=== PATIENT | female | born 1960 | race Caucasian/White ===

== ENCOUNTER → 2018-05-10 11:57 | Outpatient (CLI) | payer MEDICARE, SELFPAY ==
--- NOTE | 2018-05-10 12:00 | CT_ITS ---
STUDY: LOW DOSE CT LUNG CANCER SCREENING REASON FOR EXAM: Female, 57 years old. Vacuo used, 44 pack-year history. Screening. RADIATION DOSAGE (If Supplied By Facility): CTDIvol = ( 2.01 ) mGy, DLP = ( 65.45 ) mGycm TECHNIQUE: No contrast was administered. Low dose technique was utilized (average mAS-38 and kVp 120). 1.25 mm axial source images with a slice interval of 1.25-mm were reconstructed in lung windows. Nodule measured using lung windows on PACS and/or independent workstation with automated measurement of minimum and maximum diameter. Nodule measurement reported as average diameter rounded to the nearest whole number. Growth is defined as an increase ins size of greater than 1.5 mm. COMPARISON: None. FINDINGS: Total lung nodules (excluding granulomas): Punctate pole nodule left lower lobe series 2 image 186. Punctate pulmonary nodule left lower lobe image 150. Punctate pulmonary nodule right upper lobe image 73. Next line each of these pulmonary nodules appears to be solid and measures less than 2 mm. The lungs are otherwise clear. Emphysema: Generalized pulmonary hyperlucency with features of mild centrilobular emphysema at the apices. Endobronchial lesion: No endobronchial lesions. Aorta: Nondilated aorta, minimal arch atherosclerosis. Coronary arteries: Three-vessel coronary calcifications, moderate in the proximal to mid LAD, moderate in the proximal circumflex, mild in the proximal to mid RCA. Heart: Normal heart size without effusion. Pulmonary artery: Nondilated central pulmonary arteries. Mediastinal nodes: Normal esophagus. There is no mediastinal or hilar mass or lymphadenopathy. Other chest and abdominal findings: No other acute cardio thoracic abnormalities. CT/Low Dose CT Lung Screening IMPRESSION: Punctate nonspecific pulmonary nodules bilaterally. Lung RADS category 2, benign appearance, less than 1% chance of malignancy. Recommend annual low dose screening CT of the chest for continued surveillance. Mild features of emphysema. Three-vessel coronary atherosclerosis. IMPORTANT NOTES FOR USE: ACR Lung-RADS Version 1.0 Assessment Categories Release Date: January 29, 2014 Category: Coded 0-4 bases on nodule(s) with highest degree of suspicion. Negative screen is defined as categories 1 and 2; a positive screen is defined as categories 3 and 4. Category 3 and 4A nodules that are unchanged on interval CT should be coded as category 2, and individuals returned to screening in 12 months. Category 4X: Category 3 or 4 nodules with additional imaging findings that increase the suspicion of lung cancer, such as spiculation, GGN that doubles in size in 1 year, enlarged lymph notes, etc. Category Modifiers: S (significant finding unrelated to lung cancer) and C (prior history of treated lung cancer) may be added to the 0-4 Lung-RADS Electronically Signed: Harry West, at 12:59 EDT Tel , Service support ,
== END ==
PROVIDERS: Family Provider Family Medicine Geriatric Medicine; PCP Family Medicine Geriatric Medicine; Visit Provider Family Medicine Geriatric Medicine
DX: Z87.891 Personal history of nicotine dependence (principal)
CPT/HCPCS: G0297

== ENCOUNTER → 2018-05-11 13:00 | Outpatient (CLI) | payer MEDICARE, SELFPAY ==
--- NOTE | 2018-05-11 13:01 | BI_ITS ---
MAMMOGRAPHY - BILATERAL SCREENING 3-D DENILSON SYNTHESIS REASON FOR EXAM: Female, 57 years old. Bilateral Screening 3-D tomosynthesis PERTINENT HISTORY: Asymptomatic. Right stereotactic biopsy 2014, negative. No significant family history. TECHNIQUE: 2-D mammograms and 3-D Denilson synthesis of the breast (s) were performed. CAD was performed. COMPARISON: 07/30/2015, 04/05/2014. FINDINGS: The breast composition is composed of scattered fibroglandular density. No new asymmetric density, dominant mass, dense spiculated masses, abnormal clustered microcalcifications, architectural distortion, skin thickening or nipple retraction identified. Coarse benign-appearing calcifications. Postsurgical right breast. No new abnormality identified with tomosynthesis. There has been no significant change since the prior study. BI/SCREENING MAMM (CAD), BILAT IMPRESSION: No mammographic signs of malignancy. Routine yearly mammograms recommended. ASSESSMENT CATEGORY: BIRADS Category 2: Benign. A letter regarding these results will be sent to the patient by the facility within 30 days. FOLLOW UP RECOMMENDATION: Yearly follow up mammogram recommended. (A) Negative results should not deter biopsy as a palpable lesion should be followed on clinical grounds and biopsy performed if clinically persistent for 3 months or increasing size. Approximately 10% of breast cancers are not detected by mammography. A normal mammogram should not delay biopsy of a clinically suspicious abnormality. . Electronically Signed: Sriram Nieto, at 21:53 EDT Tel , Service support ,
== END ==
PROVIDERS: Family Provider Family Medicine Geriatric Medicine; PCP Family Medicine Geriatric Medicine; Visit Provider Family Medicine Geriatric Medicine
DX: Z12.31 Encounter for screening mammogram for malignant neoplasm of breast (principal)
CPT/HCPCS: 77063; 77067

== ENCOUNTER → 2018-09-29 13:05 | Outpatient (CLI) | payer MEDICARE, SELFPAY ==
[2018-09-29 17:07] LABS: Absolute Lymphocyte Count 2.53 X10^3/ul (0.83-4.51); Absolute Neutrophil Count 1.9 X10^3/uL (2.0-7.7); Basophil# 0.02 X10^3/uL; Basophil% 0.4 % (0-1); Eosinophil# 0.03 X10^3/uL; Eosinophils% 0.5 % (0-5); Hematocrit 42.7 % (37-47); Hemoglobin 14.4 g/dl (12.0-15.0); Lymphocyte # 2.53 X10^3/ul (4.0); Lymphocyte % 46.2 % (19-41); Mean Corp Hgb Conc 33.7 g/gl (32-36); Mean Corpuscular Hgb 35.5 pg (27.0-32.0); Mean Corpuscular Volume 105.2 fL (81-99); Monocyte# 0.96 X10^3/uL; Monocyte% 17.5 % (0-10); Neutrophil # 1.92 X10^3/uL (2.7-7.7); Platelet Count 187 K/mm3 (150-450); RBC Distribution Width CV 12.3 % (11.6-14.6); RBC Distribution Width SD 46.8 fl (35.1-43.9); Red Blood Count 4.06 M/mm3 (4.2-5.4); White Blood Count 5.5 K/mm3 (4.4-11.0)
[2018-09-29 17:20] LABS: Vitamin D,25 Hydroxy 19.3 ng/mL (29.95-100.01)
[2018-09-29 17:21] LABS: POSITIVE COUNT NO; POSITIVE DIFFERENTIAL NO; POSITIVE MORPHOLOGY NO
[2018-09-29 17:28] LABS: AST(SGOT) 23 U/L (15-37); Alanine Aminotransfer ALT/SGPT 27 U/L (13-56); Albumin, Serum 3.2 g/dL (3.2-5.0); Alkaline Phosphatase 55 U/L (45-117); Anion Gap 8 (5-15); BUN 12 mg/dL (7-18); BUN/Creat Ratio 20.4 RATIO (10-20); Calcium,Total 8.4 mg/dL (8.5-10.1); Chloride 110 mmol/L (98-107); Cholesterol 187 mg/dL (200); Creatinine, Serum 0.59 mg/dL (0.55-1.02); EST Glomerular Filtration Rate 112 mL/min (>60); Est Glom Filt Rate - Afr Amer 135 mL/min (>60); Globulin 3.3 g/dL (2.2-4.2); Glucose 74 mg/dL (74-106); High Density Lipoprotein 70 mg/dL; Potassium 4.2 mmol/L (3.5-5.1); Protein, Total 6.5 g/dL (6.4-8.2); Sodium Level 141 mmol/L (136-145); Thyroid Stim Hormone (TSH) 0.52 uIU/mL (0.358-3.74); Triglycerides 84 mg/dL; Very Low Density Lipoprotein 17 mg/dL (5-40)
== END ==
LOC: POLAB3 13:06
PROVIDERS: Family Provider Family Medicine Geriatric Medicine; PCP Family Medicine Geriatric Medicine; Visit Provider Family Medicine Geriatric Medicine
DX: E55.9 Vitamin D deficiency, unspecified (principal); R53.83 Other fatigue; E78.5 Hyperlipidemia, unspecified
CPT/HCPCS: 36415; 80053; 80061; 82306; 84443; 85025

== ENCOUNTER → 2019-01-23 12:19 | Outpatient (CLI) | payer MEDICARE, SELFPAY ==
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
== END ==
LOC: RAD 12:22
PROVIDERS: Family Provider Family Medicine Geriatric Medicine; PCP Family Medicine Geriatric Medicine; Referring Provider Family Medicine Geriatric Medicine; Visit Provider Family Medicine Geriatric Medicine
DX: M54.5 Low back pain (principal)
CPT/HCPCS: 72100

== ENCOUNTER → 2019-03-30 13:28 | Outpatient (CLI) | payer MEDICARE, SELFPAY ==
[2019-03-30 17:23] LABS: Absolute Lymphocyte Count 2.66 X10^3/ul (0.83-4.51); Absolute Neutrophil Count 2.7 X10^3/uL (2.0-7.7); Basophil# 0.02 X10^3/uL; Basophil% 0.3 % (0-1); Eosinophil# 0.02 X10^3/uL; Eosinophils% 0.3 % (0-5); Hemoglobin 14.7 g/dl (12.0-15.0); Lymphocyte # 2.66 X10^3/ul (4.0); Lymphocyte % 42.2 % (19-41); Mean Corp Hgb Conc 34.2 g/gl (32-36); Mean Corpuscular Hgb 35.5 pg (27.0-32.0); Mean Corpuscular Volume 103.9 fL (81-99); Mean Platelet Vol. 11.3 fl (6.2-12.0); Monocyte# 0.88 X10^3/uL; Neutrophil % 42.9 % (47-70); Platelet Count 149 K/mm3 (150-450); RBC Distribution Width CV 13.3 % (11.6-14.6); RBC Distribution Width SD 50.3 fl (35.1-43.9); Red Blood Count 4.14 M/mm3 (4.2-5.4); White Blood Count 6.3 K/mm3 (4.4-11.0)
[2019-03-30 17:25] LABS: POSITIVE COUNT NO; POSITIVE DIFFERENTIAL NO; POSITIVE MORPHOLOGY NO
[2019-03-30 17:41] LABS: AST(SGOT) 30 U/L (15-37); Alanine Aminotransfer ALT/SGPT 44 U/L (13-56); Albumin, Serum 3.3 g/dL (3.2-5.0); Alkaline Phosphatase 52 U/L (45-117); Anion Gap 10 (5-15); BUN 16 mg/dL (7-18); BUN/Creat Ratio 20.3 RATIO (10-20); Calcium,Total 8.7 mg/dL (8.5-10.1); Chloride 107 mmol/L (98-107); Cholesterol 180 mg/dL (200); Creatinine, Serum 0.79 mg/dL (0.55-1.02); EST Glomerular Filtration Rate 79 mL/min (>60); Est Glom Filt Rate - Afr Amer 96 mL/min (>60); Globulin 3.3 g/dL (2.2-4.2); Glucose 122 mg/dL (74-106); High Density Lipoprotein 89 mg/dL; Potassium 4.3 mmol/L (3.5-5.1); Protein, Total 6.6 g/dL (6.4-8.2); Sodium Level 141 mmol/L (136-145); Thyroid Stim Hormone (TSH) 1.02 uIU/mL (0.358-3.74); Triglycerides 69 mg/dL; Very Low Density Lipoprotein 14 mg/dL (5-40)
[2019-03-30 17:57] LABS: Vitamin D,25 Hydroxy 26.2 ng/mL (29.95-100.01)
== END ==
LOC: POLAB3 13:29
PROVIDERS: Family Provider Family Medicine Geriatric Medicine; PCP Family Medicine Geriatric Medicine; Visit Provider Family Medicine Geriatric Medicine
DX: E78.5 Hyperlipidemia, unspecified (principal); E55.9 Vitamin D deficiency, unspecified; R53.83 Other fatigue
CPT/HCPCS: 36415; 80053; 80061; 82306; 84443; 85025

== ENCOUNTER → 2019-09-28 17:06 | Outpatient (CLI) | payer MEDICARE, SELFPAY ==
[2019-06-26 13:49] VITALS: BMI 24.2
== END ==
PROVIDERS: Family Provider Family Medicine Geriatric Medicine; PCP Family Medicine Geriatric Medicine; Referring Provider Family Medicine Geriatric Medicine; Visit Provider Family Medicine Geriatric Medicine
DX: R68.83 Chills (without fever) (principal)
CPT/HCPCS: 87633

== ENCOUNTER → 2019-10-09 15:17 | Outpatient (CLI) | payer MEDICARE, SELFPAY ==
[2019-06-26 13:49] VITALS: BMI 24.2
[2019-10-09 18:06] LABS: Absolute Lymphocyte Count 3.97 X10^3/uL (0.83-4.51); Basophil# 0.05 X10^3/uL; Basophil% 0.6 % (0-1); Eosinophil# 0.04 X10^3/uL; Eosinophils% 0.5 % (0-5); Hematocrit 42.3 % (37-47); Hemoglobin 14.2 g/dL (12.0-15.0); Lymphocyte # 3.97 X10^3/ul (4.0); Lymphocyte % 47.1 % (19-41); Mean Corp Hgb Conc 33.6 g/dL (32-36); Mean Corpuscular Hgb 35.9 pg (27.0-32.0); Mean Corpuscular Volume 107.1 fL (81-99); Monocyte# 1.29 X10^3/uL; Monocyte% 15.3 % (0-10); NRBC Flagged by Analyzer 0 % (0-5); Neutrophil # 3.03 X10^3/uL (2.7-7.7); Neutrophil % 35.9 % (47-70); Platelet Count 137 K/mm3 (150-450); RBC Distribution Width CV 13.2 % (11.6-14.6); RBC Distribution Width SD 52.7 fl (35.1-43.9); Red Blood Count 3.95 M/mm3 (4.2-5.4); White Blood Count 8.4 K/mm3 (4.4-11.0)
[2019-10-09 18:07] LABS: Vitamin D,25 Hydroxy 30.1 ng/mL (29.95-100.01)
[2019-10-09 18:12] LABS: ALB/GLOB Ratio 0.9 RATIO (0.9-2.4); AST(SGOT) 18 U/L (15-37); Alanine Aminotransfer ALT/SGPT 28 U/L (13-56); Albumin, Serum 3.1 g/dL (3.2-5.0); Alkaline Phosphatase 52 U/L (45-117); Anion Gap 7 (5-15); BUN 24 mg/dL (7-18); BUN/Creat Ratio 37.7 RATIO (10-20); Calcium,Total 8.5 mg/dL (8.5-10.1); Chloride 102 mmol/L (98-107); Cholesterol 215 mg/dL (200); Creatinine, Serum 0.64 mg/dL (0.55-1.02); EST Glomerular Filtration Rate 101 mL/min (>60); Est Glom Filt Rate - Afr Amer 123 mL/min (>60); Globulin 3.5 g/dL (2.2-4.2); Glucose 75 mg/dL (74-106); High Density Lipoprotein 85 mg/dL; Potassium 4.1 mmol/L (3.5-5.1); Protein, Total 6.6 g/dL (6.4-8.2); Sodium Level 135 mmol/L (136-145); Thyroid Stim Hormone (TSH) 1.64 uIU/mL (0.358-3.74); Triglycerides 97 mg/dL; Very Low Density Lipoprotein 19 mg/dL (5-40)
== END ==
PROVIDERS: Family Provider Family Medicine Geriatric Medicine; PCP Family Medicine Geriatric Medicine; Visit Provider Family Medicine Geriatric Medicine
DX: E55.9 Vitamin D deficiency, unspecified (principal); E78.5 Hyperlipidemia, unspecified; R53.83 Other fatigue
CPT/HCPCS: 36415; 80053; 80061; 82306; 84443; 85025

== ENCOUNTER → 2019-10-10 14:55 | Outpatient (CLI) | payer MEDICARE, SELFPAY ==
[2019-06-26 13:49] VITALS: BMI 24.2
--- NOTE | 2019-10-10 15:00 | CT_ITS ---
HISTORY: LUNG CANCER SCREENING, CT=[id number], 50 pack-year smoking history EXAMINATION: CT Low Dose CT Chest for Lung Cancer Screening TECHNIQUE: Helically acquired images were obtained of the chest utilizing low dose technique. A radiation dose optimization technique was used for this scan. IV Contrast dosage and agent: None. COMPARISON: 05/10/2018 FINDINGS: No significant change. Lungs and pleura: Bilateral centrilobular emphysema with upper lobe predominance. No pulmonary nodule or new lesion. No focal infiltrate. No pleural effusion or significant pleural disease. Peripheral right lung base mild linear scarring or minor atelectasis. Heart, mediastinum, and great vessels: Atherosclerotic thoracic aorta which is normal in caliber. Coronary artery calcifications. Normal heart size. No pericardial effusion. No lymphadenopathy. Bones: No acute osseous abnormality. No suspicious bony lesion. Upper abdomen: No acute disease. CT/Low Dose CT Lung Screening IMPRESSION: 1. No acute disease or suspicious lesion. 2. Chronic lung disease with emphysema. Recommend continued surveillance with annual low-dose CT screening. 3. Atherosclerotic calcifications including coronary artery calcifications. Lung RADS: Category 1: Negative Individualized dose optimization techniques were used for this CT. at 0312 Reported and signed by: Davin Hawkins MD Electronically Signed: Davin Hawkins, at 3:11 EST Tel , Service support ,
== END ==
PROVIDERS: Family Provider Family Medicine Geriatric Medicine; PCP Family Medicine Geriatric Medicine; Referring Provider Family Medicine Geriatric Medicine; Visit Provider Family Medicine Geriatric Medicine
DX: Z12.2 Encounter for screening for malignant neoplasm of respiratory organs (principal); Z87.891 Personal history of nicotine dependence; J43.9 Emphysema, unspecified; I25.10 Atherosclerotic heart disease of native coronary artery without angina pectoris
CPT/HCPCS: G0297

== ENCOUNTER → 2020-04-10 14:54 | Outpatient (CLI) | payer MEDICARE, SELFPAY ==
[2019-06-26 13:49] VITALS: BMI 24.2
[2020-04-10 16:10] LABS: Absolute Lymphocyte Count 3.32 X10^3/uL (0.83-4.51); Absolute Neutrophil Count 1.8 X10^3/uL (2.0-7.7); Basophil# 0.03 X10^3/uL; Basophil% 0.5 % (0-1); Eosinophil# 0.01 X10^3/uL; Eosinophils% 0.2 % (0-5); Hematocrit 42.1 % (37-47); Hemoglobin 14.2 g/dL (12.0-15.0); Lymphocyte # 3.32 X10^3/ul (4.0); Lymphocyte % 54.5 % (19-41); Mean Corp Hgb Conc 33.7 g/dL (32-36); Mean Corpuscular Hgb 35.4 pg (27.0-32.0); Mean Platelet Vol. 11.5 fl (6.2-12.0); Monocyte# 0.89 X10^3/uL; Monocyte% 14.6 % (0-10); NRBC Flagged by Analyzer 0 % (0-5); Neutrophil # 1.82 X10^3/uL (2.7-7.7); Neutrophil % 29.9 % (47-70); Platelet Count 164 K/mm3 (150-450); RBC Distribution Width SD 46.5 fl (35.1-43.9); Red Blood Count 4.01 M/mm3 (4.2-5.4); White Blood Count 6.1 K/mm3 (4.4-11.0)
[2020-04-10 16:29] LABS: Vitamin D,25 Hydroxy 28.4 ng/mL
[2020-04-10 17:06] LABS: ALB/GLOB Ratio 0.9 RATIO (0.9-2.4); AST(SGOT) 17 U/L (15-37); Alanine Aminotransfer ALT/SGPT 23 U/L (13-56); Albumin, Serum 3.1 g/dL (3.2-5.0); Alkaline Phosphatase 62 U/L (45-117); Anion Gap 6 (5-15); BUN 27 mg/dL (7-18); BUN/Creat Ratio 42.5 RATIO (10-20); Calcium,Total 8.4 mg/dL (8.5-10.1); Chloride 102 mmol/L (98-107); Cholesterol 195 mg/dL (200); Creatinine, Serum 0.64 mg/dL (0.55-1.02); EST Glomerular Filtration Rate 101 mL/min (>60); Est Glom Filt Rate - Afr Amer 123 mL/min (>60); Globulin 3.6 g/dL (2.2-4.2); Glucose 79 mg/dL (74-106); High Density Lipoprotein 72 mg/dL; Potassium 4.5 mmol/L (3.5-5.1); Protein, Total 6.7 g/dL (6.4-8.2); Sodium Level 136 mmol/L (136-145); Thyroid Stim Hormone (TSH) 2.06 uIU/mL (0.358-3.74); Triglycerides 123 mg/dL; Very Low Density Lipoprotein 25 mg/dL (5-40)
== END ==
LOC: POLAB3 14:54
PROVIDERS: PCP Family Medicine Geriatric Medicine; Visit Provider Family Medicine Geriatric Medicine
DX: E55.9 Vitamin D deficiency, unspecified (principal); E78.5 Hyperlipidemia, unspecified; R53.83 Other fatigue
CPT/HCPCS: 36415; 80053; 80061; 82306; 84443; 85025

== ENCOUNTER → 2021-02-12 08:55 | Outpatient (CLI) | payer MEDICARE, SELFPAY ==
--- NOTE | 2021-02-12 09:01 | US_ITS ---
STUDY: ULTRASOUND BREAST - RIGHT REASON FOR EXAM: Female, 60 years old. Right breast lump adjacent to the nipple. TECHNIQUE: Axial and longitudinal images of the RIGHT breast were performed with a high resolution ultrasound transducer. # OF IMAGES: 16 COMPARISON: Comparison is made with prior mammogram done earlier in the day. FINDINGS: RIGHT Breast: The periareolar region was examined by ultrasound. No sonographic abnormality is seen. US/Breast Limited Unilateral IMPRESSION: No sonographic abnormality is seen. ASSESSMENT CATEGORY: BIRADS Category 1: Negative. A letter regarding these results will be sent to the patient by the facility within 30 days. Electronically Signed: Luis F Ruelas MD at 10:54 EDT , Service support ,
--- NOTE | 2021-02-12 09:01 | BI_ITS ---
MAMMOGRAPHY - BILATERAL DIAGNOSTIC REASON FOR EXAM: Female, 60 years old. Pea-sized lump adjacent to the right nipple. Occasional tenderness. PERTINENT HISTORY: Prior right stereotactic and needle biopsy of the right breast. TECHNIQUE: Digital bilateral breast yuliet (3D mammographic acquisition) in the CC and MLO projections. 2-D mediolateral oblique (MLO) and craniocaudad (CC) views of both breasts were obtained. CAD: Full Field Digital Mammography with Computer Added Detection was performed. COMPARISON: Comparison is made with prior study dated 05/11/2018. FINDINGS: Breast Composition: The breasts are heterogeneously dense, which may obscure small masses. There are no dominant masses or suspicious calcifications. Tissue clip marker is once again seen in the upper deep lateral portion of the right breast. A tissue clip marker is also seen within a partially calcified nodule in the deep inferior medial portion of the right breast. Calcifications are progressed in this nodule since prior study suggestive of a calcifying fibroadenoma. No other significant abnormalities are identified. There has been no significant change since the prior study. BI/DIAG MAMM W/CAD, BILAT IMPRESSION: Stable bilateral diagnostic mammogram. With the patient''s history of a palpable lump in the region of the right alveolar, correlation with ultrasound is recommended. ASSESSMENT CATEGORY: BIRADS Category 0: Incomplete. Need additional imaging evaluation. A letter regarding these results will be sent to the patient by the facility within 30 days. Approximately 10% of breast cancers are not detected by mammography. A normal mammogram should not delay biopsy of a clinically suspicious abnormality. Electronically Signed: Luis F Ruelas MD at 9:53 EDT , Service support ,
== END ==
PROVIDERS: PCP Family Medicine Geriatric Medicine; Referring Provider Family Medicine Geriatric Medicine; Visit Provider Family Medicine Geriatric Medicine
DX: N63.10 Unspecified lump in the right breast, unspecified quadrant (principal); R92.8 Other abnormal and inconclusive findings on diagnostic imaging of breast
CPT/HCPCS: 76642; 77062; 77066; G0279

== ENCOUNTER → 2021-04-14 13:08 | Outpatient (CLI) | payer MEDICARE, SELFPAY ==
[2021-04-14 15:20] LABS: Absolute Lymphocyte Count 3.89 X10^3/uL (0.83-4.51); Absolute Neutrophil Count 1.6 X10^3/uL (2.0-7.7); Basophil# 0.04 X10^3/uL; Basophil% 0.6 % (0-1); Eosinophil# 0.02 X10^3/uL; Eosinophils% 0.3 % (0-5); Hematocrit 39.5 % (37-47); Hemoglobin 13.5 g/dL (12.0-15.0); Lymphocyte # 3.89 X10^3/ul (0.83-4.51); Lymphocyte % 59.8 % (19-41); Mean Corp Hgb Conc 34.2 g/dL (32-36); Mean Corpuscular Hgb 34.8 pg (27.0-32.0); Mean Corpuscular Volume 101.8 fL (81-99); Mean Platelet Vol. 11.5 fl (6.2-12.0); Monocyte# 0.95 X10^3/uL; Monocyte% 14.6 % (0-10); NRBC Flagged by Analyzer 0 % (0-5); Neutrophil # 1.59 X10^3/uL (2.7-7.7); Neutrophil % 24.5 % (47-70); Platelet Count 162 K/mm3 (150-450); RBC Distribution Width CV 12.9 % (11.6-14.6); RBC Distribution Width SD 48.2 fl (35.1-43.9); Red Blood Count 3.88 M/mm3 (4.2-5.4); White Blood Count 6.5 K/mm3 (4.4-11.0)
[2021-04-14 15:41] LABS: ALB/GLOB Ratio 0.9 RATIO (0.9-2.4); AST(SGOT) 21 U/L (15-37); Alanine Aminotransfer ALT/SGPT 22 U/L (13-56); Albumin, Serum 3.1 g/dL (3.2-5.0); Alkaline Phosphatase 52 U/L (45-117); Anion Gap 8 (5-15); BUN 21 mg/dL (7-18); BUN/Creat Ratio 37.7 RATIO (10-20); Calcium,Total 8.7 mg/dL (8.5-10.1); Chloride 107 mmol/L (98-107); Creatinine, Serum 0.56 mg/dL (0.55-1.02); EST Glomerular Filtration Rate 118 mL/min (>60); Est Glom Filt Rate - Afr Amer 143 mL/min (>60); Globulin 3.3 g/dL (2.2-4.2); Glucose 79 mg/dL (74-106); Potassium 4.2 mmol/L (3.5-5.1); Protein, Total 6.4 g/dL (6.4-8.2); Sodium Level 140 mmol/L (136-145); Thyroid Stim Hormone (TSH) 1.58 uIU/mL (0.358-3.74)
[2021-04-14 15:49] LABS: Vitamin D,25 Hydroxy 26.2 ng/mL
== END ==
PROVIDERS: PCP Family Medicine Geriatric Medicine; Visit Provider Family Medicine Geriatric Medicine
DX: E55.9 Vitamin D deficiency, unspecified (principal); E78.5 Hyperlipidemia, unspecified; R53.83 Other fatigue
CPT/HCPCS: 36415; 80053; 82306; 84443; 85025

== ENCOUNTER → 2021-07-11 11:00 | Outpatient (CLI) | payer MEDICARE, MEDICAID, SELFPAY ==
[2021-07-12 12:29] LABS: Probe Check PASS; Specimen Processing Control PASS
== END ==
PROVIDERS: PCP Family Medicine Geriatric Medicine; Visit Provider Family Medicine Geriatric Medicine
DX: U07.1 COVID-19 (principal)
CPT/HCPCS: 87635; 87804; 87807; U0005; U0003

== ENCOUNTER → 2022-02-12 | Outpatient (CLI) | payer MEDICARE, MEDICAID, SELFPAY ==
[2022-02-12 16:41] LABS: Absolute Lymphocyte Count 3.03 X10^3/uL (0.83-4.51); Absolute Neutrophil Count 2.1 X10^3/uL (2.0-7.7); Basophil# 0.02 X10^3/uL; Basophil% 0.3 % (0-1); Eosinophil# 0.02 X10^3/uL; Eosinophils% 0.3 % (0-5); Hematocrit 39.1 % (37-47); Hemoglobin 14.1 g/dL (12.0-15.0); Lymphocyte # 3.03 X10^3/ul (0.83-4.51); Lymphocyte % 50.8 % (19-41); Mean Corp Hgb Conc 36.1 g/dL (32-36); Mean Corpuscular Hgb 35.3 pg (27.0-32.0); Mean Platelet Vol. 11.6 fl (6.2-12.0); Monocyte# 0.75 X10^3/uL; Monocyte% 12.6 % (0-10); NRBC Flagged by Analyzer 0 % (0-5); Neutrophil # 2.12 X10^3/uL (2.7-7.7); Neutrophil % 35.5 % (47-70); Platelet Count 134 K/mm3 (150-450); RBC Distribution Width CV 11.8 % (11.6-14.6); RBC Distribution Width SD 42.7 fl (35.1-43.9); Red Blood Count 3.99 M/mm3 (4.2-5.4)
[2022-02-12 17:00] LABS: Vitamin D,25 Hydroxy 31.8 ng/mL
[2022-02-12 17:19] LABS: ALB/GLOB Ratio 0.9 RATIO (0.9-2.4); AST(SGOT) 17 U/L (15-37); Alanine Aminotransfer ALT/SGPT 19 U/L (13-56); Albumin, Serum 3.2 g/dL (3.2-5.0); Alkaline Phosphatase 49 U/L (45-117); Anion Gap 9 (5-15); BUN 21 mg/dL (7-18); BUN/Creat Ratio 33.7 RATIO (10-20); Calcium,Total 8.9 mg/dL (8.5-10.1); Chloride 100 mmol/L (98-107); Creatinine, Serum 0.62 mg/dL (0.55-1.02); EST Glomerular Filtration Rate 103 mL/min (>60); Est Glom Filt Rate - Afr Amer 125 mL/min (>60); Globulin 3.4 g/dL (2.2-4.2); Glucose 146 mg/dL (74-106); Protein, Total 6.6 g/dL (6.4-8.2); Sodium Level 134 mmol/L (136-145); Thyroid Stim Hormone (TSH) 1.02 uIU/mL (0.358-3.74)
== END | disposition home or self-care (01) ==
LOC: POLAB3 15:29
PROVIDERS: PCP Family Medicine Geriatric Medicine; Visit Provider Family Medicine Geriatric Medicine
DX: E55.9 Vitamin D deficiency, unspecified (principal); R53.83 Other fatigue; R73.9 Hyperglycemia, unspecified
CPT/HCPCS: 36415; 80053; 82306; 83036; 84443; 85025

== ENCOUNTER → 2022-02-12 | Outpatient (CLI) | payer MEDICARE, MEDICAID, SELFPAY ==
--- NOTE | 2022-02-12 16:50 | RAD_ITS ---
STUDY: X-RAY - LUMBAR SPINE REASON FOR EXAM: Female, 61 years old. LOW BACK PAIN TECHNIQUE: view(s) of the lumbar spine were obtained. COMPARISON: None FINDINGS: Normal lumbar lordosis. There is no substantial scoliosis. There is a normal alignment of the vertebrae. Normal vertebral bodies and endplates. There is narrowing of the disc height at L5-S1. The soft tissue structures are unremarkable. RAD/Lumbar Spine 2 or 3 Views IMPRESSION: There is narrowing of the disc height at L5-S1. Electronically Signed: Reggie Ford MD at 23:25 EDT ,
--- NOTE | 2022-02-12 16:50 | RAD_ITS ---
STUDY: X-RAY - UNILATERAL RIBS ( RIGHT ) WITH CHEST REASON FOR EXAM: Female, 61 years old. Fall 4 days ago. Right posterior rib pain. TECHNIQUE - RIBS: 2 view(s) of the ribs. TECHNIQUE - CHEST: Single PA view of the chest. COMPARISON: CT of the chest, 10/10/2019. FINDINGS - RIBS: Normal visualized ribs without a demonstrated fracture. FINDINGS - CHEST: The lungs are mildly hyperexpanded. No focal mass or infiltrate. There is no demonstrated pleural abnormality. Normal size heart. Normal mediastinum and marietta. Normal visualized pulmonary arteries. There is atherosclerotic calcification of the aortic arch with tortuosity. There are diffuse degenerative changes of the visualized thoracic spine. Normal visualized ribs, clavicles, and shoulders. There is no demonstrated abnormality of the visualized soft tissue structures of the upper abdomen. RAD/Ribs Uni Min 3V w/PA Chest IMPRESSION: RIBS: Normal x-ray examination of the ribs. CHEST: No acute cardiopulmonary disease. Electronically Signed: Chase De La Garza DO at 23:52 EDT ,
== END | disposition home or self-care (01) ==
LOC: RAD 16:44
PROVIDERS: PCP Family Medicine Geriatric Medicine; Visit Provider Family Medicine Geriatric Medicine
DX: R07.89 Other chest pain (principal); M54.50 Low back pain, unspecified
CPT/HCPCS: 71101; 72100

== ENCOUNTER → 2022-09-04 | Outpatient (CLI) | payer MEDICARE, MEDICAID, SELFPAY ==
[2022-09-04 13:01] LABS: Absolute Lymphocyte Count 2.33 X10^3/uL (0.83-4.51); Absolute Neutrophil Count 2.4 X10^3/uL (2.0-7.7); Basophil# 0.03 X10^3/uL; Basophil% 0.5 % (0-1); Eosinophil# 0.04 X10^3/uL; Eosinophils% 0.7 % (0-5); Hematocrit 40.7 % (37-47); Lymphocyte # 2.33 X10^3/ul (0.83-4.51); Lymphocyte % 39.4 % (19-41); Mean Corp Hgb Conc 34.4 g/dL (32-36); Mean Corpuscular Hgb 35.5 pg (27.0-32.0); Mean Corpuscular Volume 103.3 fL (81-99); Mean Platelet Vol. 11.6 fl (6.2-12.0); Monocyte# 1.05 X10^3/uL; Monocyte% 17.7 % (0-10); NRBC Flagged by Analyzer 0 % (0-5); Neutrophil # 2.44 X10^3/uL (2.7-7.7); Neutrophil % 41.2 % (47-70); Platelet Count 150 K/mm3 (150-450); RBC Distribution Width CV 11.9 % (11.6-14.6); RBC Distribution Width SD 45.6 fl (35.1-43.9); Red Blood Count 3.94 M/mm3 (4.2-5.4); White Blood Count 5.9 K/mm3 (4.4-11.0)
[2022-09-04 13:15] LABS: Vitamin D,25 Hydroxy 24.9 ng/mL
[2022-09-04 13:47] LABS: ALB/GLOB Ratio 0.9 RATIO (0.9-2.4); AST(SGOT) 10 U/L (15-37); Alanine Aminotransfer ALT/SGPT 16 U/L (13-56); Albumin, Serum 3.2 g/dL (3.2-5.0); Alkaline Phosphatase 71 U/L (45-117); Anion Gap 7 (5-15); BUN 17 mg/dL (7-18); BUN/Creat Ratio 37.7 RATIO (10-20); Calcium,Total 8.7 mg/dL (8.5-10.1); Chloride 100 mmol/L (98-107); Creatinine, Serum 0.45 mg/dL (0.55-1.02); EST Glomerular Filtration Rate 150 mL/min (>60); Est Glom Filt Rate - Afr Amer 181 mL/min (>60); Globulin 3.4 g/dL (2.2-4.2); Glucose 98 mg/dL (74-106); Potassium 3.4 mmol/L (3.5-5.1); Protein, Total 6.6 g/dL (6.4-8.2); Sodium Level 136 mmol/L (136-145)
== END | disposition home or self-care (01) ==
PROVIDERS: PCP Family Medicine Geriatric Medicine; Visit Provider Family Medicine Geriatric Medicine
DX: R53.83 Other fatigue (principal); E55.9 Vitamin D deficiency, unspecified
CPT/HCPCS: 36415; 80053; 82306; 84443; 85025

== ENCOUNTER 2022-12-04 11:00 | Outpatient (RCR) | payer MEDICARE, MEDICAID, SELFPAY ==
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
--- NOTE | 2023-04-08 11:33 | HP.PTDCNRP_ITS ---
Patient Information Patient Information: NARDA WATSON was seen in my office for initial evaluation on 11/20/22. The following Plan of Care was established for this patient: POC Established Initial Frequency: 2-3x /Week Initial Duration: 4-6 Weeks Anticipated Interventions Patient/Client Instruction: Educate patient on: Condition and Plan of Care For the Purpose of:: To improve self management Therapeutic Exercise to Include: Strength training, Endurance training, Body mechanics, Postural training, Flexibilty training and Dynamic Lumbar Stabilizat ion For the Purpose of:: To decrease pain, To increase ROM and To improve muscle performance and motor function Thermo therapy (hot pack): Yes For the Purpose of:: To decrease pain Last Seen Last Seen: This patient was last seen in our office . Pertinent comments regarding their Physical therapy will appear below: Pt was treated for 4 PT visits for LBP through the date of 12/04/22. Pt has not returned through todays date and is discontinued at this time. At this point I will be discontinuing this patient from physical therapy. I would be happy to see this patient again in the future if found appropriate by the physician. Thank you! Hiro Aceves, PT, ATC Balance/Gait/Functional tests Balance/Special Test Scores Oswestry Low Back Score: 7
== END 2022-12-04 19:00 | disposition home or self-care (01) ==
LOC: PT 11:00
PROVIDERS: PCP Family Medicine Geriatric Medicine; Referring Provider Anesthesiology Pain Medicine; Visit Provider Anesthesiology Pain Medicine
DX: M54.9 Dorsalgia, unspecified (principal)
CPT/HCPCS: 97110; 97161

== ENCOUNTER → 2023-01-15 | Outpatient (CLI) | payer MEDICARE, MEDICAID, SELFPAY ==
--- NOTE | 2023-01-15 09:55 | RAD_ITS ---
STUDY: X-RAY CHEST REASON FOR EXAM: Female, 62 years old. Wheezing. TECHNIQUE: Frontal and lateral views of the chest. COMPARISON: February 12, 2022. FINDINGS: Stable hyperinflation. There is no demonstrated pleural abnormality. Normal size heart. Normal mediastinum and marietta. Normal visualized pulmonary arteries. Aortic tortuosity unchanged. Mild thoracic spondylosis unchanged. Normal visualized ribs, clavicles, and shoulders. There is no demonstrated abnormality of the visualized soft tissue structures of the upper abdomen. RAD/Chest PA and Lateral IMPRESSION: Stable hyperinflation with no acute or active cardiopulmonary disease. Electronically Signed: Sidney Gil, at 10:34 EDT ,
== END | disposition home or self-care (01) ==
PROVIDERS: PCP Family Medicine Geriatric Medicine; Referring Provider Family Medicine Geriatric Medicine; Visit Provider Family Medicine Geriatric Medicine
DX: R06.2 Wheezing (principal); R68.83 Chills (without fever)
CPT/HCPCS: 71046; 87635; 87804; 87807; C9803; U0003; U0005

== ENCOUNTER → 2023-04-17 | Outpatient (CLI) | payer MEDICARE, MEDICAID, SELFPAY ==
--- NOTE | 2023-04-17 11:00 | MRI_ITS ---
EXAM: MR LUMBAR SPINE WITHOUT INTRAVENOUS CONTRAST CLINICAL INDICATION: LUMBAR RADICULOPATHY TECHNIQUE: Multiplanar and multisequence MR images of the lumbar spine without intravenous contrast. COMPARISON: X-ray 02/12/2022. FINDINGS: VERTEBRAE: Normal alignment. There is preservation of the normal lumbar lordosis. Acute to subacute L2 compression fracture. SPINAL CORD: Unremarkable. Normal position and signal intensity of the conus medullaris. SOFT TISSUES: Unremarkable. DISCS/SPINAL CANAL/NEURAL FORAMINA: T12-L1: Normal disc height and morphology. Normal bilateral facet joints. Normal central canal. Normal bilateral lateral recesses. Normal intervertebral neural foramina. L1-2: L2 compression with disruption of the superior endplate. Mild spondylotic bar due to in part to compression fracture with minimal bony retropulsion. No canal stenosis. Foramina are patent. L2-3: Normal disc height and morphology. Normal bilateral facet joints. Normal central canal. Normal bilateral lateral recesses. Normal intervertebral neural foramina. L3-4: Normal disc height and morphology. Normal bilateral facet joints. Normal central canal. Normal bilateral lateral recesses. Normal intervertebral neural foramina. L4-5: Normal disc height and morphology. Small, central, noncompressive disc protrusion. Normal bilateral lateral recesses. Mild right foraminal encroachment due to spurring and mild facet hypertrophy. L5-S1: Moderate disc space narrowing. Small, central, noncompressive disc protrusion. No canal stenosis. Foramina are patent. MRI/Spine Lumbar (Routine) IMPRESSION: Acute to subacute L2 compression fracture. Noncompressive L4-5 disc protrusion. Electronically Signed: Samantha Mendoza MD at 23:41 EDT Reading Location ID and State: [id number] / Tel , Service support ,
== END | disposition home or self-care (01) ==
LOC: MRI 10:33
PROVIDERS: PCP Family Medicine Geriatric Medicine; Referring Provider Anesthesiology Pain Medicine; Visit Provider Anesthesiology Pain Medicine
DX: M54.16 Radiculopathy, lumbar region (principal)
CPT/HCPCS: 72148

== ENCOUNTER → 2023-09-08 | Outpatient (CLI) | payer MEDICARE, MEDICAID, SELFPAY ==
[2023-09-08 13:49] LABS: Absolute Lymphocyte Count 3.26 X10^3/uL (0.83-4.51); Absolute Neutrophil Count 3.3 X10^3/uL (2.0-7.7); Basophil# 0.04 X10^3/uL; Basophil% 0.5 % (0-1); Eosinophil# 0.02 X10^3/uL; Eosinophils% 0.3 % (0-5); Hematocrit 42.9 % (37-47); Hemoglobin 14.4 g/dL (12.0-15.0); Lymphocyte # 3.26 X10^3/ul (0.83-4.51); Lymphocyte % 42.3 % (19-41); Mean Corp Hgb Conc 33.6 g/dL (32-36); Mean Corpuscular Hgb 34.2 pg (27.0-32.0); Mean Corpuscular Volume 101.9 fL (81-99); Mean Platelet Vol. 10.9 fl (6.2-12.0); Monocyte# 1.02 X10^3/uL; Monocyte% 13.2 % (0-10); NRBC Flagged by Analyzer 0 % (0-5); Neutrophil # 3.34 X10^3/uL (2.7-7.7); Neutrophil % 43.4 % (47-70); Platelet Count 168 K/mm3 (150-450); RBC Distribution Width CV 13.2 % (11.6-14.6); RBC Distribution Width SD 49.9 fl (35.1-43.9); Red Blood Count 4.21 M/mm3 (4.2-5.4); White Blood Count 7.7 K/mm3 (4.4-11.0)
[2023-09-08 14:11] LABS: ALB/GLOB Ratio 0.9 RATIO (0.9-2.4); AST(SGOT) 19 U/L (15-37); Alanine Aminotransfer ALT/SGPT 25 U/L (13-56); Albumin, Serum 3.3 g/dL (3.2-5.0); Alkaline Phosphatase 51 U/L (45-117); Anion Gap 4 (5-15); BUN 14 mg/dL (7-18); BUN/Creat Ratio 22.3 RATIO (10-20); Chloride 102 mmol/L (98-107); Cholesterol 211 mg/dL (200); Creatinine, Serum 0.63 mg/dL (0.55-1.02); EST Glomerular Filtration Rate 102 mL/min (>60); Est Glom Filt Rate - Afr Amer 123 mL/min (>60); Globulin 3.6 g/dL (2.2-4.2); Glucose 73 mg/dL (74-106); High Density Lipoprotein 101 mg/dL; Potassium 4.2 mmol/L (3.5-5.1); Protein, Total 6.9 g/dL (6.4-8.2); Sodium Level 133 mmol/L (136-145); Triglycerides 56 mg/dL; Very Low Density Lipoprotein 11 mg/dL (5-40)
== END | disposition home or self-care (01) ==
LOC: POLAB3 13:13
PROVIDERS: PCP Family Medicine Geriatric Medicine; Visit Provider Family Medicine Geriatric Medicine
DX: R53.83 Other fatigue (principal); E78.5 Hyperlipidemia, unspecified
CPT/HCPCS: 36415; 80053; 80061; 84443; 85025

== ENCOUNTER → 2023-09-20 | Outpatient (CLI) | payer MEDICARE, MEDICAID, SELFPAY ==
--- NOTE | 2023-09-20 12:58 | BI_ITS ---
MAMMOGRAPHY - BILATERAL SCREENING REASON FOR EXAM: Female, 63 years old. Routine annual screening examination. PERTINENT HISTORY: Non-contributory. Prior right stereotactic breast biopsy. TECHNIQUE: Digital bilateral breast denilson (3D mammographic acquisition) in the CC and MLO projections. 2-D mediolateral oblique (MLO) and craniocaudad (CC) views of both breasts were obtained. CAD: Full Field Digital Mammography with Computer Added Detection was performed. COMPARISON: Comparison is made with prior examination dated May 11, 2018 and February 12, 2021. FINDINGS: Breast Composition: The breasts are heterogeneously dense, which may obscure small masses. There are no dominant masses or suspicious calcifications. A tissue clip marker is once again seen in the upper deep lateral portion of the right breast. A tissue clip marker is also seen in a partially calcified nodule in the deep inferior medial portion of the right breast. Since prior study, there has been progressive calcification of the nodules suggestive of possible fibroadenoma. No other significant abnormalities are identified. There has been no significant change since the prior study. BI/SCRN MAMM (CAD)W/DENILSON BILAT IMPRESSION: Stable bilateral screening mammogram. Yearly follow-up mammogram recommended. (A) ASSESSMENT CATEGORY: BIRADS Category 2: Benign. A letter regarding these results will be sent to the patient by the facility within 30 days. Approximately 10% of breast cancers are not detected by mammography. A normal mammogram should not delay biopsy of a clinically suspicious abnormality. [id number] Electronically Signed: Luis F Ruelas MD at 13:56 EST ,
== END | disposition home or self-care (01) ==
PROVIDERS: PCP Family Medicine Geriatric Medicine; Referring Provider Family Medicine Geriatric Medicine; Visit Provider Family Medicine Geriatric Medicine
DX: Z12.31 Encounter for screening mammogram for malignant neoplasm of breast (principal)
CPT/HCPCS: 77063; 77067

== ENCOUNTER → 2023-12-08 | Outpatient (CLI) | payer MEDICARE, MEDICAID, SELFPAY ==
--- NOTE | 2023-12-08 15:08 | RAD_ITS ---
STUDY: X-RAY - LEFT SHOULDER REASON FOR EXAM: Female, 63 years old. PAIN TECHNIQUE: 4 views of the left shoulder. COMPARISON: None. FINDINGS: Normal glenohumeral articulation. There is mild acromioclavicular arthrosis. Normal acromion. There is calcification adjacent to the greater tuberosity of the humeral head, suggestive of calcific tendinitis of the rotator cuff. Intact humeral head and visualized proximal humerus. The soft tissue structures are unremarkable. There is no demonstrated fracture. Normal visualized pulmonary apex. RAD/Shoulder min 2 Views IMPRESSION: Mild acromioclavicular arthrosis. Suspected calcific tendinitis of the rotator cuff. Electronically Signed: Calderon Rock MD at 15:53 EST ,
== END | disposition home or self-care (01) ==
LOC: RAD 15:03
PROVIDERS: PCP Family Medicine Geriatric Medicine; Referring Provider Anesthesiology Pain Medicine; Visit Provider Anesthesiology Pain Medicine
DX: M25.512 Pain in left shoulder (principal)
CPT/HCPCS: 73030

== ENCOUNTER → 2024-03-09 | Outpatient (CLI) | payer MEDICARE, MEDICAID, SELFPAY ==
--- NOTE | 2024-03-09 14:44 | RAD_ITS ---
EXAM: XR THORACIC SPINE, 3 VIEWS CLINICAL INDICATION: Radiculopathy, thoracic region TECHNIQUE: Frontal, lateral and swimmer''s views of the thoracic spine. COMPARISON: No relevant prior studies available. FINDINGS: VERTEBRAE: There is a mild superior endplate wedge deformity of T10. No spondylolisthesis. Preservation of the normal thoracic kyphosis. No significant facet arthropathy. DISC SPACES: There is multilevel degenerative change with disc space narrowing. RAD/Thoracic Spine 3 Views IMPRESSION: Mild superior endplate wedge deformity of T10 of uncertain age. No other fractures are identified. There is multilevel degenerative change with disc space narrowing. Electronically Signed: Júnior King MD at 18:19 EDT ,
== END | disposition home or self-care (01) ==
LOC: RAD 14:43
PROVIDERS: PCP Family Medicine Geriatric Medicine; Referring Provider Family Medicine Geriatric Medicine; Visit Provider Family Medicine Geriatric Medicine
DX: M54.14 Radiculopathy, thoracic region (principal)
CPT/HCPCS: 72072

== ENCOUNTER → 2024-03-28 | Outpatient (CLI) | payer MEDICARE, MEDICAID, SELFPAY ==
--- NOTE | 2024-03-28 14:22 | CT_ITS ---
STUDY: LOW DOSE CT LUNG CANCER SCREENING REASON FOR EXAM: Female, 63 years old. NICOTINE DEPENDENCE. Patient smoked one half pack per day for 47 years. COPD. RADIATION DOSAGE (If Supplied By Facility): CTDIvol = ( 2.01 ) mGy, DLP = ( 68.71 ) mGycm TECHNIQUE: No contrast was administered. Low dose technique was utilized (average mAS-38 and kVp 120). 1.25 mm axial source images with a slice interval of 1.25-mm were reconstructed in lung windows. 2.5 mm axial source images with a slice interval of 2.5-mm were reconstructed in lung windows. 5.0 mm axial source images with a slice interval of 5.0-mm were reconstructed in soft tissue windows. COMPARISON: Comparison is made with prior study dated October 10, 2019. NODULES: No suspicious nodules are seen. Emphysema: Hyperinflation. Emphysematous changes more prominent in the upper lobes. Endobronchial lesion: None Aorta: Atherosclerotic plaque formation of the aortic arch. CORONARY ARTERIES: Coronary artery calcification is seen. Heart: Unremarkable Pulmonary artery: Unremarkable Mediastinal nodes: Unremarkable Other chest and abdominal findings: CT/Low Dose CT Lung Screening IMPRESSION: Lung-RADS category 2 - Continue annual screening with LDCT in 12 months. IMPORTANT NOTES FOR USE: ACR Lung-RADS Version 1.1 Assessment Categories Release Date: 2018 Category: Coded 0-4 bases on nodule(s) with highest degree of suspicion. Negative screen is defined as categories 1 and 2; a positive screen is defined as categories 3 and 4. Category 3 and 4A nodules that are unchanged on interval CT should be coded as category 2, and individuals returned to screening in 12 months. Category 4X: Category 3 or 4 nodules with additional imaging findings that increase the suspicion of lung cancer, such as spiculation, GGN that doubles in size in 1 year, enlarged lymph notes, etc. Category Modifiers: S (significant finding unrelated to lung cancer) Electronically Signed: Luis F Ruelas MD at 9:51 EDT ,
== END | disposition home or self-care (01) ==
LOC: CT 14:19
PROVIDERS: PCP Family Medicine Geriatric Medicine; Referring Provider Family Medicine Geriatric Medicine; Visit Provider Family Medicine Geriatric Medicine
DX: F17.210 Nicotine dependence, cigarettes, uncomplicated (principal)
CPT/HCPCS: 71271

== ENCOUNTER → 2024-04-20 | Outpatient (CLI) | payer MEDICARE, MEDICAID, SELFPAY | END | disposition home or self-care (01) | LOC: POLAB3 11:46 | PROVIDERS: PCP Family Medicine Geriatric Medicine; Visit Provider Family Medicine Geriatric Medicine | DX: L03.116 Cellulitis of left lower limb (principal); A49.02 Methicillin resistant Staphylococcus aureus infection, unspecified site; Z22.322 Carrier or suspected carrier of Methicillin resistant Staphylococcus aureus | CPT/HCPCS: 87070; 87075; 87205; 87640 ==

== ENCOUNTER 2024-05-03 10:15 | Outpatient (RCR) | payer MEDICARE, MEDICAID, SELFPAY ==
[2024-04-26 10:47] VITALS: BP 139/61; PULSE 74; RESP 18; TEMP 35.7; BMI 21.9
--- NOTE | 2024-04-26 12:32 | HP.PCM_ITS ---
History of Present Illness Date of Service: 04/26/24 Chief Complaint: Follow-up on a traumatic wound to the left lower inner calf. History of Wound: 63-year-old white female that was walking her dog and the chain got wrapped around her leg and ripped the skin open it started as a blood blister. And then it opened and she had a lot of blood drainage went to her doctor and he treated her with doxycycline and cephalexin and a Rocephin injection. Then sent her here. [facility] Medical History (Updated 04/26/24 @ 12:43 by Shania Pierre NP, [employer]) History of seizures Arthritis Home Medications ?Medication ?Instructions ?Recorded ?Last Taken ?Type divalproex 500 mg tablet,delayed 500 mg PO BID 05/29/19 Unknown History release (Depakote) levetiracetam 500 mg tablet 500 mg PO BID 05/29/19 Unknown History (Keppra) budesonide 160 mcg-glycopyr 9 2 inh inhalation .q 12hr 04/26/24 Unknown History mcg-formot 4.8 mcg/actuation HFA inhaler (Breztri Aerosphere) cephalexin 500 mg capsule 500 mg PO Q6H 04/26/24 Unknown History doxycycline hyclate 100 mg tablet 100 mg PO BID 04/26/24 Unknown History Allergy/AdvReac Type Severity Reaction Status Date / Time No Known Allergies Allergy Unverified 05/29/19 10:09 Family History Other Epilepsia Surgical History History of section Social History Smoking Status: Current every day smoker alcohol intake: never substance use type: does not use what type of physical activity do you participate in: walking frequency: 1-2 times per week ROS Constitutional Constitutional: Reports systems reviewed and no addt'l complaints, except as documented Eyes Eyes: Reports systems reviewed and no addt'l complaints, except as documented ENT HEENT: Reports systems reviewed and no addt'l complaints, except as documented Cardiovascular Cardiovascular: Reports systems reviewed and no addt'l complaints, except as documented Respiratory/Chest Respiratory/Chest: Reports systems reviewed and no addt'l complaints, except as documented Gastrointestinal Gastrointestinal: Reports systems reviewed and no addt'l complaints, except as documented Genitourinary Genitourinary: Reports systems reviewed and no addt'l complaints, except as documented Musculoskeletal Musculoskeletal: Reports systems reviewed and no addt'l complaints, except as documented Integumentary Integumentary: Reports wounds and other Details: An eschar type wound on the left medial calf that is been going on for about 2 weeks before her arrival darkened erythema around the edge of the wound Neurologic Neurologic: Reports systems reviewed and no addt'l complaints, except as documented Psychiatric Psychiatric: Reports systems reviewed and no addt'l complaints, except as docume nted Endocrine Endocrinology: Reports systems reviewed and no addt'l complaints, except as documented Hematologic/Lymphatic Hematologic/Lymphatic: Reports systems reviewed and no addt'l complaints, except as documented Allergic/Immunologic Allergic/Immunologic: Reports systems reviewed and no addt'l complaints, except as documented Vital Signs Vital Signs Vital Signs: 04/26/24 10:47 Temperature 96.3 F L Temperature Source Temporal Pulse Rate 74 Respiratory Rate 18 Blood Pressure 139/61 H Blood Pressure Mean 87 Blood Pressure Source Monitor Blood Pressure Position Semi-Fowlers Blood Pressure Location Left Arm Weight Weight: 112 lb Body Mass Index (BMI) 21.9 Physical Exam Const oriented x3 General Appearance: cooperative Exam Limitations: no limitations HEENT normocephalic Eyes PERRL General Eye: normal appearance of both eyes Neck full ROM General: normal visual inspection Resp normal respiratory effort Effort and Inspection: able to speak in complete sentences Auscultation: clear to auscultation bilaterally Cardio regular rate and regular rhythm Palpation: normal PMI Rate: regular rate Rhythm: regular rhythm GI Palpation: soft and no hepatosplenomegaly Back/Spine Cervical Spine: cervical ROM normal Extremity General Extremity: normal exam except as noted and other findings Other Details: Open wound left medial calf Skin Rashes: rashes noted Wound Narrative: Left lower leg inner calf open wound with eschar Neuro oriented x3 Psych Appearance: grossly normal Speech: normal speech Thought Content: normal thought content Judgement: judgement good Debridement Note Debridement Note Wound debrided: Left traumatic wound lower extremity Type of Debridement: Excisional debridement Anesthesia Used: 5% Lidocaine Gel Depth: Down to and including healthy tissue and in the subcutaneous layer Percentage of wound debrided: 100 Instrument Used: 7mm curette, #15 blade and Forceps Tissue Removed: Devitalized tissue and fibrin Severity: Fat Layer Exposed Amount of bleeding with debridement: Mild Bleeding Controlled with: Compression and gauze Patient tolerated procedure: Patient tolerated procedure well Post-Debridement Measurements and Additional Note: Post-Debridement Measurements/Treatment - Nurse 1 - General Ulcer Assessment Start: 04/26/24 10:44 Freq: Status: Active Protocol: RITIKA Activity Type Activity Date Activity User E-sign Co-sign Detail Recorded Client Recorded Date Recorded By Document 04/26/24 10:47 RB wound 04/26/24 10:53 RB 04/26/24 10:47 - Today's Visit Information Type of service Initial Visit Arrival Mode Ambulatory Transfer Assistance None Patient Identification Verified (Name & Yes ) Patient Requires Transmission-Based No Precautions Height and Weight Height 5 ft Weight 112 lb Weight in Pounds 112.0 lbs Body Mass Index (BMI) 21.9 BMI Classification Normal BSA - Gabriella 1.46 Vital Signs Temperature (97.8 F-99.1 F) 96.3 F L Temperature Source Temporal Pulse Rate (60-100) 74 Pulse Location Monitor Respiratory Rate (12-18) 18 Respiratory rate source Observation Blood Pressure (90/60-120/80) 139/61 H Blood Pressure Mean 87 Source Monitor Position Semi-Fowlers Blood Pressure Location Left Arm Pain Scale: 0-10 Numeric Is Patient Pain Free? No LLE -Description Aching -Intensity 8 -Duration (hours) Acute -Pain Behavior Irritability, Withdrawal from Touch -Pain Aggravating Factors ADL's -Alleviating Factors/Interventions None Lower Extremity Assessment/ Foot Assessment/ Toe Nail Assessment Right -Posterior Tibial Palpable Yes -Dorsalis Pedis Palpable Yes -Extremity Color Normal -Hair Growth on Legs Yes -Hair Growth on Toes No -Temperature of Extremity Warm -Capillary Refill Greater than 3 Seconds -Dependent Rubor No -Blanched when Elevated No -Lipodermatosclerosis No -Other Deformity No -Prior Foot Ulcer No -Charcot Joint No -Prior Amputation No -Thick No -Discolored No -Deformed No -Improper Length & Hygeine Yes Left -Posterior Tibial Palpable Yes -Dorsalis Pedis Palpable Yes -Extremity Color Normal -Hair Growth on Legs Yes -Hair Growth on Toes No -Temperature of Extremity Warm -Capillary Refill Greater than 3 Seconds -Dependent Rubor No -Blanched when Elevated No -Lipodermatosclerosis No -Other Deformity No -Prior Foot Ulcer No -Charcot Joint No -Prior Amputation No -Thick No -Discolored No -Deformed No -Improper Length & Hygeine Yes Neuropathy Assessment Feet - Top Side and Bottom <Entered> (a) Communication Assessment Preferred language Amharic Wire Preparation Machine Tender Required No Able to Read Yes Able to Write Yes Communication Tools None Caregiver Communication Skills No Impairment Impairment Right Hearing Abillity Normal Left Hearing Abillity Normal Visual Assistive Devices Glasses Teaching Assessment Preferences Verbal,Written, Demonstration Barriers to Learning None Readiness To Learn Good Willingness to Engage in Self Management Med Activies Readiness to Engage in Self Management Med Activities Anxiety Level Calm Cooperation Cooperative Perception Coherent Interest in Health Problem Asks Questions Education Importance Acknowledges Need Does Patient Smoke tobacco or other Yes substances Smoking Status Current every day smoker Is Patient Diabetic No Functional Assessment Recent Decline in Ability to Perform Denies Any Declines Assistive Device With Patient No Culture/Catholic/Disability Counselor Cultural/Catholic Needs that may affect No Treatment Plan Would you allow our hospital sweatband drummer to No meet you for the purpose of spiritual/ emotional support? Disability Counselor to contact place of orthodox No Teaching: Wound Center *Welcome to the Wound Center -Person Taught Patient -Teaching Method Discussion, Demonstration -Response to teaching Verbalize understanding (a) 1 - + throughout WC - Nurse 1 - General Ulcer Measurement Start: 04/26/24 10:44 Freq: Status: Active Protocol: Activity Type Activity Date Activity User E-sign Co-sign Detail Recorded Client Recorded Date Recorded By Document 04/26/24 10:47 RB wound 04/26/24 10:53 RB 04/26/24 10:47 Wound Center Nurse 1 1. LLE posterior -Combined with other wound No -Current Size (cm) - Length 4 -Current Size (cm) - Width 4.5 -Current Size (cm) - Depth 0.1 -Total Square Cm 18.0 -Photo Taken Yes -Tunneling No -Undermining/Tunneling No -Circular Undermining No -Exudate Amt Small -Exudate Type Serosanguineous -Wound Margin Distinct, Outline Attached -Granulation Amt Small (1-33%) -Granulation Quality Mcallister -Slough/Fibrin Yes -Necrosis Amt Large (67-100%) -Necrotic Tissue Type Adherent Slough -Structure Exposed N/A -Texture (Karina-wound Skin Appearance) Assessed -Moisture (Karina-wound Skin Appearance) Assessed -Color (Karina-wound Skin Appearance) Assessed -Temperature (Karina-wound Skin No Abnormality Appearance) (Pt Warm) -Tenderness on Palpation (Karina-wound No Skin Appearance) -Ulcer Cleansing Wound Cleanser -Foul Odor after Cleansing No -Anesthetic Used 5% Lidocaine Gel Lower Limb Edema Present Yes Right Calf (cm) 31 Right Ankle (cm) 18.5 Left Calf (cm) 31.2 Left Ankle (cm) 19.2 WC - Nurse 2 - General Ulcer CM Notes Start: 04/26/24 10:44 Freq: Status: Active Protocol: Activity Type Activity Date Activity User E-sign Co-sign Detail Recorded Client Recorded Date Recorded By Document 04/26/24 11:03 BMF .[email or web address] 04/26/24 11:06 BMF 04/26/24 11:03 Wound Center Nurse 2 1. LLE posterior -Time 11:03 -Correct Patient Yes -Correct Side, Site, Position Yes -Correct Procedure Yes -Procedure Performed Yes -Type of Procedure Debridement -Clinical Debridement Subcutaneous -Tissue Removed Subcutaneous -Post Debridement (cm) - Length 4 -Post Debridement (cm) - Width 1.5 -Post Debridement (cm) - Depth 0.3 -Total Square (Post) (cm) 6.0 -Area of Debridement (cm) - Length 4 -Area of Debridement (cm) - Width 1.5 -Total Square (Area) (cm) 6.0 -Tunneling No -Undermining/Tunneling No -Circular Undermining No -Wound/Ulcer Outcome Not Healed -Ulcer Cleansing Rinsed/ Irrigated with Saline -Foul Odor after Cleansing No -Bioengineered Tissue No -Bleeding Controlled with Pressure -Treatment Response Procedure Tolerated Well -Debridement - Subq, 1st 20sq cm Yes Pain Scale: 0-10 Numeric Is Patient Pain Free? Yes WC - Nurse 3 - General Ulcer D/C NN Start: 04/26/24 10:44 Freq: Status: Active Protocol: Activity Type Activity Date Activity User E-sign Co-sign Detail Recorded Client Recorded Date Recorded By Document 04/26/24 11:24 RB wound 04/26/24 11:25 RB 04/26/24 11:24 Wound Care Center Nurse 3 1. LLE posterior -Ulcer Cleansing Rinsed/ Irrigated with Saline -Primary Dressing Applied Mepilex Border -Other Dressing hydrogel -Mepilex Border 1 Treatment Response Procedure Tolerated Well Pain Scale: 0-10 Numeric Is Patient Pain Free? No LLE -Description Aching -Intensity 8 -Pain Behavior Withdrawal from Touch -Pain Aggravating Factors ADL's -Alleviating Factors/Interventions None WC - Visit Discharge Discharge Condition Stable Ambulatory Status Ambulatory Transportation Private Auto Medication Reconcilliation completed & No provided to patient/care provider Clinical Summary of Care Provided Yes Assessment/Plan Assessment/Plan (1) Traumatic ulcer of left foot: CODE(S): L97.529 - Non-pressure chronic ulcer of other part of left foot with unspecified severity QUALIFIERS: Non-pressure ulcer stage: with fat layer exposed Qualified Code(s): L97.522 - Non-pressure chronic ulcer of other part of left foot with fat layer exposed PLAN: Wash wound with antibacterial soap and water rinse pat dry Apply Santyl nickel thickness to wound base cover with [place] foam dressing daily. Follow-up in 1 week (2) Blood blister: CODE(S): T14.8XXA - Other injury of unspecified body region, initial encounter (3) Nonhealing nonsurgical wound: CODE(S): T14.8XXA - Other injury of unspecified body region, initial encounter
[2024-05-03 10:34] VITALS: BP 139/68; PULSE 72; RESP 18; TEMP 36; BMI 21.9
--- NOTE | 2024-05-03 10:54 | WC ---
PHOTO 04/26/24 LLE POSTERIOR
--- NOTE | 2024-05-03 12:12 | PN.PCM_ITS ---
History of Present Illness Date of Service: 05/03/24 Chief Complaint: Follow-up on a traumatic wound to the left lower inner calf. History of Wound: 63-year-old white female that was walking her dog and the chain got wrapped around her leg and ripped the skin open it started as a blood blister. And then it opened and she had a lot of blood drainage went to her doctor and he treated her with doxycycline and cephalexin and a Rocephin injection. Then sent her here. Progress of Wound: So today she shows up with another wound on her right posterior calf from the same thing the dog chain got wrapped around her leg. Now she has more of a circumferential wound partial-thickness. The original wound on the left posterior calf is still deep and open has slough we will continue using Santyl 1 more week to keep it clean. Skin buds are noticeable in the base Subjective Subjective Patient is pleased with outcomes but not happy that she got another wound Objective Data Objective Data Left posterior calf still open positive slough slightly smaller but about the same we will continue using the Santyl For the right posterior calf it is a small linear circumferential wound that we will use Santyl also Vital Signs: Vital Signs Temp Pulse Resp BP 96.8 F L 72 18 139/68 H 05/03/24 10:34 05/03/24 10:34 05/03/24 10:34 05/03/24 10:34 Weight: 112 lb Body Mass Index (BMI) 21.9 Physical Exam Const oriented x3 General Appearance: cooperative Exam Limitations: no limitations HEENT normocephalic Eyes PERRL General Eye: normal appearance of both eyes Neck full ROM General: normal visual inspection Resp normal respiratory effort Effort and Inspection: able to speak in complete sentences Auscultation: clear to auscultation bilaterally Cardio regular rate and regular rhythm Palpation: normal PMI Rate: regular rate Rhythm: regular rhythm GI Palpation: soft and no hepatosplenomegaly Back/Spine Cervical Spine: cervical ROM normal Extremity General Extremity: normal exam except as noted and other findings Other Details: Open wound left medial calf Skin Rashes: rashes noted Wound Narrative: Left lower leg inner calf open wound with eschar. Now has a linear more circumferential wound on the right posterior calf from the same episode of the dog chain. It is open nonhealing Neuro oriented x3 Psych Appearance: grossly normal Speech: normal speech Thought Content: normal thought content Judgement: judgement good Debridement Note Debridement Note Wound debrided: Left traumatic wound lower extremity Type of Debridement: Excisional debridement Anesthesia Used: 5% Lidocaine Gel Depth: Down to and including healthy tissue and in the subcutaneous layer Percentage of wound debrided: 100 Instrument Used: 7mm curette, #15 blade and Forceps Tissue Removed: Devitalized tissue and fibrin Severity: Fat Layer Exposed Amount of bleeding with debridement: Mild Bleeding Controlled with: Compression and gauze Patient tolerated procedure: Patient tolerated procedure well Post-Debridement Measurements and Additional Note: Post-Debridement Measurements/Treatment - Nurse 1 - General Ulcer Assessment Start: 04/26/24 10:44 Freq: Status: Active Protocol: [email or web address] Activity Type Activity Date Activity User E-sign Co-sign Detail Recorded Client Recorded Date Recorded By Document 04/26/24 10:47 RB wound 04/26/24 10:53 RB Document 05/03/24 10:34 RB wound 05/03/24 10:42 RB 04/26/24 05/03/24 10:47 10:34 - Today's Visit Information Type of service Initial Visit Follow-up Visit (Physician/SPECIALTY THERAPIST ) Arrival Mode Ambulatory Ambulatory Transfer Assistance None None Patient Identification Verified (Name & Yes Yes ) Patient Requires Transmission-Based No No Precautions Height and Weight Height 5 ft Weight 112 lb Weight in Pounds 112.0 lbs Body Mass Index (BMI) 21.9 21.9 BMI Classification Normal Normal BSA - Gabriella 1.46 Vital Signs Temperature (97.8 F-99.1 F) 96.3 F L 96.8 F L Temperature Source Temporal Temporal Pulse Rate (60-100) 74 72 Pulse Location Monitor Monitor Respiratory Rate (12-18) 18 18 Respiratory rate source Observation Observation Blood Pressure (90/60-120/80) 139/61 H 139/68 H Blood Pressure Mean (mm Hg) 87 91 Source Monitor Monitor Position Semi-Fowlers Semi-Fowlers Blood Pressure Location Left Arm Left Arm History Since Last Visit- (Skip if this is Patient's initial visit) Have you changed medications since your No last visit? Any new allergies or adverse reactions No Had a fall/change in ADL's that may No increase risk of falls Signs or symptoms of abuse and/or No neglect since last visit Have you been in the hospital since your No last visit? Has dressing in place as prescribed Yes Has compression in place as prescribed No Has offloadiing in place as prescribed No Experienced any changes in pain level or No management Pain Scale: 0-10 Numeric Is Patient Pain Free? No No LLE -Description Aching Burning -Intensity 8 8 -Duration (hours) Acute Acute -Pain Behavior Irritability, Withdrawal from Withdrawal from Touch Touch -Pain Aggravating Factors ADL's ADL's -Alleviating Factors/Interventions None Medication -Effectiveness of Alleviating Factor/ Moderately Intervention effective Lower Extremity Assessment/ Foot Assessment/ Toe Nail Assessment Right -Posterior Tibial Palpable Yes -Dorsalis Pedis Palpable Yes -Extremity Color Normal -Hair Growth on Legs Yes -Hair Growth on Toes No -Temperature of Extremity Warm -Capillary Refill Greater than 3 Seconds -Dependent Rubor No -Blanched when Elevated No -Lipodermatosclerosis No -Other Deformity No -Prior Foot Ulcer No -Charcot Joint No -Prior Amputation No -Thick No -Discolored No -Deformed No -Improper Length & Hygeine Yes Left -Posterior Tibial Palpable Yes -Dorsalis Pedis Palpable Yes -Extremity Color Normal -Hair Growth on Legs Yes -Hair Growth on Toes No -Temperature of Extremity Warm -Capillary Refill Greater than 3 Seconds -Dependent Rubor No -Blanched when Elevated No -Lipodermatosclerosis No -Other Deformity No -Prior Foot Ulcer No -Charcot Joint No -Prior Amputation No -Thick No -Discolored No -Deformed No -Improper Length & Hygeine Yes Neuropathy Assessment Feet - Top Side and Bottom <Entered> (a) Communication Assessment Preferred language [place]ic Marine Geologist Required No Able to Read Yes Able to Write Yes Communication Tools None Caregiver Communication Skills No Impairment Impairment Right Hearing Abillity Normal Left Hearing Abillity Normal Visual Assistive Devices Glasses Teaching Assessment Preferences Verbal,Written, Demonstration Barriers to Learning None Readiness To Learn Good Willingness to Engage in Self Management Med Activies Readiness to Engage in Self Management Med Activities Anxiety Level Calm Cooperation Cooperative Perception Coherent Interest in Health Problem Asks Questions Education Importance Acknowledges Need Does Patient Smoke tobacco or other Yes substances Smoking Status Current every day smoker Is Patient Diabetic No Functional Assessment Recent Decline in Ability to Perform Denies Any Declines Assistive Device With Patient No Culture/Taoist/Nail Professional Cultural/Taoist Needs that may affect No Treatment Plan Would you allow our hospital aviation program manager to No meet you for the purpose of spiritual/ emotional support? Nail Professional to contact place of moravian No Teaching: Wound Center *Welcome to the Wound Center -Person Taught Patient -Teaching Method Discussion, Demonstration -Response to teaching Verbalize understanding (a) 1 - + throughout WC - Nurse 1 - General Ulcer Measurement Start: 04/26/24 10:44 Freq: Status: Active Protocol: Activity Type Activity Date Activity User E-sign Co-sign Detail Recorded Client Recorded Date Recorded By Document 04/26/24 10:47 RB wound 04/26/24 10:53 RB Document 05/03/24 10:34 RB wound 05/03/24 10:42 RB 04/26/24 05/03/24 10:47 10:34 Wound Center Nurse 1 2. RLE posterior -Combined with other wound No -Current Size (cm) - Length 0.5 -Current Size (cm) - Width 9 -Current Size (cm) - Depth 0.1 -Total Square Cm 4.5 -Photo Taken Yes -Tunneling No -Undermining/Tunneling No -Circular Undermining No -Exudate Amt Medium -Exudate Type Serosanguineous -Wound Margin Distinct, Outline Attached -Granulation Amt Medium (34-66%) -Granulation Quality [place] -Slough/Fibrin Yes -Necrosis Amt Large (67-100%) -Necrotic Tissue Type Adherent Slough -Structure Exposed N/A -Texture (Karina-wound Skin Appearance) Assessed -Moisture (Karina-wound Skin Appearance) Assessed -Color (Karina-wound Skin Appearance) Ecchymosis -Temperature (Karina-wound Skin No Abnormality Appearance) (Pt Warm) -Tenderness on Palpation (Karina-wound Yes Skin Appearance) -Ulcer Cleansing Wound Cleanser -Foul Odor after Cleansing No -Anesthetic Used 5% Lidocaine Gel 1. LLE posterior -Combined with other wound No No -Current Size (cm) - Length 4 4 -Current Size (cm) - Width 4.5 1.8 -Current Size (cm) - Depth 0.1 0.3 -Total Square Cm 18.0 7.2 -Photo Taken Yes -Tunneling No No -Undermining/Tunneling No No -Circular Undermining No No -Exudate Amt Small Large -Exudate Type Serosanguineous Serosanguineous -Wound Margin Distinct, Distinct, Outline Outline Attached Attached -Granulation Amt Small (1-33%) Medium (34-66%) -Granulation Quality [place] -Slough/Fibrin Yes Yes -Necrosis Amt Large (67-100%) Medium (34-66%) -Necrotic Tissue Type Adherent Slough Adherent Slough -Structure Exposed N/A N/A -Texture (Karina-wound Skin Appearance) Assessed Assessed, Scarring -Moisture (Karina-wound Skin Appearance) Assessed Assessed -Color (Karina-wound Skin Appearance) Assessed Assessed -Temperature (Karina-wound Skin No Abnormality No Abnormality Appearance) (Pt Warm) (Pt Warm) -Tenderness on Palpation (Karina-wound No No Skin Appearance) -Ulcer Cleansing Wound Cleanser Wound Cleanser -Foul Odor after Cleansing No No -Anesthetic Used 5% Lidocaine 5% Lidocaine Gel Gel Lower Limb Edema Present Yes Right Calf (cm) 31 Right Ankle (cm) 18.5 Left Calf (cm) 31.2 Left Ankle (cm) 19.2 WC - Nurse 2 - General Ulcer CM Notes Start: 04/26/24 10:44 Freq: Status: Active Protocol: Activity Type Activity Date Activity User E-sign Co-sign Detail Recorded Client Recorded Date Recorded By Document 04/26/24 11:03 BMF [email or web address] 04/26/24 11:06 BMF Document 05/03/24 10:44 BMF [email or web address] 05/03/24 10:51 BMF 04/26/24 05/03/24 11:03 10:44 Wound Center Nurse 2 2. RLE posterior -Time 10:44 -Correct Patient Yes -Correct Side, Site, Position Yes -Correct Procedure Yes -Procedure Performed Yes -Type of Procedure Debridement -Clinical Debridement Subcutaneous -Tissue Removed Subcutaneous -Post Debridement (cm) - Length 0.5 -Post Debridement (cm) - Width 9 -Post Debridement (cm) - Depth 0.1 -Total Square (Post) (cm) 4.5 -Area of Debridement (cm) - Length 0.5 -Area of Debridement (cm) - Width 9 -Total Square (Area) (cm) 4.5 -Tunneling No -Undermining/Tunneling No -Circular Undermining No -Wound/Ulcer Outcome Not Healed -Ulcer Cleansing Rinsed/ Irrigated with Saline -Foul Odor after Cleansing No -Bioengineered Tissue No -Bleeding Controlled with Pressure -Treatment Response Procedure Tolerated Well -Debridement - Subq, 1st 20sq cm No 1. LLE posterior -Time 11:03 10:45 -Correct Patient Yes Yes -Correct Side, Site, Position Yes Yes -Correct Procedure Yes Yes -Procedure Performed Yes Yes -Type of Procedure Debridement Debridement -Clinical Debridement Subcutaneous Subcutaneous -Tissue Removed Subcutaneous Subcutaneous -Post Debridement (cm) - Length 4 4 -Post Debridement (cm) - Width 1.5 2.2 -Post Debridement (cm) - Depth 0.3 0.3 -Total Square (Post) (cm) 6.0 8.8 -Area of Debridement (cm) - Length 4 4 -Area of Debridement (cm) - Width 1.5 2.2 -Total Square (Area) (cm) 6.0 8.8 -Tunneling No No -Undermining/Tunneling No No -Circular Undermining No No -Wound/Ulcer Outcome Not Healed Not Healed -Ulcer Cleansing Rinsed/ Rinsed/ Irrigated with Irrigated with Saline Saline -Foul Odor after Cleansing No No -Bioengineered Tissue No No -Bleeding Controlled with Pressure Pressure -Treatment Response Procedure Procedure Tolerated Well Tolerated Well -Debridement - Subq, 1st 20sq cm Yes Yes Pain Scale: 0-10 Numeric Is Patient Pain Free? Yes Yes - Nurse 3 - General Ulcer D/C NN Start: 04/26/24 10:44 Freq: Status: Active Protocol: Activity Type Activity Date Activity User E-sign Co-sign Detail Recorded Client Recorded Date Recorded By Document 04/26/24 11:24 RB wound 04/26/24 11:25 RB Document 05/03/24 10:58 [facility] [email or web address] 05/03/24 10:59 BMF 04/26/24 05/03/24 11:24 10:58 Wound Care Center Nurse 3 2. RLE posterior -Ulcer Cleansing Rinsed/ Irrigated with Saline -Foul Odor after Cleansing No -Primary Dressing Applied Mepilex Border -Other Dressing HYDROGEL -Mepilex Border 2 -Wound Comment(s) SENT XTRA MEPILEX 1. LLE posterior -Ulcer Cleansing Rinsed/ Rinsed/ Irrigated with Irrigated with Saline Saline -Foul Odor after Cleansing No -Primary Dressing Applied Mepilex Border Mepilex Border -Other Dressing hydrogel HYDROGEL -Mepilex Border 1 1 BLE -Tubular Bandage Single Layer -Size of Tubigrip Used Size D -Size D ($) 2 Treatment Response Procedure Procedure Tolerated Well Tolerated Well Pain Scale: 0-10 Numeric Is Patient Pain Free? No Yes LLE -Description Aching -Intensity 8 -Pain Behavior Withdrawal from Touch -Pain Aggravating Factors ADL's -Alleviating Factors/Interventions None WC - Visit Discharge Discharge Condition Stable Stable Ambulatory Status Ambulatory Ambulatory Transportation Private Auto Private Auto Medication Reconcilliation completed & No provided to patient/care provider Clinical Summary of Care Provided Yes Additional Wound Wound debrided: Right posterior calf linear traumatic wound Laterality: Right Type of Debridement: Excisional debridement Anesthesia Used: 5% Lidocaine Gel Depth: Down to and including healthy tissue and in the subcutaneous layer Percentage of wound debrided: 100 Instrument Used: 7mm curette Tissue Removed: Fibrin and devitalized tissue Amount of bleeding with debridement: Mild Bleeding Controlled with: Compression and gauze Patient tolerated procedure: Patient tolerated procedure well Assessment/Plan Assessment/Plan (1) Nonhealing nonsurgical wound: CODE(S): T14.8XXA - Other injury of unspecified body region, initial encounter PLAN: Wash left leg with antibacterial soap and water and apply Santyl nickel thickness to wound base cover with moistened gauze and absorbent dressing every day Wear a Tubigrip single-layer (2) Traumatic ulcer of lower leg with fat layer exposed: CODE(S): L97.902 - Non-pressure chronic ulcer of unspecified part of unspecified lower leg with fat layer exposed QUALIFIERS: Laterality: right Qualified Code(s): L97.912 - Non- pressure chronic ulcer of unspecified part of right lower leg with fat layer exposed PLAN: Wash right leg with antibacterial soap and water pat dry and apply Santyl to wound base nickel thickness with a moistened dressing over top and absorbent dressing over top. Every day Wear Tubigrip on that leg also single-layer Follow-up in 1 week
== END 2024-05-03 23:59 | disposition home or self-care (01) ==
LOC: WC 10:15
PROVIDERS: PCP Family Medicine Geriatric Medicine; Referring Provider Family Medicine Geriatric Medicine; Visit Provider Nurse Practitioner
DX: L97.522 Non-pressure chronic ulcer of other part of left foot with fat layer exposed (principal); F17.200 Nicotine dependence, unspecified, uncomplicated; T14.8XXA Other injury of unspecified body region, initial encounter; X58.XXXA Exposure to other specified factors, initial encounter
CPT/HCPCS: 11042; 99213; G0463

== ENCOUNTER → 2024-05-11 | Outpatient (CLI) | payer MEDICARE, MEDICAID, SELFPAY ==
--- NOTE | 2024-05-11 13:07 | BD_ITS ---
STUDY: DUAL ENERGY X-RAY ABSORPTIOMETRY / DXA REASON FOR EXAM: Female, 64 years old. [id number] TECHNIQUE: Bone Mineral Density (BMD) measurements of lumbar spine and bilateral hips were obtained. COMPARISON: None. FINDINGS: Lumbar Spine (L1-L4): g/cm2 (0.827) / T-score (-2.1) / Z-score (-0.4) Findings are suggestive of osteopenia with a high fracture risk. Left Femur Total: g/cm2 (0.638) / T-score (-2.5) / Z-score (-1.3) Left Femoral Neck: g/cm2 (0.463) / T-score (-3.5) / Z-score (-2.0) Right Femur Total: g/cm2 (0.576) / T-score (-3.0) / Z-score (-1.8) Right Femoral Neck: g/cm2 (0.451) / T-score (-3.6) / Z-score (-2.1) BD/Dexa Bone Density Study IMPRESSION: The patient is considered osteoporotic as outlined below according to [employer] (WHO) criteria with a high fracture risk. Reference Information: The T-score is the number of standard deviations above or below the standard which is normal for young adults at their peak bone mineral density. The World Health Organization (WHO) interprets the T-scores as follows: Above -1 Normal bone density Between -1 and -2.5 Osteopenia Equal to / or below -2.5 Osteoporosis As a practical clinical guideline, osteopenia may be graded as follows: Mild -1 through -1.5 Moderate -1.6 through -2.0 Severe -2.1 through -2.4 The Z-score is the number of standard deviations above or below age-matched controls. A Z-score of less than -1.5 would be considered abnormal. References: 1. NIH Osteoporosis and Related Bone Diseases www osteo.org 2. International Society for Clinical Densitometry www iscd.org 3. National Osteoporosis Foundation www nof.org Electronically Signed: Luis F Ruelas MD at 11:27 EDT ,
== END | disposition home or self-care (01) ==
LOC: OPBD 13:05
PROVIDERS: PCP Family Medicine Geriatric Medicine; Referring Provider Family Medicine Geriatric Medicine; Visit Provider Family Medicine Geriatric Medicine
DX: Z78.0 Asymptomatic menopausal state (principal)
CPT/HCPCS: 77080

== ENCOUNTER 2024-05-31 09:00 | Outpatient (RCR) | payer MEDICARE, MEDICAID, SELFPAY ==
[2024-05-04 00:27] VITALS: BP 139/68; PULSE 72; RESP 18; TEMP 36; BMI 21.9
[2024-05-10 10:46] VITALS: BP 130/58; PULSE 69; RESP 18; TEMP 35.9; BMI 21.9
--- NOTE | 2024-05-10 12:55 | PCM.WC.PN ---
History of Present Illness Date of Service: 05/10/24 Chief Complaint: Follow-up on a traumatic wound to the left lower inner calf. History of Wound: 63-year-old white female that was walking her dog and the chain got wrapped around her leg and ripped the skin open it started as a blood blister. And then it opened and she had a lot of blood drainage went to her doctor and he treated her with doxycycline and cephalexin and a Rocephin injection. Then sent her here. Progress of Wound: A larger round positive depth ulcer on the back of her right calf from the dog rope and a probe burn around her left leg more circumferential that is almost healed. Have been using Santyl on the ulcer leg of the right and it is doing well cleaning it out and she is getting skin but we will switch her up and turn her over to fibber call to both areas. Subjective Subjective Patient is please it is healing well and she complains that her right leg is starting to itch around the area Objective Data Objective Data No sign of infection no odor, measurements are slightly smalle, she is doing well r Vital Signs: Vital Signs Temp Pulse Resp BP 96.7 F L 69 18 130/58 H 05/10/24 10:46 05/10/24 10:46 05/10/24 10:46 05/10/24 10:46 Weight: 112 lb Body Mass Index (BMI) 21.9 Physical Exam Const oriented x3 General Appearance: cooperative Exam Limitations: no limitations HEENT normocephalic Eyes PERRL General Eye: normal appearance of both eyes Neck full ROM General: normal visual inspection Resp normal respiratory effort Effort and Inspection: able to speak in complete sentences Auscultation: clear to auscultation bilaterally Cardio regular rate and regular rhythm Palpation: normal PMI Rate: regular rate Rhythm: regular rhythm GI Palpation: soft and no hepatosplenomegaly Back/Spine Cervical Spine: cervical ROM normal Extremity General Extremity: normal exam except as noted and other findings Other Details: Open wound left medial calf Skin Rashes: rashes noted Wound Narrative: Left lower leg inner calf open wound with eschar. Now has a linear more circumferential wound on the right posterior calf from the same episode of the dog chain. It is open nonhealing Neuro oriented x3 Psych Appearance: grossly normal Speech: normal speech Thought Content: normal thought content Judgement: judgement good Debridement Note Debridement Note Wound debrided: Left traumatic wound lower extremity Type of Debridement: Excisional debridement Anesthesia Used: 5% Lidocaine Gel Depth: Down to and including healthy tissue and in the subcutaneous layer Percentage of wound debrided: 100 Instrument Used: 7mm curette, #15 blade and Forceps Tissue Removed: Devitalized tissue and fibrin Severity: Fat Layer Exposed Amount of bleeding with debridement: Mild Bleeding Controlled with: Compression and gauze Patient tolerated procedure: Patient tolerated procedure well Post-Debridement Measurements and Additional Note: Post-Debridement Measurements/Treatment - Nurse 1 - General Ulcer Assessment Start: 05/10/24 10:46 Freq: Status: Active Protocol: RITIKA Activity Type Activity Date Activity User E-sign Co-sign Detail Recorded Client Recorded Date Recorded By Document 05/10/24 10:46 BOSTON woun 05/10/24 10:49 BOSTON 05/10/24 10:46 JILLIAN - Today's Visit Information Type of service Follow-up Visit (Physician/[employer] ) Arrival Mode Ambulatory Transfer Assistance None Patient Identification Verified (Name & Yes ) Patient Requires Transmission-Based No Precautions Height and Weight Body Mass Index (BMI) 21.9 BMI Classification Normal Vital Signs Temperature (97.8 F-99.1 F) 96.7 F L Temperature Source Temporal Pulse Rate (60-100) 69 Pulse Location Monitor Respiratory Rate (12-18) 18 Respiratory rate source Observation Blood Pressure (90/60-120/80) 130/58 H Blood Pressure Mean (mm Hg) 82 Source Monitor Position Semi-Fowlers Blood Pressure Location Left Arm History Since Last Visit- (Skip if this is Patient's initial visit) Have you changed medications since your No last visit? Any new allergies or adverse reactions No Had a fall/change in ADL's that may No increase risk of falls Signs or symptoms of abuse and/or No neglect since last visit Have you been in the hospital since your No last visit? Has dressing in place as prescribed Yes Has compression in place as prescribed Yes Has offloadiing in place as prescribed No Experienced any changes in pain level or No management Pain Scale: 0-10 Numeric Is Patient Pain Free? Yes Kendra Nurse 1 - General Ulcer Measurement Start: 05/10/24 10:46 Freq: Status: Active Protocol: Activity Type Activity Date Activity User E-sign Co-sign Detail Recorded Client Recorded Date Recorded By Document 05/10/24 10:46 RB woun 05/10/24 10:49 RB 05/10/24 10:46 Wound Center Nurse 1 2. RLE posterior -Combined with other wound No -Current Size (cm) - Length 7.5 -Current Size (cm) - Width 0.3 -Current Size (cm) - Depth 0.1 -Total Square Cm 2.25 -Tunneling No -Undermining/Tunneling No -Circular Undermining No -Exudate Amt Medium -Exudate Type Serosanguineous -Wound Margin Distinct, Outline Attached -Granulation Amt Medium (34-66%) -Granulation Quality Tennant -Slough/Fibrin Yes -Necrosis Amt Medium (34-66%) -Necrotic Tissue Type Adherent Slough -Structure Exposed N/A -Texture (Karina-wound Skin Appearance) Assessed, Scarring -Moisture (Karina-wound Skin Appearance) Assessed -Color (Karina-wound Skin Appearance) Assessed -Temperature (Karina-wound Skin No Abnormality Appearance) (Pt Warm) -Tenderness on Palpation (Karina-wound No Skin Appearance) -Ulcer Cleansing Wound Cleanser -Foul Odor after Cleansing No -Anesthetic Used 5% Lidocaine Gel 1. LLE posterior -Combined with other wound No -Current Size (cm) - Length 4 -Current Size (cm) - Width 1.8 -Current Size (cm) - Depth 0.2 -Total Square Cm 7.2 -Tunneling No -Undermining/Tunneling No -Circular Undermining No -Exudate Amt Medium -Exudate Type Serosanguineous -Wound Margin Distinct, Outline Attached -Granulation Amt Medium (34-66%) -Granulation Quality Tennant -Slough/Fibrin Yes -Necrosis Amt Medium (34-66%) -Necrotic Tissue Type Adherent Slough -Structure Exposed N/A -Texture (Karina-wound Skin Appearance) Assessed -Color (Karina-wound Skin Appearance) Assessed -Temperature (Karina-wound Skin No Abnormality Appearance) (Pt Warm) -Tenderness on Palpation (Karina-wound No Skin Appearance) -Ulcer Cleansing Wound Cleanser -Foul Odor after Cleansing No -Anesthetic Used 5% Lidocaine Gel Lower Limb Edema Present Yes Right Calf (cm) 30.5 Right Ankle (cm) 19 Left Calf (cm) 32 Left Ankle (cm) 20 WC - Nurse 2 - General Ulcer CM Notes Start: 05/10/24 10:46 Freq: Status: Active Protocol: Activity Type Activity Date Activity User E-sign Co-sign Detail Recorded Client Recorded Date Recorded By Document 05/10/24 11:09 DS 1 05/10/24 11:11 DS 05/10/24 11:09 Wound Center Nurse 2 2. RLE posterior -Time 11:10 -Correct Patient Yes -Correct Side, Site, Position Yes -Correct Procedure Yes -Procedure Performed Yes -Type of Procedure Debridement -Clinical Debridement Subcutaneous -Tissue Removed Subcutaneous -Post Debridement (cm) - Length 0.3 -Post Debridement (cm) - Width 7.3 -Post Debridement (cm) - Depth 0.1 -Total Square (Post) (cm) 2.19 -Area of Debridement (cm) - Length 0.3 -Area of Debridement (cm) - Width 7.3 -Total Square (Area) (cm) 2.19 -Tunneling No -Undermining/Tunneling No -Circular Undermining No -Wound/Ulcer Outcome Not Healed -Ulcer Cleansing Rinsed/ Irrigated with Saline -Bleeding Controlled with Pressure -Treatment Response Procedure Tolerated Well -Debridement - Subq, 1st 20sq cm No 1. LLE posterior -Time 11:10 -Correct Patient Yes -Correct Side, Site, Position Yes -Correct Procedure Yes -Procedure Performed Yes -Type of Procedure Debridement -Clinical Debridement Subcutaneous -Tissue Removed Subcutaneous -Post Debridement (cm) - Length 4.1 -Post Debridement (cm) - Width 1.9 -Post Debridement (cm) - Depth 0.2 -Total Square (Post) (cm) 7.79 -Area of Debridement (cm) - Length 4.1 -Area of Debridement (cm) - Width 1.9 -Total Square (Area) (cm) 7.79 -Tunneling No -Undermining/Tunneling No -Circular Undermining No -Wound/Ulcer Outcome Not Healed -Ulcer Cleansing Rinsed/ Irrigated with Saline -Bleeding Controlled with Pressure -Treatment Response Procedure Tolerated Well -Debridement - Subq, 1st 20sq cm Yes Pain Scale: 0-10 Numeric Is Patient Pain Free? Yes WC - Nurse 3 - General Ulcer D/C NN Start: 05/10/24 10:46 Freq: Status: Active Protocol: Activity Type Activity Date Activity User E-sign Co-sign Detail Recorded Client Recorded Date Recorded By Document 05/10/24 11:26 RB ochoa 05/10/24 11:27 RB 05/10/24 11:26 Wound Care Center Nurse 3 2. RLE posterior -Ulcer Cleansing Rinsed/ Irrigated with Saline -Primary Dressing Applied Fibracol Plus 4x4 -Primary Dressing Covered/Secured with Dry Gauze, Secured with Tape -Fibracol Plus 4x4 1 1. LLE posterior -Ulcer Cleansing Rinsed/ Irrigated with Saline -Primary Dressing Applied Fibracol Plus 4x4 -Primary Dressing Covered/Secured with Dry Gauze -Fibracol Plus 4x4 1 BLE -Tubular Bandage Single Layer -Size of Tubigrip Used Size D -Size D ($) 2 Treatment Response Procedure Tolerated Well Pain Scale: 0-10 Numeric Is Patient Pain Free? Yes Teaching: Wound Center Dressing Your Wound -Person Taught Patient -Teaching Method Discussion, Demonstration -Response to teaching Verbalize Understanding WC - Visit Discharge Discharge Condition Stable Ambulatory Status Ambulatory Transportation Private Auto Medication Reconcilliation completed & No provided to patient/care provider Clinical Summary of Care Provided Yes Additional Wound Wound debrided: Right posterior calf linear traumatic wound Laterality: Right Type of Debridement: Excisional debridement Anesthesia Used: 5% Lidocaine Gel Depth: Down to and including healthy tissue and in the subcutaneous layer Percentage of wound debrided: 100 Instrument Used: 7mm curette Tissue Removed: Fibrin and devitalized tissue Amount of bleeding with debridement: Mild Bleeding Controlled with: Compression and gauze Patient tolerated procedure: Patient tolerated procedure well Assessment/Plan Assessment/Plan (1) Nonhealing nonsurgical wound: CODE(S): T14.8XXA - Other injury of unspecified body region, initial encounter PLAN: Wash left leg with antibacterial soap and water and apply Fibracol to wound base cover with moistened gauze and absorbent dressing every day Wear a Tubigrip single-layer (2) Traumatic ulcer of lower leg with fat layer exposed: CODE(S): L97.902 - Non-pressure chronic ulcer of unspecified part of unspecified lower leg with fat layer exposed QUALIFIERS: Laterality: right Qualified Code(s): L97.912 - Non-pressure chronic ulcer of unspecified part of right lower leg with fat layer exposed PLAN: Wash right leg with antibacterial soap and water pat dry and apply fibrocol to wound base with a moistened dressing over top and absorbent dressing over top. Every day Wear Tubigrip on that leg also single-layer Follow-up in 1 week
[2024-05-24 09:18] VITALS: BP 115/75; PULSE 71; RESP 18; TEMP 35.8; BMI 21.9
--- NOTE | 2024-05-24 12:34 | PCM.WC.PN ---
History of Present Illness Date of Service: 05/24/24 Chief Complaint: Follow-up on a traumatic wound to the left lower inner calf. History of Wound: 63-year-old white female that was walking her dog and the chain got wrapped around her leg and ripped the skin open it started as a blood blister. And then it opened and she had a lot of blood drainage went to her doctor and he treated her with doxycycline and cephalexin and a Rocephin injection. Then sent her here. Progress of Wound: Right posterior leg is healed and patient can stop doing dressing changes. Have been using Santyl on the left leg wound and it is doing well cleaning it out and she is getting skin but, now we will switch change her over to Fibracol. Measurements for the left leg are considerably smaller. Subjective Subjective Patient is very pleased with outcomes on the right leg and is looking forward to healing the left leg Objective Data Objective Data As stated above measurements are smaller on the left leg and right leg is healed patient be switched to Fibracol rather than Santyl. Vital Signs: Vital Signs Temp Pulse Resp BP 96.4 F L 71 18 115/75 05/24/24 09:18 05/24/24 09:18 05/24/24 09:18 05/24/24 09:18 Weight: 112 lb Body Mass Index (BMI) 21.9 Physical Exam Const oriented x3 General Appearance: cooperative Exam Limitations: no limitations HEENT normocephalic Eyes PERRL General Eye: normal appearance of both eyes Neck full ROM General: normal visual inspection Resp normal respiratory effort Effort and Inspection: able to speak in complete sentences Auscultation: clear to auscultation bilaterally Cardio regular rate and regular rhythm Palpation: normal PMI Rate: regular rate Rhythm: regular rhythm GI Palpation: soft and no hepatosplenomegaly Back/Spine Cervical Spine: cervical ROM normal Extremity General Extremity: normal exam except as noted and other findings Other Details: Open wound left medial calf Skin Rashes: rashes noted Wound Narrative: Left lower leg inner calf open wound with eschar. Now has a linear more circumferential wound on the right posterior calf from the same episode of the dog chain. It is open nonhealing Neuro oriented x3 Psych Appearance: grossly normal Speech: normal speech Thought Content: normal thought content Judgement: judgement good Debridement Note Debridement Note Wound debrided: Left traumatic wound lower extremity Type of Debridement: Excisional debridement Anesthesia Used: 5% Lidocaine Gel Depth: Down to and including healthy tissue and in the subcutaneous layer Percentage of wound debrided: 100 Instrument Used: 7mm curette, #15 blade and Forceps Tissue Removed: Devitalized tissue and fibrin Severity: Fat Layer Exposed Amount of bleeding with debridement: Mild Bleeding Controlled with: Compression and gauze Patient tolerated procedure: Patient tolerated procedure well Post-Debridement Measurements and Additional Note: Post-Debridement Measurements/Treatment - Nurse 1 - General Ulcer Assessment Start: 05/10/24 10:46 Freq: Status: Active Protocol: RITIKA Activity Type Activity Date Activity User E-sign Co-sign Detail Recorded Client Recorded Date Recorded By Document 05/10/24 10:46 RB woun 05/10/24 10:49 RB Document 05/24/24 09:18 RB [id number] 05/24/24 09:20 RB 05/10/24 05/24/24 10:46 09:18 - Today's Visit Information Type of service Follow-up Visit Follow-up Visit (Physician/STRING STUDIES DIRECTOR (Physician/STRING STUDIES DIRECTOR ) ) Arrival Mode Ambulatory Ambulatory Transfer Assistance None None Patient Identification Verified (Name & Yes Yes ) Patient Requires Transmission-Based No No Precautions Height and Weight Body Mass Index (BMI) 21.9 21.9 BMI Classification Normal Normal Vital Signs Temperature (97.8 F-99.1 F) 96.7 F L 96.4 F L Temperature Source Temporal Temporal Pulse Rate (60-100) 69 71 Pulse Location Monitor Monitor Respiratory Rate (12-18) 18 18 Respiratory rate source Observation Observation Blood Pressure (90/60-120/80) 130/58 H 115/75 Blood Pressure Mean (mm Hg) 82 88 Source Monitor Monitor Position Semi-Fowlers Supine Blood Pressure Location Left Arm Right Arm History Since Last Visit- (Skip if this is Patient's initial visit) Have you changed medications since your No No last visit? Any new allergies or adverse reactions No No Had a fall/change in ADL's that may No No increase risk of falls Signs or symptoms of abuse and/or No No neglect since last visit Have you been in the hospital since your No No last visit? Has dressing in place as prescribed Yes Yes Has compression in place as prescribed Yes Yes Has offloadiing in place as prescribed No No Experienced any changes in pain level or No No management Pain Scale: 0-10 Numeric Is Patient Pain Free? Yes Yes WC - Nurse 1 - General Ulcer Measurement Start: 05/10/24 10:46 Freq: Status: Active Protocol: Activity Type Activity Date Activity User E-sign Co-sign Detail Recorded Client Recorded Date Recorded By Document 05/10/24 10:46 RB woun 05/10/24 10:49 RB Document 05/24/24 09:18 RB [id number] 05/24/24 09:20 RB 05/10/24 05/24/24 10:46 09:18 Wound Center Nurse 1 2. RLE posterior -Combined with other wound No No -Current Size (cm) - Length 7.5 0 -Current Size (cm) - Width 0.3 0 -Current Size (cm) - Depth 0.1 0 -Total Square Cm 2.25 0 -Photo Taken Yes -Epithelialization Large 67-100% -Tunneling No -Undermining/Tunneling No -Circular Undermining No -Exudate Amt Medium -Exudate Type Serosanguineous -Wound Margin Distinct, Outline Attached -Granulation Amt Medium (34-66%) -Granulation Quality Gila -Slough/Fibrin Yes -Necrosis Amt Medium (34-66%) -Necrotic Tissue Type Adherent Slough -Structure Exposed N/A -Texture (Karina-wound Skin Appearance) Assessed, Scarring -Moisture (Karina-wound Skin Appearance) Assessed -Color (Karina-wound Skin Appearance) Assessed -Temperature (Karina-wound Skin No Abnormality Appearance) (Pt Warm) -Tenderness on Palpation (Karina-wound No Skin Appearance) -Ulcer Cleansing Wound Cleanser -Foul Odor after Cleansing No -Anesthetic Used 5% Lidocaine Gel 1. LLE posterior -Combined with other wound No No -Current Size (cm) - Length 4 3.5 -Current Size (cm) - Width 1.8 1.5 -Current Size (cm) - Depth 0.2 0.1 -Total Square Cm 7.2 5.25 -Photo Taken Yes -Tunneling No No -Undermining/Tunneling No No -Circular Undermining No No -Exudate Amt Medium -Exudate Type Serosanguineous -Wound Margin Distinct, Outline Attached -Granulation Amt Medium (34-66%) Medium (34-66%) -Granulation Quality Gila Gila -Slough/Fibrin Yes Yes -Necrosis Amt Medium (34-66%) Medium (34-66%) -Necrotic Tissue Type Adherent Slough Adherent Slough -Structure Exposed N/A N/A -Texture (Karina-wound Skin Appearance) Assessed Assessed -Moisture (Karina-wound Skin Appearance) Assessed -Color (Karina-wound Skin Appearance) Assessed Assessed -Temperature (Karina-wound Skin No Abnormality No Abnormality Appearance) (Pt Warm) (Pt Warm) -Tenderness on Palpation (Karina-wound No Skin Appearance) -Ulcer Cleansing Wound Cleanser Rinsed/ Irrigated with Saline -Foul Odor after Cleansing No No -Anesthetic Used 5% Lidocaine 5% Lidocaine Gel Gel Lower Limb Edema Present Yes Yes Right Calf (cm) 30.5 30.2 Right Ankle (cm) 19 17.5 Left Calf (cm) 32 30.5 Left Ankle (cm) 20 18.5 WC - Nurse 2 - General Ulcer CM Notes Start: 05/10/24 10:46 Freq: Status: Active Protocol: Activity Type Activity Date Activity User E-sign Co-sign Detail Recorded Client Recorded Date Recorded By Document 05/10/24 11:09 DS 1 05/10/24 11:11 DS Document 05/24/24 09:31 [facility] [id number] 05/24/24 09:34 [facility] 05/10/24 05/24/24 11:09 09:31 Wound Center Nurse 2 2. RLE posterior -Time 11:10 09:31 -Correct Patient Yes -Correct Side, Site, Position Yes -Correct Procedure Yes -Procedure Performed Yes -Type of Procedure Debridement -Clinical Debridement Subcutaneous -Tissue Removed Subcutaneous -Post Debridement (cm) - Length 0.3 0 -Post Debridement (cm) - Width 7.3 0 -Post Debridement (cm) - Depth 0.1 0 -Total Square (Post) (cm) 2.19 0 -Area of Debridement (cm) - Length 0.3 0 -Area of Debridement (cm) - Width 7.3 0 -Total Square (Area) (cm) 2.19 0 -Tunneling No -Undermining/Tunneling No -Circular Undermining No -Wound/Ulcer Outcome Not Healed Healed- Epithelialized -Ulcer Cleansing Rinsed/ Irrigated with Saline -Bleeding Controlled with Pressure NA -Treatment Response Procedure Tolerated Well -Debridement - Subq, 1st 20sq cm No 1. LLE posterior -Time 11:10 09:32 -Correct Patient Yes Yes -Correct Side, Site, Position Yes Yes -Correct Procedure Yes Yes -Procedure Performed Yes Yes -Type of Procedure Debridement Debridement -Clinical Debridement Subcutaneous Subcutaneous -Tissue Removed Subcutaneous Subcutaneous -Post Debridement (cm) - Length 4.1 3.4 -Post Debridement (cm) - Width 1.9 1.5 -Post Debridement (cm) - Depth 0.2 0.2 -Total Square (Post) (cm) 7.79 5.10 -Area of Debridement (cm) - Length 4.1 3.4 -Area of Debridement (cm) - Width 1.9 1.5 -Total Square (Area) (cm) 7.79 5.10 -Tunneling No No -Undermining/Tunneling No No -Circular Undermining No No -Wound/Ulcer Outcome Not Healed Not Healed -Ulcer Cleansing Rinsed/ Rinsed/ Irrigated with Irrigated with Saline Saline -Foul Odor after Cleansing No -Bioengineered Tissue No -Bleeding Controlled with Pressure Pressure -Treatment Response Procedure Procedure Tolerated Well Tolerated Well -Debridement - Subq, 1st 20sq cm Yes Yes Pain Scale: 0-10 Numeric Is Patient Pain Free? Yes Yes - Nurse 3 - General Ulcer D/C NN Start: 05/10/24 10:46 Freq: Status: Active Protocol: Activity Type Activity Date Activity User E-sign Co-sign Detail Recorded Client Recorded Date Recorded By Document 05/10/24 11:26 RB woun 05/10/24 11:27 RB Document 05/24/24 09:44 DL [id number] 05/24/24 09:45 DL 05/10/24 05/24/24 11:26 09:44 Wound Care Center Nurse 3 2. RLE posterior -Ulcer Cleansing Rinsed/ Rinsed/ Irrigated with Irrigated with Saline Saline -Foul Odor after Cleansing No -Primary Dressing Applied Fibracol Plus Fibracol Plus 4x4 4x4,Mepilex Border -Primary Dressing Covered/Secured with Dry Gauze, Secured with Tape -Other Covering tubigrip -Fibracol Plus 4x4 1 1 -Mepilex Border 1 1. LLE posterior -Ulcer Cleansing Rinsed/ Irrigated with Saline -Primary Dressing Applied Fibracol Plus 4x4 -Primary Dressing Covered/Secured with Dry Gauze -Fibracol Plus 4x4 1 BLE -Tubular Bandage Single Layer -Size of Tubigrip Used Size D -Size D ($) 2 Treatment Response Procedure Procedure Tolerated Well Tolerated Well Pain Scale: 0-10 Numeric Is Patient Pain Free? Yes Yes Teaching: Wound Center Dressing Your Wound -Person Taught Patient -Teaching Method Discussion, Demonstration -Response to teaching Verbalize Understanding WC - Visit Discharge Discharge Condition Stable Stable Ambulatory Status Ambulatory Ambulatory Transportation Private Auto Private Auto Medication Reconcilliation completed & No provided to patient/care provider Clinical Summary of Care Provided Yes Additional Wound Wound debrided: Right posterior calf linear traumatic wound Assessment/Plan Assessment/Plan (1) Nonhealing nonsurgical wound: CODE(S): T14.8XXA - Other injury of unspecified body region, initial encounter PLAN: Wash left leg with antibacterial soap and water and apply Fibracol to wound base cover with moistened gauze and absorbent dressing every day Wear a Tubigrip single-layer (2) Traumatic ulcer of lower leg with fat layer exposed: CODE(S): L97.902 - Non-pressure chronic ulcer of unspecified part of unspecified lower leg with fat layer exposed QUALIFIERS: Laterality: right Qualified Code(s): L97.912 - Non-pressure chronic ulcer of unspecified part of right lower leg with fat layer exposed PLAN: Right leg resolved no longer needing dressing changes. Follow-up in 1 week
--- NOTE | 2024-05-25 13:51 | WC ---
PHOTO 05/24/24 JAZMYN
--- NOTE | 2024-05-25 13:54 | WC ---
PHOTO 05/24/24 IRMA
[2024-05-31 09:25] VITALS: BP 127/47; PULSE 72; RESP 18; TEMP 36.7; BMI 21.9
--- NOTE | 2024-05-31 09:58 | PCM.WC.PN ---
History of Present Illness Date of Service: 05/31/24 Chief Complaint: Follow-up on a traumatic wound to the left lower inner calf. History of Wound: 63-year-old white female that was walking her dog and the chain got wrapped around her leg and ripped the skin open it started as a blood blister. And then it opened and she had a lot of blood drainage went to her doctor and he treated her with doxycycline and cephalexin and a Rocephin injection. Then sent her here. Progress of Wound: Right posterior leg is healed and patient can stop doing dressing changes. We had changed products to Fibracol to the left lower posterior leg area it is measuring smaller no sign of infection doing well. Will continue using Fibracol Subjective Subjective Patient very happy with outcomes Objective Data Objective Data Doing well on medications and measurements are smaller and looks clean no sign of infection we will continue using the Fibracol. Vital Signs: Vital Signs Temp Pulse Resp BP 98.1 F 72 18 127/47 H 05/31/24 09:25 05/31/24 09:25 05/31/24 09:25 05/31/24 09:25 Weight: 112 lb Body Mass Index (BMI) 21.9 Lab / Micro Data Attestation: I reviewed the patient's lab results. Physical Exam Const oriented x3 General Appearance: cooperative Exam Limitations: no limitations HEENT normocephalic Eyes PERRL General Eye: normal appearance of both eyes Neck full ROM General: normal visual inspection Resp normal respiratory effort Effort and Inspection: able to speak in complete sentences Auscultation: clear to auscultation bilaterally Cardio regular rate and regular rhythm Palpation: normal PMI Rate: regular rate Rhythm: regular rhythm GI Palpation: soft and no hepatosplenomegaly Back/Spine Cervical Spine: cervical ROM normal Extremity General Extremity: normal exam except as noted and other findings Other Details: Open wound left medial calf Skin Rashes: rashes noted Wound Narrative: Left lower leg inner calf open wound with eschar. Now has a linear more circumferential wound on the right posterior calf from the same episode of the dog chain. It is open nonhealing Neuro oriented x3 Psych Appearance: grossly normal Speech: normal speech Thought Content: normal thought content Judgement: judgement good Debridement Note Debridement Note Wound debrided: Left traumatic wound lower extremity Laterality: Left Type of Debridement: Excisional debridement Anesthesia Used: 5% Lidocaine Gel Depth: Down to and including healthy tissue and in the subcutaneous layer Percentage of wound debrided: 100 Instrument Used: 5mm curette and 7mm curette Tissue Removed: Devitalized tissue and fibrin Severity: Fat Layer Exposed Amount of bleeding with debridement: Mild Bleeding Controlled with: Compression and gauze Patient tolerated procedure: Patient tolerated procedure well Post-Debridement Measurements and Additional Note: Post-Debridement Measurements/Treatment - Nurse 1 - General Ulcer Assessment Start: 05/10/24 10:46 Freq: Status: Active Protocol: RITIKA Activity Type Activity Date Activity User E-sign Co-sign Detail Recorded Client Recorded Date Recorded By Document 05/10/24 10:46 RB woun 05/10/24 10:49 RB Document 05/24/24 09:18 RB [id number] 05/24/24 09:20 RB Document 05/31/24 09:25 DL [id number] 05/31/24 09:32 DL 05/10/24 05/24/24 05/31/24 10:46 09:18 09:25 - Today's Visit Information Type of service Follow-up Visit Follow-up Visit Follow-up Visit (Physician/EGG PROCESSOR (Physician/EGG PROCESSOR (Physician/EGG PROCESSOR ) ) ) Arrival Mode Ambulatory Ambulatory Ambulatory Transfer Assistance None None None Patient Identification Verified (Name & Yes Yes Yes ) Patient Requires Transmission-Based No No No Precautions Height and Weight Body Mass Index (BMI) 21.9 21.9 21.9 BMI Classification Normal Normal Normal Vital Signs Temperature (97.8 F-99.1 F) 96.7 F L 96.4 F L 98.1 F Temperature Source Temporal Temporal Temporal Pulse Rate (60-100) 69 71 72 Pulse Location Monitor Monitor Apical Respiratory Rate (12-18) 18 18 18 Respiratory rate source Observation Observation Blood Pressure (90/60-120/80) 130/58 H 115/75 127/47 H Blood Pressure Mean (mm Hg) 82 88 73 Source Monitor Monitor Monitor Position Semi-Fowlers Supine Blood Pressure Location Left Arm Right Arm History Since Last Visit- (Skip if this is Patient's initial visit) Have you changed medications since your No No No last visit? Any new allergies or adverse reactions No No No Had a fall/change in ADL's that may No No No increase risk of falls Signs or symptoms of abuse and/or No No No neglect since last visit Have you been in the hospital since your No No No last visit? Has dressing in place as prescribed Yes Yes Yes Has compression in place as prescribed Yes Yes Yes Has offloadiing in place as prescribed No No N/A Experienced any changes in pain level or No No No management Left Footwear Slipper Right Footwear Regular Shoe Pain Scale: 0-10 Numeric Is Patient Pain Free? Yes Yes Yes WC - Nurse 1 - General Ulcer Measurement Start: 05/10/24 10:46 Freq: Status: Active Protocol: Activity Type Activity Date Activity User E-sign Co-sign Detail Recorded Client Recorded Date Recorded By Document 05/10/24 10:46 RB woun 05/10/24 10:49 RB Document 05/24/24 09:18 RB [id number] 05/24/24 09:20 RB Document 05/31/24 09:25 DL [id number] 05/31/24 09:32 DL 05/10/24 05/24/24 05/31/24 10:46 09:18 09:25 Wound Center Nurse 1 2. RLE posterior -Combined with other wound No No -Current Size (cm) - Length 7.5 0 -Current Size (cm) - Width 0.3 0 -Current Size (cm) - Depth 0.1 0 -Total Square Cm 2.25 0 -Photo Taken Yes -Epithelialization Large 67-100% -Tunneling No -Undermining/Tunneling No -Circular Undermining No -Exudate Amt Medium Medium -Exudate Type Serosanguineous Serosanguineous -Wound Margin Distinct, Distinct, Outline Outline Attached Attached -Granulation Amt Medium (34-66%) Large (67-100%) -Granulation Quality [place] Red -Slough/Fibrin Yes -Necrosis Amt Medium (34-66%) None Present (0 %) -Necrotic Tissue Type Adherent Slough -Structure Exposed N/A N/A -Texture (Karina-wound Skin Appearance) Assessed, Scarring Scarring -Moisture (Karina-wound Skin Appearance) Assessed Maceration -Color (Karina-wound Skin Appearance) Assessed No Abnormality -Temperature (Karina-wound Skin No Abnormality No Abnormality Appearance) (Pt Warm) (Pt Warm) -Tenderness on Palpation (Karina-wound No No Skin Appearance) -Ulcer Cleansing Wound Cleanser Soap and Water -Foul Odor after Cleansing No No -Anesthetic Used 5% Lidocaine 5% Lidocaine Gel Gel 1. LLE posterior -Combined with other wound No No -Current Size (cm) - Length 4 3.5 2.8 -Current Size (cm) - Width 1.8 1.5 1.1 -Current Size (cm) - Depth 0.2 0.1 0.1 -Total Square Cm 7.2 5.25 3.08 -Photo Taken Yes -Tunneling No No -Undermining/Tunneling No No -Circular Undermining No No -Exudate Amt Medium Medium -Exudate Type Serosanguineous Serosanguineous -Wound Margin Distinct, Distinct, Outline Outline Attached Attached -Granulation Amt Medium (34-66%) Medium (34-66%) Large (67-100%) -Granulation Quality [place] Red -Slough/Fibrin Yes Yes -Necrosis Amt Medium (34-66%) Medium (34-66%) None Present (0 %) -Necrotic Tissue Type Adherent Slough Adherent Slough -Structure Exposed N/A N/A N/A -Texture (Karina-wound Skin Appearance) Assessed Assessed Scarring -Moisture (Karina-wound Skin Appearance) Assessed Maceration -Color (Karina-wound Skin Appearance) Assessed Assessed No Abnormality -Temperature (Karina-wound Skin No Abnormality No Abnormality No Abnormality Appearance) (Pt Warm) (Pt Warm) (Pt Warm) -Tenderness on Palpation (Karina-wound No Skin Appearance) -Ulcer Cleansing Wound Cleanser Rinsed/ Soap and Water Irrigated with Saline -Foul Odor after Cleansing No No No -Anesthetic Used 5% Lidocaine 5% Lidocaine 5% Lidocaine Gel Gel Gel Lower Limb Edema Present Yes Yes Right Calf (cm) 30.5 30.2 Right Ankle (cm) 19 17.5 Left Calf (cm) 32 30.5 30 Left Ankle (cm) 20 18.5 18 WC - Nurse 2 - General Ulcer CM Notes Start: 05/10/24 10:46 Freq: Status: Active Protocol: Activity Type Activity Date Activity User E-sign Co-sign Detail Recorded Client Recorded Date Recorded By Document 05/10/24 11:09 DS 1 05/10/24 11:11 DS Document 05/24/24 09:31 [facility] [id number] 05/24/24 09:34 BM Document 05/31/24 09:37 [facility] [id number] 05/31/24 09:45 BMF 05/10/24 05/24/24 05/31/24 11:09 09:31 09:37 Wound Center Nurse 2 2. RLE posterior -Time 11: 09:31 -Correct Patient Yes -Correct Side, Site, Position Yes -Correct Procedure Yes -Procedure Performed Yes -Type of Procedure Debridement -Clinical Debridement Subcutaneous -Tissue Removed Subcutaneous -Post Debridement (cm) - Length 0.3 0 -Post Debridement (cm) - Width 7.3 0 -Post Debridement (cm) - Depth 0.1 0 -Total Square (Post) (cm) 2.19 0 -Area of Debridement (cm) - Length 0.3 0 -Area of Debridement (cm) - Width 7.3 0 -Total Square (Area) (cm) 2.19 0 -Tunneling No -Undermining/Tunneling No -Circular Undermining No -Wound/Ulcer Outcome Not Healed Healed- Epithelialized -Ulcer Cleansing Rinsed/ Irrigated with Saline -Bleeding Controlled with Pressure NA -Treatment Response Procedure Tolerated Well -Debridement - Subq, 1st 20sq cm No 1. LLE posterior -Time 11: 09:32 09:39 -Correct Patient Yes Yes Yes -Correct Side, Site, Position Yes Yes Yes -Correct Procedure Yes Yes Yes -Procedure Performed Yes Yes Yes -Type of Procedure Debridement Debridement Debridement -Clinical Debridement Subcutaneous Subcutaneous Subcutaneous -Tissue Removed Subcutaneous Subcutaneous Subcutaneous -Post Debridement (cm) - Length 4.1 3.4 3.3 -Post Debridement (cm) - Width 1.9 1.5 1 -Post Debridement (cm) - Depth 0.2 0.2 0.2 -Total Square (Post) (cm) 7.79 5.10 3.3 -Area of Debridement (cm) - Length 4.1 3.4 3.3 -Area of Debridement (cm) - Width 1.9 1.5 1 -Total Square (Area) (cm) 7.79 5.10 3.3 -Tunneling No No No -Undermining/Tunneling No No No -Circular Undermining No No No -Wound/Ulcer Outcome Not Healed Not Healed Not Healed -Ulcer Cleansing Rinsed/ Rinsed/ Rinsed/ Irrigated with Irrigated with Irrigated with Saline Saline Saline -Foul Odor after Cleansing No No -Bioengineered Tissue No -Bleeding Controlled with Pressure Pressure Pressure -Treatment Response Procedure Procedure Procedure Tolerated Well Tolerated Well Tolerated Well -Debridement - Subq, 1st 20sq cm Yes Yes Yes Pain Scale: 0-10 Numeric Is Patient Pain Free? Yes Yes Yes WC - Nurse 3 - General Ulcer D/C NN Start: 05/10/24 10:46 Freq: Status: Active Protocol: Activity Type Activity Date Activity User E-sign Co-sign Detail Recorded Client Recorded Date Recorded By Document 05/10/24 11:26 RB woun 05/10/24 11:27 RB Document 05/24/24 09:44 DL [id number] 05/24/24 09:45 DL Document 05/31/24 09:55 RB [id number] 05/31/24 09:56 RB 05/10/24 05/24/24 05/31/24 11:26 09:44 09:55 Wound Care Center Nurse 3 2. RLE posterior -Ulcer Cleansing Rinsed/ Rinsed/ Irrigated with Irrigated with Saline Saline -Foul Odor after Cleansing No -Primary Dressing Applied Fibracol Plus Fibracol Plus 4x4 4x4,Mepilex Border -Primary Dressing Covered/Secured with Dry Gauze, Secured with Tape -Other Covering tubigrip -Fibracol Plus 4x4 1 1 -Mepilex Border 1 1. LLE posterior -Ulcer Cleansing Rinsed/ Wound Cleanser Irrigated with Saline -Primary Dressing Applied Fibracol Plus Fibracol Plus 4x4 4x4 -Primary Dressing Covered/Secured with Dry Gauze Dry Gauze, Secured with Tape -Fibracol Plus 4x4 1 1 BLE -Tubular Bandage Single Layer Single Layer -Size of Tubigrip Used Size D Size D -Size D ($) 2 2 Treatment Response Procedure Procedure Procedure Tolerated Well Tolerated Well Tolerated Well Pain Scale: 0-10 Numeric Is Patient Pain Free? Yes Yes Yes Teaching: Wound Center Dressing Your Wound -Person Taught Patient -Teaching Method Discussion, Demonstration -Response to teaching Verbalize Understanding WC - Visit Discharge Discharge Condition Stable Stable Stable Ambulatory Status Ambulatory Ambulatory Ambulatory Transportation Private Auto Private Auto Private Auto Medication Reconcilliation completed & No No provided to patient/care provider Clinical Summary of Care Provided Yes Yes Additional Wound Wound debrided: Right posterior calf linear traumatic wound Assessment/Plan Assessment/Plan (1) Nonhealing nonsurgical wound: CODE(S): T14.8XXA - Other injury of unspecified body region, initial encounter PLAN: Wash left leg with antibacterial soap and water and apply Fibracol to wound base moistened cover with Adaptic then absorbent dressing every day Wear a Tubigrip single-layer (2) Traumatic ulcer of lower leg with fat layer exposed: CODE(S): L97.902 - Non-pressure chronic ulcer of unspecified part of unspecified lower leg with fat layer exposed QUALIFIERS: Laterality: right Qualified Code(s): L97.912 - Non-pressure chronic ulcer of unspecified part of right lower leg with fat layer exposed PLAN: Right leg resolved no longer needing dressing changes. Follow-up in 1 week
== END 2024-06-03 23:59 | disposition home or self-care (01) ==
LOC: WC 09:00
PROVIDERS: PCP Family Medicine Geriatric Medicine; Referring Provider Family Medicine Geriatric Medicine; Visit Provider Nurse Practitioner
DX: L97.212 Non-pressure chronic ulcer of right calf with fat layer exposed (principal)
CPT/HCPCS: 11042

== ENCOUNTER 2024-06-21 09:30 | Outpatient (RCR) | payer MEDICARE, MEDICAID, SELFPAY ==
[2024-06-04 00:44] VITALS: BP 139/68; PULSE 72; RESP 18; TEMP 36; BMI 21.9
[2024-06-07 10:09] VITALS: BP 138/63; PULSE 68; RESP 18; TEMP 36.4; BMI 21.9
--- NOTE | 2024-06-07 12:33 | PN.PCM_ITS ---
History of Present Illness Date of Service: 06/07/24 Chief Complaint: Follow-up on a traumatic wound to the left lower inner calf. History of Wound: 63-year-old white female that was walking her dog and the chain got wrapped around her leg and ripped the skin open it started as a blood blister. And then it opened and she had a lot of blood drainage went to her doctor and he treated her with doxycycline and cephalexin and a Rocephin injection. Then sent her here. Progress of Wound: Still has an open area along the back of the left calf area. Can see bumps of new skin developing beefy red. Debriding well bloody show right away pain is less. No redness around wound looks well no odor noted Subjective Subjective Patient is happy with outcomes Objective Data Objective Data Will continue using the Fibracol to the back of her left leg and have her follow-up in 2 weeks she should probably be healed by then. If not healed very close to healed. Vital Signs: Vital Signs Temp Pulse Resp BP O2 Del Method 97.6 F L 68 18 138/63 H Room Air 06/07/24 10:06/07/24 10:06/07/24 10:06/07/24 10:06/07/24 10:09 Oxygen Delivery Method Room Air Weight: 112 lb Body Mass Index (BMI) 21.9 Lab / Micro Data Attestation: I reviewed the patient's lab results. Physical Exam Const oriented x3 General Appearance: cooperative Exam Limitations: no limitations HEENT normocephalic Eyes PERRL General Eye: normal appearance of both eyes Neck full ROM General: normal visual inspection Resp normal respiratory effort Effort and Inspection: able to speak in complete sentences Auscultation: clear to auscultation bilaterally Cardio regular rate and regular rhythm Palpation: normal PMI Rate: regular rate Rhythm: regular rhythm GI Palpation: soft and no hepatosplenomegaly Back/Spine Cervical Spine: cervical ROM normal Extremity General Extremity: normal exam except as noted and other findings Other Details: Open wound left medial calf Skin Rashes: rashes noted Wound Narrative: Left lower leg inner calf open wound with eschar. Now has a linear more circumferential wound on the right posterior calf from the same episode of the dog chain. It is open nonhealing Neuro oriented x3 Psych Appearance: grossly normal Speech: normal speech Thought Content: normal thought content Judgement: judgement good Debridement Note Debridement Note Wound debrided: Left traumatic wound lower extremity Laterality: Left Type of Debridement: Excisional debridement Anesthesia Used: 5% Lidocaine Gel Depth: Down to and including healthy tissue and in the subcutaneous layer Percentage of wound debrided: 100 Instrument Used: 5mm curette and 7mm curette Tissue Removed: Devitalized tissue and fibrin Severity: Fat Layer Exposed Amount of bleeding with debridement: Mild Bleeding Controlled with: Compression and gauze Patient tolerated procedure: Patient tolerated procedure well Post-Debridement Measurements and Additional Note: Post-Debridement Measurements/Treatment - Nurse 1 - General Ulcer Assessment Start: 06/07/24 10:09 Freq: Status: Active Protocol: RITIKA Activity Type Activity Date Activity User E-sign Co-sign Detail Recorded Client Recorded Date Recorded By Document 06/07/24 10:09 [id number] 06/07/24 10:16 06/07/24 10:09 - Today's Visit Information Type of service Follow-up Visit (Physician/MANUFACTURING ENGINEER AUTOMOTIVE ) Arrival Mode Ambulatory Transfer Assistance None Patient Identification Verified (Name & Yes ) Height and Weight Body Mass Index (BMI) 21.9 BMI Classification Normal Vital Signs Temperature (97.8 F-99.1 F) 97.6 F L Temperature Source Temporal Pulse Rate (60-100) 68 Pulse Location Monitor Respiratory Rate (12-18) 18 Respiratory rate source Observation Oxygen Delivery Method Room Air Blood Pressure (90/60-120/80) 138/63 H Blood Pressure Mean (mm Hg) 88 Source Monitor Position Sitting Blood Pressure Location Right Arm History Since Last Visit- (Skip if this is Patient's initial visit) Have you changed medications since your No last visit? Any new allergies or adverse reactions No Had a fall/change in ADL's that may No increase risk of falls Signs or symptoms of abuse and/or No neglect since last visit Have you been in the hospital since your No last visit? Has dressing in place as prescribed Yes Has compression in place as prescribed Yes Has offloadiing in place as prescribed N/A Experienced any changes in pain level or No management Left Footwear Regular Shoe Right Footwear Regular Shoe Pain Scale: 0-10 Numeric Is Patient Pain Free? Yes Kendra Nurse 1 - General Ulcer Measurement Start: 06/07/24 10:09 Freq: Status: Active Protocol: Activity Type Activity Date Activity User E-sign Co-sign Detail Recorded Client Recorded Date Recorded By Document 06/07/24 10:09 [id number] 06/07/24 10:16 06/07/24 10:09 Wound Center Nurse 1 1. LLE posterior -Current Size (cm) - Length 2.5 -Current Size (cm) - Width 1.0 -Current Size (cm) - Depth 0.2 -Total Square Cm 2.50 -Date of Last Picture (Recall this 06/07/24 field) -Photo Taken Yes -Epithelialization Small 1-33% -Tunneling No -Undermining/Tunneling No -Circular Undermining No -Exudate Amt Small -Exudate Type Yellow/Green -Wound Margin Distinct, Outline Attached -Granulation Amt Small (1-33%) -Granulation Quality [place],Red -Slough/Fibrin No -Texture (Karina-wound Skin Appearance) Assessed -Moisture (Karina-wound Skin Appearance) Assessed -Color (Kairna-wound Skin Appearance) Assessed -Temperature (Karina-wound Skin No Abnormality Appearance) (Pt Warm) -Ulcer Cleansing Soap and Water -Foul Odor after Cleansing No -Anesthetic Used 5% Lidocaine Gel Lower Limb Edema Present No Left Calf (cm) 31.5 Left Ankle (cm) 19.5 WC - Nurse 2 - General Ulcer CM Notes Start: 06/07/24 10:09 Freq: Status: Active Protocol: Activity Type Activity Date Activity User E-sign Co-sign Detail Recorded Client Recorded Date Recorded By Document 06/07/24 10:32 [facility] [id number] 06/07/24 10:34 [facility] 06/07/24 10:32 Wound Center Nurse 2 1. LLE posterior -Time 10:32 -Correct Patient Yes -Correct Side, Site, Position Yes -Correct Procedure Yes -Procedure Performed Yes -Type of Procedure Debridement -Clinical Debridement Subcutaneous -Tissue Removed Subcutaneous -Post Debridement (cm) - Length 2.8 -Post Debridement (cm) - Width 0.8 -Post Debridement (cm) - Depth 0.1 -Total Square (Post) (cm) 2.24 -Area of Debridement (cm) - Length 2.8 -Area of Debridement (cm) - Width 0.8 -Total Square (Area) (cm) 2.24 -Tunneling No -Undermining/Tunneling No -Circular Undermining No -Wound/Ulcer Outcome Not Healed -Ulcer Cleansing Rinsed/ Irrigated with Saline -Foul Odor after Cleansing No -Bioengineered Tissue No -Bleeding Controlled with Pressure -Treatment Response Procedure Tolerated Well -Debridement - Subq, 1st 20sq cm Yes Pain Scale: 0-10 Numeric Is Patient Pain Free? Yes - Nurse 3 - General Ulcer D/C NN Start: 06/07/24 10:09 Freq: Status: Active Protocol: Activity Type Activity Date Activity User E-sign Co-sign Detail Recorded Client Recorded Date Recorded By Document 06/07/24 10:39 DL [id number] 06/07/24 10:40 DL 06/07/24 10:39 Wound Care Center Nurse 3 1. LLE posterior -Ulcer Cleansing Rinsed/ Irrigated with Saline -Foul Odor after Cleansing No -Primary Dressing Applied Fibracol Plus 4x4,Mepilex Border -Other Dressing TUBIGRIP -Fibracol Plus 4x4 1 -Mepilex Border 1 Treatment Response Procedure Tolerated Well Pain Scale: 0-10 Numeric Is Patient Pain Free? Yes - Visit Discharge Discharge Condition Stable Ambulatory Status Ambulatory Transportation Private Auto Additional Wound Wound debrided: Right posterior calf linear traumatic wound Assessment/Plan Assessment/Plan (1) Nonhealing nonsurgical wound: CODE(S): T14.8XXA - Other injury of unspecified body region, initial encounter PLAN: Wash left leg with antibacterial soap and water and apply Fibracol to wound base moistened cover with Adaptic then absorbent dressing every day Wear a Tubigrip single-layer follow-up in 2 weeks (2) Traumatic ulcer of lower leg with fat layer exposed: CODE(S): L97.902 - Non-pressure chronic ulcer of unspecified part of unspecified lower leg with fat layer exposed QUALIFIERS: Laterality: right Qualified Code(s): L97.912 - Non- pressure chronic ulcer of unspecified part of right lower leg with fat layer exposed
--- NOTE | 2024-06-09 09:09 | WC ---
PHOTO 06/07/24 LEFT MED LEG
[2024-06-21 10:12] VITALS: BP 128/78; PULSE 71; RESP 16; TEMP 36.6; BMI 21.9
--- NOTE | 2024-06-21 12:04 | PN.PCM_ITS ---
History of Present Illness Date of Service: 06/21/24 Chief Complaint: Follow-up on a traumatic wound to the left lower inner calf. History of Wound: 63-year-old white female that was walking her dog and the chain got wrapped around her leg and ripped the skin open it started as a blood blister. And then it opened and she had a lot of blood drainage went to her doctor and he treated her with doxycycline and cephalexin and a Rocephin injection. Then sent her here. Progress of Wound: All wounds are healed patient will be discharged from the wound center Subjective Subjective She is very pleased with outcomes Objective Data Objective Data Skin well-approximated looks good no sign of infection healed well she can follow-up as needed but discharge from the wound center Vital Signs: Vital Signs Temp Pulse Resp BP O2 Del Method 97.8 F 71 16 128/78 H Room Air 06/21/24 10:12 06/21/24 10:12 06/21/24 10:12 06/21/24 10:12 06/07/24 10:09 Oxygen Delivery Method Room Air Weight: 112 lb Body Mass Index (BMI) 21.9 Physical Exam Const oriented x3 General Appearance: cooperative Exam Limitations: no limitations HEENT normocephalic Eyes PERRL General Eye: normal appearance of both eyes Neck full ROM General: normal visual inspection Resp normal respiratory effort Effort and Inspection: able to speak in complete sentences Auscultation: clear to auscultation bilaterally Cardio regular rate and regular rhythm Palpation: normal PMI Rate: regular rate Rhythm: regular rhythm GI Palpation: soft and no hepatosplenomegaly Back/Spine Cervical Spine: cervical ROM normal Extremity General Extremity: normal exam except as noted and other findings Other Details: Open wound left medial calf Skin Rashes: rashes noted Wound Narrative: Left lower leg inner calf open wound with eschar. Now has a linear more circumferential wound on the right posterior calf from the same episode of the dog chain. It is open nonhealing Neuro oriented x3 Psych Appearance: grossly normal Speech: normal speech Thought Content: normal thought content Judgement: judgement good Debridement Note Debridement Note No debridement was completed: No debridement was completed today Assessment/Plan Assessment/Plan (1) Nonhealing nonsurgical wound: CODE(S): T14.8XXA - Other injury of unspecified body region, initial encounter PLAN: Discharge from the wound center follow-up as needed (2) Traumatic ulcer of lower leg with fat layer exposed: CODE(S): L97.902 - Non-pressure chronic ulcer of unspecified part of unspecified lower leg with fat layer exposed QUALIFIERS: Laterality: right Qualified Code(s): L97.912 - Non- pressure chronic ulcer of unspecified part of right lower leg with fat layer exposed
--- NOTE | 2024-06-22 08:27 | WC ---
PHOTO LLE POST(H)
== END 2024-06-21 10:31 | disposition home or self-care (01) ==
LOC: WC 09:30
PROVIDERS: PCP Family Medicine Geriatric Medicine; Referring Provider Family Medicine Geriatric Medicine; Visit Provider Nurse Practitioner
DX: L97.912 Non-pressure chronic ulcer of unspecified part of right lower leg with fat layer exposed (principal)
CPT/HCPCS: 11042; 99212; G0463

== ENCOUNTER 2024-07-07 12:37 | Outpatient (CLI) | payer MEDICARE, MEDICAID, SELFPAY ==
[2024-07-07 13:09] VITALS: BP 120/68; PULSE 71; RESP 16; TEMP 36.1; O2SAT 97; BMI 21.1
[2024-07-07] MEDS: DENOSUMAB 60 MG/ML SC (13:12)
== END 2024-07-07 23:59 | disposition home or self-care (01) ==
LOC: MEDOUTP 12:39
PROVIDERS: PCP Family Medicine Geriatric Medicine; Referring Provider Family Medicine Geriatric Medicine; Visit Provider Family Medicine Geriatric Medicine
DX: M80.00XA Age-related osteoporosis with current pathological fracture, unspecified site, initial encounter for fracture (principal)
CPT/HCPCS: 96372; J0897

== ENCOUNTER → 2024-08-11 | Outpatient (CLI) | payer MEDICARE, MEDICAID, SELFPAY ==
[2024-08-11 15:13] LABS: M R Staph aureus DNA By PCR Negative (Negative); Probe Check PASS; Specimen Processing Control PASS; Staph aureus DNA By PCR POSITIVE (Negative)
== END | disposition home or self-care (01) ==
LOC: LABSPEC 12:48
PROVIDERS: PCP Family Medicine Geriatric Medicine; Referring Provider Family Medicine Geriatric Medicine; Visit Provider Family Medicine Geriatric Medicine
DX: L03.115 Cellulitis of right lower limb (principal); S81.811A Laceration without foreign body, right lower leg, initial encounter; X58.XXXA Exposure to other specified factors, initial encounter; Z22.39 Carrier of other specified bacterial diseases
CPT/HCPCS: 87070; 87205; 87640

== ENCOUNTER → 2024-08-18 | Outpatient (CLI) | payer MEDICARE, MEDICAID, SELFPAY ==
--- NOTE | 2024-08-18 12:28 | VDLE_ITS ---
Reason For Study: RLE SWELLING RIGHT LEFT GSV is normal. CFV is compressible, spontaneous, phasic, CFV is compressible, spontaneous, phasic, competent, and demonstrates normal competent and demonstrates normal augmentation. augmentation. FV is compressible, spontaneous, phasic, competent and demonstrates normal augmentation. POP V is compressible, spontaneous, phasic, competent and demonstrates normal augmentation. T/P Trunk is compressible. PTV is compressible. RT PerV is compressible. Procedure This is a venous duplex using B-mode, color flow and spectral Doppler. Exam performed in department. A preliminary report was called and/or faxed to Dr. Gonzalez @ [phone] @ 12:55pm. VL/Venous Duplex US, Unilateral Interpretation Summary Deep veins of the right lower extremity are patent and compressible segmentally . There is no evidence of right lower extremity deep vein thrombosis. Valvular competence crow ears intact within the proximal deep venous system on the right . The right great saphenous vein a ppears patent and compressible segmentally. The left common femoral vein is patent and compressib le . Ordering Physician: Benton Gonzalez Chi Referring Physician: Benton Gonzalez Chi Performed By: Tiara Small, SUKHDEV, RVT
--- NOTE | 2024-08-18 12:30 | RAD_ITS ---
INDICATION: RIGHT HIP PAIN EXAMINATION/TECHNIQUE: X-RAY - XR Hip Unilateral with Pelvis when performed; 2-3 Views COMPARISON: No relevant prior comparison study available FINDINGS: PELVIC BONES: No displaced fracture, destructive or sclerotic lesions. Note that overlapping bowel shadows may however obscure fine detail. Sacroiliac joints are unremarkable. No widening of the pubic symphysis. HIPS: The articular structures are unremarkable. No displaced fracture seen in this frontal view. SOFT TISSUES: No soft tissue swelling or gas. RAD/HIP, UNI W/ Pelvis 2-3 Views IMPRESSION: No evidence of displaced pelvic or hip fracture. Electronically Signed: Rebecca Alves MD at 12:47 EST ,
== END | disposition home or self-care (01) ==
LOC: CVS 12:26
PROVIDERS: PCP Family Medicine Geriatric Medicine; Referring Provider Family Medicine Geriatric Medicine; Visit Provider Family Medicine Geriatric Medicine
DX: M25.551 Pain in right hip (principal); M79.89 Other specified soft tissue disorders
CPT/HCPCS: 73502; 93971

== ENCOUNTER → 2024-09-15 | Outpatient (CLI) | payer MEDICARE, MEDICAID, SELFPAY ==
[2024-09-15 11:55] LABS: Absolute Lymphocyte Count 1.71 X10^3/uL (0.83-4.51); Absolute Neutrophil Count 1.4 X10^3/uL (2.0-7.7); Basophil# 0.02 X10^3/uL; Basophil% 0.5 % (0-1); Eosinophil# 0.02 X10^3/uL; Eosinophils% 0.5 % (0-5); Hematocrit 44.3 % (37-47); Hemoglobin 15.5 g/dL (12.0-15.0); Lymphocyte # 1.71 X10^3/ul (0.83-4.51); Lymphocyte % 45.8 % (19-41); Mean Corpuscular Hgb 34.8 pg (27.0-32.0); Mean Corpuscular Volume 99.6 fL (81-99); Mean Platelet Vol. 11.1 fl (6.2-12.0); Monocyte% 16.1 % (0-10); NRBC Flagged by Analyzer 0 % (0-5); Neutrophil # 1.37 X10^3/uL (2.7-7.7); Neutrophil % 36.8 % (47-70); Platelet Count 113 K/mm3 (150-450); RBC Distribution Width CV 12.7 % (11.6-14.6); RBC Distribution Width SD 46.6 fl (35.1-43.9); Red Blood Count 4.45 M/mm3 (4.2-5.4); White Blood Count 3.7 K/mm3 (4.4-11.0)
[2024-09-15 12:37] LABS: ALB/GLOB Ratio 0.9 RATIO (0.9-2.4); AST(SGOT) 16 U/L (15-37); Alanine Aminotransfer ALT/SGPT 19 U/L (13-56); Albumin, Serum 3.1 g/dL (3.2-5.0); Alkaline Phosphatase 48 U/L (45-117); Anion Gap 7 (5-15); BUN 14 mg/dL (7-18); BUN/Creat Ratio 18.8 RATIO (10-20); Calcium,Total 8.6 mg/dL (8.5-10.1); Chloride 105 mmol/L (98-107); Cholesterol 189 mg/dL (200); Creatinine, Serum 0.74 mg/dL (0.55-1.02); EST Glomerular Filtration Rate 84 mL/min (>60); Est Glom Filt Rate - Afr Amer 101 mL/min (>60); Globulin 3.5 g/dL (2.2-4.2); Glucose 105 mg/dL (74-106); High Density Lipoprotein 65 mg/dL; Potassium 3.8 mmol/L (3.5-5.1); Protein, Total 6.6 g/dL (6.4-8.2); Sodium Level 138 mmol/L (136-145); Triglycerides 101 mg/dL; Very Low Density Lipoprotein 20 mg/dL (5-40)
== END | disposition home or self-care (01) ==
LOC: POLAB3 11:38
PROVIDERS: PCP Family Medicine Geriatric Medicine; Visit Provider Family Medicine Geriatric Medicine
DX: U07.1 COVID-19 (principal); E78.5 Hyperlipidemia, unspecified
CPT/HCPCS: 36415; 80053; 80061; 84443; 85025; 87631

== ENCOUNTER 2024-09-28 10:25 | Outpatient (RCR) | payer MEDICARE, MEDICAID, SELFPAY ==
[2024-09-28 10:42] VITALS: BP 134/45; PULSE 74; RESP 18; TEMP 36
--- NOTE | 2024-09-28 12:20 | PCM.WC.HP ---
History of Present Illness Date of Service: 09/28/24 Chief Complaint: Left leg wound History of Wound: Ms. Harmon is a 64-year-old referred to the wound center by her primary care physician due to left leg wound. She sustained this wound over a month ago. She states that she scraped her leg while coming down a ladder. She was seen at the emergency room in [place] following event and had sutures placed. Most of the area is healed save for a small area. Has been cleaning it daily with antibiotic soap and water and putting triple antibiotic ointment/Neosporin on it. History of tobacco use. No known history of diabetes mellitus. Feels well. [facility] Medical History (Updated 09/28/24 @ 12:[address] Mike Santacruz MD) Traumatic open wound of left lower leg with delayed healing Tobacco abuse History of seizures Arthritis Home Medications ?Medication ?Instructions ?Recorded ?Last Taken ?Type divalproex 500 mg tablet,delayed 500 mg PO Q12H 05/29/19 Unknown History release (Depakote) levetiracetam 500 mg tablet 500 mg PO BID 05/29/19 Unknown History (Keppra) budesonide 160 mcg-glycopyr 9 2 inh inhalation .q 12hr 04/26/24 Unknown History mcg-formot 4.8 mcg/actuation HFA inhaler (Breztri Aerosphere) calcium 500 mg tablet mg PO DAILY 07/07/24 Unknown History cholecalciferol (vitamin D3) 50 2,000 unit PO QDAY 07/07/24 Unknown History mcg (2,000 unit) tablet (D3 DOTS) Allergy/AdvReac Type Severity Reaction Status Date / Time No Known Allergies Allergy Verified 09/28/24 10:51 Family History Other Epilepsia Surgical History History of section Social History Smoking Status: Current every day smoker alcohol intake: never substance use type: does not use what type of physical activity do you participate in: walking frequency: 1-2 times per week ROS Constitutional Constitutional: Denies body ache(s), change in weight, fatigue, frequent falls, increased appetite, lethargy or snoring Eyes Eyes: Denies blindness, blind spots, change in eye color, change in vision, decreased night vision or diplopia ENT HEENT: Denies facial pain, foreign body in nose, halitosis, headache(s), hearing loss, hoarseness or mouth pain Cardiovascular Cardiovascular: Denies chest pain with activity, claudication, clubbing, cold extremities, cyanosis or dyspnea at rest Respiratory/Chest Respiratory/Chest: Denies chest congestion, difficulty clearing secretions, dry cough, dyspnea or excessive phlegm production Gastrointestinal Gastrointestinal: Denies belching, bloating, change in bowel habits, chewing difficulty, coffee ground emesis or dysphagia Genitourinary Genitourinary: Denies abdominal discomfort, burning urination, dribbling, dysuria or flank pain Musculoskeletal Musculoskeletal: Denies atrophy, difficulty walking, extremity pain, joint swelling or limited range of motion Integumentary Integumentary: Denies change in pigmentation, erythema, hirsutism, jaundice or skin swelling Neurologic Neurologic: Denies abnormal speech, behavior changes, burning sensations, confusion, convulsions, disequilibrium or dizziness Psychiatric Psychiatric: Denies abnormal sleep pattern, anhedonia, auditory hallucinations, behavioral changes, difficulty concentrating, homicidal ideation or mood swings Endocrine Endocrinology: Denies change in libido, deepening of the voice, excessive sweating, flushing, increase in ring/shoe/hat size or palpitations Hematologic/Lymphatic Hematologic/Lymphatic: Denies anemia, easy bleeding or easy bruising Allergic/Immunologic Allergic/Immunologic: Denies itchy eyes, lip swelling, rhinitis, throat swelling, tongue swelling, eczemia, wheezing or asthma Vital Signs Vital Signs Vital Signs: 09/28/24 10:42 Temperature 96.8 F L Temperature Source Temporal Pulse Rate 74 Respiratory Rate 18 Blood Pressure 134/45 H Blood Pressure Mean 74 Blood Pressure Source Monitor Blood Pressure Position Sitting Blood Pressure Location Left Arm Oxygen Delivery Method Room Air Physical Exam Const alert, oriented x3 and no apparent distress General Appearance: cooperative, comfortable and well kempt HEENT normocephalic, head/scalp atraumatic and hearing grossly normal bilaterally Eyes EOMs intact bilaterally General Eye: normal appearance of both eyes Neck full ROM, no lymphadenopathy and supple General: normal visual inspection Resp normal respiratory effort and normal air movement Effort and Inspection: able to speak in complete sentences Cardio regular rate, regular rhythm, S1 normal heart sound and S2 normal heart sound GI soft to palpation, non-tender and non-distended Extremity General Extremity: edema Skin Wounds: wounds noted size Size: See clinical note, bed with slough, margins well approximated, no odor and open Neuro oriented x3, CN's II-XII intact bilaterally, moves all extremities and no focal motor deficits Psych mental status grossly normal, thought process normal, cooperative, affect normal and speech normal Debridement Note Debridement Note Wound debrided: Left lower extremity Type of Debridement: Excisional debridement Anesthesia Used: 4% Lidocaine Solution Depth: Down to and including healthy tissue and in the subcutaneous layer Percentage of wound debrided: 100 Instrument Used: 3mm curette Tissue Removed: Slough and devitalized tissue Severity: Fat Layer Exposed Amount of bleeding with debridement: Mild Bleeding Controlled with: Pressure Patient tolerated procedure: Patient tolerated procedure well Post-Debridement Measurements and Additional Note: Post-Debridement Measurements/Treatment JILLIAN - Nurse 1 - General Ulcer Assessment Start: 09/28/24 10:42 Freq: Status: Active Protocol: RITIKA Activity Type Activity Date Activity User E-sign Co-sign Detail Recorded Client Recorded Date Recorded By Document 09/28/24 10:42 KW [id number] 09/28/24 10:51 09/28/24 10:42 JILLIAN - Today's Visit Information Type of service Initial Visit Arrival Mode Ambulatory Patient Identification Verified (Name & Yes ) Vital Signs Temperature (97.8 F-99.1 F) 96.8 F L Temperature Source Temporal Pulse Rate (60-100) 74 Pulse Location Monitor Respiratory Rate (12-18) 18 Respiratory rate source Observation Oxygen Delivery Method Room Air Blood Pressure (90/60-120/80) 134/45 H Blood Pressure Mean 74 Source Monitor Position Sitting Blood Pressure Location Left Arm History Since Last Visit- (Skip if this is Patient's initial visit) Left Footwear Regular Shoe Right Footwear Regular Shoe Pain Scale: 0-10 Numeric Is Patient Pain Free? Yes JILLIAN - Nurse 1 - General Ulcer Measurement Start: 09/28/24 10:42 Freq: Status: Active Protocol: Activity Type Activity Date Activity User E-sign Co-sign Detail Recorded Client Recorded Date Recorded By Document 09/28/24 10:42 KW [id number] 09/28/24 10:51 KW 09/28/24 10:42 Wound Center Nurse 1 #3 R MED LE -Current Size (cm) - Length 2 -Current Size (cm) - Width 0.2 -Current Size (cm) - Depth 0.1 -Total Square Cm 0.4 -Date of Last Picture (Recall this 09/28/24 field) -Exudate Amt Small -Exudate Type Serosanguineous -Wound Margin Distinct, Outline Attached -Granulation Amt Small (1-33%) -Granulation Quality [place] -Necrosis Amt Large (67-100%) -Necrotic Tissue Type Adherent Slough -Texture (Karina-wound Skin Appearance) Assessed -Moisture (Karina-wound Skin Appearance) Assessed -Color (Karina-wound Skin Appearance) Assessed -Temperature (Karina-wound Skin No Abnormality Appearance) (Pt Warm) -Tenderness on Palpation (Karina-wound No Skin Appearance) -Ulcer Cleansing Rinsed/ Irrigated with Saline -Foul Odor after Cleansing No -Anesthetic Used 5% Lidocaine Gel WC - Nurse 2 - General Ulcer CM Notes Start: 09/28/24 10:42 Freq: Status: Active Protocol: Activity Type Activity Date Activity User E-sign Co-sign Detail Recorded Client Recorded Date Recorded By Document 09/28/24 11:17 [id number] 09/28/24 11:26 09/28/24 11:17 Wound Center Nurse 2 -Time 11:17 -Correct Patient Yes -Correct Side, Site, Position Yes -Correct Procedure Yes -Procedure Performed Yes -Type of Procedure Debridement -Clinical Debridement Subcutaneous -Tissue Removed Subcutaneous -Post Debridement (cm) - Length 1.6 -Post Debridement (cm) - Width 0.4 -Post Debridement (cm) - Depth 0.1 -Total Square (Post) (cm) 0.64 -Area of Debridement (cm) - Length 1.6 -Area of Debridement (cm) - Width 0.4 -Total Square (Area) (cm) 0.64 -Tunneling No -Undermining/Tunneling No -Circular Undermining No -Wound/Ulcer Outcome Not Healed -Ulcer Cleansing Rinsed/ Irrigated with Saline -Foul Odor after Cleansing No -Bioengineered Tissue No -Bleeding Controlled with Pressure -Treatment Response Procedure Tolerated Well -Debridement - Subq, 1st 20sq cm Yes Pain Scale: 0-10 Numeric Is Patient Pain Free? Yes WC - Nurse 3 - General Ulcer D/C NN Start: 09/28/24 10:42 Freq: Status: Active Protocol: Activity Type Activity Date Activity User E-sign Co-sign Detail Recorded Client Recorded Date Recorded By Document 09/28/24 11:42 KW [id number] 09/28/24 11:43 KW 09/28/24 11:42 Wound Care Center Nurse 3 #3 R MED LE -Primary Dressing Applied NonAdherent Contact Layer, Promogran -Primary Dressing Covered/Secured with Dry Gauze & Roll Gauze, Secured with Tape -Promogran 1 Right -Tubular Bandage Double Layer -Size of Tubigrip Used Size D -Size D ($) 2 Pain Scale: 0-10 Numeric Is Patient Pain Free? Yes WC - Visit Discharge Discharge Condition Stable Ambulatory Status Ambulatory Transportation Private Auto Medication Reconcilliation completed & No provided to patient/care provider Clinical Summary of Care Provided Yes Charges/Coding Visit Charges Office Visits / Consults: 63380 OV L3 New 30min Procedures Integumentary 111xxx-113xx: [id number] Paola subq tissue 20 sq cm/< Assessment/Plan Assessment/Plan (1) Traumatic open wound of left lower leg with delayed healing: CODE(S): S81.802D - Unspecified open wound, left lower leg, subsequent encounter PLAN: . Penetrating.With Fat Layer Exposed (2) Tobacco abuse: CODE(S): Z72.0 - Tobacco use PLAN: Plan Debridement done as documented above, procedure was well-tolerated. As above, status post suturing about a month ago with non-closure/breakdown of current area. Cultures taken, will review. No significant clinical signs of infection however, due to chronicity, cultures taken. Trace edema. For now, moistened Promogran daily, cover with Adaptic and gauze. Tubigrip for edema management. Smoking cessation strongly recommended, she voiced understanding. She states that her appetite is good, continue optimal protein intake. Recent labs on 09/15/2024 reviewed, no acute/significant concerns. Her questions were answered and she was advised to let us know if she has any further questions or concerns. Follow-up in a week or sooner if needed. This note was generated with [employer] software. It may contain incorrect words, spelling, and punctuation that were not noted in checking the note before signing.
== END 2024-10-03 23:59 | disposition home or self-care (01) ==
LOC: WC 10:25
PROVIDERS: PCP Family Medicine Geriatric Medicine; Referring Provider Family Medicine Geriatric Medicine; Visit Provider Internal Medicine
DX: S81.832A Puncture wound without foreign body, left lower leg, initial encounter (principal); W22.09XA Striking against other stationary object, initial encounter; F17.200 Nicotine dependence, unspecified, uncomplicated; Z79.899 Other long term (current) drug therapy
CPT/HCPCS: 11042; 87070; 87075; 87205; 99213; G0463

== ENCOUNTER → 2024-10-03 | Outpatient (CLI) | payer MEDICARE, MEDICAID, SELFPAY ==
--- NOTE | 2024-10-03 10:04 | BI_ITS ---
MAMMOGRAPHY - BILATERAL SCREENING 3-D TOMOSYNTHESIS REASON FOR EXAM: Female, 64 years old. SCREENING PERTINENT HISTORY: No significant family history. TECHNIQUE: 2-D mammograms and 3-D Tomosynthesis of the breast (s) were performed. CAD was performed. COMPARISON: 09/20/2023 FINDINGS: The breast composition is heterogeneously dense that can obscure small breast masses. Scattered benign calcifications are seen. No dense spiculated masses or suspicious microcalcifications are identified. No architectural distortion is identified. There is no skin thickening or retraction. There has been no significant change since the prior study. BI/SCRN MAMM (CAD)W/[place] BILAT IMPRESSION: No mammographic signs of malignancy. Routine yearly mammograms recommended. ASSESSMENT CATEGORY: BIRADS Category 1: Negative. A letter regarding these results will be sent to the patient by the facility within 30 days. FOLLOW UP RECOMMENDATION: Yearly follow up mammogram recommended. (A) Approximately 10% of breast cancers are not detected by mammography. A normal mammogram should not delay biopsy of a clinically suspicious abnormality. Electronically Signed: Harry Whalen MD at 19:31 EST ,
== END | disposition home or self-care (01) ==
LOC: OPBI 10:03
PROVIDERS: PCP Family Medicine Geriatric Medicine; Referring Provider Family Medicine Geriatric Medicine; Visit Provider Family Medicine Geriatric Medicine
DX: Z12.31 Encounter for screening mammogram for malignant neoplasm of breast (principal)
CPT/HCPCS: 77063; 77067

== ENCOUNTER 2024-10-05 10:16 | Outpatient (RCR) | payer MEDICARE, MEDICAID, SELFPAY ==
[2024-10-04 00:29] VITALS: BP 134/45; PULSE 74; RESP 18; TEMP 36
[2024-10-05 10:35] VITALS: BP 122/58; PULSE 82; RESP 16; TEMP 36.5
--- NOTE | 2024-10-05 11:42 | PN.PCM_ITS ---
History of Present Illness Date of Service: 10/05/24 Chief Complaint: Left leg wound History of Wound: Ms. Harmon is a 64-year-old referred to the wound center by her primary care physician due to left leg wound. She sustained this wound over a month ago. She states that she scraped her leg while coming down a ladder. She was seen at the emergency room in [place] following event and had sutures placed. Most of the area is healed save for a small area. Has been cleaning it daily with antibiotic soap and water and putting triple antibiotic ointment/Neosporin on it. History of tobacco use. No known history of diabetes mellitus. Feels well. Progress of Wound: No new concerns reported at this time. Improving. Cultures with no significant growth. Objective Data Objective Data Vital Signs: Vital Signs Temp Pulse Resp BP 97.7 F L 82 16 122/58 H 10/05/24 10:35 10/05/24 10:35 10/05/24 10:35 10/05/24 10:35 Charges/Coding Procedures Integumentary 111xxx-113xx: [id number] Paola subq tissue 20 sq cm/< Physical Exam Const alert, oriented x3 and no apparent distress General Appearance: cooperative, comfortable and well kempt HEENT normocephalic, head/scalp atraumatic and hearing grossly normal bilaterally Eyes EOMs intact bilaterally General Eye: normal appearance of both eyes Neck full ROM and supple General: normal visual inspection Resp normal respiratory effort Effort and Inspection: able to speak in complete sentences Skin Wounds: wounds noted size Size: See clinical note, bed granulating well, margins well approximated, no odor and open Neuro oriented x3, CN's II-XII intact bilaterally, moves all extremities and no focal motor deficits Psych mental status grossly normal, thought process normal, cooperative, affect normal and speech normal Debridement Note Debridement Note Wound debrided: Left lower extremity Type of Debridement: Excisional debridement Anesthesia Used: 5% Lidocaine Gel Depth: Down to and including healthy tissue and in the subcutaneous layer Percentage of wound debrided: 100 Instrument Used: 3mm curette Tissue Removed: Devitalized tissue Severity: Fat Layer Exposed Amount of bleeding with debridement: Mild Bleeding Controlled with: Pressure Patient tolerated procedure: Patient tolerated procedure well Post-Debridement Measurements and Additional Note: Post-Debridement Measurements/Treatment WC - Nurse 1 - General Ulcer Assessment Start: 10/05/24 10:35 Freq: Status: Active Protocol: RITIKA Activity Type Activity Date Activity User E-sign Co-sign Detail Recorded Client Recorded Date Recorded By Document 10/05/24 10:35 [id number] 10/05/24 10:42 10/05/24 10:35 - Today's Visit Information Type of service Follow-up Visit (Physician/[employer]INER ) Arrival Mode Ambulatory Patient Identification Verified (Name & Yes ) Patient Requires Transmission-Based No Precautions Vital Signs Temperature (97.8 F-99.1 F) 97.7 F L Temperature Source Temporal Pulse Rate (60-100) 82 Pulse Location Monitor Respiratory Rate (12-18) 16 Respiratory rate source Observation Blood Pressure (90/60-120/80) 122/58 H Blood Pressure Mean (mm Hg) 79 Source Monitor Position Semi-Fowlers Blood Pressure Location Left Arm History Since Last Visit- (Skip if this is Patient's initial visit) Have you changed medications since your Yes last visit? Any new allergies or adverse reactions No Had a fall/change in ADL's that may No increase risk of falls Signs or symptoms of abuse and/or No neglect since last visit Have you been in the hospital since your No last visit? Has dressing in place as prescribed Yes Has compression in place as prescribed Yes Has offloadiing in place as prescribed N/A Experienced any changes in pain level or No management Pain Scale: 0-10 Numeric Is Patient Pain Free? Yes - Nurse 1 - General Ulcer Measurement Start: 10/05/24 10:35 Freq: Status: Active Protocol: Activity Type Activity Date Activity User E-sign Co-sign Detail Recorded Client Recorded Date Recorded By Document 10/05/24 10:35 [id number] 10/05/24 10:42 10/05/24 10:35 Wound Center Nurse 1 #3 R MED LE -Current Size (cm) - Length 0.7 -Current Size (cm) - Width 0.3 -Current Size (cm) - Depth 0.1 -Total Square Cm 0.21 -Exudate Amt Small -Exudate Type Serous -Slough/Fibrin Yes -Necrosis Amt Large (67-100%) -Necrotic Tissue Type Adherent Slough - Nurse 2 - General Ulcer CM Notes Start: 10/05/24 10:35 Freq: Status: Active Protocol: Activity Type Activity Date Activity User E-sign Co-sign Detail Recorded Client Recorded Date Recorded By Document 10/05/24 10:51 [id number] 10/05/24 10:53 10/05/24 10:51 Wound Center Nurse 2 -Time 10:51 -Correct Patient Yes -Correct Side, Site, Position Yes -Correct Procedure Yes -Procedure Performed Yes -Type of Procedure Debridement -Clinical Debridement Subcutaneous -Tissue Removed Subcutaneous -Post Debridement (cm) - Length 0.3 -Post Debridement (cm) - Width 0.2 -Post Debridement (cm) - Depth 0.1 -Total Square (Post) (cm) 0.06 -Area of Debridement (cm) - Length 0.3 -Area of Debridement (cm) - Width 0.2 -Total Square (Area) (cm) 0.06 -Tunneling No -Undermining/Tunneling No -Circular Undermining No -Wound/Ulcer Outcome Not Healed -Ulcer Cleansing Rinsed/ Irrigated with Saline -Foul Odor after Cleansing No -Bioengineered Tissue No -Bleeding Controlled with Pressure -Treatment Response Procedure Tolerated Well -Debridement - Subq, 1st 20sq cm Yes Pain Scale: 0-10 Numeric Is Patient Pain Free? Yes - Nurse 3 - General Ulcer D/C NN Start: 10/05/24 10:35 Freq: Status: Active Protocol: Activity Type Activity Date Activity User E-sign Co-sign Detail Recorded Client Recorded Date Recorded By Document 10/05/24 11:07 IL [id number] 10/05/24 11:08 [place] 10/05/24 11:07 Wound Care Center Nurse 3 #3 R MED LE -Ulcer Cleansing Soap and Water -Foul Odor after Cleansing No -Negative Pressure Wound Therapy N/A -Primary Dressing Applied Promogran -Other Dressing adpatic -Primary Dressing Covered/Secured with Dry Gauze,Dry Gauze & Roll Gauze,Secured with Tape -Promogran 1 Right -Tubular Bandage Double Layer -Size of Tubigrip Used Size D -Size D ($) 2 Pain Scale: 0-10 Numeric Is Patient Pain Free? Yes Assessment/Plan Assessment/Plan (1) Traumatic open wound of left lower leg with delayed healing: CODE(S): S81.802D - Unspecified open wound, left lower leg, subsequent encounter PLAN: . Penetrating.With Fat Layer Exposed (2) Tobacco abuse: CODE(S): Z72.0 - Tobacco use PLAN: Plan Debridement done as documented above, procedure was well-tolerated. Good improvement noted since her last visit. No concerns reported at this time. Continue moistened Promogran daily, cover with Adaptic and gauze. Tubigrip for edema management. Continue other chronic wound care measures as previously discussed/recommended. Cultures reviewed, no indication for antibiotics. Her questions were answered and she was advised to let us know if she has any further questions or concerns. Follow-up in a week or sooner if needed. This note was generated with [employer] dictation software. It may contain incorrect words, spelling, and punctuation that were not noted in checking the note before signing.
== END 2024-11-01 13:17 | disposition home or self-care (01) ==
LOC: WC 10:16
PROVIDERS: PCP Family Medicine Geriatric Medicine; Referring Provider Family Medicine Geriatric Medicine; Visit Provider Internal Medicine
DX: S81.832A Puncture wound without foreign body, left lower leg, initial encounter (principal); W22.09XA Striking against other stationary object, initial encounter; Z79.899 Other long term (current) drug therapy; Z72.0 Tobacco use
CPT/HCPCS: 11042

== ENCOUNTER → 2024-11-30 | Outpatient (CLI) | payer MEDICARE, MEDICAID, SELFPAY | END | disposition home or self-care (01) | PROVIDERS: PCP Family Medicine Geriatric Medicine; Visit Provider Family Medicine Geriatric Medicine | DX: R68.83 Chills (without fever) (principal) | CPT/HCPCS: 87631 ==

== ENCOUNTER 2025-01-05 12:07 | Outpatient (CLI) | payer MEDICARE, SELFPAY ==
[2025-01-05 12:16] VITALS: BP 108/61; PULSE 72; RESP 16; TEMP 35.8; O2SAT 96; BMI 19.5
[2025-01-05] MEDS: DENOSUMAB 60 MG/ML SC (12:20)
== END 2025-01-05 23:59 | disposition home or self-care (01) ==
LOC: MEDOUTP 12:09
PROVIDERS: PCP Family Medicine Geriatric Medicine; Referring Provider Family Medicine Geriatric Medicine; Visit Provider Family Medicine Geriatric Medicine
DX: M80.00XA Age-related osteoporosis with current pathological fracture, unspecified site, initial encounter for fracture (principal)
CPT/HCPCS: 96372; J0897

== ENCOUNTER → 2025-03-15 | Outpatient (CLI) | payer MEDICARE, SELFPAY ==
--- NOTE | 2025-03-15 12:06 | RAD_ITS ---
PROCEDURE: KNEE 4 OR MORE VIEWS 03/15/2025 REASON FOR EXAM: KNEE PAIN TECHNIQUE: 4 view(s) of the left knee COMPARISON: None. FINDINGS: Mild osteopenia of the visualized bones. Degenerative joint disease. No fracture or dislocation is seen. No lytic or blastic bone lesion is noted. RAD/Knee 4 or More Views IMPRESSION: No evidence for acute abnormality. Reading [facility]
[2025-03-15 13:10] LABS: Absolute Lymphocyte Count 3.02 X10^3/uL (0.83-4.51); Absolute Neutrophil Count 3.8 X10^3/uL (2.0-7.7); Basophil# 0.05 X10^3/uL; Basophil% 0.6 % (0-1); Eosinophil# 0.03 X10^3/uL; Eosinophils% 0.4 % (0-5); Hemoglobin 14.5 g/dL (12.0-15.0); Lymphocyte # 3.02 X10^3/ul (0.83-4.51); Lymphocyte % 37.7 % (19-41); Mean Corp Hgb Conc 33.7 g/dL (32-36); Mean Corpuscular Hgb 34.3 pg (27.0-32.0); Mean Corpuscular Volume 101.7 fL (81-99); Mean Platelet Vol. 10.5 fl (6.2-12.0); Monocyte# 1.08 X10^3/uL; Monocyte% 13.5 % (0-10); NRBC Flagged by Analyzer 0 % (0-5); Neutrophil # 3.81 X10^3/uL (2.7-7.7); Neutrophil % 47.6 % (47-70); Platelet Count 246 K/mm3 (150-450); RBC Distribution Width CV 12.7 % (11.6-14.6); RBC Distribution Width SD 47.6 fl (35.1-43.9); Red Blood Count 4.23 M/mm3 (4.2-5.4)
[2025-03-15 15:30] LABS: ALB/GLOB Ratio 1.7 RATIO (0.9-2.4); AST(SGOT) 22 U/L (<=31); Alanine Aminotransfer ALT/SGPT 22 U/L (<=34); Albumin, Serum 4.1 g/dL (3.4-4.8); Alkaline Phosphatase 43 U/L (35-104); Anion Gap 11 (5-15); BUN 13 mg/dL (4-19); BUN/Creat Ratio 21.3 RATIO (10-20); Calcium,Total 9.8 mg/dL (7.6-11.0); Carbon Dioxide 24.3 mmol/L (21.0-32.0); Chloride 103 mmol/L (98-108); EST Glomerular Filtration Rate 100 (>60); Globulin 2.4 g/dL (2.2-4.2); Glucose 84 mg/dL (70-99); Potassium 4.4 mmol/L (3.3-5.1); Protein, Total 6.6 g/dL (5.9-8.4); Sodium Level 138 mmol/L (133-145); Total Bilirubin 0.41 mg/dL (0.00-1.30); Vitamin D,25 Hydroxy 52.9 ng/mL (30-100)
== END | disposition home or self-care (01) ==
LOC: RAD 12:04
PROVIDERS: PCP Family Medicine Geriatric Medicine; Referring Provider Family Medicine Geriatric Medicine; Visit Provider Family Medicine Geriatric Medicine
DX: E55.9 Vitamin D deficiency, unspecified (principal); E78.5 Hyperlipidemia, unspecified; M25.561 Pain in right knee
CPT/HCPCS: 36415; 73564; 80053; 82306; 84443; 85025

== ENCOUNTER 2025-07-06 12:11 | Outpatient (CLI) | payer MEDICARE, SELFPAY ==
[2025-07-06 12:20] VITALS: BP 107/58; PULSE 72; RESP 16; TEMP 35.8; O2SAT 98; BMI 20.5
[2025-07-06] MEDS: DENOSUMAB 60 MG/ML SC (12:33)
== END 2025-07-06 23:59 | disposition home or self-care (01) ==
PROVIDERS: PCP Family Medicine Geriatric Medicine; Referring Provider Family Medicine Geriatric Medicine; Visit Provider Family Medicine Geriatric Medicine
DX: M80.00XA Age-related osteoporosis with current pathological fracture, unspecified site, initial encounter for fracture (principal)
CPT/HCPCS: 96372; J0897

== ENCOUNTER 2025-08-31 10:35 | Emergency (ER) | payer MEDICARE, SELFPAY ==
[2025-08-31 10:36] VITALS: BP 93/59; PULSE 75; RESP 16; TEMP 36.6; O2SAT 98; BMI 20.1
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
--- NOTE | 2025-08-31 11:03 | RAD_ITS ---
PROCEDURE: PELVIS 1 OR 2 VIEWS 08/31/2025 REASON FOR EXAM: INJURY/PAIN TECHNIQUE: Procedure Code: RADPEL Modality: DX Procedure: PELVIS 1 OR 2 VIEWS FINDINGS: No acute fracture or dislocations. Scattered mild degenerative change. No acute soft tissue abnormalities. No radiographic foreign body. RAD/Pelvis 1 or 2 Views IMPRESSION: No acute fracture or dislocations. Scattered mild degenerative changes. Reading Location: [id number]
--- NOTE | 2025-08-31 11:03 | RAD_ITS ---
PROCEDURE: KNEE 4 OR MORE VIEWS 08/31/2025 REASON FOR EXAM: INJURY/PAIN TECHNIQUE: Procedure Code: RADKN Modality: DX Procedure: KNEE 4 OR MORE VIEWS Laterality: Right FINDINGS: No acute fracture or dislocations. Mild degenerative changes. No large joint effusion. Minimal soft tissue edema. No radiographic foreign body. RAD/Knee 4 or More Views IMPRESSION: No acute fracture or dislocations. Reading Location: [id number]
[2025-08-31] MEDS: HYDROcodone Bitartrate/Apap 5/325 Tablet PO (11:12)
[2025-08-31 11:44] VITALS: BP 151/72
--- OUTSIDE RECORDS SUMMARY | 2025-08-31 11:47 | XMS RPT_ITS | CCD ---
Author Organization [facility] Care Team Providers Care Maintenance Superintendent Name Role Phone Kashmir Infante Unavailable Unavailable LYDIA RANGEL Unavailable Unavailable PHYSICIAN, NOT RECORDED Unavailable Unavaila ble Carlos, Benton Chi Primary Care Provider Carlos, Benton Chi Primary Care Provider Carlos, Benton Chi Primary Care Provider ANITA JONES Attending Unavailable CARLOS, BENTON CHI Primary Care Unavailable CARLOS, BENTON CHI Primary Care Unavailable MARNIE NELSON Referring Unavailable Carlos EWING, Dr. Benton Rivera Primary Care Provider Carlos EWING, Dr. Benton Rivera Attending Provider Carlos EWING, Dr. Benton Rivera Referring Provider Zuleima EWING, Dr. Reynaldo Houser Attending Provider Noam EWING, Dr. Mckeon Attending Provider Noam EWING, Dr. Mckeon Other Provider Carlos EWING, Dr. Benton Rivera Primary Care Provider [phone] Carlos EWING, Dr. Benton Rivera Attending Provider Carlos EWING, Dr. Benton Rivera Referring Provider [phone] NKECHI DELCID Attending Unavailable CARLOS, BENTON CHI Primary Care Unavailable MÓNICA CLEVELAND Attending Unavailabl e CARLOS, BENTON CHI Primary Care Unavailable CARLOS, BENTON CHI Primary Care Unavailable Carlos EWING, Dr. Benton Rivera Primary Care Provider Carlos EWING, Dr. Benton Rivera Attending Provider [phone] Carlos EWING, Dr. Benton Rivera Referring Provider Carlos EWING, Dr. Benton Rivera Primary Care Physician Carlos EWING, Dr. Benton Rivera Attending Physician [phone] Carlos EWING, Dr. Benton Rivera Referring Provider Oleghe, Efewongbe Attending Unavailable Carlos, Benton Chi Referring Unavailable Carlos, Benton Chi Primary Care Unavailable Carlos, Benton Chi Attending Unavailable Carlos, Benton Chi Primary Care Unavailable Carlos, Benton Chi Attending Unavailable Carlos, Benton Chi Referring Unavailable Carlos, Benton Chi Primary Care Unavailable Carlos, Benotn Chi Attending Unavailable Carlos, Benton Chi Referring Unavailable Carlos, Benton Chi Primary Care Unavailable Carlos, Benton Chi Attending Unavailable Carlos, Benton Chi Referring Unavailable Carlos, Benton Chi Primary Care Unavailable Carlos, Benton Chi Primary Care Unavailable Carlos, Benton Chi Attending Unavailable Carlos, Benton Chi Referring Unavailable Oleghe, Efewongbe Attending Unavailable Oleghe, Efewongbe Consulting Unavailable Carlos, Benton Chi Referring Unavailable Carlos, Benton Chi Primary Care Unavailable Oleghe, Efewongbe Consulting Unavailable Oleghe, Efewongbe Attending Unavailable Carlos, Benton Chi Referring Unavailable Carlos, Benton Chi Primary Care Unavailable Carlos, Benton Chi Primary Care Unavailable Carlos, Benton Chi Attending Unavailable Carlos, Benton Chi Referring Unavailable Carlos, Benton Chi Primary Care Unavailable Carlos, Benton Chi Attending Unavailable Oleghe, Efewongbe Attending Unavailable Carlos, Benton Chi Referring Unavailable Carlos, Benton Chi Primary Care Unavailable Carlos, Benton Chi Attending Unavailable Carlos, Benton Chi Referring Unavailable Carlos, Benton Chi Primary Care Unavailable Medications Current Medications Medication Drug Class(es) Dates Sig (Normalized) Sig (Original) Budesonide-Glycopyr- Formoterol (4 sources) Corticosteroid, beta2-Adrenergic Agonist Start: 04-26-2024 Start: 04-26-2024 Budesonide-Gly copyr-Formoterol (Breztri Aerosphere) 160-9-4.8 mcg/actuation HFA aerosol inhaler Active 2 NMA INHALATION .q 12hr April 26, 2024 12:00am budesonide/glycopyr/formoter ol (BREZTRI AEROSPHERE INHALATION) (3 sources) budesonide/glyco pyr/formoterol (BREZTRI AEROSPHERE INHALATION) Inhale as instructed. Active Calcium (7 sources) Phosphate Binder, Calcium St ar t: 10 -0 4- 20 24 take 1 tablet by mouth once daily Start: 07-07-2024 take 1 tablet by mouth once da nereyda Calcium 500 mg tablet Active 500 mg PO DAILY July 07, 2024 12:00am Start: 07-07-2024 take 1 mg by mouth once daily Calcium 500 mg tablet Active mg PO DAILY July 07, 2024 12:00am calcium no.1/D3/ B6/FA/B12/aloe (VITAMIN D-3 WITH ALOE ORAL) Take by mouth. Active cholecalciferol 0.05 mg oral tablet (4 sources) Vitamin D Start: 07-07-2024 MULTIVIT-MIN/FA/CALCIUM/VIT K1 (ONE-A-DAY WOMEN'S 50+ ORAL) (13 sources) MULTIVIT-MIN/FA/ CALCIUM /VIT K1 (ONE-A-DAY WOMEN'S 50+ ORAL) Take by mouth. Active MULTIVIT-MIN/FA/ CALCIUM/VIT K1 (ONE-A-DAY WOMEN'S 50+ ORAL) Take by mouth. 0 Active Comment on above: Take by mouth. 24 hr divalproex sodium 500 mg extended release oral tablet (20 sources) Mood Stabilizer, Anti-epileptic Agent Start: 02-13-2025 take 1 tablet by mouth twice daily divalproex ER (DEPAKOTE ER) 500 mg 24 hr tablet Take 1 tablet by mouth two times a day. 180 tablet 3 02/13/2025 Active Start: 08-13-2023 End: 02-13-[address] (DEPAKOTE) 500 mg EC tablet Indications: Generalized convulsive epilepsy (HCC) TAKE 1 TABLET EVERY MORNING AND TAKE 2 TABLETS EVERY EVENING 270 tablet 1 05/26/2024 02/13/2025 Discontinued Start: 07-10-2022 End: 08-11-2023 take 1 tablet by mouth once daily in the morning, then take 2 tablets by mouth once daily in the evening divalproex DR (DEPAKOTE) 500 mg EC tablet Take 1 tablet by mouth every morning AND 2 tablets every evening. 270 tablet 3 07/10/2022 08/11/2023 Discontinued Start: 02-11-2022 End: 10-06-[address] (DEPAKOTE) 500 mg EC tablet TAKE 2 TABLETS TWICE DAILY 360 tablet 0 07/08/2022 07/10/2022 Discontinued Start: 05-29-2019 take 1 tablet by tal every twelve hours Start: 05-29-2019 take 1 tablet by tal twice daily Divalproex (Depakote) 500 mg tablet,delayed release (DR/EC) Active 500 MG PO TWICE A DAY May 29, 2019 12:00am Comment on above: Take 2 tablets by mo [facility] twice daily. TAKE 2 TABLETS TWICE DAILY 1 tablet in and 2 ta blets on pm Take 1 tablet by tal every morning AND 2 tablets every evening. Completed/Discontinued Medications Medication Drug Class(es) Dates Sig (Normalized) Sig (Original) baclofen 10 mg oral tablet (1 source) gamma-Aminobutyric Acid-ergic Agonist Start: 06-28-2017 BACLOFEN 10 MG TABS BACLOFEN [id number] Kashmir Infante Calcium Carbonate / vitamin D3 (6 sources) CALCIUM CARBONATE/VITAMIN D3 (VITAMIN D-3 ORAL) Take by mouth. 0 Active Comment on above: Take by mouth. cephalexin 500 mg oral capsule (4 sources) Cephalosporin Antibacterial Start: 04-26-2024 End: 07-07-2024 take 1 capsule by mouth every six hours Cephalexin 500 mg capsule Discontinued 500 mg PO EVERY 6 HOURS April 26, 2024 12:00am July 07, 2024 1:05pm diclofenac sodium 50 mg delayed release oral tablet (1 source) Nonsteroidal Anti-inflammatory Drug Start: 06-28-2017 DICLOFENAC SODIUM 50 MG [facility] DICLOFENAC SODIUM [id number] Kashmir Infante doxycycline hyclate 100 mg oral tablet (4 sources) Tetracycline-class Drug Start: 04-26-2024 End: 07-07-2024 take 1 tablet by mouth twice daily Doxycycline Hyclate 100 mg tablet Discontinued 100 mg PO TWICE A DAY April 26, 2024 12:00am July 07, 2024 1:07pm escitalopram 20 mg oral tablet (6 sources) Serotonin Reuptake Inhibitor take 1 tablet by mouth once daily escitalopram oxalate (LEXAPRO) 20 mg tablet Take 20 mg by mouth once daily. 0 Active Comment on above: Take 20 mg by mouth once daily. levETIRAcetam 500 mg oral tablet (20 sources) Start: 02-13-2025 End: 02-13-2025 take 1 tablet by mouth every twelve hours levETIRAcetam (KEPPRA) 500 mg tablet Take 1 tablet by mouth every 12 hours. 180 tablet 3 02/13/2025 02/13/2025 Discontinued Start: 05-29-2019 End: 02-13-2025 Comment on above: Take 1 tablet by tal th twice daily. TAKE 1 TABLET TWICE DAILY Take 1 tablet by tal th two times a day. vitamin b12 1 mg oral tablet (6 sources) Vitamin B12 take 1 tablet by mouth once daily cyanocobalamin (VITAMIN B-12) 1,000 mcg tab Take 1,000 mcg by mouth once daily. 0 Active Comment on above: Take 1,000 mcg by mo uth once daily. Problems Active Problems Problem Classification Problem Date Documented Da te Episodic/Chronic Chronic ulcer of skin (8 sources) Ulcer of lower extremity; Translations: [Non-pressure chronic ulcer of unspecified part of unspecified lower leg with fat layer exposed] 05-03-2024 Chronic Disorders of lipid metabolism (1 source) Hyperlipidemia, unspecified; Translations: [Hyperlipoproteinemi a] Onset: 03-28-2024 Chronic E Codes: Fall (1 source) Fall on and from ladder, initial encounter; Translations: [Fall from ladder, initial encounter] Onset: 08-09-2024 Episodic Epilepsy; convulsions (19 sources) Generalized convulsive epilepsy; Translations: [Generalized idiopathic epilepsy and epileptic syndromes, not intractable, without status epilepticus] Onset: 02-06-2005 11-16-2015 Chronic Nutritional deficiencies (2 sources) Vitamin D deficiency, unspecified; Translations: [Avitaminosis D] Onset: 03-28-2024 Chronic Open wounds of extremities (1 source) Laceration without foreign body, right lower leg, initial encounter; Translations: [Leg laceration, right, initial encounter] Onset: 08-09-2024 Episodic Other bone disease and musculoskeletal deformities (20 sources) Segmental and somatic dysfunction; Translations: [Segmental and somatic dysfunction of lumbar region] 05-29-2019 Episodic Other injuries and conditions due to external causes (4 sources) Blood blister; Translations: [Other injury of unspecified body region, initial encounter] 04-26-2024 Episodic Other injuries and conditions due to external causes (4 sources) Open wound; Translations: [Other injury of unspecified body region, initial encounter] 04-26-2024 Episodic Pathological fracture (1 source) Age-related osteoporosis with current pathological fracture, unspecified site, initial encounter for fracture; Translations: [Age-related osteoporosis with current pathological fracture, unspecified site, initial encounter for fracture] Onset: 07-13-2025 Episodic Residual codes; unclassified (8 sources) Tobacco user; Translations: [Tobacco use] 09-28-2024 Episodic Spondylosis; intervertebral disc disorders; other back problems (20 sources) Degeneration of lumbar intervertebral disc; Translations: [Other intervertebral disc degeneration, lumbar region] Onset: 10-16-2014 11-16-2015 Chronic Spondylosis; intervertebral disc disorders; other back problems (20 sources) Low back pain; Translations: [Backache] Onset: 10-16-2014 06-28-2017 Episodic Superficial injury; contusion (1 source) Contusion of right lower leg, initial encounter; Translations: [Contusion of right lower leg, initial encounter] Onset: 08-09-2024 Episodic Past or Other Problems Problem Classification Problem Date Documented Date Episodic/Chronic Cataract (15 sources) Nuclear senile cataract; Translations: [Age-related nuclear cataract, bilateral] Onset: 08-12-2021 Resolved: 09-16-2021 08-12-2021 Chronic Intestinal obstruction without hernia (13 sources) Small bowel obstruction; Translations: [Unspecified intestinal obstruction, unspecified as to partial versus complete obstruction] Onset: 11-16-2015 11-16-2015 Episodic Malaise and fatigue (2 sources) Other fatigue; Translations: [Lethargic ] Onset: 03-28-2024 Episodic Open wounds of extremities (10 sources) Open wound of left lower leg; Translations: [Unspecified open wound, left lower leg, subsequent encounter] Onset: 12-21-2024 09-28-2024 Episodic Other female genital disorders (2 sources) Mild cervical dysplasia; Translations: [Mild cervical dysplasia] Onset: 05-25-2017 Episodic Other female genital disorders (13 sources) Cervical intraepithelial neoplasia grade 1; Translations: [Mild cervical dysplasia] Onset: 05-25-2017 05-27-2021 Episodic Other non-traumatic joint disorders (1 source) Pain in right hip; Translations: [Pain in right hip] Onset: 09-13-2024 Episodic Other screening for suspected conditions (not mental disorders or infectious disease) (1 source) Encounter for screening mammogram for malignant neoplasm of breast; Translations: [Encounter for screening mammogram for malignant neoplasm of breast] Onset: 10-25-2024 Episodic Residual codes; unclassified (1 source) Chills (without fever); Translations: [Chills (without fever)] Onset: 12-21-2024 Episodic Residual codes; unclassified (1 source) Tobacco use; Translations: [Tobacco use] Onset: 12-21-2024 Episodic Skin and subcutaneous tissue infections (1 source) Cellulitis of right lower limb; Translations: [Cellulitis of right lower limb] Onset: 09-05-2024 Episodic Results Test Name Value Interpretation Reference Range Facility Absolute lymphocyte countOrd ered By: Benton Gonzalez on 03-15-2025 Lymphocytes Auto (Unsp spec) [#/Vol] 3.02 10*3/uL 0.83-4.51 [facility] Absolute neutrophil countOrd ered By: Benton Gonzalez on 03-15-2025 Neutrophils (Bld) [#/Vol] 3.8 10*3/uL 2.0-7.7 [facility] Anion gap in Serum or Plasma Ordered By: Benton Gonzalez on 03-15-2025 Anion gap [Moles/Vol] 11 mmol/L 5-15 [facility] Automated lymphocyte count a s percentage of total leukocytesOrdered By: Benton Gonzalez on 03-15-2025 Lymphocytes/100 WBC Auto (Unsp spec) 37.7 % - [facility] BUN/creatinine [facility]Or[facility] Urea nitrogen/Creatinine [Mass ratio] 21.3 mg/mg High 10-20 [facility] Basophil percentageOrdered B y: Benton Gonzalez on 03-15-2025 Basophils/100 WBC (Bld) 0.6 % 0-1 [facility] Bilirubin, totalOrdered By: Benton Gonzalez on 03-15-2025 Bilirubin [Mass/Vol] 0.41 mg/dL 0.00-1.30 [facility] CBC W/Diff, Automatedon 03-04 Absolute Lymph 3.02 X10 3/uL Normal 0.83-4.51 [facility] Comment on above: Performed By: #### L 500.4050, L501.9520, L500.4100, M100.678, L100.0100 #### [facility] [address] [place], [address] Absolute Neut 3.8 X10 3/uL Normal 2.0-7.7 [facility] Comment on above: Performed By: #### L 500.4050, L501.9520, L500.4100, M100.678, L100.0100 #### [facility] [address] [place], [address] Basophils/100 WBC (Bld) 0.6 % Normal 0-1 [facility] Comment on above: Performed By: #### L 500.4050, L501.9520, L500.4100, M100.678, L100.0100 #### [facility] [address] [place], [address] Eosinophils/100 WBC (Bld) 0.4 % Normal 0-5 [facility] Comment on above: Performed By: #### L 500.4050, L501.9520, L500.4100, M100.678, L100.0100 #### [facility] [address] [place], [address] Erythrocyte distribution width (RBC) [Ratio] 12.7 % Normal 11.6-14.6 [facility] Comment on above: Performed By: #### L 500.4050, L501.9520, L500.4100, M100.678, L100.0100 #### [facility] [address] [place], [address] Hematocrit (Bld) [Volume fraction] 43.0 % Normal 37-47 [facility] Comment on above: Performed By: #### L 500.4050, L501.9520, L500.4100, M100.678, L100.0100 #### [facility] [address] [place], [address] Hemoglobin (Bld) [Mass/Vol] 14.5 g/dL Normal 12.0-15.0 [facility] Comment on above: Performed By: #### L 500.4050, L501.9520, L500.4100, M100.678, L100.0100 #### [facility] [address] [place], [address] IG% 0.200 Normal 0.0-0.9 [facility] Comment on above: Result Comment: IG% - Immature Granulocytes (promyelocytes, myelocytes and metamyelocytes) > 1% indicates that a LEFT SHIFT is Present. Performed By: #### L 500.4050, L501.9520, L500.4100, M100.678, L100.0100 #### [facility] [address] [place], [address] Lymphocytes/100 WBC (Bld) 37.7 % Normal 19-41 [facility] Comment on above: Performed By: #### L 500.4050, L501.9520, L500.4100, M100.678, L100.0100 #### [facility] [address] [place], [address] MCH (RBC) [Entitic mass] 34.3 pg High 27.0-32.0 [facility] Comment on above: Performed By: #### L 500.4050, L501.9520, L500.4100, M100.678, L100.0100 #### [facility] [address] [place], [address] MCHC (RBC) [Mass/Vol] 33.7 g/dL Normal 32-36 [facility] Comment on above: Performed By: #### L 500.4050, L501.9520, L500.4100, M100.678, L100.0100 #### [facility] [address] [place], [address] MCV (RBC) [Entitic vol] 101.7 fL High 81-99 [facility] Comment on above: Performed By: #### L 500.4050, L501.9520, L500.4100, M100.678, L100.0100 #### [facility] [address] [place], [address] Monocytes/100 WBC (Bld) 13.5 % High 0-10 [facility] Comment on above: Performed By: #### L 500.4050, [id number], L500.4100, M100.678, L100.0100 #### [facility] [address] [place], [address] Neutrophils/100 WBC (Bld) 47.6 % Normal 47-70 [facility] Comment on above: Performed By: #### L 500.4050, L501.9520, L500.4100, M100.678, L100.0100 #### [facility] [address] [place], [address] Nucleated RBC (Bld) [#/Vol] 0 10*3/uL Normal 0-5 [facility] Comment on above: Performed By: #### L 500.4050, L501.9520, L500.4100, M100.678, L100.0100 #### [facility] [address] [place], [address] Platelet mean volume (Bld) [Entitic vol] 10.5 fL Normal 6.2-12.0 [facility] Comment on above: Performed By: #### L 500.4050, L501.9520, L500.4100, M100.678, L100.0100 #### [facility] [address] [place], [address] Platelets (Bld) [#/Vol] 246 10*3/uL Normal 150-450 [facility] Comment on above: Performed By: #### L 500.4050, L501.9520, L500.4100, M100.678, L100.0100 #### [facility] [address] [place], [address] RBC (Bld) [#/Vol] 4.23 10*6/uL Normal 4.2-5.4 [facility] Comment on above: Performed By: #### L 500.4050, [id number], L500.4100, M100.678, L100.0100 #### [facility] [address] [place], [address] RDW SD 47.6 fl High 35.1-43.9 [facility] Comment on above: Performed By: #### L 500.4050, L501.9520, L500.4100, M100.678, L100.0100 #### [facility] [address] [place], [address] WBC (Bld) [#/Vol] 8.0 10*3/uL Normal 4.4-11.0 [facility] Comment on above: Performed By: #### L 500.4050, L501.9520, L500.4100, M100.678, L100.0100 #### [facility] [address] [place], [address] Carbon dioxide, total [Moles /volume] in Central venous bloodOrdered By: Benton Gonzalez on 03-15-2025 CO2 [Moles/Vol] 24.3 mmol/L 21.0-32.0 [facility] Chloride assayOrdered By: Adam Gonzalez on 03-15-2025 Chloride [Moles/Vol] 103 mmol/L 98-108 [facility] Comprehensive Metabolic Prof ilon 03-15-2025 Albumin [Mass/Vol] 4.1 g/dL Normal 3.4-4.8 [facility] Comment on above: Performed By: #### L 500.4050, L501.9520, L500.4100, M100.678, L100.0100 #### [facility] [address] [place], [address] Albumin/Globulin [Mass ratio] 1.7 {ratio} Normal 0.9-2.4 [facility] Comment on above: Performed By: #### L 500.4050, L501.9520, L500.4100, M100.678, L100.0100 #### [facility] [address] [place], [address] ALK PHOS 43 U/L Normal 35-104 [facility] Comment on above: Performed By: #### L 500.4050, L501.9520, L500.4100, M100.678, L100.0100 #### [facility] [address] [place], [address] ALT [Catalytic activity/Vol] 22 U/L Normal <=34 [facility] Comment on above: Performed By: #### L 500.4050, L501.9520, L500.4100, M100.678, L100.0100 #### [facility] [address] [place], [address] AST [Catalytic activity/Vol] 22 U/L Normal <=31 [facility] Comment on above: Performed By: #### L 500.4050, L501.9520, L500.4100, M100.678, L100.0100 #### [facility] [address] [place], [address] Bilirubin [Mass/Vol] 0.41 mg/dL Normal 0.00-1.30 [facility] Comment on above: Performed By: #### L 500.4050, L501.9520, L500.4100, M100.678, L100.0100 #### [facility] [address] [place], [address] BUN/CRE 21.3 RATIO High 10-20 [facility] Comment on above: Performed By: #### L 500.4050, L501.9520, L500.4100, M100.678, L100.0100 #### [facility] [address] [place], [address] Calcium [Mass/Vol] 9.8 mg/dL Normal 7.6-11.0 [facility] Comment on above: Performed By: #### L 500.4050, L501.9520, L500.4100, M100.678, L100.0100 #### [facility] [address] [place], [address] Chloride [Moles/Vol] 103 mmol/L Normal 98-108 [facility] Comment on above: Performed By: #### L 500.4050, L501.9520, L500.4100, M100.678, L100.0100 #### [facility] [address] [place], [address] CO2 [Moles/Vol] 24.3 mmol/L Normal 21.0-32.0 [facility] Comment on above: Performed By: #### L 500.4050, L501.9520, L500.4100, M100.678, L100.0100 #### [facility] [address] [place], [address] Creatinine [Mass/Vol] 0.60 mg/dL Low 0.70-1.20 [facility] Comment on above: Performed By: #### L 500.4050, L501.9520, L500.4100, M100.678, L100.0100 #### [facility] [address] [place], [address] GAP 11 Normal 5-15 [facility] Comment on above: Performed By: #### L 500.4050, L501.9520, L500.4100, M100.678, L100.0100 #### [facility] [address] [place], [address] GFR/1.73 sq M.predicted among non-blacks MDRD (S/P/Bld) [Vol rate/Area] 100 mL/min/{1.73_m2} Normal >60 [facility] Comment on above: Result Comment: mL/m in/1.73m2 CKD-EPI Creatinine Equation (2020) Performed By: #### L 500.4050, L501.9520, L500.4100, M100.678, L100.0100 #### [facility] [address] [place], [address] Globulin (S) [Mass/Vol] 2.4 g/dL Normal 2.2-4.2 [facility] Comment on above: Performed By: #### L 500.4050, L501.9520, L500.4100, M100.678, L100.0100 #### [facility] [address] [place], [address] Glucose [Mass/Vol] 84 mg/dL Normal 70-99 [facility] Comment on above: Performed By: #### L 500.4050, [id number], L500.4100, M100.678, L100.0100 #### [facility] [address] [place], [address] Potassium [Moles/Vol] 4.4 mmol/L Normal 3.3-5.1 [facility] Comment on above: Performed By: #### L 500.4050, [id number], L500.4100, M100.678, L100.0100 #### [facility] [address] [place], [address] Sodium [Moles/Vol] 138 mmol/L Normal 133-145 [facility] Comment on above: Performed By: #### L 500.4050, L501.9520, L500.4100, M100.678, L100.0100 #### [facility] [address] [place], [address] T PROT 6.6 g/dL Normal 5.9-8.4 [facility] Comment on above: Performed By: #### L 500.4050, L501.9520, L500.4100, M100.678, L100.0100 #### [facility] [address] [place], [address] Urea nitrogen [Mass/Vol] 13 mg/dL Normal 4-19 [facility] Comment on above: Performed By: #### L 500.4050, L501.9520, L500.4100, M100.678, L100.0100 #### [facility] [address] [place], [address] Eosinophil percentageOrdered By: Benton Gonzalez on 03-15-2025 Eosinophils/100 WBC (Bld) 0.4 % 0-5 [facility] Erythrocyte distribution wid th ratioOrdered By: Benton Gonzalez on 03-15-2025 Erythrocyte distribution width (RBC) [Ratio] 12.7 % 11.6-14.6 [facility] Erythrocyte distribution wid th standard deviationOrdered By: Benton Gonzalez on 03-15-2025 Erythrocyte distribution width (RBC) [Ratio] 47.6 fl High 35.1-43.9 [facility] Glomerular filtration rate ( GFR) estimation/1.73 sq m using serum, plasma, or whole bOrdered By: Benton Gonzalez on 03-15-2025 GFR/1.73 sq M.predicted among non-blacks MDRD (S/P/Bld) [Vol rate/Area] 100 mL/min/{1.73_m2} >60 [facility] Comment on above: mL/min/1.73m2 CKD-EP I Creatinine Equation (2020) Hematocrit Auto (Bld) [Volum e fraction]Ordered By: Benton Gonzalez on 03-15-2025 Hematocrit (Bld) [Volume fraction] 43.0 % 37-47 [facility] Hemoglobin measurementOrdere d By: Benton Gonzalez on 03-15-2025 Hemoglobin (Bld) [Mass/Vol] 14.5 g/dL 12.0-15.0 [facility] Immature granulocytes/100 WB C Auto (Bld)Ordered By: Benton Gonzalez on 03-15-2025 Immature granulocytes/100 WBC (Bld) 0.200 % 0.0-0.9 [facility] Comment on above: IG% - Immature Granu locytes (promyelocytes, myelocytes and metamyelocytes) > 1% indicates that a LEFT SHIFT is Present. Knee 4 or More Viewson 03-15 Knee 4 or More Views [facility] Imaging Services [address] [place] [address] Knee 4 or More Views MR#: [id number] Acct: [id number] Name: TOMEKA HARMON Rep #: [id number] : 1960 F 64 From: Mike rose MD PCP: Dr. Benton Gonzalez MD Status: REG CLI Study: Knee 4 or More Views Date of Exam: 03/15/25 Exam# [id number] Ordering Dr: Benton Gonzalez MD PROCEDURE: KNEE 4 OR MORE VIEWS 03/15/2025 REASON FOR EXAM: KNEE PAIN TECHNIQUE: 4 view(s) of the left knee COMPARISON: None. FINDINGS: Mild osteopenia of the visualized bones. Degenerative joint disease. No fracture or dislocation is seen. No lytic or blastic bone lesion is noted. RAD/Knee 4 or More Views IMPRESSION: No evidence for acute abnormality. [facility]: Dr. Benton Gonzalez MD Maxillofacial Pathology: Signed Normal [facility] Laboratory - Chemistry and C hemistry - challengeOrdered By: Benton Gonzalez on 03-15-2025 AST [Catalytic activity/Vol] 22 U/L <32 [facility] MCV (mean corpuscular volume ) determinationOrdered By: Benton Gonzalez on 03-15-2025 MCV (RBC) [Entitic vol] 101.7 fL High 81-99 [facility] Mean corpuscular hemoglobin (MCH) determinationOrdered By: Benton Gonzalez on 03-15-2025 MCH (RBC) [Entitic mass] 34.3 pg High 27.0-32.0 [facility] Mean corpuscular hemoglobin concentration (MCHC) determinationOrdered By: Benton Gonzalez on 03-15-2025 MCHC (RBC) [Mass/Vol] 33.7 g/dL 32-36 [facility] Mean platelet volume determi nationOrdered By: Benton Gonzalez on 03-15-2025 Platelet mean volume (Bld) [Entitic vol] 10.5 fL 6.2-12.0 [facility] Monocyte percentageOrdered B y: Benton Gonzalez on 03-15-2025 Monocytes/100 WBC (Bld) 13.5 % High 0-10 [facility] Neutrophil percentageOrdered By: Benton Gonzalez on 03-15-2025 Neutrophils/100 WBC (Bld) 47.6 % 47-70 [facility] Nucleated red blood cell per centageOrdered By: Benton Gonzalez on 03-15-2025 Nucleated RBC/100 WBC (Bld) [Ratio] 0 % 0-5 [facility] Platelet countOrdered By: Adam Gonzalez on 03-15-2025 Platelets (Bld) [#/Vol] 246 10*3/uL 150-450 [facility] Potassium measurement (mass/ volume)Ordered By: Benton Gonzalez on 03-15-2025 Potassium (Unsp spec) [Mass/Vol] 4.4 mmol/L 3.3-5.1 [facility] RBC Auto (Bld) [#/Vol]Ordere d By: Benton Gonzalez on 03-15-2025 RBC (Bld) [#/Vol] 4.23 10*6/uL 4.2-5.4 [facility] Serum creatinine measurement (mass/volume)Ordered By: Benton Gonzalez on 03-15-2025 Creatinine [Mass/Vol] 0.60 mg/dL Low 0.70-1.20 [facility] Serum globulin measurementOr dered By: Benton Gonzalez on 03-15-2025 Globulin (S) [Mass/Vol] 2.4 g/dL 2.2-4.2 [facility] Serum glucose measurement (m ass/volume)Ordered By: Benton Gonzalez on 03-15-2025 Glucose [Mass/Vol] 84 mg/dL 70-99 [facility] Serum or plasma alanine hicks otransferase (ALT) measurementOrdered By: Benton Gonzalez on 03-15-2025 ALT [Catalytic activity/Vol] 22 U/L <35 [facility] Serum or plasma albumin alex urement (mass/volume)Ordered By: Benton Gonzalez on 03-15-2025 Albumin [Mass/Vol] 4.1 g/dL 3.4-4.8 [facility] Serum or plasma albumin/glob ulin mass ratioOrdered By: Benton Gonzalez on 03-15-2025 Albumin/Globulin [Mass ratio] 1.7 {ratio} 0.9-2.4 [facility] Serum or plasma alkaline eileen sphatase measurementOrdered By: Benton Gonzalez 03-15-2025 ALP [Catalytic activity/Vol] 43 U/L 35-104 [facility] Serum or plasma calcium alex urement (mass/volume)Ordered By: Benton Gonzalez 03-15-2025 Calcium [Mass/Vol] 9.8 mg/dL 7.6-11.0 [facility] Serum or plasma urea nitroge n measurement (mass/volume)Ordered By: Benton Gonzalez 03-15-2025 Urea nitrogen [Mass/Vol] 13 mg/dL 4-19 [facility] Sodium levelOrdered By: Benton Gonzalez on 03-15-2025 Sodium [Moles/Vol] 138 mmol/L 133-145 [facility] TSH DL <= 0.005 mIU/L QnOrde red By: Benton Gonzalez on 03-15-2025 TSH Qn 1.400 uIU/mL 0.300-4.200 [facility] Thyroid Stim Hormone (TSH)on 03-15-2025 TSH 1.400 uIU/mL Normal 0.300-4.200 [facility] Comment on above: Performed By: #### L 500.4050, L501.9520, L500.4100, M100.678, L100.0100 #### [facility] [address] [place], [address] Total proteinOrdered By: Benton Gonzalez on 03-15-2025 Protein [Mass/Vol] 6.6 g/dL 5.9-8.4 [facility] Vitamin D,25 Hydroxyon 03-15 Vitamin D 25-OH 52.9 ng/mL Normal 30-100 [facility] Comment on above: Result Comment: Omaira min D Status Deficiency: <20 ng/mL (50nmol/L) Insufficiency: 20-30 ng/mL (50-75 nmol/L) Sufficiency: 30-100 ng/mL (75-250 nmol/L) Toxicity: >100 ng/mL (>250 nmol/L) Performed By: #### L 500.4050, L501.9520, L500.4100, M100.678, L100.0100 #### [facility] [address] [place], [address] White blood cell (WBC) count Ordered By: Benton Gonzalez on 03-15-2025 WBC (Bld) [#/Vol] 8.0 10*3/uL 4.4-11.0 [facility] Influenza virus A and B and SARS-CoV-2 (COVID-19) and Respiratory syncytial virus RNAOrdered By: Benton Gonzalez on 11-30-2024 SARS-CoV-2 (COVID-19) RNA LALA+probe Ql (Unsp spec) [facility] M100.678on 11-30-2024 M100.8 SARS-CoV-2 (COVID 19 ) Negative INFLUENZA A Negative INFLUENZA B Negative RSV PCR Negative Normal [facility] Comment on above: Performed By: #### L 500.4050, L501.9520, L500.4100, M100.678, L100.0100 #### [facility] [address] [place], [address] Culture, Anaerobic Any Sourc ken 10-03-2024 CUAN List Antibiotics Las t 48 Hours? none List Antibiotics to be Started? none No growth in 5 days. Normal [facility] Comment on above: Performed By: #### M 100.2000, M100.3000, M100.4001 #### [facility] [address] [place], [address] SCRN MAMM (CAD)W/DENILSON BILATo n 10-03-2024 SCRN MAMM (CAD)W/DENILSON BILAT [facility] Imaging Services [address] [place] [address] SCRN MAMM (CAD)W/DENILSON BILAT MR#: [id number] Acct: [id number] Name: TOMEKA HARMON Rep #: [id number] : 1960 F 64 From: Harry Whalen MD PCP: Dr. Benton Gonzalez MD Status: [facility] Study: SCRN MAMM (CAD)W/DENILSON BILAT Date of Exam: 09/05 10/27 Exam# [id number] Ordering Dr: Benton Gonzalez [place] [id number] MAMMOGRAPHY - BILATERAL SCREENING 3-D TOMOSYNTHESIS REASON FOR EXAM: Female, 64 years old. SCREENING PERTINENT HISTORY: No significant family history. TECHNIQUE: 2-D mammograms and 3-D Tomosynthesis of the breast (s) were performed. CAD was performed. COMPARISON: 09/20/2023 FINDINGS: The breast composition is heterogeneously dense that can obscure small breast masses. Scattered benign calcifications are seen. No dense spiculated masses or suspicious microcalcifications are identified. No architectural distortion is identified. There is no skin thickening or retraction. There has been no significant change since the prior study. BI/SCRN MAMM (CAD)W/[place] BILAT IMPRESSION: No mammographic signs of malignancy. Routine yearly mammograms recommended. ASSESSMENT CATEGORY: BIRADS Category 1: Negative. A letter regarding these results will be sent to the patient by the facility within 30 days. FOLLOW UP RECOMMENDATION: Yearly follow up mammogram recommended. (A) Approximately 10% of breast cancers are not detected by mammography. A normal mammogram should not delay biopsy of a clinically suspicious abnormality. Electronically Signed: Harry Whalen MD at 19:31 EST , CC: Dr. Benton Gonzalez MD Maxillofacial Pathology: Signed Normal [facility] Gram Stainon 09-29-2024 GS List Antibiotics Las t 48 Hours? none List Antibiotics to be Started? none Gram Stain Rare Gram variable tamara No White Blood Cells No Epithelial cells Normal [facility] Comment on above: Performed By: #### M 100.2000, M100.3000, M100.4001 #### [facility] [address] [place], [address] Wound Cultureon 09-29-2024 WC List Antibiotics Las t 48 Hours? none List Antibiotics to be Started? none No growth aerobically. Normal [facility] Comment on above: Performed By: #### M 100.1999, M100.3000, M100.4001 #### [facility] [address] [place], [address] Bacteria identified Anaer cx Nom (Unsp spec)Ordered By: Mike Santacruz on 09-28-2024 Anaerobic Culture No growth in 5 days. [facility] Gram stainOrdered By: Christal Santacruz on 09-28-2024 Microscopic observation Gram stain Nom (Unsp spec) [facility] Routine wound cultureOrdered By: Mike Santacruz on 09-28-2024 Wound Culture No growth aerobically. [facility] Valproate SerPl-mCncon 09-28 Valproate [Mass/Vol] 67.8 ug/mL Normal 50.0-100.0 [facility] Comment on above: Order Comment: Speci men Type: BLOOD SPECIMEN Ordering Facility: [facility] Address: [address] [place] [address] Result Comment: Refe rence ranges and high/low indicator flags are provided as general guidelines only. The treating physician must determine appropriate target levels/dosing based on the specific clinical situation. Performed By: #### 4 086-5 #### [facility] CLIA [id number] [address] [place] [place] [id number] [place] [facility] Wound Ctr History AND Physic lucian 09-28-2024 Wound Ctr History & Physical [facility] [address] [place] [address] H P Exam - Wound Care 09/28/24 1220 MR#: [id number] Acct: [id number] Name: TOMEKA HARMON Rep #: [id number] : 1960 64 From: Mike Santacruz MD PCP: Dr. Benton Gonzalez MD Status:REG RCR Location: History of Present Illness Date of Service: 09/28/24 Chief Complaint: Left leg wound History of Wound: Ms. Harmon is a 64-year-old referred to the wound center by her primary care physician due to left leg wound. She sustained this wound over a month ago. She states that she scraped her leg while coming down a ladder. She was seen at the emergency room in [place] following event and had sutures placed. Most of the area is healed save for a small area. Has been cleaning it daily with antibiotic soap and water and putting triple antibiotic ointment/Neosporin on it. History of tobacco use. No known history of diabetes mellitus. Feels well. [facility] Medical History (Updated 09/28/24 @ 12:[address] Mike Santacruz MD) Traumatic open wound of left lower leg with delayed healing Tobacco abuse History of seizures Arthritis Home Medications ???Medication ???Instructions ???Recorded ???Last Taken ???Type divalproex 500 mg tablet,delayed 500 mg PO Q12H 05/29/19 Unknown History release (Depakote) levetiracetam 500 mg tablet 500 mg PO BID 05/29/19 Unknown History (Keppra) budesonide 160 mcg-glycopyr 9 2 inh inhalation .q 12hr 04/26/24 Unknown History mcg-formot 4.8 mcg/actuation HFA inhaler (Breztri Aerosphere) calcium 500 mg tablet mg PO DAILY 07/07/24 Unknown History cholecalciferol (vitamin D3) 50 2,000 unit PO QDAY 07/07/24 Unknown History mcg (2,000 unit) tablet (D3 DOTS) Allergy/AdvReac Type Severity Reaction Status Date / Time No Known Allergies Allergy Verified 09/28/24 10:51 Family History Other Epilepsia Surgical History History of section Social History Smoking Status: Current every day smoker alcohol intake: never substance use type: does not use what type of physical activity do you participate in: walking frequency: 1-2 times per week ROS Constitutional Constitutional: Denies body ache(s), change in weight, fatigue, frequent falls, increased appetite, lethargy or snoring Eyes Eyes: Denies blindness, blind spots, change in eye color, change in vision, decreased night vision or diplopia ENT HEENT: Denies facial pain, foreign body in nose, halitosis, headache(s), hearing loss, hoarseness or mouth pain Cardiovascular Cardiovascular: Denies chest pain with activity, claudication, clubbing, cold extremities, cyanosis or dyspnea at rest Respiratory/Chest Respiratory/Chest: Denies chest congestion, difficulty clearing secretions, dry cough, dyspnea or excessive phlegm production Gastrointestinal Gastrointestinal: Denies belching, bloating, change in bowel habits, chewing difficulty, coffee ground emesis or dysphagia Genitourinary Genitourinary: Denies abdominal discomfort, burning urination, dribbling, dysuria or flank pain Musculoskeletal Musculoskeletal: Denies atrophy, difficulty walking, extremity pain, joint swelling or limited range of motion Integumentary Integumentary: Denies change in pigmentation, erythema, hirsutism, jaundice or skin swelling Neurologic Neurologic: Denies abnormal speech, behavior changes, burning sensations, confusion, convulsions, disequilibrium or dizziness Psychiatric Psychiatric: Denies abnormal sleep pattern, anhedonia, auditory hallucinations, behavioral changes, difficulty concentrating, homicidal ideation or mood swings Endocrine Endocrinology: Denies change in libido, deepening of the voice, excessive sweating, flushing, increase in ring/shoe/hat size or palpitations Hematologic/Lymphatic Hematologic/Lymphatic: Denies anemia, easy bleeding or easy bruising Allergic/Immunologic Allergic/Immunologic: Denies itchy eyes, lip swelling, rhinitis, throat swelling, tongue swelling, eczemia, wheezing or asthma Vital Signs Vital Signs Vital Signs: 09/28/24 10:42 Temperature 96.8 F L Temperature Source Temporal Pulse Rate 74 Respiratory Rate 18 Blood Pressure 134/45 H Blood Pressure Mean 74 Blood Pressure Source Monitor Blood Pressure Position Sitting Blood Pressure Location Left Arm Oxygen Delivery Method Room Air Physical Exam Const alert, oriented x3 and no apparent distress General Appearance: cooperative, comfortable and well kempt HEENT normocephalic, head/scalp atraumatic and hearing grossly normal bilaterally Eyes EOMs intact bilaterally General Eye: normal appearance of bot (more content not included)... Normal [facility] levETIRAcetam [facility] 1 11-29-2023 levETIRAcetam [Mass/Vol] 17.9 ug/mL Normal 12.0-46.0 [facility] Comment on above: Order Comment: Speci men Type: BLOOD SPECIMEN Ordering Facility: [facility] Address: [address] [place] [address] Result Comment: This test is not suitable for patients receiving treatment with the drug brivaracetam (Briviact). The drug causes an interference that may lead to falsely elevated levetiracetam results. Reference ranges and high/low indicator flags are provided as general guidelines only. The treating physician must determine appropriate target levels/dosing based on the specific clinical situation. This test was developed, and its performance characteristics determined by the [facility] Department of Pathology and Laboratory Medicine. It has not been cleared or approved by the FDA. The [facility] Department of Pathology and Laboratory Medicine is regulated under CLIA as qualified to perform high-complexity testing. This test is used for clinical purposes. It should not be regarded as investigational or for research. Performed By: #### 3 0471-7 #### [facility] CLIA [id number] [address] [place], [place] [address] [address] [place] CNPTessa 09-26-2024 CNPN Telephone (NE50MN) TOMEKA HARMON ([id number]) 1960 F Date Time Provider Department 09/26/24 FARIDEH QURESHIMÓNICA TAPIA NE50MN During your visit today, we recorded the following information about you: vanineel Augustine Dina Mathur 09/26/2024 3:06 PM Signed Form received: From (agency / facility): [facility] mailroom personnel (if given): Special Case Unit Phone #: n/a Fax # : [phone] Information requested: Request for physician statement Patient of Dr. WILKS Forwarded to nurse. Lisa Garcia RN 09/28/2024 11:37 AM Signed [facility] Last appointment 09/22/2024 Onset of seizures: age 10 Last seizure: 2008 Place order to check ASM level KOTA Garcia Haley, [employer].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 09/28/2024 12:38 PM Signed Levels ordered. Please advise trough level. Thank you. Lisa Garcia RN 09/28/2024 1:52 PM Signed Call was made to the patient, no answer. Detailed message was left requesting a trough level. Lisa Abel RN, RN 09/29/2024 4:38 PM Signed Latest Ref Rng 09/28/2024 Levetiracetam 12.0 - 46.0 ug/mL 17.9 KOTA Garcia Tanya, RN 10/12/2024 9:18 AM Signed Forms completed and forwarded for review and signature via [email or web address]. 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 - calcium no.1/D3/B6/FA/B12/aloe (VITAMIN D-3 WITH ALOE ORAL) Take by mouth. - levETIRAcetam (KEPPRA) 500 mg tablet take 1 tablet twice daily - divalproex DR (DEPAKOTE) 500 mg EC tablet TAKE 1 TABLET EVERY MORNING AND TAKE 2 TABLETS EVERY EVENING - MULTIVIT-MIN/FA/CALCIU M/VIT K1 (ONE-A-DAY WOMEN'S 50+ ORAL) Take by mouth. Problem List As Of Date 09/26/2024 Noted Resolved Generalized convulsive epilepsy (HCC) [G40.309] 02/06/2005 Chronic back pain [M54.9, G89.29] 10/16/2014 DDD (degenerative disc disease), lumbar [M51.36*10/16/2014 Cervicalgia [M54.2] 10/16/2014 DDD (degenerative disc disease), cervical [M50.*10/16/2014 SBO (small bowel obstruction) (HCC) [K56.609] 11/16/2015 Mild cervical dysplasia [N87.0] 05/25/2017 Nuclear senile cataract of both eyes [H25.13] 08/12/2021 08/12/2021 Posterior subcapsular polar age-related catarac*08/12/2021 08/12/2021 Combined form of age-related cataract, left eye*09/16/2021 09/16/2021 Encounter Status:Closed by MARNIE MELGAR on 09/28/24 Normal [facility] Absolute neutrophil countOrd ered By: Benton Gonzalez on 09-15-2024 Neutrophils (Bld) [#/Vol] 1.4 10*3/uL Low 2.0-7.7 [facility] Albumin to globulin ratioOrd ered By: Benton Gonzalez on 09-15-2024 Albumin/Globulin [Mass ratio] 0.9 {ratio} 0.9-2.4 [facility] Basophil percentageOrdered B y: Benton Gonzalez on 09-15-2024 Basophils/100 WBC (Bld) 0.5 % 0-1 [facility] Bilirubin, totalOrdered By: Benton Gonzalez on 09-15-2024 Bilirubin [Mass/Vol] 0.30 mg/dL 0.20-1.00 [facility] Comment on above: For patients on eltr ombopag therapy, use of Dimension Crocker TBIL is not recommended. Blood urea nitrogen (BUN)/cr eatinine ratioOrdered By: Benton Gonzalez on 09-15-2024 Urea nitrogen/Creatinine [Mass ratio] 18.8 mg/mg 10- [facility] CBC W/Diff, Automatedon 09-03 Absolute Lymph 1.71 X10 3/uL Normal 0.83-4.51 [facility] Comment on above: Performed By: #### L 500.4050, L501.9520, L500.4100, M100.678, L100.0100 #### [facility] [address] [place], [address] Absolute Neut 1.4 X10 3/uL Low 2.0-7.7 [facility] Comment on above: Performed By: #### L 500.4050, L501.9520, L500.4100, M100.678, L100.0100 #### [facility] [address] [place], [address] Basophils/100 WBC (Bld) 0.5 % Normal 0-1 [facility] Comment on above: Performed By: #### L 500.4050, L501.9520, L500.4100, M100.678, L100.0100 #### [facility] [address] [place], [address] Eosinophils/100 WBC (Bld) 0.5 % Normal 0-5 [facility] Comment on above: Performed By: #### L 500.4050, L501.9520, L500.4100, M100.678, L100.0100 #### [facility] [address] [place], [address] Erythrocyte distribution width (RBC) [Ratio] 12.7 % Normal 11.6-14.6 [facility] Comment on above: Performed By: #### L 500.4050, L501.9520, L500.4100, M100.678, L100.0100 #### [facility] [address] [place], [address] Hematocrit (Bld) [Volume fraction] 44.3 % Normal 37-47 [facility] Comment on above: Performed By: #### L 500.4050, L501.9520, L500.4100, M100.678, L100.0100 #### [facility] [address] [place], [address] Hemoglobin (Bld) [Mass/Vol] 15.5 g/dL High 12.0-15.0 [facility] Comment on above: Performed By: #### L 500.4050, L501.9520, L500.4100, M100.678, L100.0100 #### [facility] [address] [place], [address] IG% 0.300 Normal 0.0-0.9 [facility] Comment on above: Result Comment: IG% - Immature Granulocytes (promyelocytes, myelocytes and metamyelocytes) > 1% indicates that a LEFT SHIFT is Present. Performed By: #### L 500.4050, L501.9520, L500.4100, M100.678, L100.0100 #### [facility] [address] [place], [address] Lymphocytes/100 WBC (Bld) 45.8 % High 19-41 [facility] Comment on above: Performed By: #### L 500.4050, L501.9520, L500.4100, M100.678, L100.0100 #### [facility] [address] [place], [address] MCH (RBC) [Entitic mass] 34.8 pg High 27.0-32.0 [facility] Comment on above: Performed By: #### L 500.4050, L501.9520, L500.4100, M100.678, L100.0100 #### [facility] [address] [place], [address] MCHC (RBC) [Mass/Vol] 35.0 g/dL Normal 32-36 [facility] Comment on above: Performed By: #### L 500.4050, L501.9520, L500.4100, M100.678, L100.0100 #### [facility] [address] [place], [address] MCV (RBC) [Entitic vol] 99.6 fL High 81-99 [facility] Comment on above: Performed By: #### L 500.4050, L501.9520, L500.4100, M100.678, L100.0100 #### [facility] [address] [place], [address] Monocytes/100 WBC (Bld) 16.1 % High 0-10 [facility] Comment on above: Performed By: #### L 500.4050, L501.9520, L500.4100, M100.678, L100.0100 #### [facility] [address] [place], [address] Neutrophils/100 WBC (Bld) 36.8 % Low 47-70 [facility] Comment on above: Performed By: #### L 500.4050, L501.9520, L500.4100, M100.678, L100.0100 #### [facility] [address] [place], [address] Nucleated RBC (Bld) [#/Vol] 0 10*3/uL Normal 0-5 [facility] Comment on above: Performed By: #### L 500.4050, L501.9520, L500.4100, M100.678, L100.0100 #### [facility] [address] [place], [address] Platelet mean volume (Bld) [Entitic vol] 11.1 fL Normal 6.2-12.0 [facility] Comment on above: Performed By: #### L 500.4050, L501.9520, L500.4100, M100.678, L100.0100 #### [facility] [address] [place], [address] Platelets (Bld) [#/Vol] 113 10*3/uL Low 150-450 [facility] Comment on above: Performed By: #### L 500.4050, L501.9520, L500.4100, M100.678, L100.0100 #### [facility] [address] [place], [address] RBC (Bld) [#/Vol] 4.45 10*6/uL Normal 4.2-5.4 [facility] Comment on above: Performed By: #### L 500.4050, L501.9520, L500.4100, M100.678, L100.0100 #### [facility] [address] [place], [address] RDW SD 46.6 fl High 35.1-43.9 [facility] Comment on above: Performed By: #### L 500.4050, L501.9520, L500.4100, M100.678, L100.0100 #### [facility] [address] [place], [address] WBC (Bld) [#/Vol] 3.7 10*3/uL Low 4.4-11.0 [facility] Comment on above: Performed By: #### L 500.4050, L501.9520, L500.4100, M100.678, L100.0100 #### [facility] [address] [place], [address] Carbon dioxide measurementOr dered By: Benton Gonzalez on 09-15-2024 CO2 [Moles/Vol] 26.0 mmol/L 21.0-32.0 [facility] Chloride measurementOrdered By: Benton Gonzalez on 09-15-2024 Chloride [Moles/Vol] 105 mmol/L 98-107 [facility] Comprehensive Metabolic Prof ilon 09-15-2024 Albumin [Mass/Vol] 3.1 g/dL Low 3.2-5.0 [facility] Comment on above: Performed By: #### L 500.4050, L501.9520, L500.4100, M100.678, L100.0100 #### [facility] [address] [place], [address] Albumin/Globulin [Mass ratio] 0.9 {ratio} Normal 0.9-2.4 [facility] Comment on above: Performed By: #### L 500.4050, L501.9520, L500.4100, M100.678, L100.0100 #### [facility] [address] [place], [address] ALK P 48 U/L Normal 45-117 [facility] Comment on above: Performed By: #### L 500.4050, L501.9520, L500.4100, M100.678, L100.0100 #### [facility] [address] [place], [address] ALT [Catalytic activity/Vol] 19 U/L Normal 13-56 [facility] Comment on above: Performed By: #### L 500.4050, L501.9520, L500.4100, M100.678, L100.0100 #### [facility] [address] [place], [address] AST [Catalytic activity/Vol] 16 U/L Normal 15-37 [facility] Comment on above: Performed By: #### L 500.4050, L501.9520, L500.4100, M100.678, L100.0100 #### [facility] [address] [place], [address] Bilirubin [Mass/Vol] 0.30 mg/dL Normal 0.20-1.00 [facility] Comment on above: Result Comment: For patients on eltrombopag therapy, use of Dimension Crocker TBIL is not recommended. Performed By: #### L 500.4050, L501.9520, L500.4100, M100.678, L100.0100 #### [facility] [address] [place], [address] BUN/CRE 18.8 RATIO Normal 10-20 [facility] Comment on above: Performed By: #### L 500.4050, L501.9520, L500.4100, M100.678, L100.0100 #### [facility] [address] [place], [address] CA,Total 8.6 mg/dL Normal 8.5-10.1 [facility] Comment on above: Performed By: #### L 500.4050, L501.9520, L500.4100, M100.678, L100.0100 #### [facility] [address] [place], [address] Chloride [Moles/Vol] 105 mmol/L Normal 98-107 [facility] Comment on above: Performed By: #### L 500.4050, L501.9520, L500.4100, M100.678, L100.0100 #### [facility] [address] [place], [address] CO2 [Moles/Vol] 26.0 mmol/L Normal 21.0-32.0 [facility] Comment on above: Performed By: #### L 500.4050, L501.9520, L500.4100, M100.678, L100.0100 #### [facility] [address] [place], [address] Creatinine [Mass/Vol] 0.74 mg/dL Normal 0.55-1.02 [facility] Comment on above: Result Comment: The validity of the calculated GFR GFRAA in patients over 70 years has not been determined. Clinical correlation is essential. Performed By: #### L 500.4050, L501.9520, L500.4100, M100.678, L100.0100 #### [facility] [address] [place], [address] EST GFR - AA 101 mL/min Normal >60 [facility] Comment on above: Result Comment: Afri can [place]ib[place] GFR Calc Performed By: #### L 500.4050, L501.9520, L500.4100, M100.678, L100.0100 #### [facility] [address] [place], [address] GAP 7 Normal 5-15 [facility] Comment on above: Performed By: #### L 500.4050, L501.9520, L500.4100, M100.678, L100.0100 #### [facility] [address] [place], [address] GFR/1.73 sq M.predicted among non-blacks MDRD (S/P/Bld) [Vol rate/Area] 84 mL/min/{1.73_m2} Normal >60 [facility] Comment on above: Result Comment: Non- GFR Calc Performed By: #### L 500.4050, L501.9520, L500.4100, M100.678, L100.0100 #### [facility] [address] [place], [address] Globulin (S) [Mass/Vol] 3.5 g/dL Normal 2.2-4.2 [facility] Comment on above: Performed By: #### L 500.4050, L501.9520, L500.4100, M100.678, L100.0100 #### [facility] [address] [place], [address] Glucose [Mass/Vol] 105 mg/dL Normal 74-106 [facility] Comment on above: Result Comment: Fast ing Glucose result from 100 to 125 mg/dL suggests IMPAIRED HOMEOSTASIS per A.D.A. criteria. Performed By: #### L 500.4050, L501.9520, L500.4100, M100.678, L100.0100 #### [facility] [address] [place], [address] Potassium [Moles/Vol] 3.8 mmol/L Normal 3.5-5.1 [facility] Comment on above: Performed By: #### L 500.4050, L501.9520, L500.4100, M100.678, L100.0100 #### [facility] [address] [place], [address] Sodium [Moles/Vol] 138 mmol/L Normal 136-145 [facility] Comment on above: Performed By: #### L 500.4050, L501.9520, L500.4100, M100.678, L100.0100 #### [facility] [address] [place], [address] T PROT 6.6 g/dL Normal 6.4-8.2 [facility] Comment on above: Performed By: #### L 500.4050, L501.9520, L500.4100, M100.678, L100.0100 #### [facility] [address] [place], [address] Urea nitrogen [Mass/Vol] 14 mg/dL Normal 7-18 [facility] Comment on above: Performed By: #### L 500.4050, L501.9520, L500.4100, M100.678, L100.0100 #### [facility] [address] [place], [address] Eosinophil percentageOrdered By: Benton Gonzalez on 09-15-2024 Eosinophils/100 WBC (Bld) 0.5 % 0-5 [facility] Erythrocyte distribution wid th ratioOrdered By: Benton Gonzalez on 09-15-2024 Erythrocyte distribution width (RBC) [Ratio] 12.7 % 11.6-14.6 [facility] Erythrocyte distribution wid th standard deviationOrdered By: Benton Gonzalez on 09-15-2024 Erythrocyte distribution width (RBC) [Entitic vol] 46.6 fL High 35.1-43.9 [facility] Estimated glomerular filtrat ion rate (GFR) AmericanOrdered By: Benton Gonzalez on 09-15-2024 Estimated GFR (MDRD) Amer 101 mL/min >60 [facility] Comment on above: GFR Calc Glomerular filtration rate ( GFR) estimationOrdered By: Benton Gonzalez 09-15-2024 Estimated GFR (MDRD) Non-Af Amer 84 mL/min >60 [facility] Comment on above: Non- GFR Calc Glucose measurementOrdered B y: Benton Gonzalez on 09-15-2024 Glucose [Mass/Vol] 105 mg/dL 74-106 [facility] Comment on above: Fasting Glucose resu lt from 100 to 125 mg/dL suggests IMPAIRED HOMEOSTASIS per A.D.A. criteria. Hematocrit Auto (Bld) [Volum e fraction]Ordered By: Benton Gonzalez on 09-15-2024 Hematocrit (Bld) [Volume fraction] 44.3 % 37-47 [facility] Hemoglobin measurementOrdere d By: Benton Gonzalez on 09-15-2024 Hemoglobin (Bld) [Mass/Vol] 15.5 g/dL High 12.0-15.0 [facility] High density lipoprotein (HD L) measurementOrdered By: Benton Gonzalez on 09-15-2024 Cholesterol in HDL [Mass/Vol] 65 mg/dL >40 [facility] Comment on above: The drugs N-Acetylcy steine and Metamizole may falsely depress this assay. Reference Range HDL <40 mg/dL Low HDL Cholesterol HDL >or= 60 mg/dL High HDL Cholesterol Immature granulocytes/100 WB C Auto (Bld)Ordered By: Benton Gonzalez on 09-15-2024 Immature granulocytes/100 WBC (Bld) 0.300 % 0.0-0.9 [facility] Comment on above: IG% - Immature Granu locytes (promyelocytes, myelocytes and metamyelocytes) > 1% indicates that a LEFT SHIFT is Present. Influenza virus A and B and SARS-CoV-2 (COVID-19) and Respiratory syncytial virus RNAOrdered By: Benton Gonzalez on 09-15-2024 SARS-CoV-2 (COVID-19) RNA LALA+probe Ql (Unsp spec) SARS-CoV-2 (COVID 19 PCR) Abnormal [facility] - Chemistry and C hemistry - challengeOrdered By: Benton Gonzalez on 09-15-2024 AST [Catalytic activity/Vol] 16 U/L 15 [facility] Lipid Profileon 09-15-2024 Cholesterol [Mass/Vol] 189 mg/dL Normal 200 [facility] Comment on above: Result Comment: <200 mg/dL Desirable 200-240 mg/dL Borderline >240 mg/dL High Risk Performed By: #### L 500.4050, L501.9520, L500.4100, M100.678, L100.0100 #### [facility] [address] [place], [place], [address] Cholesterol in HDL [Mass/Vol] 65 mg/dL Normal [facility] Comment on above: Result Comment: The drugs N-Acetylcysteine and Metamizole may falsely depress this assay. Reference Range HDL <40 mg/dL Low HDL Cholesterol HDL >or= 60 mg/dL High HDL Cholesterol Performed By: #### L 500.4050, L501.9520, L500.4100, M100.678, L100.0100 #### [facility] [address] [place], [address] Cholesterol in LDL [Mass/Vol] 104 mg/dL Normal 0-130 [facility] Comment on above: Performed By: #### L 500.4050, L501.9520, L500.4100, M100.678, L100.0100 #### [facility] [address] [place], [address] Cholesterol in VLDL [Mass/Vol] 20 mg/dL Normal 5-40 [facility] Comment on above: Performed By: #### L 500.4050, L501.9520, L500.4100, M100.678, L100.0100 #### [facility] [address], [address] Triglyceride [Mass/Vol] 101 mg/dL Normal [facility] Comment on above: Result Comment: The drugs N-Acetylcysteine and Metamizole may falsely depress this assay. Serum Triglycerides Reference Interval Normal <150 mg/dL Borderline high 150 - 199 mg/dL High 200 - 499 mg/dL Very High > or = 500 mg/dL Performed By: #### L 500.4050, L501.9520, L500.4100, M100.678, L100.0100 #### [facility] [address] [place], [address] Low density lipoprotein (LDL ) cholesterol measurementOrdered By: Benton Gonzalez on 09-15-2024 Cholesterol in LDL [Mass/Vol] 104 mg/dL 0-130 [facility] Lymphocytes Auto (Unsp spec) [#/Vol]Ordered By: Benton Gonzalez on 09-15-2024 Lymphocytes (Bld) [#/Vol] 1.71 10*3/uL 0.83-4.51 [facility] Lymphocytes/100 WBC Auto (Un sp spec)Ordered By: Benton Gonzalez on 09-15-2024 Lymphocytes/100 WBC (Bld) 45.8 % High 19-41 [facility] M100.678on 09-15-2024 M100.678 Copy of report sent to Infection Control Printer [id number] 09/15/24 6741 CARLA. SARS-CoV-2 (COVID 19) A Positive A INFLUENZA A Negative INFLUENZA B Negative RSV PCR Negative SARS-CoV-2 (COVID 19 PCR) Normal [facility] Comment on above: Performed By: #### L 500.4050, L501.9520, L500.4100, M100.678, L100.0100 #### [facility] [address] [place], [address] MCV (mean corpuscular volume ) determinationOrdered By: Benton Gonzalez on 09-15-2024 MCV (RBC) [Entitic vol] 99.6 fL High 81-99 [facility] Mean corpuscular hemoglobin (MCH) determinationOrdered By: Benton Gonzalez on 09-15-2024 MCH (RBC) [Entitic mass] 34.8 pg High 27.0-32.0 [facility] Mean corpuscular hemoglobin concentration (MCHC) determinationOrdered By: Benton Gonzalez on 09-15-2024 MCHC (RBC) [Mass/Vol] 35.0 g/dL 32-36 [facility] Mean platelet volume determi nationOrdered By: Benton Gonzalze on 09-15-2024 Platelet mean volume (Bld) [Entitic vol] 11.1 fL 6.2-12.0 [facility] Monocyte percentageOrdered B y: Benton Gonzalez on 09-15-2024 Monocytes/100 WBC (Bld) 16.1 % High 0-10 [facility] Neutrophil percentageOrdered By: Benton Gonzalez on 09-15-2024 Neutrophils/100 WBC (Bld) 36.8 % Low 47-70 [facility] Nucleated red blood cell per centageOrdered By: Benton Gonzalez on 09-15-2024 Nucleated RBC/100 WBC (Bld) [Ratio] 0 % 0-5 [facility] Platelet countOrdered By: Adam Gonzalez on 09-15-2024 Platelets (Bld) [#/Vol] 113 10*3/uL Low 150-450 [facility] Potassium measurementOrdered By: Benton Gonzalez on 09-15-2024 Potassium [Moles/Vol] 3.8 mmol/L 3.5-5.1 [facility] RBC Auto (Bld) [#/Vol]Ordere d By: Benton Gonzalez on 09-15-2024 RBC (Bld) [#/Vol] 4.45 10*6/uL 4.2-5.4 [facility] Serum anion gap measurementO rdered By: Benton Gonzalez on 09-15-2024 Anion gap [Moles/Vol] 7 mmol/L 5-15 [facility] Serum globulin measurementOr dered By: Benton Gonzalez 09-15-2024 Globulin (S) [Mass/Vol] 3.5 g/dL 2.2-4.2 [facility] Serum or plasma alanine hicks otransferase (ALT) measurementOrdered By: Benton Gonzalez 09-15-2024 ALT [Catalytic activity/Vol] 19 U/L 13-56 [facility] Serum or plasma albumin alex urement (mass/volume)Ordered By: Benton Gonzalez 09-15-2024 Albumin [Mass/Vol] 3.1 g/dL Low 3.2-5.0 [facility] Serum or plasma alkaline eileen sphatase measurementOrdered By: Benton Gonzalez 09-15-2024 ALP [Catalytic activity/Vol] 48 U/L 45-117 [facility] Serum or plasma calcium alex urement (mass/volume)Ordered By: Benton Gonzalez 09-15-2024 Calcium [Mass/Vol] 8.6 mg/dL 8.5-10.1 [facility] Serum or plasma cholesterol measurement (mass/volume)Ordered By: Benton Gonzalez 09-15-2024 Cholesterol [Mass/Vol] 189 mg/dL <200 [facility] Comment on above: <200 mg/dL Desirable 200-240 mg/dL Borderline >240 mg/dL High Risk Serum or plasma creatinine m easurement (mass/volume)Ordered By: Benton Gonzalez 09-15-2024 Creatinine [Mass/Vol] 0.74 mg/dL 0.55-1.02 [facility] Comment on above: The validity of the calculated GFR & GFRAA in patients over 70 years has not been determined. Clinical correlation is essential. Serum or plasma urea nitroge n measurement (mass/volume)Ordered By: Benotn Gonzalez on 09-15-2024 Urea nitrogen [Mass/Vol] 14 mg/dL 7-18 [facility] Sodium levelOrdered By: Benton Gonzalez on 09-15-2024 Sodium [Moles/Vol] 138 mmol/L 136-145 [facility] TSH QnOrdered By: Benton Gonzalez o n 09-15-2024 Thyroid Stimulating Hormone (TSH) 3.060 uIU/mL 0.358-3.740 [facility] Thyroid Stim Hormone (TSH)on 09-15-2024 TSH 3.060 uIU/mL Normal 0.358-3.740 [facility] Comment on above: Performed By: #### L 500.4050, L501.9520, L500.4100, M100.678, L100.0100 #### [facility] [place], [address] Total proteinOrdered By: Benton Gonzalez on 09-15-2024 Protein [Mass/Vol] 6.6 g/dL 6.4-8.2 [facility] Triglycerides measurementOrd ered By: Benton Gonzalez on 09-15-2024 Triglyceride [Mass/Vol] 101 mg/dL <199 [facility] Comment on above: The drugs N-Acetylcy steine and Metamizole may falsely depress this assay.Serum Triglycerides Reference Interval Normal <150 mg/dL Borderline high 150 - 199 mg/dL High 200 - 499 mg/dL Very High > or = 500 mg/dL Very low density lipoprotein (VLDL) cholesterol measurementOrdered By: Benton Gonzalez on 09-15-2024 VLDL Cholesterol 20 mg/dL 5-40 [facility] White blood cell (WBC) count Ordered By: Benton Gonzalez on 09-15-2024 WBC (Bld) [#/Vol] 3.7 10*3/uL Low 4.4-11.0 [facility] HIP, UNI W/ Pelvis 2-3 Views on 08-18-2024 HIP, UNI W/ Pelvis 2-3 Views [facility] [address] [place] [address] HIP, UNI W/ Pelvis 2-3 Views MR#: [id number] Acct: [id number] Name: TOMEKA HARMON Rep #: [id number] : 1960 F 64 From: Rebecca Alves MD PCP: Dr. Benton Gonzalez MD Status: REG CLI Study: HIP, UNI W/ Pelvis 2-3 Views Date of Exam: Exam# [id number] Ordering Dr: Benton Gonzalez [place] [id number] INDICATION: RIGHT HIP PAIN EXAMINATION/TECHNIQUE: X-RAY - XR Hip Unilateral with Pelvis when performed; 2-3 Views COMPARISON: No relevant prior comparison study available FINDINGS: PELVIC BONES: No displaced fracture, destructive or sclerotic lesions. Note that overlapping bowel shadows may however obscure fine detail. Sacroiliac joints are unremarkable. No widening of the pubic symphysis. HIPS: The articular structures are unremarkable. No displaced fracture seen in this frontal view. SOFT TISSUES: No soft tissue swelling or gas. RAD/HIP, UNI W/ Pelvis 2-3 Views IMPRESSION: No evidence of displaced pelvic or hip fracture. Electronically Signed: Rebecca Alves MD at 12:47 EST , CC: Dr. Benton Gonzalez MD Maxillofacial Pathology: Signed Normal [facility] Venous Duplex US, Unilateral on 08-18-2024 Venous Duplex US, Unilateral [facility] [address] [place] [address] Venous Duplex US, Unilateral 08/18/24 1310 MR#: [id number] Acct: [id number] Name: TOMEKA HARMON Rep #: [id number] : 1960 64 From: Reynaldo Dewey MD Attending Dr: Dr. Benton Gonzalez MD Status: REG CLI Ordering Dr: Benton Gonzalez MD Date: 08/18/24 Location: [facility] Sex: F C Admitted: Reason For Study: RLE SWELLING RIGHT LEFT GSV is normal. CFV is compressible, spontaneous, phasic, CFV is compressible, spontaneous, phasic, competent, and demonstrates normal competent and demonstrates normal augmentation. augmentation. FV is compressible, spontaneous, phasic, competent and demonstrates normal augmentation. POP V is compressible, spontaneous, phasic, competent and demonstrates normal augmentation. T/P Trunk is compressible. PTV is compressible. RT PerV is compressible. Procedure This is a venous duplex using B-mode, color flow and spectral Doppler. Exam performed in department. A preliminary report was called and/or faxed to Dr. Gonzalez @ [phone] @ 12:55pm. VL/Venous Duplex US, Unilateral Interpretation Summary Deep veins of the right lower extremity are patent and compressible segmentally. There is no evidence of right lower extremity deep vein thrombosis. Valvular competence appears intact within the proximal deep venous system on the right . The right great saphenous vein appears patent and compressible segmentally. The left common femoral vein is patent and compressible . Ordering Physician: Benton Gonzalez Chi Referring Physician: Benton Gonzalez Chi Performed By: Tiara Small, SUKHDEV, RVT 08/19/24 0110 Date Reynaldo Dewey MD CC: Dr. Benton Gonzalez MD Date Dictated: 08/18/24 1310 Date Transcribed: 08/19/24 0110 Maxillofacial Pathology: Signed Normal [facility] Wound Cultureon 08-14-2024 WC No growth aerobically. Normal [facility] Comment on above: Performed By: #### L 500.4050, L501.9520, L500.4100, M100.678, L100.0100 #### [facility] [address] [place], [address] Gram Stainon 08-11-2024 GS Gram Stain No organisms seen No cells seen Normal [facility] Comment on above: Performed By: #### L 500.4050, L501.9520, L500.4100, M100.678, L100.0100 #### [facility] [address] [place], [address] MRSA Wound DNA by PCRon MRSA DNA ASSAY Negative Normal Negative [facility] Comment on above: Order Comment: RIGHT LEG Performed By: #### L 500.4050, L501.9520, L500.4100, M100.678, L100.0100 #### [facility] [address] [place], [address] SA DNA ASSAY Positive Abnormal Negative [facility] Comment on above: Order Comment: RIGHT LEG Performed By: #### L 500.4050, L501.9520, L500.4100, M100.678, L100.0100 #### [facility] [address] [place], [address] ED NOTEon 08-10-2024 ED NOTE HNO ID: [id number] Author: ZAIRA CHAWLA RN Service: ? Author Type: Registered Nurse Type: ED Notes Filed: 08/10/2024 11:19 Note Text: Emergency Services: ED Call Back Questionnaire SERVICE DATE: 08/09/2024 Are you feeling better? Yes Any questions about discharge instructions and follow-up care? No Were you able to make a follow up appointment? No, referred to appointment hotline Do you have any further questions? No Is there anything that we could have done differently to improve your ED visit? No SIGNATURE: Zaira Chawla RN PATIENT NAME: Tomeka Harmon DATE: August 10, 2024 TIME: 11:19 AM Normal [facility] ED NOTE HNO ID: [id number] Author: HILARY DE LA GARZA RN Service: Emergency Medicine Author Type: Registered Nurse Type: ED Notes Filed: 08/10/2024 00:50 Note Text: Pt verbalizes understanding of discharge instructions. Denies further questions, comments, concerns at this time. Normal [facility] ED PROV NOTEon 08-10-2024 ED PROV NOTE HNO ID: [id number] Author: ANITA JONES MD Service: ? Author Type: Physician Type: ED Provider Notes Filed: 08/10/2024 05:22 Note Text: ED Provider Note Patient Name: Tomeka Harmon : 1960 SERVICE DATE: 08/09/24 History Patient presents with: Avulsion Leg Pain Presents after a fall on a ladder. She was coming down and slipped, her right lower leg caught on the rung of the ladder and it slid down the front of her lower extremity. She has a lot of bruising and a large laceration. He did not fall or hit her head. She had no other injuries. No LOC. Not on anticoagulation. She has not been able to ambulate on the extremity. Ambulated into the ED. PAST MEDICAL HISTORY Diagnosis Date Epilepsy (HCC) last seizure 2009 Osteopenia PAST SURGICAL HISTORY Procedure Laterality Date ANESTH, SECTION x2 CATARACT EXTRACTION W/ INTRAOCULAR LENS IMPLANT HX Right 08/12/2021 Dr. Beal CATARACT EXTRACTION W/ INTRAOCULAR LENS IMPLANT HX Left 09/16/2021 Dr. Beal COLONOSCOPY 2013 jose roberto- due 2023 PAST SURGICAL HISTORY OF polycystic ovaries REPAIR WRIST FRACTURE Right 1976 FAMILY HISTORY Problem Relation Age of Onset Colon Cancer Maternal Aunt Heart Father leaky valve Stroke Brother Cancer Brother bladder Cancer Paternal Grandmother unknown type Macular Degen Mother Social History Tobacco Use Smoking status: Every Day Current packs/day: 1.00 Average packs/day: 1 pack/day for 48.8 years (48.8 ttl pk-yrs) Types: Cigarettes Start date: 10/04/1975 Smokeless tobacco: Never Vaping Use Vaping status: Never Used Substance and Sexual Activity Alcohol use: Not Currently Comment: rare Drug use: Yes Frequency: 4.0 times per week Types: Marijuana Sexual activity: Not on file ALLERGIES No Known Allergies Review of Systems Constitutional: Negative. HENT: Negative. Eyes: Negative. Respiratory: Negative. Cardiovascular: Negative. Gastrointestinal: Negative. Endocrine: Negative. Genitourinary: Negative. Musculoskeletal: Negative. Skin: Negative. Allergic/Immunologic: Negative. Neurological: Negative. Hematological: Negative. Psychiatric/Behavioral : Negative. Physical Exam Vitals [08/09/24 1703] BP Pulse Temp Temp src Resp SpO2 Weight Height 140/73 80 36.2 ?C (97.2 ?F) Temporal Art 18 97 % 49 kg (108 lb) 1.524 m (5') Physical Exam Vitals and nursing note reviewed. Constitutional: Appearance: She is well-developed. HENT: Head: Atraumatic. Eyes: Extraocular Movements: Extraocular movements intact. Conjunctiva/sclera: Conjunctivae normal. Cardiovascular: Rate and Rhythm: Regular rhythm. Heart sounds: Normal heart sounds. Pulmonary: Effort: Pulmonary effort is normal. Breath sounds: Normal breath sounds. Abdominal: General: Bowel sounds are normal. There is no distension. Palpations: Abdomen is soft. Tenderness: There is no abdominal tenderness. There is no guarding or rebound. Musculoskeletal: General: Normal range of motion. Cervical back: Normal range of motion and neck supple. Legs: Skin: General: Skin is warm and dry. Neurological: General: No focal deficit present. Mental Status: She is alert and oriented to person, place, and time. Diagnostic Testing ED Labs Ordered and Reviewed COMPREHENSIVE METABOLIC PANEL - Abnormal; Notable for the following components: Result Value Ref Range Protein, Total 6.1 (*) 6.3 - 8.0 g/dL Albumin 3.7 (*) 3.9 - 4.9 g/dL Creatinine 0.56 (*) 0.58 - 0.96 mg/dL Sodium 134 (*) 136 - 144 mmol/L All other components within normal limits COMPLETE BLOOD COUNT AND DIFFERENTIAL - Abnormal; Notable for the following components: RBC 3.89 (*) 3.90 - 5.20 m/uL MCV 103.3 (*) 80.0 - 100.0 fL MCH 35.2 (*) 26.0 - 34.0 pg Abs [place] 1.13 (*) <0.87 k/uL All other components within normal limits CREATINE KINASE/CK - Normal LAC REPAIR Date/Time: 08/10/2024 12:17 AM Performed by: Anita Jones MD Authorized by: Anita Jones MD Risks discussed: Infection, pain, retained foreign body, tendon damage, poor cosmetic result, need for additional repair and nerve damage Alternatives discussed: Delayed treatment, no treatment, observation and referral Anesthesia (see MAR for exact dosages): Anesthesia method: Local infiltration Local anesthetic: Lidocaine 2% w/o epi Laceration details: Location: Leg Leg location: R lower leg Length (cm): 12 Depth (mm): 20 Repair type: Repair type: Complex Exploration: Limited defect created (wound extended): no Wound exploration: wound explored through full range of motion Wound extent: areolar tissue violated Wound extent: no foreign body, no signs of injury, no nerve damage, no tendon damage, no underlying fracture and no vascular damage Contaminated: no Treatment: Area cleansed with: Saline Amount of cleaning: Extensive Irrigation solution: Sterile saline Irrigation (more content not included)... Normal [facility] ALLIED HEALTHon 08-09-2024 ALLIED HEALTH HNO ID: [id number] Author: EFFIE PINTO RT(R) Service: ? Author Type: Technologist Type: Allied Health Filed: 08/09/2024 18:14 Note Text: Radiology Service Progress Note PATIENT NAME: Tomeka Harmon DATE OF SERVICE: August 09, 2024 TIME: 6:13 PM PATIENT IDENTITY VERIFICATION COMPLETED USING TWO (2) IDENTIFIERS: Name and Date of confirmed by patient verbally. FALL SCREENING: Has the patient had 2 falls in the last year or 1 fall with injury or currently using an Ambulatory Assistive Device (Walker, Cane, Wheelchair, Crutches, etc.)? Emergency Room Patient: Screened in ED PATIENT GENDER DATA: Female. status: : No status: NO. PATIENT RELEVANT IMPLANT DATA REVIEWED: Not Applicable PATIENT PRESENTS WITH AN IMPLANTABLE OR ATTACHED MOLD MOVER: No RADIOLOGY DEPARTMENT: General X-ray: Exam(s) Completed: Lower Extremity X-Ray(s): Tibia Fibula, Right PERIPHERAL IV DATA: Not applicable SIGNED BY: Effie Pinto, RT(R) August 09, 2024 6:13 PM Normal [facility] CBC W Auto Differential pane l (Bld)on 08-09-2024 Basophils (Bld) [#/Vol] 0.03 10*3/uL Normal <0.11 [facility] Comment on above: Order Comment: Speci men Type: BLOOD SPECIMENOrdering Facility: [facility] Address: [address] [place] [address] Performed By: #### 5 7021-8 ####[facility] LABCLIA [id number] [facility] [place] [place] [address] [facility] [place] Basophils/100 WBC (Bld) 0.4 % Normal [facility] Comment on above: Order Comment: Speci men Type: BLOOD SPECIMENOrdering Facility: [facility] Address: [address] [place] [address] Performed By: #### 5 7021-8 ####[facility] LABCLIA [id number] [place] [address] [place] Differential cell count method Nom (Bld) Auto Normal [facility] Comment on above: Order Comment: Speci men Type: BLOOD SPECIMENOrdering Facility: [facility] Address: [address] [place] [address] Performed By: #### 5 7021-8 ####[facility] LABCLIA [id number] [facility] [place] [place] [address] [place] Eosinophils (Bld) [#/Vol] 10*3/uL Normal <0.46 [facility] Comment on above: Order Comment: Speci men Type: BLOOD SPECIMENOrdering Facility: [facility] Address: [address] [place] [address] Performed By: #### 5 7021-8 ####[facility] LABCLIA [id number] [facility] [place] [address] [place] Eosinophils/100 WBC (Bld) 0.1 % Normal [facility] Comment on above: Order Comment: Speci men Type: BLOOD SPECIMENOrdering Facility: [facility] Address: [address] [place] [address] Performed By: #### 5 7021-8 ####[facility] LABCLIA [id number] [place] [address] [place] Erythrocyte distribution width (RBC) [Ratio] 12.5 % Normal 11.5-15.0 [facility] Comment on above: Order Comment: Speci men Type: BLOOD SPECIMENOrdering Facility: [facility] Address: [address] [place] [address] Performed By: #### 5 7021-8 ####[facility] LAB[facility] [id number] [place] [address] [place] Hematocrit (Bld) [Volume fraction] 40.2 % Normal 36.0-46.0 [facility] Comment on above: Order Comment: Speci men Type: BLOOD SPECIMENOrdering Facility: [facility] Address: [address] [place] [address] Performed By: #### 5 7021-8 ####[facility] LAB[facility] [id number] [place] [address] [place] Hemoglobin (Bld) [Mass/Vol] 13.7 g/dL Normal 11.5-15.5 [facility] Comment on above: Order Comment: Speci men Type: BLOOD SPECIMENOrdering Facility: [facility] Address: [address] [place] [address] Performed By: #### 5 7021-8 ####[facility] LABCLIA [id number] [place] [address] [place] Immature granulocytes (Bld) [#/Vol] 10*3/uL Normal <0.10 [facility] Comment on above: Order Comment: Speci men Type: BLOOD SPECIMENOrdering Facility: [facility] Address: [address] [place] [address] Performed By: #### 5 7021-8 ####[facility] LABCLIA [id number] [place] [address] [place] Immature granulocytes/100 WBC (Bld) 0.1 % Normal [facility] Comment on above: Order Comment: Speci men Type: BLOOD SPECIMENOrdering Facility: [facility] Address: [address] [place] [address] Performed By: #### 5 7021-8 ####[facility] LABCLIA [id number] [place] [address] [place] Lymphocytes (Bld) [#/Vol] 3.25 10*3/uL Normal 1.00-4.00 [facility] Comment on above: Order Comment: Speci men Type: BLOOD SPECIMENOrdering Facility: [facility] Address: [address] [place] [address] Performed By: #### 5 7021-8 ####[facility] LABCLIA [id number] [address] Lymphocytes/100 WBC (Bld) 47.6 % Normal [facility] Comment on above: Order Comment: Speci men Type: BLOOD SPECIMENOrdering Facility: [facility] Address: [address] [place] [address] Performed By: #### 5 7021-8 ####[facility] LABCLIA [id number] [place] [address] [place] MCH (RBC) [Entitic mass] 35.2 pg High 26.0-34.0 [facility] Comment on above: Order Comment: Speci men Type: BLOOD SPECIMENOrdering Facility: [facility] Address: [address] [place] [address] Performed By: #### 5 7021-8 ####[facility] LABCLIA [id number] [place] [address] [facility] MCHC (RBC) [Mass/Vol] 34.1 g/dL Normal 30.5-36.0 [facility] Comment on above: Order Comment: Speci men Type: BLOOD SPECIMENOrdering Facility: [facility] Address: [address] [place] [address] Performed By: #### 5 7021-8 ####[facility] LABCLIA [id number] [facility] [address] [place] MCV (RBC) [Entitic vol] 103.3 fL High 80.0-100.0 [facility] Comment on above: Order Comment: Speci men Type: BLOOD SPECIMENOrdering Facility: [facility] Address: [address] [place] [address] Performed By: #### 5 7021-8 ####[facility] LABCLIA [id number] [facility] [address] [place] Monocytes (Bld) [#/Vol] 1.13 10*3/uL High <0.87 [facility] Comment on above: Order Comment: Speci men Type: BLOOD SPECIMENOrdering Facility: [facility] Address: [address] [place] [address] Performed By: #### 5 7021-8 ####[facility] LABCLIA [id number] [facility] [place] [address] [place] Monocytes/100 WBC (Bld) 16.5 % Normal [facility] Comment on above: Order Comment: Speci men Type: BLOOD SPECIMENOrdering Facility: [facility] Address: [address] [place] [address] Performed By: #### 5 7021-8 ####[facility] LABCLIA [id number] [facility] [place] [address] [place] Neutrophils (Bld) [#/Vol] 2.40 10*3/uL Normal 1.45-7.50 [facility] Comment on above: Order Comment: Speci men Type: BLOOD SPECIMENOrdering Facility: [facility] Address: [address] [place] [address] Performed By: #### 5 7021-8 ####[facility] LABCLIA [id number] [facility] [address] [place] Neutrophils/100 WBC (Bld) 35.3 % Normal [facility] Comment on above: Order Comment: Speci men Type: BLOOD SPECIMENOrdering Facility: [facility] Address: [facility] [place] [address] Performed By: #### 5 7021-8 ####[facility] LABCLIA [id number] [facility] [place] [address] [place] Nucleated RBC (Bld) [#/Vol] Normal [facility] Comment on above: Order Comment: Speci men Type: BLOOD SPECIMENOrdering Facility: [facility] Address: [address] [place] [address] Performed By: #### 5 7021-8 ####[facility] LABCLIA [id number] [place] [address] [place] Nucleated RBC/100 WBC (Bld) [Ratio] Normal [facility] Comment on above: Order Comment: Speci men Type: BLOOD SPECIMENOrdering Facility: [facility] Address: [address] [place] [address] Performed By: #### 5 7021-8 ####[facility] LABCLIA [id number] [facility] [address] [place] Platelet mean volume (Bld) [Entitic vol] 11.1 fL Normal 9.0-12.7 [facility] Comment on above: Order Comment: Speci men Type: BLOOD SPECIMENOrdering Facility: [facility] Address: [address] [place] [address] Performed By: #### 5 7021-8 ####[facility] LABCLIA [id number] [facility] [place] [address] [place] Platelets (Bld) [#/Vol] 182 10*3/uL Normal 150-400 [facility] Comment on above: Order Comment: Speci men Type: BLOOD SPECIMENOrdering Facility: [facility] Address: [address] [place] [address] Performed By: #### 5 7021-8 ####[facility] LABCLIA [id number] [place] [address] [facility] RBC (Bld) [#/Vol] 3.89 10*6/uL Low 3.90-5.20 [facility] Comment on above: Order Comment: Speci men Type: BLOOD SPECIMENOrdering Facility: [facility] Address: [address] [place] [address] Performed By: #### 5 7021-8 ####[facility] LABCLIA [id number] [place] [address] [facility] WBC (Bld) [#/Vol] 6.83 10*3/uL Normal 3.70-11.00 [facility] Comment on above: Order Comment: Speci men Type: BLOOD SPECIMENOrdering Facility: [facility] Address: [address] [place] [address] Performed By: #### 5 7021-8 ####[facility] LABCL[facility] [id number] [place] [address] [facility] CK SerPl-cCncon 08-09-2024 CK [Catalytic activity/Vol] 97 U/L Normal 42-196 [facility] Comment on above: Order Comment: Speci men Type: BLOOD SPECIMEN [facility] Address: [address] [place] [address] Performed By: #### 2 4323-8, 2157-03 #### [facility] CLIA [id number] [address] [place] [address] [facility] Comprehensive metabolic 2000 panelon 08-09-2024 Albumin [Mass/Vol] 3.7 g/dL Low 3.9-4.9 [facility] Comment on above: Order Comment: Speci men Type: BLOOD SPECIMEN [facility] Address: [address] [place] [address] Performed By: #### 2 4323-8, 2157-03 #### [facility] CLIA [id number] [address] [place] [address] [facility] ALP [Catalytic activity/Vol] 45 U/L Normal 34-123 [facility] Comment on above: Order Comment: Speci men Type: BLOOD SPECIMEN [facility] Address: [address] [place] [id number] Performed By: #### 2 4323-8, 2157-03 #### [facility] CLIA [id number] [address] [facility] [address] [place] ALT With P-5'-P [Catalytic activity/Vol] 14 U/L Normal 7-38 [facility] Comment on above: Order Comment: Speci men Type: BLOOD SPECIMEN [facility] Address: [address] [place], [place] [address] Performed By: #### 2 4323-8, 2157-03 #### [facility] CLIA [id number] [address] [place] [address] [place] Anion gap [Moles/Vol] 10 mmol/L Normal 8-15 [facility] Comment on above: Order Comment: Speci men Type: BLOOD SPECIMEN [facility] Address: [address] [place], [place] [address] Performed By: #### 2 4323-8, 2157-03 #### [facility] CLIA [id number] [address] [place] [address] [place] AST With P-5'-P [Catalytic activity/Vol] 17 U/L Normal 13-35 [facility] Comment on above: Order Comment: Speci men Type: BLOOD SPECIMEN [facility] Address: [address] [place] [address] Performed By: #### 2 4323-8, 2157-03 #### [facility] CLIA [id number] [address] [place] [address] [place] Bilirubin [Mass/Vol] 0.4 mg/dL Normal 0.2-1.3 [facility] Comment on above: Order Comment: Speci men Type: BLOOD SPECIMEN [facility] Address: [address] [place], [place] [address] Performed By: #### 2 4323-8, 2157-03 #### [facility] CLIA [id number] [address] [facility] [place] [address] [place] Calcium [Mass/Vol] 8.9 mg/dL Normal 8.5-10.2 [facility] Comment on above: Order Comment: Speci men Type: BLOOD SPECIMEN [facility] Address: [address] [place] [address] Performed By: #### 2 4323-8, 2157-03 #### [facility] CLIA [id number] [address] [place] [address] [place] Chloride [Moles/Vol] 99 mmol/L Normal 98-107 [facility] Comment on above: Order Comment: Speci men Type: BLOOD SPECIMEN [facility] Address: [address] [place] [address] Performed By: #### 2 4323-8, 2157-03 #### [facility] CLIA [id number] [address] [place] [address] [place] CO2 [Moles/Vol] 25 mmol/L Normal 22-30 [facility] Comment on above: Order Comment: Speci men Type: BLOOD SPECIMEN [facility] Address: [address] [place], [place] [address] Performed By: #### 2 4323-8, 2157-03 #### [facility] CLIA [id number] [address] [facility] [place] [address] [place] Creatinine [Mass/Vol] 0.56 mg/dL Low 0.58-0.96 [facility] Comment on above: Order Comment: Speci men Type: BLOOD SPECIMEN [facility] Address: [address] [place], [place] [address] Performed By: #### 2 4323-8, 2157-03 #### [facility] CLIA [id number] [address] [place] [address] [place] Creatinine and Glomerular filtration rate.predicted panel (S/P/Bld) 102 mL/min/1.73m??? Normal >=60 [facility] Comment on above: Order Comment: Juan Ramon ibarra Type: BLOOD SPECIMEN [facility] Address: [address] [place] [address] Result Comment: Farheen mated Glomerular Filtration Rate (eGFR) is calculated using the 2020 CKD-EPI creatinine equation. This equation utilizes serum creatinine, sex, and age as parameters. The creatinine assay has traceable calibration to isotope dilution-mass spectrometry. Refer to KDIGO guidelines for clinical interpretation. In patients with unstable renal function, e.g. those with acute kidney injury, the eGFR may not accurately reflect actual GFR. Performed By: #### 2 4323-8, 2157-03 #### [facility] CLIA [id number] [address] [place] [address] [place] Glucose [Mass/Vol] 82 mg/dL Normal 74-99 [facility] Comment on above: Order Comment: Juan Ramon ibarra Type: BLOOD SPECIMEN [facility] Address: [address] [place] [address] Result Comment: The [place] Diabetes Association (ADA) provides guidance for cutoff values for fasting glucose and random glucose. The ADA defines fasting as no caloric intake for at least 8 hours. Fasting plasma glucose results between 100 to 125 mg/dL indicate increased risk for diabetes (prediabetes). Fasting plasma glucose results greater than or equal to 126 mg/dL meet the criteria for diagnosis of diabetes. In the absence of unequivocal hyperglycemia, results should be confirmed by repeat testing. In a patient with classic symptoms of hyperglycemia or hyperglycemic crisis, random plasma glucose results greater than or equal to 200 mg/dL meet the criteria for diagnosis of diabetes. Reference: Standards of Medical Care in Diabetes 2016, [place] [employer] Association. Diabetes Care. 2016.39(Suppl 1). Performed By: #### 2 4323-8, 2157-03 #### [facility] CLIA [id number] [address] [place] [address] [place] Potassium [Moles/Vol] 4.3 mmol/L Normal 3.7-5.1 [facility] Comment on above: Order Comment: Juan Ramon ibarra Type: BLOOD SPECIMEN [facility] Address: [address] [place] [address] Performed By: #### 2 4323-8, 2157-03 #### [facility] CLIA [id number] [address] [place] [address] [facility] Protein [Mass/Vol] 6.1 g/dL Low 6.3-8.0 [facility] Comment on above: Order Comment: Speci men Type: BLOOD SPECIMEN [facility] Address: [address] [place], [place] [address] Performed By: #### 2 4323-8, 2157-03 #### [facility] CLIA [id number] [address] [place] [address] [place] Sodium [Moles/Vol] 134 mmol/L Low 136-144 [facility] Comment on above: Order Comment: Speci men Type: BLOOD SPECIMEN [facility] Address: [address] [place], [place] [address] Performed By: #### 2 4323-8, 2157-03 #### [facility] CLIA [id number] [address] [place] [address] [place] Urea nitrogen [Mass/Vol] 11 mg/dL Normal 7-21 [facility] Comment on above: Order Comment: Speci men Type: BLOOD SPECIMEN [facility] Address: [address] [place] [address] Performed By: #### 2 4323-8, 2157-03 #### [facility] CLIA [id number] [address] [place] [address] [place] ED NOTEon 08-09-2024 ED NOTE HNO ID: [id number] Author: HILARY DE LA GARZA RN Service: Emergency Medicine Author Type: Registered Nurse Type: ED Notes Filed: 08/10/2024 00:54 Note Text: Patient up to br and returned to bed with assist of wheelchair. Call light in reach. Normal [facility] ED NOTE HNO ID: [id number] Author: CANDY LOVE, KOTA Service: ? Author Type: Registered Nurse Type: ED Notes Filed: 08/09/2024 19:10 Note Text: Report to boone de la garza rn Normal [facility] ED NOTE HNO ID: [id number] Author: HILARY DE LA GARZA RN Service: Emergency Medicine Author Type: Registered Nurse Type: ED Notes Filed: 08/10/2024 00:53 Note Text: Assumed care of patient. Patient awake in bed. Call light in reach. Normal [facility] ED NOTE HNO ID: [id number] Author: CANDY LOVE RN Service: ? Author Type: Registered Nurse Type: ED Notes Filed: 08/09/2024 18:15 Note Text: Xray completed at bedside Normal [facility] ED NOTE HNO ID: [id number] Author: CANDY LOVE RN Service: ? Author Type: Registered Nurse Type: ED Notes Filed: 08/09/2024 17:48 Note Text: Dr jones at bedside for exam Normal [facility] ED NOTE HNO ID: [id number] Author: CANDY LOVE RN Service: ? Author Type: Registered Nurse Type: ED Notes Filed: 08/09/2024 17:03 Note Text: Pt was on the 3rd step on a ladder . Pt was coming down and slipped - her R lower leg caught on a rung on the ladder. Pt has a large hematoma and a large avulsion to her r lower leg. Pt denies any other injury. Pt was able to walk after the injury. Normal [facility] XR TIBIA FIBULA 2V AP/LAT RT on 08-09-2024 XR TIBIA FIBULA 2V AP/LAT RT * * *Final Report* * * DATE OF EXAM: Aug 09 2024 6:12PM LDX 5266 - XR TIBIA FIBULA 2V AP/LAT RT / PROCEDURE REASON: Fracture / Dislocation * * * * Physician Interpretation * * * * EXAM TITLE: XR TIBIA FIBULA 2V AP/LAT RT DATE: 08/09/2024 INDICATION: Status post fall with laceration to left leg. COMPARISON: None. AP and lateral views of the left tibia and fibula show no fracture. Normal alignment. No acute bony abnormality. There is large soft tissue defect noted in the medial soft tissues just below the knee consistent with soft tissue laceration. IMPRESSION: No acute bony abnormality. No soft tissue radiopaque foreign body. Maxillofacial Pathology: PSCB Transcribe Date/Time: Aug 09 2024 7:08P Dictated by : JOAN FIELDS MD This examination was interpreted and the report reviewed and electronically signed by: JOAN FIELDS MD on Aug 09 2024 7:09PM EST [id number] Normal [facility] 25(OH)D3 [facility] 2023 25-hydroxyvitamin D3 [Mass/Vol] 27.0 ng/mL Low 31.0-80.0 [facility] Comment on above: Order Comment: Juan Ramon ibarra Type: BLOOD SPECIMEN Ordering Facility: External Submitter Address: , , Result Comment: Clas sification of 25 [place] Vitamin D status: Deficiency/Insufficiency: < or = 30 ng/ml. Sufficiency/Optimal Levels: 31-80 ng/mL Toxicity: > 100 ng/mL. Test performed by chemiluminescent immunoassay. Performed By: #### 1 989-3 #### [facility] CLIA [id number] [address] [place] [address] [place] CBC W Auto Differential pane l (Bld)on 03-28-2024 Basophils (Bld) [#/Vol] 0.04 10*3/uL Normal <0.11 [facility] Comment on above: Order Comment: Juan Ramon ibarra Type: BLOOD SPECIMEN Ordering Facility: External Submitter Address: , , Performed By: #### 5 7021-8 #### [facility] CLIA [id number] [address] [place] [address] [place] Basophils/100 WBC (Bld) 0.5 % Normal C [facility] Comment on above: Order Comment: Juan Ramon ibarra Type: BLOOD SPECIMEN Ordering Facility: External Submitter Address: , , Performed By: #### 5 7021-8 #### [facility] CLIA [id number] [address] [place] [address] [place] Differential cell count method Nom (Bld) Auto Normal [facility] Comment on above: Order Comment: Speci men Type: BLOOD SPECIMEN Ordering Facility: External Submitter Address: , , Performed By: #### 5 7021-8 #### [facility] CLIA [id number] [address] [place] [address] [place] Eosinophils (Bld) [#/Vol] 10*3/uL Normal <0.46 [facility] Comment on above: Order Comment: Speci men Type: BLOOD SPECIMEN Ordering Facility: External Submitter Address: , , Performed By: #### 5 7021-8 #### [facility] CLIA [id number] [address] [place] [address] [place] Eosinophils/100 WBC (Bld) 0.2 % Normal [facility] Comment on above: Order Comment: Speci men Type: BLOOD SPECIMEN Ordering Facility: External Submitter Address: , , Performed By: #### 5 7021-8 #### [facility] CLIA [id number] [address] [place] [address] [place] Erythrocyte distribution width (RBC) [Ratio] 12.6 % Normal 11.5-15.0 [facility] Comment on above: Order Comment: Speci men Type: BLOOD SPECIMEN Ordering Facility: External Submitter Address: , , Performed By: #### 5 7021-8 #### [facility] CLIA [id number] [address] [place] [address] [place] Hematocrit (Bld) [Volume fraction] 43.2 % Normal 36.0-46.0 [facility] Comment on above: Order Comment: Speci men Type: BLOOD SPECIMEN Ordering Facility: External Submitter Address: , , Performed By: #### 5 7021-8 #### [facility] CLIA [id number] [address] [place] [address] [place] Hemoglobin (Bld) [Mass/Vol] 15.1 g/dL Normal 11.5-15.5 [facility] Comment on above: Order Comment: Speci men Type: BLOOD SPECIMEN Ordering Facility: External Submitter Address: , , Performed By: #### 5 7021-8 #### [facility] CLIA [id number] [address] [place] [address] [place] Immature granulocytes (Bld) [#/Vol] 0.04 10*3/uL Normal <0.10 [facility] Comment on above: Order Comment: Speci men Type: BLOOD SPECIMEN Ordering Facility: External Submitter Address: , , Performed By: #### 5 7021-8 #### [facility] CLIA [id number] [address] [place] [address] [place] Immature granulocytes/100 WBC (Bld) 0.5 % Normal [facility] Comment on above: Order Comment: Speci men Type: BLOOD SPECIMEN Ordering Facility: External Submitter Address: , , Performed By: #### 5 7021-8 #### [facility] CLIA [id number] [address] [place] [address] [place] Lymphocytes (Bld) [#/Vol] 3.93 10*3/uL Normal 1.00-4.00 [facility] Comment on above: Order Comment: Speci men Type: BLOOD SPECIMEN Ordering Facility: External Submitter Address: , , Performed By: #### 5 7021-8 #### [facility] CLIA [id number] [address] [place] [address] [place] Lymphocytes/100 WBC (Bld) 45.2 % Normal [facility] Comment on above: Order Comment: Speci men Type: BLOOD SPECIMEN Ordering Facility: External Submitter Address: , , Performed By: #### 5 7021-8 #### [facility] CLIA [id number] [address] [place] [address] [place] MCH (RBC) [Entitic mass] 34.9 pg High 26.0-34.0 [facility] Comment on above: Order Comment: Speci men Type: BLOOD SPECIMEN Ordering Facility: External Submitter Address: , , Performed By: #### 5 7021-8 #### [facility] CLIA [id number] [address] [place] [address] [place] MCHC (RBC) [Mass/Vol] 35.0 g/dL Normal 30.5-36.[address] [facility] Comment on above: Order Comment: Speci men Type: BLOOD SPECIMEN Ordering Facility: External Submitter Address: , , Performed By: #### 5 7021-8 #### [facility] CLIA [id number] [address] [place] [address] [place] MCV (RBC) [Entitic vol] 99.8 fL Normal 80.0-100.0 [facility] Comment on above: Order Comment: Speci men Type: BLOOD SPECIMEN Ordering Facility: External Submitter Address: , , Performed By: #### 5 7021-8 #### [facility] CLIA [id number] [address] [place] [address] [place] Monocytes (Bld) [#/Vol] 0.95 10*3/uL High <0.87 [facility] Comment on above: Order Comment: Speci men Type: BLOOD SPECIMEN Ordering Facility: External Submitter Address: , , Performed By: #### 5 7021-8 #### [facility] CLIA [id number] [address] [place] [address] [place] Monocytes/100 WBC (Bld) 10.9 % Normal [facility] Comment on above: Order Comment: Speci men Type: BLOOD SPECIMEN Ordering Facility: External Submitter Address: , , Performed By: #### 5 7021-8 #### [facility] CLIA [id number] [address] [place] [address] [place] Neutrophils (Bld) [#/Vol] 3.72 10*3/uL Normal 1.45-7.50 [facility] Comment on above: Order Comment: Speci men Type: BLOOD SPECIMEN Ordering Facility: External Submitter Address: , , Performed By: #### 5 7021-8 #### [facility] CLIA [id number] [address] [place] [address] [place] Neutrophils/100 WBC (Bld) 42.7 % Normal [facility] Comment on above: Order Comment: Speci men Type: BLOOD SPECIMEN Ordering Facility: External Submitter Address: , , Performed By: #### 5 7021-8 #### [facility] CLIA [id number] [address] [place] [address] [place] Nucleated RBC (Bld) [#/Vol] 10*3/uL Normal <0.01 [facility] Comment on above: Order Comment: Speci men Type: BLOOD SPECIMEN Ordering Facility: External Submitter Address: , , Performed By: #### 5 7021-8 #### [facility] CLIA [id number] [address] [place] [address] [place] Nucleated RBC/100 WBC (Bld) [Ratio] 0.0 /100 WBC Normal [facility] Comment on above: Order Comment: Speci men Type: BLOOD SPECIMEN Ordering Facility: External Submitter Address: , , Performed By: #### 5 7021-8 #### [facility] CLIA [id number] [address] [place] [address] [place] Platelet mean volume (Bld) [Entitic vol] 9.7 fL Normal 9.0-12.7 [facility] Comment on above: Order Comment: Speci men Type: BLOOD SPECIMEN Ordering Facility: External Submitter Address: , , Performed By: #### 5 7021-8 #### [facility] CLIA [id number] [address] [place] [address] [place] Platelets (Bld) [#/Vol] 242 10*3/uL Normal 150-400 [facility] Comment on above: Order Comment: Speci men Type: BLOOD SPECIMEN Ordering Facility: External Submitter Address: , , Performed By: #### 5 7021-8 #### [facility] CLIA [id number] [address] [place] [address] [place] RBC (Bld) [#/Vol] 4.33 10*6/uL Normal 3.90-5.20 [facility] Comment on above: Order Comment: Speci men Type: BLOOD SPECIMEN Ordering Facility: External Submitter Address: , , Performed By: #### 5 7021-8 #### [facility] CLIA [id number] [address] [place] [address] [place] WBC (Bld) [#/Vol] 8.70 10*3/uL Normal 3.70-11.00 [facility] Comment on above: Order Comment: Speci men Type: BLOOD SPECIMEN Ordering Facility: External Submitter Address: , , Performed By: #### 5 7021-8 #### [facility] CLIA [id number] [address] [place] [address] [place] Comprehensive metabolic 2000 panelon 03-28-2024 Albumin [Mass/Vol] 4.2 g/dL Normal 3.9-4.9 [facility] Comment on above: Order Comment: Speci men Type: BLOOD SPECIMEN Ordering Facility: External Submitter Address: , , Performed By: #### 2 4323-8 #### [facility] CLIA [id number] [address] [place] [address] [place] ALP [Catalytic activity/Vol] 53 U/L Normal 34-123 [facility] Comment on above: Order Comment: Speci men Type: BLOOD SPECIMEN Ordering Facility: External Submitter Address: , , Performed By: #### 2 4323-8 #### [facility] CLIA [id number] [address] [place] [address] [place] ALT [Catalytic activity/Vol] 19 U/L Normal 7-38 [facility] Comment on above: Order Comment: Speci men Type: BLOOD SPECIMEN Ordering Facility: External Submitter Address: , , Performed By: #### 2 4323-8 #### [facility] CLIA [id number] [address] [place] [address] [place] Anion gap [Moles/Vol] 8 mmol/L Normal 8-[address] [facility] Comment on above: Order Comment: Speci men Type: BLOOD SPECIMEN Ordering Facility: External Submitter Address: , , Performed By: #### 2 4323-8 #### [facility] CLIA [id number] [address] [place] [address] [place] AST [Catalytic activity/Vol] 22 U/L Normal 13-35 [facility] Comment on above: Order Comment: Speci men Type: BLOOD SPECIMEN Ordering Facility: External Submitter Address: , , Performed By: #### 2 4323-8 #### [facility] CLIA [id number] [address] [place] [address] [place] Bilirubin [Mass/Vol] 0.4 mg/dL Normal 0.2-1.3 [facility] Comment on above: Order Comment: Speci men Type: BLOOD SPECIMEN Ordering Facility: External Submitter Address: , , Performed By: #### 2 4323-8 #### [facility] CLIA [id number] [address] [place] [address] [place] Calcium [Mass/Vol] 9.7 mg/dL Normal 8.5-10.2 [facility] Comment on above: Order Comment: Speci men Type: BLOOD SPECIMEN Ordering Facility: External Submitter Address: , , Performed By: #### 2 4323-8 #### [facility] CLIA [id number] [address] [place] [address] [place] Chloride [Moles/Vol] 97 mmol/L Low 98-107 [facility] Comment on above: Order Comment: Speci fred Type: BLOOD SPECIMEN Ordering Facility: External Submitter Address: , , Performed By: #### 2 4323-8 #### [facility] CLIA [id number] [address] [place] [address] [place] CO2 [Moles/Vol] 26 mmol/L Normal 22-30 [facility] Comment on above: Order Comment: Speci men Type: BLOOD SPECIMEN Ordering Facility: External Submitter Address: , , Performed By: #### 2 4323-8 #### [facility] [id number] [address] [place] [address] [place] Creatinine [Mass/Vol] 0.62 mg/dL Normal 0.58-0.[address] [facility] Comment on above: Order Comment: Speci fred Type: BLOOD SPECIMEN Ordering Facility: External Submitter Address: , , Performed By: #### 2 4323-8 #### [facility] CLIA [id number] [address] [place] [address] [place] Creatinine and Glomerular filtration rate.predicted panel (S/P/Bld) 100 mL/min/1.73m??? Normal >=60 [facility] Comment on above: Order Comment: Specally ibarra Type: BLOOD SPECIMEN Ordering Facility: External Submitter Address: , , Result Comment: Farheen mated Glomerular Filtration Rate (eGFR) is calculated using the 2020 CKD-EPI creatinine equation. This equation utilizes serum creatinine, sex, and age as parameters. The creatinine assay has traceable calibration to isotope dilution-mass spectrometry. Refer to KDIGO guidelines for clinical interpretation. In patients with unstable renal function, e.g. those with acute kidney injury, the eGFR may not accurately reflect actual GFR. Performed By: #### 2 4323-8 #### [facility] CLIA [id number] [address] [place] [address] [place] Glucose [Mass/Vol] 82 mg/dL Normal 74-99 [facility] Comment on above: Order Comment: Juan Ramon ibarra Type: BLOOD SPECIMEN Ordering Facility: External Submitter Address: , , Result Comment: The [place] Diabetes Association (ADA) provides guidance for cutoff values for fasting glucose and random glucose. The ADA defines fasting as no caloric intake for at least 8 hours. Fasting plasma glucose results between 100 to 125 mg/dL indicate increased risk for diabetes (prediabetes). Fasting plasma glucose results greater than or equal to 126 mg/dL meet the criteria for diagnosis of diabetes. In the absence of unequivocal hyperglycemia, results should be confirmed by repeat testing. In a patient with classic symptoms of hyperglycemia or hyperglycemic crisis, random plasma glucose results greater than or equal to 200 mg/dL meet the criteria for diagnosis of diabetes. Reference: Standards of Medical Care in Diabetes 2016, [place] [employer] Association. Diabetes Care. 2016.39(Suppl 1). Performed By: #### 2 4323-8 #### [facility] [id number] [address] [place] [address] [place] Potassium [Moles/Vol] 4.5 mmol/L Normal 3.7-5.[address] [facility] Comment on above: Order Comment: Juan Ramon ibarra Type: BLOOD SPECIMEN Ordering Facility: External Submitter Address: , , Performed By: #### 2 4323-8 #### [facility] [id number] [address] [place] [address] [place] Protein [Mass/Vol] 6.3 g/dL Normal 6.3-8.0 [facility] Comment on above: Order Comment: Juan Ramon ibarra Type: BLOOD SPECIMEN Ordering Facility: External Submitter Address: , , Performed By: #### 2 4323-8 #### [facility] [id number] [address] [place] [address] [place] Sodium [Moles/Vol] 131 mmol/L Low 136-144 [facility] Comment on above: Order Comment: Juan Ramon ibarra Type: BLOOD SPECIMEN Ordering Facility: External Submitter Address: , , Performed By: #### 2 4323-8 #### [facility] CLIA [id number] [address] [place] [address] [place] Urea nitrogen [Mass/Vol] 11 mg/dL Normal 7-21 [facility] Comment on above: Order Comment: Speci men Type: BLOOD SPECIMEN Ordering Facility: External Submitter Address: , , Performed By: #### 2 4323-8 #### [facility] CLIA [id number] [address] [place] [address] [place] Lipid 1996 panelon 4 Cholesterol [Mass/Vol] 209 mg/dL High <200 [facility] Comment on above: Order Comment: Speci men Type: BLOOD SPECIMEN Ordering Facility: External Submitter Address: , , Result Comment: <200 mg/dL, Desirable 200-239 mg/dL, Borderline high >239 mg/dL, High Performed By: #### 2 4331-1 #### [facility] CLIA [id number] [address] [place] [address] [place] [facility] CLIA [id number] [address] [place] [address] [place] #### 3016-3 #### [facility] CLIA [id number] [address] [place] [address] [place] Cholesterol in HDL [Mass/Vol] 100 mg/dL Normal >39 [facility] Comment on above: Order Comment: Speci men Type: BLOOD SPECIMEN Ordering Facility: External Submitter Address: , , Result Comment: 40-5 9 mg/dL, Acceptable >59 mg/dL, High: Negative risk factor for coronary heart disease <40 mg/dL, Low: Positive risk factor for coronary heart disease Performed By: #### 2 4331-1 #### [facility] CLIA [id number] [address] [place] [address] [place] [facility] CLIA [id number] [address] [place] #### 3016-3 #### [facility] CLIA [id number] [address] [place] Cholesterol in LDL [Mass/Vol] 98 mg/dL Normal <100 [facility] Comment on above: Order Comment: Speci men Type: BLOOD SPECIMEN Ordering Facility: External Submitter Address: , , Result Comment: <100 mg/dL, Optimal 100-129 mg/dL, Near optimal/above optimal 130-159 mg/dL, Borderline high 160-189 mg/dL, High >189 mg/dL, Very high Secondary prevention optimal LDL Cholesterol levels are recommended to be < 70 mg/dL Performed By: #### 2 4331-1 #### [facility] CLIA [id number] [address] [id number] [address] [place] [address] [place] #### 3016-3 #### [facility] CLIA [id number] [address] [place] [address] [place] Cholesterol in LDL/Cholesterol in HDL [Mass ratio] 0.98 {ratio} Normal <2.54 [facility] Comment on above: Order Comment: Speci men Type: BLOOD SPECIMEN Ordering Facility: External Submitter Address: , , Result Comment: Shane lewis: 1. National Cholesterol Education Program ATP III Guideline At-A-Glance Quick Desk Reference: National Heart, Lung, and Blood [place]. National Institutes of Health. 2001: NIH Publication No. 01-3305. 2. An International Atherosclerosis Society position paper: global recommendations for the management of dyslipidemia: executive summary, Atherosclerosis. 2014: 232(2):410-413. Performed By: #### 2 4331-1 #### [facility] CLIA [id number] [address] STATES OF [facility] [id number] [address] [place] [address] [place] #### 3016-3 #### [facility] CLIA [id number] [address] [place] [id number] [place] Cholesterol in VLDL [Mass/Vol] 11 mg/dL Normal <30 [facility] Comment on above: Order Comment: Speci men Type: BLOOD SPECIMEN Ordering Facility: External Submitter Address: , , Performed By: #### 2 4331-1 #### [facility] CLIA [id number] [address] [place] [id number] [place] [facility] CLIA [id number] [address] [place] [address] [place] #### 3016-3 #### [facility] CLIA [id number] [address] [place] [address] [place] Cholesterol non HDL [Mass/Vol] 109 mg/dL Normal <130 [facility] Comment on above: Order Comment: Dongi men Type: BLOOD SPECIMEN Ordering Facility: External Submitter Address: , , Result Comment: <130 mg/dL, Optimal 130-159 mg/dL, Near optimal/above optimal 160-189 mg/dL, Borderline high 190-219 mg/dL, High >219 mg/dL, Very high Secondary prevention optimal non HDL Cholesterol levels are recommended to be <100 mg/dL Performed By: #### 2 4331-1 #### [facility] CLIA [id number] [address] [place] [id number] [place] [facility] CLIA [id number] [address] [place] [address] [place] #### 3016-3 #### [facility] CLIA [id number] [address] [address] [place] Cholesterol.total/Choles terol in HDL [Mass ratio] 2.09 {ratio} Normal <5.10 [facility] Comment on above: Order Comment: Speci men Type: BLOOD SPECIMEN Ordering Facility: External Submitter Address: , , Performed By: #### 2 4331-1 #### [facility] CLIA [id number] [address] [place] [address] [place] [facility] CLIA [id number] [address] [place] [address] [place] #### 3016-3 #### [facility] CLIA [id number] [address] [place] [address] [place] FASTING TIME 12 hrs Normal [facility] Comment on above: Order Comment: Speci men Type: BLOOD SPECIMEN Ordering Facility: External Submitter Address: , , Performed By: #### 2 4331-1 #### [facility] CLIA [id number] [facility] [place] [address] [place] [facility] CLIA [id number] [address] [place] [address] [place] #### 3016-3 #### [facility] CLIA [id number] [address] [place] [address] [place] Triglyceride [Mass/Vol] 53 mg/dL Normal <150 [facility] Comment on above: Order Comment: Speci men Type: BLOOD SPECIMEN Ordering Facility: External Submitter Address: , , Result Comment: <150 mg/dL, Normal 150-199 mg/dL, Borderline high 200-499 mg/dL, High >499 mg/dL, Very high Performed By: #### 2 4331-1 #### [facility] CLIA [id number] [address] [place] [address] [place] [facility] CLIA [id number] [address] [place] [address] [place] #### 3016-3 #### [facility] CLIA [id number] [address] [place] TSH SerPl-aCncon 03-28-2024 TSH Qn 1.730 m[IU]/L Normal 0.270-4.200 [facility] Comment on above: Order Comment: Speci men Type: BLOOD SPECIMEN Ordering Facility: External Submitter Address: , , Performed By: #### 2 4331-1 #### [facility] CLIA [id number] [address] [place] [address] [place] [facility] CLIA [id number] [address] [place] #### 3016-3 #### [facility] CLIA [id number] [address] [place] [address] [place] Absolute lymphocyte countOrd ered By: Benton Gonzalez on 09-08-2023 Lymphocytes Auto (Unsp spec) [#/Vol] 3.26 10*3/uL 0.83-4.51 [facility] Basophil percentageOrdered B y: Benton Gonzalez on 09-08-2023 Basophils/100 WBC (Bld) 0.5 % 0-1 [facility] Bilirubin [Mass/Vol] 0.50 mg/dL 0.20-1.00 [facility] Comment on above: For patients on eltr ombopag therapy, use of Dimension Crocker TBIL is not recommended. Chloride [Moles/Vol] 102 mmol/L 98-107 [facility] Cholesterol [Mass/Vol] 211 mg/dL <200 [facility] Comment on above: <200 mg/dL Desirable 200-240 mg/dL Borderline >240 mg/dL High Risk Eosinophils/100 WBC (Bld) 0.3 % 0-5 [facility] Glucose [Mass/Vol] 73 mg/dL 74-106 [facility] Neutrophils (Bld) [#/Vol] 3.3 10*3/uL 2.0-7.7 [facility] Neutrophils/100 WBC (Bld) 43.4 % 47-70 [facility] Potassium [Moles/Vol] 4.2 mmol/L 3.5-5.1 [facility] Protein [Mass/Vol] 6.9 g/dL 6.4-8.2 [facility] Sodium [Moles/Vol] 133 mmol/L 136-145 [facility] Triglyceride [Mass/Vol] 56 mg/dL <199 [facility] Comment on above: The drugs N-Acetylcy steine and Metamizole may falsely depress this assay.Serum Triglycerides Reference Interval Normal <150 mg/dL Borderline high 150 - 199 mg/dL High 200 - 499 mg/dL Very High > or = 500 mg/dL WBC (Bld) [#/Vol] 7.7 10*3/uL 4.4-11.0 [facility] Blood erythrocytes count (nu mber/volume)Ordered By: Benton Gonzalez on 09-08-2023 RBC (Bld) [#/Vol] 4.21 10*6/uL 4.2-5.4 [facility] Blood hemoglobin measurement (mass/volume)Ordered By: Benton Gonzalez on 09-08-2023 Hemoglobin (Bld) [Mass/Vol] 14.4 g/dL 12.0-15.0 [facility] Blood lymphocytes/100 leukoc ytesOrdered By: Benton Gonzalez on 09-08-2023 Lymphocytes/100 WBC (Bld) 42.3 % 19-41 [facility] Blood monocytes/100 leukocyt esOrdered By: Benton Gonzalez on 09-08-2023 Monocytes/100 WBC (Bld) 13.2 % 0-10 [facility] Blood platelet mean volumeOr dered By: Benton Gonzalez on 09-08-2023 Platelet mean volume (Bld) [Entitic vol] 10.9 fL 6.2-12.0 [facility] Determination of erythrocyte mean corpuscular volume (MCV)Ordered By: Benton Gonzalez on 09-08-2023 MCV (RBC) [Entitic vol] 101.9 fL 81-99 [facility] Hematocrit Auto (Bld) [Volum e fraction]Ordered By: Benton Gonzalez on 09-08-2023 Hematocrit (Bld) [Volume fraction] 42.9 % 37-47 [facility] Laboratory - Chemistry and C hemistry - challengeOrdered By: Benton Gonzalez on 09-08-2023 ALP [Catalytic activity/Vol] 51 U/L 45-117 [facility] ALT [Catalytic activity/Vol] 25 U/L 13-56 [facility] CO2 [Moles/Vol] 27.0 mmol/L 21.0-32.0 [facility] Globulin (S) [Mass/Vol] 3.6 g/dL 2.2-4.2 [facility] Urea nitrogen/Creatinine [Mass ratio] 22.3 mg/mg 10-20 [facility] Laboratory - Hematology and Cell countsOrdered By: Benton Gonzalez on 09-08-2023 Erythrocyte distribution width (RBC) [Entitic vol] 49.9 fL 35.1-43.9 [facility] Erythrocyte distribution width (RBC) [Ratio] 13.2 % 11.6-14.6 [facility] Immature granulocytes/100 WBC (Bld) 0.300 % 0.0-0.9 [facility] Comment on above: IG% - Immature Granu locytes (promyelocytes, myelocytes and metamyelocytes) > 1% indicates that a LEFT SHIFT is Present. MCH (RBC) [Entitic mass] 34.2 pg 27.0-32.0 [facility] Nucleated RBC/100 WBC (Bld) [Ratio] 0 % 0-5 [facility] MCHC Auto (RBC) [Mass/Vol]Or dered By: Benton Gonzalez on 09-08-2023 MCHC (RBC) [Mass/Vol] 33.6 g/dL 32-36 [facility] No Panel InformationOrdered By: Benton Gonzalez on 09-08-2023 Estimated GFR (MDRD) Amer 123 mL/min >60 [facility] Comment on above: GFR Calc Estimated GFR (MDRD) Non-Af Amer 102 mL/min >60 [facility] Comment on above: Non- GFR Calc Thyroid Stimulating Hormone (TSH) 1.40 uIU/mL 0.358-3.74 [facility] Platelets bldOrdered By: Benton Gonzalez on 09-08-2023 Platelets (Bld) [#/Vol] 168 10*3/uL 150-450 [facility] Serum or plasma albumin alex urement (mass/volume)Ordered By: Benton Gonzalez on 09-08-2023 Albumin [Mass/Vol] 3.3 g/dL 3.2-5.0 [facility] Serum or plasma albumin/glob ulin mass ratioOrdered By: Benton Gonzalez 09-08-2023 Albumin/Globulin [Mass ratio] 0.9 {ratio} 0.9-2.4 [facility] Serum or plasma calcium alex urement (mass/volume)Ordered By: Benton Gonzalez 09-08-2023 Calcium [Mass/Vol] 9.0 mg/dL 8.5-10.1 [facility] Serum or plasma cholesterol in HDL measurement (mass/volume)Ordered By: Benton Gonzalez 09-08-2023 Cholesterol in HDL [Mass/Vol] 101 mg/dL >40 [facility] Comment on above: The drugs N-Acetylcy steine and Metamizole may falsely depress this assay. Reference Range HDL <40 mg/dL Low HDL Cholesterol HDL >or= 60 mg/dL High HDL Cholesterol Serum or plasma cholesterol in VLDL measurement (mass/volume)Ordered By: Benton Gonzalez 09-08-2023 Cholesterol in VLDL [Mass/Vol] 11 mg/dL 5-40 [facility] Serum or plasma creatinine m easurement (mass/volume)Ordered By: Benton Gonzalez 09-08-2023 Creatinine [Mass/Vol] 0.63 mg/dL 0.55-1.02 [facility] Comment on above: The validity of the calculated GFR & GFRAA in patients over 70 years has not been determined. Clinical correlation is essential. Serum or plasma low density lipoprotein (LDL) cholesterol measurement (mass/volume)Ordered By: Benton Gonzalez 09-08-2023 Cholesterol in LDL [Mass/Vol] 99 mg/dL 0-130 [facility] Serum or plasma urea nitroge n measurement (mass/volume)Ordered By: Benton Gonzalez 09-08-2023 Urea nitrogen [Mass/Vol] 14 mg/dL 7-18 [facility] Thin prep Papanicolaou smear with manual screeningOrdered By: Benton Gonzalez 09-08-2023 Thin prep Papanicolaou smear with manual screening 19 U/L 15-37 [facility] Thin prep Papanicolaou smear with manual screening 4 5-15 [facility] COVID-19 virus antigen assay Ordered By: Benton Duongok on 01-15-2023 SARS-CoV-2 (COVID-19) Ag IA.rapid Ql (Resp) Not detected Not Detect [facility] Comment on above: Normal Reference Ran ge: Not DetectedMethod:(RT-PCR) real-time reverse transcriptase PCRLuminex SYED Instrument*The Food and Drug Administration (FDA) has issued an Emergency Use Authorization (EAU) for the [employer] Windows SARS-CoV-2 Assay for the rapid detection of the virus that causes COVID-19. This test has been validated, but the FDAs independent review of this validation is pending.*Negative results do not preclude infection and should not be used as the sole basis for treatment or patient management. Optimum specimen types and timing for peak viral levels during infections caused by SARS-CoV-2 have not been determined. Collection of multiple specimens from the same patient may be necessary to detect the virus. The possibility of a false negative result should be considered if the patient has clinical presentation or has had recent exposure. No Panel InformationOrdered By: Benton Gonzalez on 01-15-2023 Influenza Types A,B Direct FA (KAUSHAL) [facility] RSV Ag Immune stain Ql (Tiss )Ordered By: Benton Gonzalez on 01-15-2023 Rapid RSV (DFA) RSV Antigen [facility] Absolute lymphocyte counton 09-04-2022 Lymphocytes Auto (Unsp spec) [#/Vol] 2.33 10*3/uL 0.83-4.51 [facility] Work Phone: Basophil percentageon 2021 Basophils/100 WBC (Bld) 0.5 % 0-1 [facility] Work Phone: Bilirubin [Mass/Vol] 0.20 mg/dL 0.20-1.00 [facility] Work Phone: Comment on above: For patients on eltr ombopag therapy, use of Dimension Crocker TBIL is not recommended. Chloride [Moles/Vol] 100 mmol/L 98-107 [facility] Work Phone: Eosinophils/100 WBC (Bld) 0.7 % 0-5 [facility] Work Phone: Glucose [Mass/Vol] 98 mg/dL 74-106 [facility] Work Phone: Neutrophils (Bld) [#/Vol] 2.4 10*3/uL 2.0-7.7 [facility] Work Phone: Neutrophils/100 WBC (Bld) 41.2 % 47-70 [facility] Work Phone: Potassium [Moles/Vol] 3.4 mmol/L 3.5-5.1 [facility] Work Phone: Protein [Mass/Vol] 6.6 g/dL 6.4-8.2 [facility] Work Phone: Sodium [Moles/Vol] 136 mmol/L 136-145 [facility] Work Phone: WBC (Bld) [#/Vol] 5.9 10*3/uL 4.4-11.0 [facility] Work Phone: Blood erythrocytes count (nu mber/volume)on 09-04-2022 RBC (Bld) [#/Vol] 3.94 10*6/uL 4.2-5.4 [facility] Work [facility]: Blood hemoglobin measurement (mass/volume)on 09-04-2022 Hemoglobin (Bld) [Mass/Vol] 14.0 g/dL 12.0-15.0 [facility] Work Phone: Blood lymphocytes/100 leukoc yteson 09-04-2022 Lymphocytes/100 WBC (Bld) 39.4 % 19-41 [facility] Work Phone: Blood monocytes/100 leukocyt eson 09-04-2022 Monocytes/100 WBC (Bld) 17.7 % 0-10 [facility] Work Phone: Blood platelet mean volumeon 09-04-2022 Platelet mean volume (Bld) [Entitic vol] 11.6 fL 6.2-12.0 [facility] Work Phone: Determination of erythrocyte mean corpuscular volume (MCV)on 09-04-2022 MCV (RBC) [Entitic vol] 103.3 fL 81-99 [facility] Work Phone: [phone] Hematocrit Auto (Bld) [Volum e fraction]on 09-04-2022 Hematocrit (Bld) [Volume fraction] 40.7 % 37-47 [facility] Work Phone: [phone] Laboratory - Chemistry and C hemistry - challengeon 09-04-2022 ALP [Catalytic activity/Vol] 71 U/L 45-117 [facility] Work Phone: [phone] ALT [Catalytic activity/Vol] 16 U/L 13-56 [facility] Work Phone: [phone] CO2 [Moles/Vol] 29.0 mmol/L 21.0-32.0 [facility] Work Phone: [phone] Globulin (S) [Mass/Vol] 3.4 g/dL 2.2-4.2 [facility] Work Phone: [phone] Urea nitrogen/Creatinine [Mass ratio] 37.7 mg/mg 10-20 [facility] Work Phone: [phone] Laboratory - Hematology and Cell countson 09-04-2022 Erythrocyte distribution width (RBC) [Entitic vol] 45.6 fL 35.1-43.9 [facility] Work Phone: [phone] Erythrocyte distribution width (RBC) [Ratio] 11.9 % 11.6-14.6 [facility] Work Phone: [phone] Immature granulocytes/100 WBC (Bld) 0.500 % 0.0-0.9 [facility] Work Phone: [phone] Comment on above: IG% - Immature Granu locytes (promyelocytes, myelocytes and metamyelocytes) > 1% indicates that a LEFT SHIFT is Present. MCH (RBC) [Entitic mass] 35.5 pg 27.0-32.0 [facility] Work Phone: Nucleated RBC/100 WBC (Bld) [Ratio] 0 % 0-5 [facility] Work Phone: [phone] MCHC Auto (RBC) [Mass/Vol]on 09-04-2022 MCHC (RBC) [Mass/Vol] 34.4 g/dL 32-36 [facility] Work Phone: [phone] Panel Informationon 09-04 Estimated GFR (MDRD) Amer 181 mL/min >60 [facility] Work Phone: [phone] Comment on above: GFR Calc Estimated GFR (MDRD) Non-Af Amer 150 mL/min >60 [facility] Work Phone: [phone] Comment on above: Non- GFR Calc Thyroid Stimulating Hormone (TSH) 2.00 uIU/mL 0.358-3.74 [facility] Work Phone: [phone] Vitamin D 25-Hydroxy 24.9 ng/mL [facility] Work Phone: [phone] Comment on above: Vitamin D 25(OH) Sta tus Range Deficiency <20 ng/mL (50nmol/L) Insufficiency 20 - 30 ng/mL (50 - 75 nmol/L) Sufficiency 30 - 100 ng/mL (75 - 250 nmol/L) Toxicity >100 ng/mL (>250 nmol/L) Platelets bldon 09-04-2022 Platelets (Bld) [#/Vol] 150 10*3/uL 150-450 [facility] Work Phone: [phone] Serum or plasma albumin alex urement (mass/volume)on 09-04-2022 Albumin [Mass/Vol] 3.2 g/dL 3.2-5.0 [facility] Work Phone: [phone] Serum or plasma albumin/glob ulin mass ratioon 09-04-2022 Albumin/Globulin [Mass ratio] 0.9 {ratio} 0.9-2.4 [facility] Work Phone: [phone] Serum or plasma calcium alex urement (mass/volume)on 09-04-2022 Calcium [Mass/Vol] 8.7 mg/dL 8.5-10.1 [facility] Work Phone: [phone] Serum or plasma creatinine m easurement (mass/volume)on 12-02-2022 Creatinine [Mass/Vol] 0.45 mg/dL 0.55-1.02 [facility] Work Phone: Comment on above: The validity of the calculated GFR & GFRAA in patients over 70 years has not been determined. Clinical correlation is essential. Serum or plasma urea nitroge n measurement (mass/volume)on 09-04-2022 Urea nitrogen [Mass/Vol] 17 mg/dL 7-18 [facility] Work Phone: Thin prep Papanicolaou smear with manual screeningon 09-04-2022 Thin prep Papanicolaou smear with manual screening 10 U/L 15-37 [facility] Work Phone: Thin prep Papanicolaou smear with manual screening 7 5-15 [facility] Work Phone: [phone] Whole blood hemoglobin A1c/t otal hemoglobin ratio (mass fraction)on 02-13-2022 HbA1c (Bld) [Mass fraction] 5.0 % 3.8-5.6 [facility] Work Phone: Comment on above: Normal < 5.7 % Predi abetic 5.7 - 6.4 % Diabetic >or= 6.5 % Please note range changes. Absolute lymphocyte counton 02-12-2022 Lymphocytes Auto (Unsp spec) [#/Vol] 3.03 10*3/uL 0.83-4.51 [facility] Work Phone: Basophil percentageon 2021 Basophils/100 WBC (Bld) 0.3 % 0-1 [facility] Work Phone: [phone] Bilirubin [Mass/Vol] 0.50 mg/dL 0.20-1.00 [facility] Work Phone: Comment on above: For patients on eltr ombopag therapy, use of Dimension Crocker TBIL is not recommended. Chloride [Moles/Vol] 100 mmol/L 98-107 [facility] Work Phone: Eosinophils/100 WBC (Bld) 0.3 % 0-5 [facility] Work Phone: [phone] Glucose [Mass/Vol] 146 mg/dL 74-106 [facility] Work Phone: Comment on above: Fasting Glucose resu lt greater than or equal to 126 mg/dL suggests DIABETES MELLITUS per A.D.A. criteria. Neutrophils (Bld) [#/Vol] 2.1 10*3/uL 2.0-7.7 [facility] Work Phone: Neutrophils/100 WBC (Bld) 35.5 % 47-70 [facility] Work Phone: [phone] Potassium [Moles/Vol] 4.0 mmol/L 3.5-5.1 [facility] Work Phone: Protein [Mass/Vol] 6.6 g/dL 6.4-8.2 [facility] Work Phone: Sodium [Moles/Vol] 134 mmol/L 136-145 [facility] Work Phone: WBC (Bld) [#/Vol] 6.0 10*3/uL 4.4-11.0 [facility] Work Phone: Blood erythrocytes count (nu mber/volume)on 02-12-2022 RBC (Bld) [#/Vol] 3.99 10*6/uL 4.2-5.4 [facility] Work Phone: Blood hemoglobin measurement (mass/volume)on 02-12-2022 Hemoglobin (Bld) [Mass/Vol] 14.1 g/dL 12.0-15.0 [facility] Work Phone: Blood lymphocytes/100 leukoc yteson 02-12-2022 Lymphocytes/100 WBC (Bld) 50.8 % 19-41 [facility] Work Phone: Blood monocytes/100 leukocyt eson 02-12-2022 Monocytes/100 WBC (Bld) 12.6 % 0-10 [facility] Work Phone: Blood platelet mean volumeon 02-12-2022 Platelet mean volume (Bld) [Entitic vol] 11.6 fL 6.2-12.0 [facility] Work Phone: [phone] Determination of erythrocyte mean corpuscular volume (MCV)on 02-12-2022 MCV (RBC) [Entitic vol] 98.0 fL 81-99 [facility] Work Phone: [phone] Hematocrit Auto (Bld) [Volum e fraction]on 02-12-2022 Hematocrit (Bld) [Volume fraction] 39.1 % 37-47 [facility] Work Phone: [phone] Laboratory - Chemistry and C hemistry - challengeon 02-12-2022 ALP [Catalytic activity/Vol] 49 U/L 45-117 [facility] Work Phone: [phone] ALT [Catalytic activity/Vol] 19 U/L 13-56 [facility] Work Phone: [phone] CO2 [Moles/Vol] 25.0 mmol/L 21.0-32.0 [facility] Work Phone: [phone] Globulin (S) [Mass/Vol] 3.4 g/dL 2.2-4.2 [facility] Work Phone: [phone] Urea nitrogen/Creatinine [Mass ratio] 33.7 mg/mg 10-20 [facility] Work Phone: [phone] Laboratory - Hematology and Cell countson 02-12-2022 Erythrocyte distribution width (RBC) [Entitic vol] 42.7 fL 35.1-43.9 [facility] Work Phone: [phone] Erythrocyte distribution width (RBC) [Ratio] 11.8 % 11.6-14.6 [facility] Work Phone: [phone] Immature granulocytes/100 WBC (Bld) 0.500 % 0.0-0.9 [facility] Work Phone: [phone] Comment on above: IG% - Immature Granu locytes (promyelocytes, myelocytes and metamyelocytes) > 1% indicates that a LEFT SHIFT is Present. MCH (RBC) [Entitic mass] 35.3 pg 27.0-32.0 [facility] Work Phone: [phone] Nucleated RBC/100 WBC (Bld) [Ratio] 0 % 0-5 [facility] Work Phone: MCHC Auto (RBC) [Mass/Vol]on 02-12-2022 MCHC (RBC) [Mass/Vol] 36.1 g/dL 32-36 [facility] Work Phone: No Panel Informationon 02-12 Estimated GFR (MDRD) Amer 125 mL/min >60 [facility] Work Phone: Comment on above: GFR Calc Estimated GFR (MDRD) Non-Af Amer 103 mL/min >60 [facility] Work Phone: [phone] Comment on above: Non- GFR Calc Thyroid Stimulating Hormone (TSH) 1.02 uIU/mL 0.358-3.74 [facility] Work Phone: [phone] Vitamin D 25-Hydroxy 31.8 ng/mL [facility] Work Phone: Comment on above: Vitamin D 25(OH) Sta tus Range Deficiency <20 ng/mL (50nmol/L) Insufficiency 20 - 30 ng/mL (50 - 75 nmol/L) Sufficiency 30 - 100 ng/mL (75 - 250 nmol/L) Toxicity >100 ng/mL (>250 nmol/L) Platelets bldon 02-12-2022 Platelets (Bld) [#/Vol] 134 10*3/uL 150-450 [facility] Work Phone: Serum or plasma albumin alex urement (mass/volume)on 02-12-2022 Albumin [Mass/Vol] 3.2 g/dL 3.2-5.0 [facility] Work Phone: [phone] Serum or plasma albumin/glob ulin mass ratioon 02-12-2022 Albumin/Globulin [Mass ratio] 0.9 {ratio} 0.9-2.4 [facility] Work Phone: [phone] Serum or plasma calcium alex urement (mass/volume)on 02-12-2022 Calcium [Mass/Vol] 8.9 mg/dL 8.5-10.1 [facility] Work Phone: [phone] Serum or plasma creatinine m easurement (mass/volume)on 02-12-2022 Creatinine [Mass/Vol] 0.62 mg/dL 0.55-1.02 [facility] Work Phone: Comment on above: The validity of the calculated GFR & GFRAA in patients over 70 years has not been determined. Clinical correlation is essential. Serum or plasma urea nitroge n measurement (mass/volume)on 02-12-2022 Urea nitrogen [Mass/Vol] 21 mg/dL 7-18 [facility] Work Phone: Thin prep Papanicolaou smear with manual screeningon 02-12-2022 Thin prep Papanicolaou smear with manual screening 17 U/L 15-37 [facility] Work Phone: Thin prep Papanicolaou smear with manual screening 9 5-15 [facility] Work Phone: 25-Hydroxy D2+D3on 25-Hydroxy D Total 26.2 ng/mL Low 30.0-100.0 [facility] Reference Lab Comment on above: Performed By: #### C MP, LIPB, TSH, CBCDIF #### [facility] Routine Lab [address] [phone] #### D2D3 #### [facility] Chemistry [address] [place], [place] [phone] 25-Hydroxy D2 <4.0 Normal [facility] Reference Lab Comment on above: Performed By: #### C MP, LIPB, TSH, CBCDIF #### [facility] Routine Lab [address] [phone] #### D2D3 #### [facility] Chemistry [address] [phone] 25-Hydroxy D3 26.2 ng/mL Normal [facility] Reference Lab Comment on above: Performed By: #### C MP, LIPB, TSH, CBCDIF #### [facility] Routine Lab [address] [phone] #### D2D3 #### [facility] Chemistry [address] [place], [place] [address] Comp Metabolic Panelon 10-10 Albumin [Mass/Vol] 3.8 g/dL Low 3.9-4.9 [facility] Reference Lab Comment on above: Performed By: #### C MP, LIPB, TSH, CBCDIF #### [facility] Routine Lab [address] [place], [place] [address] #### D2D3 #### [facility] Chemistry [address] [place] [address] [phone] ALP [Catalytic activity/Vol] 54 U/L Normal 34-123 [facility] Reference Lab Comment on above: Performed By: #### C MP, LIPB, TSH, CBCDIF #### [facility] Routine Lab [address] [place] [address] #### D2D3 #### [facility] Chemistry [address] [place], [place] [phone] ALT [Catalytic activity/Vol] 9 U/L Normal 7-38 [facility] Reference Lab Comment on above: Performed By: #### C MP, LIPB, TSH, CBCDIF #### [facility] Routine Lab [address] [place], [place] [phone] #### D2D3 #### [facility] Chemistry [address] [place], [place] [address] Anion gap [Moles/Vol] 11 mmol/L Normal 9-18 [facility] Reference Lab Comment on above: Performed By: #### C MP, LIPB, TSH, CBCDIF #### [facility] Routine Lab [address] [place], [place] [address] #### D2D3 #### [facility] Chemistry [address] [place], [place] [address] AST [Catalytic activity/Vol] 22 U/L Normal 13-35 [facility] Reference Lab Comment on above: Performed By: #### C MP, LIPB, TSH, CBCDIF #### [facility] Routine Lab [address] [phone] #### D2D3 #### [facility] Chemistry [address] [place], [place] [address] Bilirubin Ql (U) 0.4 mg/dL Normal 0.2-1.3 [facility] Reference Lab Comment on above: Performed By: #### C MP, LIPB, TSH, CBCDIF #### [facility] Routine Lab [address] [phone] #### D2D3 #### [facility] Chemistry [address] [place] [phone] Calcium [Mass/Vol] 9.2 mg/dL Normal 8.5-10.2 [facility] Reference Lab Comment on above: Performed By: #### C MP, LIPB, TSH, CBCDIF #### [facility] Routine Lab [address] [phone] #### D2D3 #### [facility] Chemistry [address] [phone] Chloride [Moles/Vol] 100 mmol/L Normal 97-105 [facility] Reference Lab Comment on above: Performed By: #### C MP, LIPB, TSH, CBCDIF #### [facility] Routine Lab [address] [phone] #### D2D3 #### [facility] Chemistry [address] [phone] CO2 [Moles/Vol] 26 mmol/L Normal 22-30 [facility] Reference Lab Comment on above: Performed By: #### C MP, LIPB, TSH, CBCDIF #### [facility] Routine Lab [address] [phone] #### D2D3 #### [facility] Chemistry [address] [place], [place] [address] Creatinine [Mass/Vol] 0.58 mg/dL Normal 0.58-0.96 [facility] Reference Lab Comment on above: Performed By: #### C MP, LIPB, TSH, CBCDIF #### [facility] Routine Lab [address] [place] [address] #### D2D3 #### [facility] Chemistry [address] [place] [address] eGFR- Amer. >60 Normal [facility] Reference Lab Comment on above: Performed By: #### C MP, LIPB, TSH, CBCDIF #### [facility] Routine Lab [address] [place] [address] #### D2D3 #### [facility] Chemistry [address] [place] [phone] GFR/1.73 sq M predicted among non-blacks MDRD (S/P/Bld) [Vol rate/Area] mL/min/{1.73_m2} Normal [facility] Reference Lab Comment on above: Performed By: #### C MP, LIPB, TSH, CBCDIF #### [facility] Routine Lab [address] [place] [address] #### D2D3 #### [facility] Chemistry [address] [place] [address] Glucose [Mass/Vol] 78 mg/dL Normal 74-99 [facility] Reference Lab Comment on above: Performed By: #### C MP, LIPB, TSH, CBCDIF #### [facility] Routine Lab [address] [place] [address] #### D2D3 #### [facility] Chemistry [address] [place] [address] Potassium [Moles/Vol] 4.4 mmol/L Normal 3.7-5.1 [facility] Reference Lab Comment on above: Performed By: #### C MP, LIPB, TSH, CBCDIF #### [facility] Routine Lab [address] [place], [place] [address] #### D2D3 #### [facility] Chemistry [address] [place] [address] Protein [Mass/Vol] 5.9 g/dL Low 6.3-8.0 [facility] Reference Lab Comment on above: Performed By: #### C MP, LIPB, TSH, CBCDIF #### [facility] Routine Lab [address] [place] [address] #### D2D3 #### [facility] Chemistry [address] [place] [address] Sodium [Moles/Vol] 137 mmol/L Normal 136-144 [facility] Reference Lab Comment on above: Performed By: #### C MP, LIPB, TSH, CBCDIF #### [facility] Routine Lab [address] [place] [address] #### D2D3 #### [facility] Chemistry [address] [place] [address] Urea nitrogen [Mass/Vol] 16 mg/dL Normal 7-21 [facility] Reference Lab Comment on above: Performed By: #### C MP, LIPB, TSH, CBCDIF #### [facility] Routine Lab [address] [place] [address] #### D2D3 #### [facility] Chemistry [address] [place] [address] Lipid Panel, Basicon 021 Cholesterol [Mass/Vol] 189 mg/dL Normal <200 [facility] Reference Lab Comment on above: Performed By: #### C MP, LIPB, TSH, CBCDIF #### [facility] Routine Lab [address] [place], [place] [address] #### D2D3 #### [facility] Chemistry [address] [place], [place] [address] Cholesterol in HDL [Mass/Vol] 62 mg/dL Normal >39 [facility] Reference Lab Comment on above: Performed By: #### C MP, LIPB, TSH, CBCDIF #### [facility] Routine Lab [address] [place], [place] [address] #### D2D3 #### [facility] Chemistry [address] [place], [place] [address] Cholesterol in LDL [Mass/Vol] 111 mg/dL High <100 [facility] Reference Lab Comment on above: Performed By: #### C MP, LIPB, TSH, CBCDIF #### [facility] Routine Lab [address] [place] [address] [phone] #### D2D3 #### [facility] Chemistry [address] [place] [phone] Cholesterol in VLDL [Mass/Vol] 16 mg/dL Normal <30 [facility] Reference Lab Comment on above: Performed By: #### C MP, LIPB, TSH, CBCDIF #### [facility] Routine Lab [address] [place], [place] [address] #### D2D3 #### [facility] Chemistry [address] [place], [place] [address] Cholesterol non HDL [Mass/Vol] 127 mg/dL Normal <130 [facility] Reference [facility] Comment on above: Performed By: #### C MP, LIPB, TSH, CBCDIF #### [facility] Routine Lab [address] [place], [place] [address] #### D2D3 #### [facility] Chemistry [address] [place], [place] [address] LDL:HDL Ratio 1.79 Normal <2.54 [facility] Reference [facility] Comment on above: Performed By: #### C MP, LIPB, TSH, CBCDIF #### [facility] Routine Lab [address] [place] [phone] #### D2D3 #### [facility] Chemistry [address] [place] [phone] TC:HDL Ratio 3.05 Normal <5.10 [facility] Reference Lab Comment on above: Performed By: #### C MP, LIPB, TSH, CBCDIF #### [facility] Routine Lab [address] [place] [phone] #### D2D3 #### [facility] Chemistry [address] [place] [phone] Triglyceride [Mass/Vol] 78 mg/dL Normal <150 [facility] Reference Lab Comment on above: Performed By: #### C MP, LIPB, TSH, CBCDIF #### [facility] Routine Lab [address] [place] [phone] #### D2D3 #### [facility] Chemistry [address] [place] [phone] TSHon 10-10-2020 TSH Qn 1.060 uU/mL Normal 0.270-4.200 [facility] Reference Lab Comment on above: Performed By: #### C MP, LIPB, TSH, CBCDIF #### [facility] Routine Lab [address] [place] [phone] #### D2D3 #### [facility] Chemistry [address] [place] [phone] CBC and Differentialon 10-09 Abs Baso 0.03 k/uL Normal <0.11 [facility] Reference Lab Comment on above: Performed By: #### C MP, LIPB, TSH, CBCDIF #### [facility] Routine Lab [address] [place] [address] [phone] #### D2D3 #### [facility] Chemistry [address] [place] [phone] Abs [place] 0.89 k/uL High <0.87 [facility] Reference Lab Comment on above: Performed By: #### C MP, LIPB, TSH, CBCDIF #### [facility] Routine Lab [address] [phone] #### D2D3 #### [facility] Chemistry [address] [place] [phone] Abs Neut 1.93 k/uL Normal 1.45-7.50 [facility] Reference Lab Comment on above: Performed By: #### C MP, LIPB, TSH, CBCDIF #### [facility] Routine Lab [address] [place] [phone] #### D2D3 #### [facility] Chemistry [address] [place] [phone] Absolute nRBC <0.01 Normal <0.01 [facility] Comment on above: Performed By: #### C MP, LIPB, TSH, CBCDIF #### [facility] Routine Lab [address] [place] [phone] #### D2D3 #### [facility] Chemistry [address] [place] [phone] Basophils/100 WBC (Bld) 0.4 % Normal C [facility] Reference Lab Comment on above: Performed By: #### C MP, LIPB, TSH, CBCDIF #### [facility] Routine Lab [address] [place] [phone] #### D2D3 #### [facility] Chemistry [address] [place] [phone] DTYPE ADIFF Normal [facility] Reference Lab Comment on above: Performed By: #### C MP, LIPB, TSH, CBCDIF #### [facility] Routine Lab [address] [place] [phone] #### D2D3 #### [facility] Chemistry [address] [phone] Eosinophils (Bld) [#/Vol] 10*3/uL Normal <0.46 [facility] Reference Lab Comment on above: Performed By: #### C MP, LIPB, TSH, CBCDIF #### [facility] Routine Lab [address] [phone] #### D2D3 #### [facility] Chemistry [address] [phone] Eosinophils/100 WBC (Bld) 0.3 % Normal [facility] Lab Comment on above: Performed By: #### C MP, LIPB, TSH, CBCDIF #### [facility] Routine Lab [address] [place] [phone] #### D2D3 #### [facility] Chemistry [address] [place] [phone] Erythrocyte distribution width (RBC) [Ratio] 12.4 % Normal 11.5-15.0 [facility] Comment on above: Performed By: #### C MP, LIPB, TSH, CBCDIF #### [facility] Routine Lab [address] [place] [phone] #### D2D3 #### [facility] Chemistry [address] [place] [phone] Hematocrit (Bld) [Volume fraction] 41.8 % Normal 36.0-46.0 [facility] Comment on above: Performed By: #### C MP, LIPB, TSH, CBCDIF #### [facility] Routine Lab [address] [place] [phone] #### D2D3 #### [facility] Chemistry [address] [place] [phone] Hemoglobin (Bld) [Mass/Vol] 14.0 g/dL Normal 11.5-15.5 [facility] Comment on above: Performed By: #### C MP, LIPB, TSH, CBCDIF #### [facility] Routine Lab [address] [place], [place] [phone] #### D2D3 #### [facility] Chemistry [address] [place] [address] Lymphocytes (Bld) [#/Vol] 4.29 10*3/uL High 1.00-4.00 [facility] Comment on above: Performed By: #### C MP, LIPB, TSH, CBCDIF #### [facility] Routine Lab [address] [place] [address] #### D2D3 #### [facility] Chemistry [address] [place] [address] Lymphocytes/100 WBC (Bld) 59.9 % Normal [facility] Comment on above: Performed By: #### C MP, LIPB, TSH, CBCDIF #### [facility] Routine Lab [address] [place] [address] #### D2D3 #### [facility] Chemistry [address] [place] [address] [phone] MCH (RBC) [Entitic mass] 35.1 pG High 26.0-34.0 [facility] Comment on above: Performed By: #### C MP, LIPB, TSH, CBCDIF #### [facility] Routine Lab [address] [place] [address] [phone] #### D2D3 #### [facility] Chemistry [address] [place] [address] MCHC (RBC) [Mass/Vol] 33.5 g/dL Normal 30.5-36.0 [facility] Reference Lab Comment on above: Performed By: #### C MP, LIPB, TSH, CBCDIF #### [facility] Routine Lab [address] [place] [phone] #### D2D3 #### [facility] Chemistry [address] [place] [phone] MCV (RBC) [Entitic vol] 104.8 fL High 80.0-100.0 C [facility] Reference Lab Comment on above: Performed By: #### C MP, LIPB, TSH, CBCDIF #### [facility] Routine Lab [address] [place] [phone] #### D2D3 #### [facility] Chemistry [address] [place] [phone] Monocytes/100 WBC (Bld) 12.4 % Normal C [facility] Reference Lab Comment on above: Performed By: #### C MP, LIPB, TSH, CBCDIF #### [facility] Routine Lab [address] [place] [phone] #### D2D3 #### [facility] Chemistry [address] [place] [phone] Neutrophils/100 WBC (Bld) 27.0 % Normal [facility] Comment on above: Performed By: #### C MP, LIPB, TSH, CBCDIF #### [facility] Routine Lab [address] [phone] #### D2D3 #### [facility] Chemistry [address] [phone] NRBCs 0.0 /100 WBC Normal 0 [facility] Comment on above: Performed By: #### C MP, LIPB, TSH, CBCDIF #### [facility] Routine Lab [address] [place] [phone] #### D2D3 #### [facility] Chemistry [address] [phone] Platelet mean volume (Bld) [Entitic vol] 11.3 fL Normal 9.0-12.7 [facility] Comment on above: Performed By: #### C MP, LIPB, TSH, CBCDIF #### [facility] Routine Lab [address] [address] #### D2D3 #### [facility] Chemistry [address] [place] [address] Platelets (Bld) [#/Vol] 128 10*3/uL Low 150-400 [facility] Comment on above: Performed By: #### C MP, LIPB, TSH, CBCDIF #### [facility] Routine Lab [address] [place] [address] #### D2D3 #### [facility] Chemistry [address] [address] RBC (Bld) [#/Vol] 3.99 10*6/uL Normal 3.90-5.20 [facility] Reference Lab Comment on above: Performed By: #### C MP, LIPB, TSH, CBCDIF #### [facility] Routine Lab [address] [place] [address] #### D2D3 #### [facility] Chemistry [address] [place] [address] WBC (Bld) [#/Vol] 7.16 10*3/uL Normal 3.70-11.00 [facility] Reference Lab Comment on above: Performed By: #### C MP, LIPB, TSH, CBCDIF #### [facility] Routine Lab [address] [place] [place] [address] #### D2D3 #### [facility] Chemistry [address] [place] [address] Lipid Panel, Basicon 021 Fasting Time UN Normal [facility] Reference [facility] Comment on above: Performed By: #### C MP, LIPB, TSH, CBCDIF #### [facility] Routine Lab [address] [place] [address] #### D2D3 #### [facility] Chemistry [address] [address] Vital Signs Date Time Vital Sign Value Performing Clinician Paul blackburn 07-06-2025 12:20-0400 Body height 152.[address] Benton Gonzalez MD Work Phone: 3(729)307-364949 [place] [address] 07-06-2025 12:20-0400 Body mass index (BMI) [Ratio] 20.5 kg/m2 Dr. Benton Gonzalez MD Work Phone: 1(006)372-925410 [place] [address] 07-06-2025 12:20-0400 Body temperature 96.5 [degF] Dr. Benton Gonzalez MD Work Phone: 7(409)528-321449 [place] [address] 07-06-2025 12:20-0400 Body weight 47.[address] Benton Gonzalez MD Work Phone: 2(904)342-005549 [place] [address] 07-06-2025 12:20-0400 Diastolic blood pressure 58 mm[Hg] Dr. Benton Gonzalez MD Work Phone: 8(794)974-577949 [place] [address] 07-06-2025 12:20-0400 Heart rate 72 /min Dr. Benton Gonzalez MD Work Phone: 6(644)446-259649 [place] [address] 07-06-2025 12:20-0400 Respiratory rate 16 /min Dr. Benton Gonzalez MD Work Phone: 6(030)751-786849 [place] [address] 07-06-2025 12:20-0400 SaO2% (BldA) [Mass fraction] 98 % Dr. Benton Gonzalez MD Work Phone: 6(972)919-367049 [place] [address] 07-06-2025 12:20-0400 Systolic blood pressure 107 mm[Hg] Dr. Benton Gonzalez MD Work Phone: 2(982)370-447749 [place] [address] 01-05-2025 12:16-0400 Body height 152.[address] Benton Gonzalez MD Work Phone: 4(806)482-639449 [place] [address] 01-05-2025 12:16-0400 Body mass index (BMI) [Ratio] 19.5 kg/m2 Dr. Benton Gonzalez MD Work Phone: [facility] 01-05-2025 12:16-0400 Body temperature 96.5 [degF] Dr. Benton Gonzalez MD Work Phone: 6(118)358-866649 [place] [address] 01-05-2025 12:16-0400 Body weight 45.[address] Benton Gonzalez MD Work Phone: 8(539)716-111849 [place] [address] 01-05-2025 12:16-0400 Diastolic blood pressure 61 mm[Hg] Dr. Benton Gonzalez MD Work Phone: 5(326)062-053449 [place] [address] 01-05-2025 12:16-0400 Heart rate 72 /min Dr. Benton Gonzalez MD Work Phone: 0(403)697-105310 [place] [address] 01-05-2025 12:16-0400 Respiratory rate 16 /min Dr. Benton Gonzalez MD Work Phone: 1(584)774-340210 [place] [address] 01-05-2025 12:16-0400 SaO2% (BldA) [Mass fraction] 96 % Dr. Benton Gonzalez MD Work Phone: 3(371)901-345449 [place] [address] 01-05-2025 12:16-0400 Systolic blood pressure 108 mm[Hg] Dr. Benton Gonzalez MD Work Phone: 0(679)047-277510 [place] [address] 10-05-2024 10:35-0500 Body temperature 97.7 [degF] Dr. Benton Gonzalez MD Work Phone: 1(377)502-763549 [place] [address] 10-05-2024 10:35-0500 Diastolic blood pressure 58 mm[Hg] Dr. Benton Gonzalez MD Work Phone: 7(169)237-436149 [place] [address] 10-05-2024 10:35-0500 Heart rate 82 /min Dr. Benton Gonzalez MD Work Phone: 1(398)620-951349 [place] [address] 10-05-2024 10:35-0500 Respiratory rate 16 /min Dr. Benton Gonzalez MD Work Phone: 1(066)886-961749 [place] [address] 10-05-2024 10:35-0500 Systolic blood pressure 122 mm[Hg] Dr. Benton Gonzalez MD Work Phone: [facility] 09-28-2024 10:42-0500 Body temperature 96.8 [degF] Dr. Benton Gonzalez MD Work Phone: [facility] 09-28-2024 10:42-0500 Diastolic blood pressure 45 mm[Hg] Dr. Benton Gonzalez MD Work Phone: [facility] 09-28-2024 10:42-0500 Heart rate 74 /min Dr. Benton Gonzalez MD Work Phone: [facility] 09-28-2024 10:42-0500 Respiratory rate 18 /min Dr. Benton Gonzalez MD Work Phone: [facility] 09-28-2024 10:42-0500 Systolic blood pressure 134 mm[Hg] Dr. Benton Gonzalez MD Work Phone: [facility] Encounters Encounter Date Encounter Type Care Provider Facility Start: 07-06-2025 End: 07-06-[address] Benton Gonzalez MD -Medical Out Work Phone: Start: 07-06-2025 End: 07-06-[address] Benton Gonzalez MD Work Phone: -Medical Out Start: 03-15-2025 End: 03-15-[address] Benton Gonzalez MD Work Phone: [facility] Work Phone: Start: 03-15-2025 End: 03-15-[address] Benton Gonzalez MD -Radiology [facility] Work Phone: Start: 03-15-2025 End: 03-15-2025 ambulatory Benton Gonzalez Facility:[facility] Start: 02-13-2025 End: 02-13-2025 Telemedicine consultation with patient Nkechi Delcid APRN.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 Work Phone: Neurology Start: 02-13-2025 End: 02-13-2025 ambulatory Nkechi Delcid APRN.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 Work Phone: Neurology Comment on above: Generalized convulsi ve epilepsy (HCC) (Primary Dx) Start: 01-05-2025 End: 01-05-[address] Benton Gonzalez MD -Medical Out Work Phone: Start: 01-05-2025 End: 01-05-[address] Benton Gonzalez MD Work Phone: [facility] Work Phone: Start: 11-30-2024 End: 11-30-[address] Benton Gonzalez MD Work Phone: [facility] Work Phone: Start: 11-30-2024 End: 11-30-[address] Benton Gonzalez MD -Laboratory, Phy Office [address] [facility] Start: 11-30-2024 End: 11-30-2024 ambulatory [facility] Facility:[facility] Start: 10-05-2024 ambulatory Mike Paynei ty:[facility] Start: 10-05-2024 Non-patient / Non-visit Dr. Anibal Santacruz MD -[facility] Work Phone: Start: 10-05-2024 End: 11-01-[address] Mike Santacruz MD -[facility] Work Phone: Start: 10-05-2024 End: 11-01-2024 ambulatory Mike Santacruz Facility:[facility] Start: 10-03-2024 End: 10-03-[address] Benton Gonzalez MD -Outpatient Breast Imaging Work Phone: Start: 10-03-2024 End: 10-03-2024 ambulatory [facility] Facility:[facility] Start: 09-28-2024 End: 09-28-[address] [facility] Facility:[facility] Start: 09-28-2024 ambulatory Efvenice Santacruz Facili ty:[facility] Start: 09-28-2024 Non-patient / Non-visit Dr. Anibal Santacruz MD -[facility] Work Phone: Start: 09-28-2024 End: 10-03-[address] Mike Santacruz MD -[facility] Work Phone: Start: 09-28-2024 End: 10-03-2024 ambulatory Mike Santacruz Facility:[facility] Start: 09-26-2024 End: 09-28-2024 Telephone encounter Mónica Wong MD Work Phone: Neurology Comment on above: Forms (BMV) Start: 09-22-2024 End: 09-22-2024 ambulatory Mónica Wong MD Work Phone: Neurology Comment on above: Generalized convulsi ve epilepsy (HCC) (Primary Dx) Start: 09-22-2024 End: 09-22-2024 Telemedicine consultation with patient Mónica Wong MD Work Phone: Neurology Start: 09-15-2024 End: 09-15-[address] Benton Gonzalez MD -Laboratory, Phy Office 3rd Flr Start: 09-15-2024 End: 09-15-2024 ambulatory [facility] Facility:[facility] Start: 08-18-2024 End: 08-18-[address] Benton Gonzalez MD -Cardiovascular Services Work Phone: Start: 08-18-2024 End: 08-18-2024 ambulatory [facility] Facility:[facility] Start: 08-11-2024 End: 08-11-2024 ambulatory [facility] Facility:[facility] Start: 08-09-2024 End: 08-10-2024 Emergency department patient visit ANITA Rose SHERIDAN Facility:[facility] Start: 05-29-2024 End: 05-29-2024 Refill Abdoul Salmeron APRN.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 Work Phone: Neurology Comment on above: Refill Request Start: 05-26-2024 End: 05-26-2024 Refill Nicole Lujan APRN.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 Work Phone: Neurology Comment on above: Refill Request Start: 03-28-2024 End: 03-28-2024 ambulatory BENTON GONZALEZ Facility:[facility] Start: 01-06-2024 Refill Abdoul peña [employer].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 Work Phone: Neurology Comment on above: Refill Request Start: 12-08-2023 End: 12-08-2023 ambulatory [facility] Work Phone: Start: 12-08-2023 End: 12-08-2023 Patient encounter procedure [facility]-Radiology, [facility] Work Phone: Start: 11-24-2023 Refill Abdoul peña [employer].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 Work Phone: Neurology Comment on above: Refill Request Start: 09-20-2023 End: 09-20-2023 ambulatory [facility] Work Phone: Start: 09-20-2023 End: 09-20-2023 Patient encounter procedure [facility]-Outpatient Breast Imaging Work Phone: Start: 09-08-2023 End: 09-08-2023 ambulatory [facility] Work Phone: Start: 09-08-2023 End: 09-08-2023 Patient encounter procedure [facility]-Laboratory, Phy Office 3rd Flr Start: 08-17-2023 Refill Mónica jacob MD Work Phone: Neurology Comment on above: Refill Request Start: 08-11-2023 Refill Mónica jacob MD Work Phone: Neurology Comment on above: Refill Request Start: 08-02-2023 Telephone encounter Mónica Jc MD Work Phone: Neurology Comment on above: Forms (bmv) Start: 01-15-2023 End: 01-15-2023 Patient encounter procedure [facility]-Pulmonary Services/Neurology Work Phone: Start: 09-04-2022 End: 09-04-2022 ambulatory [facility] Work Phone: Start: 09-04-2022 End: 09-04-2022 Patient encounter procedure [facility]-Laboratory, Phy Office 3rd Flr Start: 07-10-2022 Telephone encounter Mónica Jc MD Work Phone: Neurology Comment on above: Medication Concern ( Divalproex) Start: 07-10-2022 End: 07-10-2022 ambulatory Mónica Wong MD Work Phone: Neurology Comment on above: Generalized convulsi ve epilepsy (HCC) (Primary Dx) Start: 07-10-2022 End: 07-10-2022 Telemedicine consultation with patient Mónica Wong MD Work Phone: [facility] Start: 07-08-2022 Refill Abdoul peña APRN.CNP Work Phone: Neurology Comment on above: Refill Request Start: 02-12-2022 End: 02-12-2022 Patient encounter procedure [facility]-Radiology, [facility] Start: 02-12-2022 End: 02-12-2022 Patient encounter procedure [facility]-Laboratory, Phy Office 3rd Flr Start: 05-25-2017 End: 05-30-2017 Ambulatory [facility] Facility:[facility] Procedures Date Procedure Procedure Detail Performing Clinician Start: 03-15-2025 Vitamin D, 25-hydrox y measurement Dr. Benton Gonzalez MD Work Phone: Comment on above: Vitamin D StatusDefi ciency: <20 ng/mL (50nmol/L)Insufficiency: 20-30 ng/mL (50-75 nmol/L)Sufficiency: 30-100 ng/mL (75-250 nmol/L)Toxicity: >100 ng/mL (>250 nmol/L) Start: 03-15-2025 X-ray of knee, four or more views Dr. Benton Gonzalez MD Work Phone: Start: 11-30-2024 SARS-CoV-2, Influenz a & RSV (PCR) Dr. Benton Gonzalez MD Work Phone: Start: 10-03-2024 Screening mammography Wilmer Gonzalez MD Work Phone: Start: 09-28-[address] Benton Gonzalez MD Work Phone: Start: 09-28-2024 Gram stain microscopy D jeremy Gonzalez MD Work Phone: Start: 09-28-2024 Microbial culture, routine Dr. Benton Gonzalez MD Work Phone: Start: 09-15-2024 SARS-CoV-2, Influenz a & RSV (PCR) Dr. Benton Gonzalez MD Work Phone: Start: 08-18-2024 Plain x-ray of pelvi s and lower extremity Dr. Benton Gonzalez MD Work Phone: Start: 03-28-2024 Lipid 1996 panel - S karen or Plasma Nicole Lujan APRN.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 Work Phone: Start: 12-08-2023 Plain X-ray of shoulder Start: 09-20-2023 Screening mammography Start: 03-11-2023 Lipid 1996 panel - S karen or Plasma Mónica Wong MD Work Phone: Start: 01-15-2023 Influenza Types A,B Direct FA (KAUSHAL) Start: 01-15-2023 Respiratory syncytia l virus antigen assay Start: 01-15-2023 Plain chest X-ray Start: 02-12-2022 X-ray of chest posteroanterior view Start: 02-12-2022 X-ray of lumbar spin e, two or three views Start: 04-05-2014 Mammography Abdoul blake [employer].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 Work Phone: Plan of Treatment Date Care Activity Detail Author Start: 08-09-2034 Urine microalbumin profile DTaP,Tdap,Td Vaccine (2 - Td or Tdap) [facility] Start: 03-28-2029 Lipid panel Lipid Screening [facility] Start: 03-11-2028 Lipid 1996 panel - Serum or Plasma Lipid Screening [facility] Start: 03-11-2028 Lipid panel Lipid Screening [facility] Start: 08-09-2027 Diabetes Screening Diabetes Screenin [facility] Start: 03-28-2027 Diabetes Screening Diabetes Screenin [facility] Start: 03-11-2026 Diabetes Screening Diabetes Screenin g [facility] Start: 12-21-2024 End: 12-21-2024 Follow-up encounter 12/21/2024 10:30 AM EDT [facility] Neurology [address] [place] [address] Nkechi Delcid, [employer].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 [address] [place] [address] 3 mo Follow Up Neurology Comment on above: 3 mo Follow Up Start: 09-28-2024 End: 12-28-2024 levETIRAcetam [Mass/volume] in Serum or Plasma [facility] Work Phone: Comment on above: Expected: 09/28/2024 , Expires: 12/28/2024 Start: 09-28-2024 End: 12-28-2024 Valproate [Mass/volume] in Serum or Plasma [facility] Comment on above: Expected: 09/28/2024 , Expires: 12/28/2024 Start: 09-22-2024 End: 09-22-2024 Patient encounter procedure 09/22/2024 10:20 AM EST [facility] Neurology [address] [id number] Mónica [place] MD [address] [place] [address] My yearly appointment and bmv paperwork. Neurology Comment on above: My yearly appointmen t and bmv paperwork. Start: 07-20-2024 Shingrix Vaccine (2 of 2) Shingrix Vaccine (2 of 2) [facility] Start: 06-04-2024 Covid-19 Vaccine ( season) Covid-19 Vaccine ( season) [facility] Start: 06-04-2024 Influenza vaccination C [facility] Start: 04-08-2024 DIABETES SCREEN DIABETES SCREEN [facility] Start: 10-04-2023 Behavioral Health Screening Behavioral Health Screening [facility] Start: 10-04-2023 Depression Assessment Depression Ass essment [facility] Start: 06-04-2023 Covid-19 Vaccine ( season) Covid-19 Vaccine ( season) [facility] Start: 06-04-2023 Influenza vaccination Influenza Vacc ine (#1) [facility] Start: 10-04-2022 Depression Assessment Depression Ass essment [facility] Start: 06-04-2022 Influenza vaccination INFLUENZA (#1) [facility] Start: 04-09-2022 COVID-19 VACCINE (4 - Booster for Pfizer series) COVID-19 VACCINE (4 - Booster for Pfizer series) [facility] Start: 10-04-2021 DEPRESSION ASSESSMENT DEPRESSION ASS ESSMENT [facility] Start: 06-24-2021 COVID-19 VACCINE (3 - Booster for Pfizer series) COVID-19 VACCINE (3 - Booster for Pfizer series) [facility] Start: 2020 RSV Vaccine (1 - 1-d ose 60+ series) RSV Vaccine (1 - 1-dose 60+ series) [facility] Start: 09-11-2019 LIPID SCREEN LIPID SCREEN [facility] Start: 09-14-2017 End: 09-14-2017 Appointment Appointment [facility] Work Phone: Start: 04-05-2015 Mammography [facility] Start: 04-05-2015 Screening for malign ant neoplasm of breast Mammogram Screening [facility] Start: 2010 Influenza vaccination LUNG CANCER SC REENING [facility] Start: 2010 Screening for malign ant neoplasm of lung Lung Cancer Screening [facility] Start: 2010 SHINGRIX VACCINE (1 of 2) SHINGRIX VACCINE (1 of 2) [facility] Start: 2005 COLOGUARD (FIT-DNA) COLOGUARD (FIT-D NA) [facility] Start: 2005 Colonoscopy COLONOSCOPY [facility] Start: 2005 COLORECTAL CANCER SCREENING COLORECTAL CANCER SCREENING [facility] Start: [address] COLONOGRAPHY [facility] Start: 2005 FECAL OCCULT BLOOD FECAL OCCULT BLOO D [facility] Start: 2005 Screening for malign ant neoplasm of colon [facility] Start: 2005 SIGMOIDOSCOPY SIGMOIDOSCOPY [facility] Start: 1990 HPV TESTING HPV TESTING [facility] Start: 1990 Screening for malign ant neoplasm of cervix HPV Testing [facility] Start: 1981 PAP TESTING PAP TESTING [facility] Start: 1981 Screening for malign ant neoplasm of cervix [facility] Start: 1979 Pneumococcal Vaccine : 50+ (1 of 2 - PCV) Pneumococcal Vaccine: 50+ (1 of 2 - PCV) [facility] Start: 1979 Urine microalbumin profile [facility] Start: 1978 Anxiety Screening Anxiety Screening [facility] Start: 1978 Depression Screening Depression Scre ening [facility] Start: 1978 HEPATITIS C SCREENING HEPATITIS C [facility] Start: 1978 Hepatitis C screening Hepatitis C [facility] Start: 1978 HIV SCREENING HIV SCREENING [facility] Start: 1978 HIV screening HIV Screening [facility] Start: 1966 PNEUMOCOCCAL (1 - PCV) PNEUMOCOCCAL (1 - PCV) [facility] Start: 1966 [facility]neumococcal [facility] Immunizations Immunization Date Immunization Notes Care Provider Fa cili 08-09-2024 tetanus toxoid, redu letha diphtheria toxoid, and acellular pertussis vaccine, adsorbed Mónica Wong MD Work Phone: [facility] 09-08-2023 influenza virus vaccine, unspecified formulation Nicole Lujan [employer] G[employer]IER.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 Work Phone: [facility] 02-12-2022 COVID-19 original vaccine, full dose, monovalent (MODERNA) Abdoul Salmeron [employer].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 Work Phone: [facility] 07-02-2021 influenza virus vaccine, unspecified formulation Mónica Wong MD Work Phone: [facility] Payers Date Payer Category Payer Medicare (Managed Care) MARIA TERESA MCNEILL HMO [id number] 2024 Medicaid [id number] 2024 Self-pay [id number] 2024 Unknown [id number] 2021 Medicare [id number] 2021 Medicaid [id number] 2017 Private Health Insurance [id number] Medicare [id number] Unknown [id number] Unknown [id number] Unknown [id number] Unknown [id number] 462 Unknown [id number] 462 Unknown [id number] 462 Unknown [id number] 462 Unknown [id number] 462 Unknown [id number] 462 Unknown [id number] 462 Unknown [id number] 462 Unknown [id number] 462 Social History Date Type Detail Facility Start: 12-03-2020 End: 12-03-2020 Tobacco smoking status [facility] Unknown if ever smoked [facility] Start: 1960 Sex Assigned At Female C [facility] Start: 08-05-2015 End: 04-26-2024 Tobacco smoking status NEIS Smokes tobacco daily [facility] Start: 10-04-1975 History of tobacco use Cigarette Smo ker [facility] Start: 08-05-2015 End: 09-06-2023 Cigarettes smoked current (pack per day) - Reported 1 [facility] Start: 08-05-2015 End: 09-02-2022 Tobacco use and exposure Smokeless tobacco non-user [facility] Start: 11-29-2021 Alcohol intake 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 (finding) [facility] Start: 05-19-2021 History SDOH Alcohol Comment rare [facility] Start: 09-02-2022 End: 08-09-2024 Alcohol intake Ex-drinker (finding) [facility] Start: 09-02-2022 End: 09-06-2023 Tobacco use panel [facility] Adult Depression Screening Assessment 1 [facility] Start: 04-02-2021 Gender identity Identifies as female gender (finding) [facility] Start: 04-02-2021 Sexual orientation Heterosexual (fin daljit) [facility] Start: 12-14-2024 End: 01-06-2025 Sex Female (finding) [facility] Medical Equipment Procedure Code Equipment Code Equipment Origin al Text Equipment Identifier Dates Lens Acrysof Ultrasert +19 Diopter Acrylic Iol 1 Piece Foldable Uv Blue - [id number] Start: 08-12-2021 Lens Acrysof Ultrasert +19.5 Diopter Acrylic Iol 1 Piece Foldable Uv Blue - [id number] Start: 09-16-2021 Goals Date Patient Goal Desired Activity /State Functional Status Date Assessment Result Facility 11-18-2015 Are you deaf, or do you have serious difficulty hearing No 11/18/2015 3:04 PM Isabelle Burciaga (Rn), RN No [facility] 11-18-2015 Are you blind, or do you have serious difficulty seeing, even when wearing glasses No 11/18/2015 3:04 PM Isabelle Burciaga (Rn), RN No [facility] 11-18-2015 Do you have serious difficulty walking or climbing stairs No 11/18/2015 3:04 PM Isabelle Burciaga (Rn), RN No [facility] 11-18-2015 Do you have difficul ty dressing or bathing No 11/18/2015 3:04 PM Isabelle Burciaga (Rn), RN No [facility] 11-18-2015 Because of a physica l, mental, or emotional condition, do you have difficulty doing errands alone such as visiting a physician's office or shopping No 11/18/2015 3:04 PM Isabelle Burciaga (Rn), RN No [facility] Mental Status Date Assessment Result Facility 07-06-2025 Cognitive function Voice/Name [facility] Work Phone: 01-05-2025 Cognitive function Awake;Alert;A ppropriate; Follows Commands [facility] Work Phone: 11-18-2015 Because of a physica l, mental, or emotional condition, do you have serious difficulty concentrating, remembering, or making decisions No 11/18/2015 3:04 PM Isabelle Burciaga (Rn), RN No [facility] Clinical Notes 09-16-2021 to 03-16-2025 Nkechi Delcid, [employer].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 - 02/13/2025 2:02 PM EDTTelephone Encounter - Lisa Orozco RN - 09/28/2024 1:42 PM ESTTelephone Encounter - Lisa Orozco RN - 09/28/2024 1:42 PM EST Note Date & Type Note Facility 03-16-2025 Radiology Diagnostic study note [facility] Imaging Services [address] [place], [place] [address] Knee 4 or More Views MR#: [id number] Acct: [id number] Name: TOMEKA HARMON Rep #: [id number] : [id number] F 64 From: Tree Lyles MD PCP: Dr. Benton Gonzalez MD Status: MANUEL ROJAS Study:Knee 4 or More Views Date of Exam: 03/15/25 Exam# [id number] Ordering Dr: Benton Gonzalez MD PROCEDURE: KNEE 4 OR MORE VIEWS 03/15/2025 REASON FOR EXAM: KNEE PAIN TECHNIQUE: 4 view(s) of the left knee COMPARISON: None. FINDINGS: Mild osteopenia of the visualized bones. Degenerative joint disease. No fracture or dislocation is seen. No lytic or blastic bone lesion is noted. RAD/Knee 4 or More Views IMPRESSION: No evidence for acute abnormality. Reading Location: [place] [address] CC: Dr. Benton Gonzalez MD ~ Maxillofacial Pathology: Signed [facility] 02-13-2025 Note HNO ID: [id number] Author: NKECHI DELCID APRN.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 Service: ? Author Type: Nurse Practitioner Type: Progress Notes Filed: 02/13/2025 16:54 Note Text: [facility] VIRTUAL VISIT I have communicated my name and active licensure. The patient's identity and physical location were verified at the time of this visit. Either the patient or their legal sales representative girls' apparel has been informed of the risks and benefits of -- and alternatives to -- treatment through a remote evaluation and consents to proceed with the evaluation remotely. Patient on video by herself. Lives in [place], [place]. HISTORY OF PRESENT ILLNESS: Tomeka Harmon is a 64 year old RH female who is diagnosed with generalized epilepsy, and presents today for annual visit. They are an established patient of Dr. Garcia and was last seen on 09/22/2024. Seizures: None LS was in 2008. ASM's: VPA DR BAER 500mg BID Keppra 500mg, 1-2 Tremor has dissipated with lowering VPA from 1500mg a day to 1000mg a day. Feels good. Her nephew and her mother have recently . Feeling down over there passing. Her mom lived with her. In other health, Doing well. Gets an injection from her PCP every six months for her Osteoporosis. Not listed on her med page.. 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 Has BMV restriction in place. Mood: low do to passing of her Mom in December 2024. Memory: good CURRENT OUTPATIENT MEDICATIONS: Current Outpatient Medications Medication Sig levETIRAcetam (KEPPRA) 500 mg tablet 1 tablet in am and 2 tablets in pm budesonide/glycopyr/formoterol (BREZTRI AEROSPHERE INHALATION) Inhale as instructed. calcium no.1/D3/B6/FA/B12/aloe (VITAMIN D-3 WITH ALOE ORAL) Take by mouth. levETIRAcetam (KEPPRA) 500 mg tablet take 1 tablet twice daily divalproheidy WEBSTER (DEPAKOTE) 500 mg EC tablet TAKE 1 TABLET EVERY MORNING AND TAKE 2 TABLETS EVERY EVENING MULTIVIT-MIN/FA/CALCIUM/VIT K1 (ONE-A-DAY WOMEN'S 50+ ORAL) Take by mouth. No current facility-administered medications for this visit. PAST MEDICAL HISTORY Diagnosis Date Epilepsy (HCC) last seizure 2009 Osteopenia PAST SURGICAL HISTORY Procedure Laterality Date ANESTH, SECTION x2 CATARACT EXTRACTION W/ INTRAOCULAR LENS IMPLANT HX Right 08/12/2021 Dr. Beal CATARACT EXTRACTION W/ INTRAOCULAR LENS IMPLANT HX Left 09/16/2021 Dr. Beal COLONOSCOPY 2013 jose roberto- due 2023 PAST SURGICAL HISTORY OF polycystic ovaries REPAIR WRIST FRACTURE Right 1976 FAMILY HISTORY Problem Relation Age of Onset Colon Cancer Maternal Aunt Heart Father leaky valve Stroke Brother Cancer Brother bladder Cancer Paternal Grandmother unknown type Macular Degen Mother ASSESSMENT: Tomeka Harmon is a 64 year old RH female with history of generalized seizures. No seizures. Remains on same dose of Keppra. Tremors stopped with lowering VPA dose. Sad due to mother passing away in December. They lived together. Talked about grief counseling. Continue with plan. Will wait and due labs when BMV form is due.. PLAN: - LABS: will wait for BMVform processing - Medications: -Keppra 500mg, 1-2 -MATTHEW BAER DR 500mg BID -continue with all other daily medications -Follow all seizure precautions -Discussed going for grief counseling through home or other. Consults: none - Follow up: 5-6 months I spent 15 minutes during this encounter counseling on seizures, medications, grief, general health, lifestyle, documentation. Nkechi Delcid APRN.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 February 13, 2025 [facility] 02-13-2025 History of Presen t illness Narrative [facility] VIRTUAL VISIT I have communicated my name and active licensure. The patient's identity and physical location were verified at the time of this visit. Either the patient or their legal sales representative girls' apparel has been informed of the risks and benefits of -- and alternatives to -- treatment through a remote evaluation and consents to proceed with the evaluation remotely. Patient on video by herself. Lives in [place], [place]. HISTORY OF PRESENT ILLNESS: Tomeka Harmon is a 64 year old RH female who is diagnosed with generalized epilepsy, and presents today for annual visit. They are an established patient of Dr. Garcia and was last seen on 09/22/2024. Seizures: None LS was in 2008. ASM's: VPA DR BAER 500mg BID Keppra 500mg, 1-2 Tremor has dissipated with lowering VPA from 1500mg a day to 1000mg a day. Feels good. Her nephew and her mother have recently . Feeling down over there passing. Her mom lived with her. In other health, Doing well. Gets an injection from her PCP every six months for her Osteoporosis. Not listed on her med page.. 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 Has BMV restriction in place. Mood: low do to passing of her Mom in December 2024. Memory: good CURRENT OUTPATIENT MEDICATIONS: Current Outpatient Medications Medication Sig levETIRAcetam (KEPPRA) 500 mg tablet 1 tablet in am and 2 tablets in pm budesonide/glycopyr/formoterol (BREZTRI AEROSPHERE INHALATION) Inhale as instructed. calcium no.1/D3/B6/FA/B12/aloe (VITAMIN D-3 WITH ALOE ORAL) Take by mouth. levETIRAcetam (KEPPRA) 500 mg tablet take 1 tablet twice daily divalproex DR (DEPAKOTE) 500 mg EC tablet TAKE 1 TABLET EVERY MORNING AND TAKE 2 TABLETS EVERY EVENING MULTIVIT-MIN/FA/CALCIUM/VIT K1 (ONE-A-DAY WOMEN'S 50+ ORAL) Take by mouth. No current facility-administered medications for this visit. PAST MEDICAL HISTORY Diagnosis Date Epilepsy (HCC) last seizure 2009 Osteopenia PAST SURGICAL HISTORY Procedure Laterality Date ANESTH, SECTION x2 CATARACT EXTRACTION W/ INTRAOCULAR LENS IMPLANT HX Right 08/12/2021 Dr. Beal CATARACT EXTRACTION W/ INTRAOCULAR LENS IMPLANT HX Left 09/16/2021 Dr. Beal COLONOSCOPY 2013 jose roberto- due 2023 PAST SURGICAL HISTORY OF polycystic ovaries REPAIR WRIST FRACTURE Right 1976 FAMILY HISTORY Problem Relation Age of Onset Colon Cancer Maternal Aunt Heart Father leaky valve Stroke Brother Cancer Brother bladder Cancer Paternal Grandmother unknown type Macular Degen Mother ASSESSMENT: Tomeka Harmon is a 64 year old RH female with history of generalized seizures. No seizures. Remains on same dose of Keppra. Tremors stopped with lowering VPA dose. Sad due to mother passing away in December. They lived together. Talked about grief counseling. Continue with plan. Will wait and due labs when BMV form is due.. PLAN: - LABS: will wait for BMVform processing - Medications: -Keppra 500mg, 1-2 -VPA EC, DR 500mg BID -continue with all other daily medications -Follow all seizure precautions -Discussed going for grief counseling through home or other. Consults: none - Follow up: 5-6 months I spent 15 minutes during this encounter counseling on seizures, medications, grief, general health, lifestyle, documentation. Nkechi Delcid APRN.PAPA February 13, 2025 documented in this encounter [facility] 09-28-2024 Telephone encount er Note Call was made to the patient, no answer. Detailed message was left requesting a trough level. Lisa Larose RN [facility] 09-28-2024 Miscellaneous Notes Formattin g of this note might be different from the original. Call was made to the patient, no answer. Detailed message was left requesting a trough level. Lisa Larose RN Levels ordered. Please advise trough level. Thank you. [facility] Last appointment 09/22/2024 Onset of seizures: age 10 Last seizure: 2008 Place order to check ASM level Lisa Garcia RN Form received: From (agency / facility): [facility] mailroom personnel (if given): Special Case Unit Phone #: n/a Fax # : [phone] Information requested: Request for physician statement Patient of Dr. WILKS Forwarded to nurse. documented in this encounter [facility] 09-28-2024 Telephone encount er Note Levels ordered. Please advise trough level. Thank you. [facility] 09-28-2024 Evaluation note Diagnosis Onset Date Resolution Tobacco abuse acute September 282023 10:25am Traumatic open wound of left lower leg with delayed healing acute September 28, 2 024 10:25am Tobacco abuse acute October 10:16am Traumatic open wound of left lower leg with delayed healing acute October 05 10:16am [facility] Work Phone: [phone]) 819-485312-26-2024 Telephone encounter Note* Telephone Encounter - Lisa Garcia RN - 09/28/2024 11:29 AM EST [facility] Last appointment 09/22/2024 Onset of seizures: age 10 Last seizure: 2008 Place order to check ASM level Lisa Garcia RN [facility]12-24-2024 Telephone encounter Note* Telephone Encounter - Lara Adm WhitmanDina shook - 09/26/2024 3:04 PM EST Form received: From (agency / facility): [facility] mailroom personnel (if given): Special Case Unit Phone #: n/a Fax # : [phone] Information requested: Request for physician statement Patient of Dr. WILKS Forwarded to nurse. [facility]12-20-2024 NoteHNO ID: [id number] Author: MÓNICA CLEVELAND MD Service: ? Author Type: Physician Type: Progress Notes Filed: 09/22/2024 10:45 Note Text: [facility] FOLLOW UP VISIT VIRTUAL VISIT I have communicated my name and active licensure. The patient's identity and physical location were verified at the time of this visit. Either the patient or their legal sales representative girls' apparel has been informed of the risks and benefits of -- and alternatives to -- treatment through a remote evaluation and consents to proceed with the evaluation remotely. CHIEF COMPLAINT: Patient presents with: Seizures HISTORY SINCE LAST VISIT: Tomeka Harmon is a 64 year old female who is diagnosed with generalized epilepsy, and presents today for annual visit/BMV form processing. GAYATHRI in Sep 2023 and she was seizure, Last seizure in 2008 Currently on Keppra 500mg BID and Depakote 500mg-1000 mg. Tremor in bilateral hands. Today she reports that she continues to be seizure free Continues to reports of bilateral hand tremors that bothers her Her last LEV level was low and VPA level was elevated MEDICATIONS: Current Outpatient Medications Medication Sig budesonide/glycopyr/formoterol (BREZTRI AEROSPHERE INHALATION) Inhale as instructed. calcium no.1/D3/B6/FA/B12/aloe (VITAMIN D-3 WITH ALOE ORAL) Take by mouth. levETIRAcetam (KEPPRA) 500 mg tablet take 1 tablet twice daily divalproex (DEPAKOTE) 500 mg EC tablet TAKE 1 TABLET EVERY MORNING AND TAKE 2 TABLETS EVERY EVENING MULTIVIT-MIN/FA/CALCIUM/VIT K1 (ONE-A-DAY WOMEN'S 50+ ORAL) Take by mouth. No current facility-administered medications for this visit. PAST MEDICAL HISTORY: PAST MEDICAL HISTORY Diagnosis Date Epilepsy (HCC) last seizure 2010 Osteopenia PAST SURGICAL HISTORY: PAST SURGICAL HISTORY Procedure Laterality Date ANESTH, SECTION x2 CATARACT EXTRACTION W/ INTRAOCULAR LENS IMPLANT HX Right 08/12/2021 Dr. Beal CATARACT EXTRACTION W/ INTRAOCULAR LENS IMPLANT HX Left 09/16/2021 Dr. Beal COLONOSCOPY 2013 jose roberto- due 2023 PAST SURGICAL HISTORY OF polycystic ovaries REPAIR WRIST FRACTURE Right 1976 SOCIAL HISTORY: Social History Tobacco Use Smoking status: Every Day Current packs/day: 1.00 Average packs/day: 1 pack/day for 49.0 years (49.0 ttl pk-yrs) Types: Cigarettes Start date: 10/04/1975 Smokeless tobacco: Never Vaping Use Vaping status: Never Used Substance Use Topics Alcohol use: Not Currently Comment: rare Drug use: Yes Frequency: 4.0 times per week Types: Marijuana Working status since last visit: Continues not to work. Driving Status: Driving. REVIEW OF SYSTEMS: GENERAL: No weight loss, malaise or fevers RESPIRATORY: Negative for cough, hemoptysis, wheezing, COPD, dyspnea or shortness of breath CARDIOVASCULAR: Negative for chest pain, leg swelling, hypertension, CHF or palpitations GI: No nausea, vomiting, or diarrhea : No history of dysuria, frequency or incontinence PSYCH: Negative for sleep disturbance, mood disorder and recent psychosocial stressors ENDOCRINE: Negative for cold or heat intolerance, polyuria, polydipsia and goiter NEURO: SEE HPI NEUROLOGICAL EXAMINATION: deferred IMPRESSION:Tomeka Harmon is a 63 year old female with history of generalized epilepsy seizure free since 2008 Patient on VPA , level high and Keppra level low Bilateral hand tremors that bothers her. Discussed that tremors can be due to VPA She would prefer to decrease VPA and increase keppra . PLAN: Increase Keppra to 500-1000 mg Decrease Depakote to 500 mg bid Follow up in 6 months I spent a total of 20 minutes on the date of the service which included preparing to see the patient, [id number] patient care, and completing clinical documentation. Dale Coello.[facility]12-20-2024 History of Present illness Narrative* Mónica Cleveland MD - 09/22/2024 10:29 AM EST [facility] FOLLOW UP VISIT VIRTUAL VISIT I have communicated my name and active licensure. The patient's identity and physical location wereverified at the time of this visit. Either the patient or their legal sales representative girls' apparel has been informed of the risks and benefits of -- and alternatives to -- treatment through a remote evaluation andconsents to proceed with the evaluation remotely. CHIEF COMPLAINT: Patient presents with: Seizures HISTORY SINCE LAST VISIT: Tomeka Harmon is a 64 year old female who is diagnosed with generalized epilepsy, and presents todayfor annual visit/BMV form processing. GAYATHRI in Sep 2023 and she was seizure, Last seizure in 2008 Currently on Keppra 500mg BID and Depakote 500mg-1000 mg. Tremor in bilateral hands. Today she reports that she continues to be seizure free Continues to reports of bilateral hand tremors that bothers her Her last LEV level was low and VPA level was elevated MEDICATIONS: Current Outpatient Medications Medication Sig budesonide/glycopyr/formoterol (BREZTRI AEROSPHERE INHALATION) Inhale as instructed. calcium no.1/D3/B6/FA/B12/aloe (VITAMIN D-3 WITH ALOE ORAL) Take by mouth. levETIRAcetam (KEPPRA) 500 mg tablet take 1 tablet twice daily divalproex DR (DEPAKOTE) 500 mg EC tablet TAKE 1 TABLET EVERY MORNING AND TAKE 2 TABLETS EVERY EVENING MULTIVIT-MIN/FA/CALCIUM/VIT K1 (ONE-A-DAY WOMEN'S 50+ ORAL) Take by mouth. No current facility-administered medications for this visit. PAST MEDICAL HISTORY: PAST MEDICAL HISTORY Diagnosis Date Epilepsy (HCC) last seizure 2009 Osteopenia PAST SURGICAL HISTORY: PAST SURGICAL HISTORY Procedure Laterality Date ANESTH, SECTION x2 CATARACT EXTRACTION W/ INTRAOCULAR LENS IMPLANT HX Right 08/12/2021 Dr. Beal CATARACT EXTRACTION W/ INTRAOCULAR LENS IMPLANT HX Left 09/16/2021 Dr. Beal COLONOSCOPY 2013 jose roberto- due 2023 PAST SURGICAL HISTORY OF polycystic ovaries REPAIR WRIST FRACTURE Right 1976 SOCIAL HISTORY: Social History Tobacco Use Smoking status: Every Day Current packs/day: 1.00 Average packs/day: 1 pack/day for 49.0 years (49.0 ttl pk-yrs) Types: Cigarettes Start date: 10/04/1975 Smokeless tobacco: Never Vaping Use Vaping status: Never Used Substance Use Topics Alcohol use: Not Currently Comment: rare Drug use: Yes Frequency: 4.0 times per week Types: Marijuana Working status since last visit: Continues not to work. Driving Status: Driving. REVIEW OF SYSTEMS: GENERAL: No weight loss, malaise or fevers RESPIRATORY: Negative for cough, hemoptysis, wheezing, COPD, dyspnea or shortness of breath CARDIOVASCULAR: Negative for chest pain, leg swelling, hypertension, CHF or palpitations GI: No nausea, vomiting, or diarrhea : No history of dysuria, frequency or incontinence PSYCH: Negative for sleep disturbance, mood disorder and recent psychosocial stressors ENDOCRINE: Negative for cold or heat intolerance, polyuria, polydipsia and goiter NEURO: SEE HPI NEUROLOGICAL EXAMINATION: deferred IMPRESSION:Tomeka Harmon is a 63 year old female with history of generalized epilepsy seizure free since 2008 Patient on VPA , level high and Keppra level low Bilateral hand tremors that bothers her. Discussed that tremors can be due to VPA She would prefer to decrease VPA and increase keppra . PLAN: Increase Keppra to 500-1000 mg Decrease Depakote to 500 mg bid Follow up in 6 months I spent a total of 20 minutes on the date of the service which included preparing to see the patient, [id number] patient care, and completing clinical documentation. Mónica Vega M.D documented [facility] encounter[facility] Telephone encounter Note * Telephone Encounter - Abdoul Salmeron APRN.CNP - 05/29/2024 5:24 PM EDT The following approved medication requests have been transmitted electronically. Requested Prescriptions Signed Prescriptions Disp Refills levETIRAcetam (KEPPRA) 500 mg tablet 180 tablet 3 Sig: take 1 tablet twice daily Authorizing Provider: ABDOUL SALMERON APRN.CNP [facility]08-26-2024 Miscellaneous Notes* Telephone Encounter - Abdoul Salmeron APRN.CNP - 05/29/2024 5:24 PM EDT The following approved medication requests have been transmitted electronically. Requested Prescriptions Signed Prescriptions Disp Refills levETIRAcetam (KEPPRA) 500 mg tablet 180 tablet 3 Sig: take 1 tablet twice daily Authorizing Provider: ABDOUL SALMERON APRN.CNP * Telephone Encounter - Tonia Love - 05/29/2024 1:19 PM EDT Prescription Refill: Requested by: pharmacy Please E-Scribe Caller Contact Number: Pharmacy Name: [facility] Pharmacy Number: [phone] Generic/ brand: 30 or 90 day supply requested: 90 Last appointment: 09/08/23 Next Appointment: 09/22/[address] Wilks documented in this encounterM[facility]08-[facility]24 Telephone encounter Note * Telephone Encounter - Tonia Love - 05/29/2024 1:19 PM EDT Prescription Refill: Requested by: pharmacy Please E-Scribe Caller Contact Number: Pharmacy Name: [facility] Pharmacy Number: [phone] Generic/ brand: 30 or 90 day supply requested: 90 Last appointment: 09/08/23 Next Appointment: 09/22/[address] Wilks [facility]08-[facility] Telephone encounter Note* Telephone Encounter - Ambrosio Hutson PA-C - 05/26/2024 7:49 AM EDT The following approved medication requests have been transmitted electronically. Requested Prescriptions Signed Prescriptions Disp Refills divalproex DR (DEPAKOTE) 500 mg EC tablet 270 tablet 1 Sig: TAKE 1 TABLET EVERY MORNING AND TAKE 2 TABLETS EVERY EVENING Authorizing Provider: AMBROSIO HUTSON PA-C [facility]08-23-2024 Miscellaneous Notes* Telephone Encounter - Ambrosio Hutson PA-C - 05/26/2024 7:49 AM EDT The following approved medication requests have been transmitted electronically. Requested Prescriptions Signed Prescriptions Disp Refills divalproex DR (DEPAKOTE) 500 mg EC tablet 270 tablet 1 Sig: TAKE 1 TABLET EVERY MORNING AND TAKE 2 TABLETS EVERY EVENING Authorizing Provider: AMBROSIO HUTSON PA-C * Telephone Encounter - Tonia Love - 05/26/2024 7:26 AM EDT Prescription Refill: Requested by: pharmacy Please E-Scribe Caller Contact Number: Pharmacy Name: [facility] Number: [phone] Generic/ brand: 30 or 90 day supply requested: 90 Last appointment: 09/08/23 Next Appointment: 09/22/[address] Wilks documented in this encounterM[facility]08-23-[facility]24 Telephone encounter Note * Telephone Encounter - Tonia Love - 05/26/2024 7:26 AM EDT Prescription Refill: Requested by: pharmacy Please E-Scribe Caller Contact Number: Pharmacy Name: [facility] Pharmacy Number: [phone] Generic/ brand: 30 or 90 day supply requested: 90 Last appointment: 09/08/23 Next Appointment: 09/22/[address] [facility]ks [facility]04-04[facility]24 Miscellaneous Notes* Telephone Encounter - Nicole Lujan APRN.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 - 01/06/2024 9:48 AM EDT The following approved medication requests have been transmitted electronically. Requested Prescriptions Signed Prescriptions Disp Refills divalproex DR (DEPAKOTE) 500 mg EC tablet 270 tablet 1 Sig: Take 1 tablet by mouth every morning AND 2 tablets every evening. Authorizing Provider: NICOLE LUJAN APRN.CNP * Telephone Encounter - Tonia Love - 01/06/2024 8:43 AM EDT Prescription Refill: Requested by: pharmacy Please E-Scribe Caller Contact Number: Pharmacy Name: [facility] Pharmacy Number: [phone] Generic/ brand: 30 or 90 day supply requested: 90 Last appointment: 09/08/23 Next Appointment: none Patient of Dr. Wilks documented in this encounterM[facility]02-22-2024 Miscellaneous Notes* Telephone Encounter - Abdoul Salmeron APRN.CNP - 11/25/2023 1:49 PM EST The following approved medication requests have been transmitted electronically. Requested Prescriptions Signed Prescriptions Disp Refills levETIRAcetam (KEPPRA) 500 mg tablet 180 tablet 1 Sig: take 1 tablet twice daily Authorizing Provider: ABDOUL SALMERON APRN.CNP * Telephone Encounter - Tonia Love - 11/24/2023 1:21 PM EST Prescription Refill: Requested by: pharmacy Please E-Scribe Caller Contact Number: Pharmacy Name: [facility] Pharmacy Number: [phone] Generic/ brand: 30 or 90 day supply requested: 90 Last appointment: 09/08/23 Next Appointment: none Patient of Dr. Wilks documented in this encounterM[facility]11-15-2023 Miscellaneous Notes* Telephone Encounter - Abdoul Salmeron APRN.CNP - 08/18/2023 7:17 AM EST The following approved medication requests have been transmitted electronically. Requested Prescriptions Signed Prescriptions Disp Refills levETIRAcetam (KEPPRA) 500 mg tablet 180 tablet 0 Sig: Take 1 tablet by mouth two times a day. Authorizing Provider: ABDOUL SALMERON APRN.CNP * Telephone Encounter - Tonia Love - 08/17/2023 7:55 AM EST Prescription Refill: Requested by: pharmacy Please E-Scribe Caller Contact Number: Pharmacy Name: [facility] Pharmacy Number: [phone] Generic/ brand: 30 or 90 day supply requested: 90 Last appointment: 07/10/22 Next Appointment: 09/06/[address] Wilks documented in this encounterM[facility]11-13-2023 Miscellaneous Notes* Telephone Encounter - Lisa Garcia RN - 08/16/2023 11:45 AM EST I spoke with Tomeka, she was informed she must be seen before form can be completed. Appt 09/06/2023 Lisa Garcia RN * Telephone Encounter - Lisa Garcia RN - 08/02/2023 5:09 PM EDT GAYATHRI 07/10/2023 PLAN: Keppra 500 mg bid Depakote 500 mg in am and 1000 mg in pm BMV forms to be completed Follow up in [address] order to check AED levels Lisa Garcia RN * Telephone Encounter - Mona Winn - 08/02/2023 3:50 PM EDT Form received: From (agency / facility): [facility] mailroom personnel (if given): Tomeka Harmon Phone #: [phone] Fax # : [phone] Information requested: Request for physician statement Patient of Dr. wilks documented in this encounterM[facility]11-10-2023 Miscellaneous Notes* Telephone Encounter - Abdoul Salmeron APRN.CNP - 08/13/2023 7:39 AM EST The following approved medication requests have been transmitted electronically. Requested Prescriptions Signed Prescriptions Disp Refills divalproex DR (DEPAKOTE) 500 mg EC tablet 270 tablet 1 Sig: Take 1 tablet by mouth every morning AND 2 tablets every evening. Authorizing Provider: ABDOUL SALMERON APRN.CNP * Telephone Encounter - Shalini Benson - 08/11/2023 9:31 AM EST Prescription Refill: Requested by: pharmacy Please E-Scribe Caller Contact Number: Pharmacy Name: [facility] Number: [phone] Generic/ brand: generic 30 or 90 day supply requested: 90 Last appointment: 07/10/22 Next Appointment: needs to schedule an appt Patient of Dr. Wilks documented in this encounterM[facility]10-07-2022 Miscellaneous Notes* Telephone Encounter - Abdoul Salmeron APRN.CNP - 07/10/2022 1:58 PM EDT The following approved medication requests have been transmitted electronically. Requested Prescriptions Signed Prescriptions Disp Refills divalproex DR (DEPAKOTE) 500 mg EC tablet 270 tablet 3 Sig: Take 1 tablet by mouth every morning AND 2 tablets every evening. Authorizing Provider: MÓNICA [place] Ordering User: ABDOUL SALMERON APRN.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 * Telephone Encounter - Tonia Love - 07/10/2022 1:28 PM EDT Medication Concern Person Calling [facility] Name of medication Divalproex Concern with medication Clarification; directions unclear Patient of Dr. Wilks Forwarded to nurse. documented in this encounterM[facility]10-07-2022 History of Present illness Narrative* Mónica Wong MD - 07/10/2022 9:14 AM EDT [facility] FOLLOW UP VISIT VIRTUAL VISIT This is a virtual visit using HIPAA compliant video platform. The patient's identification was verified at the start of the visit. If it is felt that the patient needs to be evaluated in clinic or in the emergency room setting, the patient would be directed there. Patient does agree to proceed with telemedicine consultation HISTORY SINCE LAST VISIT: The patient has returned for follow-up regarding her generalized epilepsy. History of generalized epilepsy. Her last GTC seizure was in 2009. Today she reports that she continues to be seizure free on Keppra 500 mg bid and Depakote 1000 mg bid. No side effects other than tremors in her hands. CBC and CMP normal a year ago. VPA total 99 and free 15 CURRENT AEDs Depakote Keppra MEDICATIONS: Current Outpatient Medications Medication Sig levETIRAcetam (KEPPRA) 500 mg tablet TAKE 1 TABLET TWICE DAILY divalproex DR (DEPAKOTE) 500 mg EC tablet TAKE 2 TABLETS TWICE DAILY cyanocobalamin (VITAMIN B-12) 1,000 mcg tab Take 1,000 mcg by mouth once daily. escitalopram oxalate (LEXAPRO) 20 mg tablet Take 20 mg by mouth once daily. CALCIUM CARBONATE/VITAMIN D3 (VITAMIN D-3 ORAL) Take by mouth. MULTIVIT-MIN/FA/CALCIUM/VIT K1 (ONE-A-DAY WOMEN'S 50+ ORAL) Take by mouth. No current facility-administered medications for this visit. PAST MEDICAL HISTORY: PAST MEDICAL HISTORY Diagnosis Date Epilepsy (HCC) last seizure 2009 Osteopenia PAST SURGICAL HISTORY: PAST SURGICAL HISTORY Procedure Laterality Date ANESTH, SECTION x2 CATARACT EXTRACTION W/ INTRAOCULAR LENS IMPLANT HX Right 08/12/2021 Dr. Beal CATARACT EXTRACTION W/ INTRAOCULAR LENS IMPLANT HX Left 09/16/2021 Dr. Beal COLONOSCOPY 2014 jose roberto- due 2023 PAST SURGICAL HISTORY OF polycystic ovaries REPAIR WRIST FRACTURE Right 1976 SOCIAL HISTORY: Social History Tobacco Use Smoking status: Every Day Packs/day: 1.00 Years: 40.00 Pack years: 40.00 Types: Cigarettes Start date: 10/04/1975 Smokeless tobacco: Never Vaping Use Vaping Use: Never used Substance Use Topics Alcohol use: No Comment: rare Drug use: Yes Frequency: 2.0 times per week Comment: marijuana- last used 3 days ago REVIEW OF SYSTEMS: GENERAL: No weight loss, malaise or fevers RESPIRATORY: Negative for cough, hemoptysis, wheezing, COPD, dyspnea or shortness of breath CARDIOVASCULAR: Negative for chest pain, leg swelling, hypertension, CHF or palpitations GI: No nausea, vomiting, or diarrhea : No history of dysuria, frequency or incontinence PSYCH: Negative for sleep disturbance, mood disorder and recent psychosocial stressors ENDOCRINE: Negative for cold or heat intolerance, polyuria, polydipsia and goiter NEURO: SEE HPI NEUROLOGICAL EXAMINATION: deferred IMPRESSION: Generalized epilepsy , seizure free since 2009. Continues to be on Keppra and Depakote. She will like to decrease AED since she is having more hand tremors Since VPA levels are high we will decrease VPA and if needed we will increase Keppra PLAN: Keppra 500 mg bid Depakote 500 mg in am and 1000 mg in pm BMV forms to be completed Follow up in 1 year I spent a total of 18 minutes on the date of the service which included [id number] patient care. Mónica Vega M.D documented in this encounterM[facility]10-05-2022 Miscellaneous Notes* Telephone Encounter - Abdoul Salmeron APRN.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 - 07/08/2022 6:32 AM EDT The following approved medication requests have been transmitted electronically. Requested Prescriptions Signed Prescriptions Disp Refills levETIRAcetam (KEPPRA) 500 mg tablet 180 tablet 0 Sig: TAKE 1 TABLET TWICE DAILY Authorizing Provider: ABDOUL SALMERON DR (DEPAKOTE) 500 mg EC tablet 360 tablet 0 Sig: TAKE 2 TABLETS TWICE DAILY Authorizing Provider: ABDOUL SALMERON APRN.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 documented in this encounterM[facility]12-14-[facility] History of Past illness Narrative* Problem Noted Date Resolved Date Combined form of age-related cataract, left eye 09/16/2021 09/16/2021 Nuclear senile cataract of both eyes 08/12/2021 08/12/2021 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 08/12/2021 08/12/2021 documented as of this encounter (statuses as of 07/08/2022) [facility] of Past illness Narrative* Problem Noted Date Resolved Date Combined form of age-related cataract, left eye 09/16/2021 09/16/2021 Nuclear senile cataract of both eyes 08/12/2021 08/12/2021 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 08/12/2021 08/12/2021 documented as of this encounter (statuses as of 07/10/2022) [facility] of Past illness Narrative* Problem Noted Date Resolved Date Combined form of age-related cataract, left eye 09/16/2021 09/16/2021 Nuclear senile cataract of both eyes 08/12/2021 08/12/2021 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 08/12/2021 08/12/2021 documented as of this encounter (statuses as of 07/10/2022) [facility] of Past illness Narrative* Problem Noted Date Diagnosed Date Resolved Date Combined form of age-related cataract, left eye 09/16/2021 09/16/2021 Nuclear senile cataract of both eyes 08/12/2021 08/12/2021 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 08/12/2021 08/12/2021 documented as of this encounter (statuses as of 08/13/2023) [facility] of [facility] illness Narrative* Problem Noted Date Diagnosed Date Resolved Date Combined form of age-related cataract, left eye 09/16/2021 09/16/2021 Nuclear senile cataract of both eyes 08/12/2021 08/12/2021 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 08/12/2021 08/12/2021 documented as of this encounter (statuses as of 08/16/2023) [facility] of [facility] illness Narrative* Problem Noted Date Diagnosed Date Resolved Date Combined form of age-related cataract, left eye 09/16/2021 09/16/2021 Nuclear senile cataract of both eyes 08/12/2021 08/12/2021 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 08/12/2021 08/12/2021 documented as of this encounter (statuses as of 08/18/2023) [facility] of [facility] illness Narrative* Problem Noted Date Diagnosed Date Resolved Date Combined form of age-related cataract, left eye 09/16/2021 09/16/2021 Nuclear senile cataract of both eyes 08/12/2021 08/12/2021 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 08/12/2021 08/12/2021 documented as of this encounter (statuses as of 11/25/2023) [facility] of [facility] illness Narrative* Problem Noted Date Diagnosed Date Resolved Date Combined form of age-related cataract, left eye 09/16/2021 09/16/2021 Nuclear senile cataract of both eyes 08/12/2021 08/12/2021 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 08/12/2021 08/12/2021 documented as of this encounter (statuses as of 01/06/2024) [facility] HospitalEvaluation noteNo assessment information availableWooMcKitrick Hospital Work Phone: Evaluation note* Diagnosis 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 documented in this encounter [facility] note* Diagnosis 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 documented in this encounter [facility] note* Diagnosis 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 documented in this encounter [facility] note* Diagnosis 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 documented in this encounter [facility] note* Diagnosis 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 documented in this encounter [facility] for referral (narrative)No reason for referral information availableWMercy Health [facility] Work Phone: Summary Purpose Family History No Family History Records Found Relationship Condition Age at Onset Recorded Date/T vidhi Not Specified Epilepsy Unknown Advance Directives No Advanced Directives Records FoundNo Advanced Directives Records FoundNo Advanced Directives Records FoundNo Advanced Directives Records FoundNo Advanced Directives Records Found Chief Complaint and Reason for Visit Chief Complaint SCREENING Chief Complaint SCREENING L SHOULDER PAIN Chief Complaint Admit Date RIGHT LEG SWELLING August 18, 2024 12:25pm RLE SWELLING August 18, 2024 1:10pm wound September 28, 2024 10:25am wound September 28, 2024 12:20pm SCREENING October 03, 2024 10:03am wound October 05, 2024 10 :16am wound October 05, 2024 11 :42am Reason for Visit Admit Date Tobacco abuse September 28, 2024 10:25am Traumatic open wound of left lower leg with delayed healing September 28, 2024 10:25am Tobacco abuse October 05, 2024 10 :16am Traumatic open wound of left lower leg with delayed healing October 05, 2024 10:16am Chief Complaint Admit Date wound September 28, 2024 10:25am wound September 28, 2024 12:20pm SCREENING October 03, 2024 10:03am wound October 05, 2024 10 :16am wound October 05, 2024 11 :42am PROLIA January 05, 2025 12:0 7pm Chief Complaint Admit Date PROLIA January 05, 2025 12:0 7pm Chief Complaint Admit Date PROLIA October 3rd, 2025 12 :11pm Additional Source Comments INFORMATION SOURCE (unrecogn ized section and content) DATE CREATED AUTHOR 03/30/2018 [facility] ([place]) DATE CREATED AUTHOR AUTHOR'S ORGANIZ ATION 10/11/2020 [facility] DATE CREATED AUTHOR AUTHOR'S ORGANIZ ATION 09/30/2024 [facility] DATE CREATED AUTHOR AUTHOR'S ORGANIZ ATION 02/14/2025 [facility] DATE CREATED AUTHOR AUTHOR'S ORGANIZ ATION 07/15/2025 [facility] Source Comments (unrecognize d section and content) In the event this informatio n is protected by the Federal Confidentiality of Alcohol and Drug Abuse Patient Records regulations: The Federal rules restrict any use of the information to criminally investigate or prosecute any alcohol or drug abuse patient.[facility] HospitalIn the event this information is protected by the Federal Confidentiality of Alcohol and Drug Abuse Patient Records regulations: The Federal rules restrict any use of the information to criminally investigate or prosecute any alcohol or drug abuse patient.[facility] HospitalIn the event this information is protected by the Federal Confidentiality of Alcohol and Drug Abuse Patient Records regulations: The Federal rules restrict any use of the information to criminally investigate or prosecute any alcohol or drug abuse patient.[facility] HospitalIn the event this information is protected by the Federal Confidentiality of Alcohol and Drug Abuse Patient Records regulations: The Federal rules restrict any use of the information to criminally investigate or prosecute any alcohol or drug abuse patient.[facility] HospitalIn the event this information is protected by the Federal Confidentiality of Alcohol and Drug Abuse Patient Records regulations: The Federal rules restrict any use of the information to criminally investigate or prosecute any alcohol or drug abuse patient.[facility] HospitalIn the event this information is protected by the Federal Confidentiality of Alcohol and Drug Abuse Patient Records regulations: The Federal rules restrict any use of the information to criminally investigate or prosecute any alcohol or drug abuse patient.[facility] HospitalIn the event this information is protected by the Federal Confidentiality of Alcohol and Drug Abuse Patient Records regulations: The Federal rules restrict any use of the information to criminally investigate or prosecute any alcohol or drug abuse patient.[facility] HospitalIn the event this information is protected by the Federal Confidentiality of Alcohol and Drug Abuse Patient Records regulations: The Federal rules restrict any use of the information to criminally investigate or prosecute any alcohol or drug abuse patient.[facility] HospitalIn the event this information is protected by the Federal Confidentiality of Alcohol and Drug Abuse Patient Records regulations: The Federal rules restrict any use of the information to criminally investigate or prosecute any alcohol or drug abuse patient.[facility] HospitalIn the event this information is protected by the Federal Confidentiality of Alcohol and Drug Abuse Patient Records regulations: The Federal rules restrict any use of the information to criminally investigate or prosecute any alcohol or drug abuse patient.[facility] HospitalIn the event this information is protected by the Federal Confidentiality of Alcohol and Drug Abuse Patient Records regulations: The Federal rules restrict any use of the information to criminally investigate or prosecute any alcohol or drug abuse patient.[facility] HospitalIn the event this information is protected by the Federal Confidentiality of Alcohol and Drug Abuse Patient Records regulations: The Federal rules restrict any use of the information to criminally investigate or prosecute any alcohol or drug abuse patient.[facility] HospitalIn the event this information is protected by the Federal Confidentiality of Alcohol and Drug Abuse Patient Records regulations: The Federal rules restrict any use of the information to criminally investigate or prosecute any alcohol or drug abuse patient.[facility] Reason for Visit (unrecogniz ed section and content) Reason Comments Refill Request Reason Comments Epilepsy Reason Comments Medication Concern Divalproex Reason Onset Date Comments Refill Request 08/11/2023 Reason Comments Forms [facility] Reason Onset Date Comments Refill Request 08/17/2023 Reason Comments Seizures Reason Comments Forms BMV Reason Comments Follow Up Refill Request Seizures Care Teams (unrecognized sec tion and content) Maintenance Superintendent Relationship Specialty Start Date End Date CarlosBenton Chi PCP - General Gerontology 09/11/14 Maintenance Superintendent Relationship Specialty Start Date End Date CarlosBenton Chi PCP - General Gerontology 09/11/14 Maintenance Superintendent Relationship Specialty Start Date End Date Benton [facility] General Gerontology 09/11/14 Team Status: Active Member Role Status Dates Dr. Benton Gonzalez MD Family Provider Active Dr. Benton Gonzalez MD Primary Care Provider Active Team Status: Inactive Member Role Status Dates Dr. Benton Gonzalez MD Primary Care Provi [email or web address], Attending Provider, Referring Provider Active Maintenance Superintendent Relationship Specialty Start Date End Date Bneton [facility] - General Gerontology 09/11/14 Maintenance Superintendent Relationship Specialty Start Date End Date Benton [facility] - General Gerontology 09/11/14 Team Status: Inactive Member Role Status Dates Dr. Benton Gonzalez MD Primary Care Provider, Attending Provider Active Maintenance Superintendent Relationship Specialty Start Date End Date Benton [facility] - General Gerontology 09/11/14 Team Status: Inactive Member Role Status Dates Dr. Benton Gonzalez MD Primary Care Provider Active Dr. Stephanie Nolan MD Attending Provider, Referring Pr ovider Active Maintenance Superintendent Relationship Specialty Start Date End Date Benton [facility] - General Gerontology 09/11/14 Maintenance Superintendent Relationship Specialty Start Date End Date Bneton [facility] - General Gerontology 09/11/14 Team Status: Inactive Member Role Status Dates Dr. Benton Gonzalez MD Primary Care Provider Active Start: August 18, 2024 End: August 18, 2024 Dr. Benton Gonzalez MD Attending Provider Active Start: August 18, 2024 End: August 18, 2024 Dr. Benton Gonzalez MD Referring Provider Active Start: August 18, 2024 End: August 18, 2024 Team Status: Active Member Role Status Dates Dr. Reynaldo Dewey MD Attending Provider Active Start: August 18, 2024 Dr. Benton Gonzalez MD Referring Provider Active Start: August 18, 2024 Team Status: Inactive Member Role Status Dates Dr. Benton Gonzalez MD Primary Care Provider Active Start: September 15, 2024 End: September 15, 2024 Dr. Benton Gonzalez MD Attending Provider Active Start: September 15, 2024 End: September 15, 2024 Team Status: Inactive Member Role Status Dates Dr. Benton Gonzalez MD Primary Care Provider Active Start: September 28, 2024 End: October 03, 2024 Dr. Benton Gonzalez MD Referring Provider Active Start: September 28, 2024 End: October 03, 2024 Dr. Mike Santacruz MD Attending Provider Active Start: September 28, 2024 End: October 03, 2024 Team Status: Active Member Role Status Dates Dr. Benton Gonzalez MD Primary Care Provider Active Start: September 28, 2024 Dr. Benton Gonzalez MD Referring Provider Active Start: September 28, 2024 Dr. Mike Santacruz MD Attending Provider Active Start: September 28, 2024 Dr. Mike Santacruz MD Other Provider Active Start: September 28, 2024 Team Status: Inactive Member Role Status Dates Dr. Benton Gonzalez MD Primary Care Provider Active Start: October 03, 2024 End: October 03, 2024 Dr. Benton Gonzalez MD Attending Provider Active Start: October 03, 2024 End: October 03, 2024 Dr. Benton Gonzalez MD Referring Provider Active Start: October 03, 2024 End: October 03, 2024 Team Status: Inactive Member Role Status Dates Dr. Benton Gonzalez MD Primary Care Provider Active Start: October 05, 2024 End: November 01, 2024 Dr. Benton Gonzalez MD Referring Provider Active Start: October 05, 2024 End: November 01, 2024 Dr. Mike Santacruz MD Attending Provider Active Start: October 05, 2024 End: November 01, 2024 Team Status: Active Member Role Status Dates Dr. Benton Gonzalez MD Primary Care Provider Active Start: October 05, 2024 Dr. Benton Gonzalez MD Referring Provider Active Start: October 05, 2024 Dr. Mike Santacruz MD Attending Provider Active Start: October 05, 2024 Dr. Mike Santacruz MD Other Provider Active Start: October 05, 2024 Team Status: Inactive Member Role Status Dates Dr. Benton Gonzalez MD Primary Care Provider Active Start: November 30, 2024 End: November 30, 2024 Dr. Benton Gonzalez MD Attending Provider Active Start: November 30, 2024 End: November 30, 2024 Team Status: Active Member Role Status Dates Dr. Benton Gonzalez MD Primary Care Provider Active Team Status: Inactive Member Role Status Dates Dr. Benton Gonzalez MD Primary Care Provider Active Start: January 05, 2025 End: January 05, 2025 Dr. Benton Gonzalez MD Attending Provider Active Start: January 05, 2025 End: January 05, 2025 Dr. Benton Gonzalez MD Referring Provider Active Start: January 05, 2025 End: January 05, 2025 Maintenance Superintendent Relationship Specialty Start Date End Date Benton [facility] - General Gerontology 09/11/14 Team Status: Inactive Member Role Status Dates Dr. Bentno Gonzalez MD Primary Care Provider Active Start: March 15, 2025 End: March 15, 2025 Dr. Benton Gonzalez MD Attending Provider Active Start: March 15, 2025 End: March 15, 2025 Dr. Benton Gonzalez MD Referring Provider Active Start: March 15, 2025 End: March 15, 2025 Team Status: Active Member Role/Relationship Status Dates Dr. Benton Gonzalez MD Primary care physician Active Team Status: Inactive Member Role/Relationship Status Dates Dr. Benton Gonzalez MD Primary care physician Active Start: March 15, 2025 End: March 15, 2025 Dr. Benton Gonzalez MD Attending physician Active Start: March 15, 2025 End: March 15, 2025 Dr. Benton Gonzalez MD Referring Provider Active Start: March 15, 2025 End: March 15, 2025 Team Status: Inactive Member Role/Relationship Status Dates Dr. Benton Gonzalez MD Primary care physician Active Start: July 06, 2025 End: July 06, 2025 Dr. Benton Gonzalez MD Attending physician Active Start: July 06, 2025 End: July 06, 2025 Dr. Benton Gonzalez MD Referring Provider Active Start: July 06, 2025 End: July 06, 2025 FOR RECORDS PERTAINING TO PATIENTS WHO ARE OR HAVE BEEN ENROLLED IN A CHEMICAL DEPENDENCY/SUBSTANCEABUSE PROGRAM, SOME INFORMATION MAY BE OMITTED. This clinical summary was aggregated from multiple sources. Caution should be exercised in using it in the provision of clinical care. This summary normalizes information from multiple sources, and as a consequence, information in this document may materially change the coding, format and clinical context of patient data. In addition, data may be omitted in some cases. CLINICAL DECISIONS SHOULD BE BASED ON THE PRIMARY CLINICAL RECORDS. [facility]. provides no warranty or guarantee of the accuracy or completeness of information in this document.
[2025-08-31 13:08] VITALS: BP 121/70; PULSE 63; RESP 15; TEMP 36.6; O2SAT 95
== END 2025-08-31 13:09 | disposition home or self-care (01) ==
PROVIDERS: Emergency Provider Emergency Medicine; PCP Family Medicine Geriatric Medicine; Visit Provider Emergency Medicine
DX: S39.012A Strain of muscle, fascia and tendon of lower back, initial encounter (principal); S83.91XA Sprain of unspecified site of right knee, initial encounter; V43.52XA Car driver injured in collision with other type car in traffic accident, initial encounter; F17.210 Nicotine dependence, cigarettes, uncomplicated
CPT/HCPCS: 72170; 73564; 99282

== ENCOUNTER → 2025-09-18 | Outpatient (CLI) | payer MEDICARE, SELFPAY ==
[2025-09-18 11:44] LABS: Hematocrit 44.8 % (37-47); Hemoglobin 15.6 g/dL (12.0-15.0); Immature Granulocytes Count 0.090 X10^3/uL (0.0-0.0); Mean Corp Hgb Conc 34.8 g/dL (32-36); Mean Corpuscular Volume 101.1 fL (81-99); Mean Platelet Vol. 10.2 fl (6.2-12.0); NRBC Flagged by Analyzer 0 % (0-5); Platelet Count 241 K/mm3 (150-450); RBC Distribution Width CV 12.1 % (11.6-14.6); RBC Distribution Width SD 45.6 fl (35.1-43.9); Red Blood Count 4.43 M/mm3 (4.2-5.4); White Blood Count 9.2 K/mm3 (4.4-11.0)
[2025-09-18 12:22] LABS: AST(SGOT) 19 U/L (<=31); Alanine Aminotransfer ALT/SGPT 18 U/L (<=34); Albumin, Serum 4.1 g/dL (3.4-4.8); Alkaline Phosphatase 45 U/L (35-104); Anion Gap 11 (5-15); BUN 27 mg/dL (4-19); BUN/Creat Ratio 38.6 RATIO (10-20); Calcium,Total 10.2 mg/dL (7.6-11.0); Carbon Dioxide 23.9 mmol/L (21.0-32.0); Chloride 104 mmol/L (98-108); Globulin 2.5 g/dL (2.2-4.2); Glucose 112 mg/dL (70-99); Potassium 4.7 mmol/L (3.3-5.1); Vitamin D,25 Hydroxy 58.3 ng/mL (30-100)
[2025-09-18 19:33] LABS: Xtra Tube Kwok EXTRA TUBE
== END | disposition home or self-care (01) ==
LOC: POLAB3 11:33
PROVIDERS: PCP Family Medicine Geriatric Medicine; Visit Provider Family Medicine Geriatric Medicine
DX: I10 Essential (primary) hypertension (principal); E55.9 Vitamin D deficiency, unspecified
CPT/HCPCS: 36415; 80053; 82306; 84443; 85025

== ENCOUNTER → 2025-09-26 | Outpatient (CLI) | payer MEDICARE, MEDICAID, SELFPAY ==
--- OUTSIDE RECORDS SUMMARY | 2025-09-26 08:40 | XMS RPT_ITS | CCD ---
Author Organization [facility]iniSyok Care Team Providers Care System Planning Engineer Name Role Phone Kashmir Infante Unavailable Unavailable LYDIA RANGEL Unavailable Unavailable PHYSICIAN, NOT RECORDED Unavailable Unavaila ble Acrlos, Benton Chi Primary Care Provider Carlos, Benton [...] Dr. Benton Rivera Primary Care Provider [phone] Carlos EWING, Dr. Benton Rivera Attending Provider [phone] Carlos EWING, Dr. Benton Rivera Referring Provider [phone] NKECHI DELCID Attending Unavailable CARLOS, BENTON CHI Primary Care Unavailable MÓNICA CLEVELAND Attending Unavailabl e CARLOS, BENTON CHI Primary Care Unavailable CARLOS, BENTON CHI Primary Care Unavailable Carlos EWING, Dr. Benton Rivera Primary Care Provider Carlos EWING, Dr. Benton Rivera Attending Provider [phone] Carlos EWING, Dr. Benton Rivera Referring Provider Carlos EWING, Dr. Benton Rivera Primary Care Physician Carlos EWING, Dr. Benton Rivera Attending Physician Carlos EWING, Dr. Benton Rivera Referring Provider [...] on above: Take 2 tablets by mo [facility] twice daily. TAKE 2 TABLETS TWICE DAILY 1 tablet in and 2 ta blets on pm Take 1 tablet by tal every morning AND 2 tablets every evening. Completed/Discontinued Medications Medication Drug Class(es) Dates Sig (Normalized) Sig (Original) baclofen 10 mg oral tablet (1 source) gamma-Aminobutyric Acid-ergic Agonist Start: 06-28-2017 BACLOFEN 10 MG TABS BACLOFEN [id number] Kashmir Infante Calcium Carbonate / vitamin D3 [...] Drug Start: 06-28-2017 DICLOFENAC SODIUM [address] [facility] DICLOFENAC SODIUM [id number] Kashmir Infante doxycycline hyclate 100 mg oral [...] Auto (Unsp spec) [#/Vol] 3.02 10*3/uL 0.83-4.51 [facility] Absolute neutrophil countOrd ered By: Benton Gonzalez on 03-15-2025 Neutrophils (Bld) [#/Vol] 3.8 10*3/uL 2.0-7.7 [facility] Anion gap in Serum or Plasma Ordered By: Benton Gonzalez on 03-15-2025 Anion gap [Moles/Vol] 11 mmol/L 5-15 [facility] Automated lymphocyte count a s percentage of total leukocytesOrdered By: Benton Gonzalez on 03-15-2025 Lymphocytes/100 WBC Auto (Unsp spec) 37.7 % - [facility] BUN/creatinine ratioOrdered By: [facility] on 03-15-2025 Urea nitrogen/Creatinine [Mass ratio] 21.3 mg/mg High 10-20 [facility] Basophil percentageOrdered B y: Benton Gonzalez on 03-15-2025 Basophils/100 WBC (Bld) 0.6 % 0-1 [facility] Bilirubin, totalOrdered By: Benton Gonzalez on 03-15-2025 Bilirubin [Mass/Vol] 0.41 mg/dL 0.00-1.30 [facility] CBC W/Diff, Automatedon 03-04 Absolute Lymph 3.02 X10 3/uL Normal 0.83-4.51 [facility] Comment on above: Performed By: #### L 500.4050, L501.9520, L500.4100, M100.678, L100.0100 #### [facility] [address] [place], [address] Absolute Neut 3.8 X10 3/uL Normal 2.0-7.7 [facility] Comment on above: Performed By: #### L 500.4050, L501.9520, L500.4100, M100.678, L100.0100 #### [facility] [address] [place], [address] Basophils/100 WBC (Bld) 0.6 % Normal 0-1 [facility] Comment on above: Performed By: #### L 500.4050, L501.9520, L500.4100, M100.678, L100.0100 #### [facility] [address] [place], [address] Eosinophils/100 WBC (Bld) 0.4 % Normal 0-5 [facility] Comment on above: Performed By: #### L 500.4050, L501.9520, L500.4100, M100.678, L100.0100 #### [facility] [address] [place], [address] Erythrocyte distribution width (RBC) [Ratio] 12.7 % Normal 11.6-14.6 [facility] Comment on above: Performed By: #### L 500.4050, L501.9520, L500.4100, M100.678, L100.0100 #### [facility] [address] [place], [address] Hematocrit (Bld) [Volume fraction] 43.0 % Normal 37-47 [facility] Comment on above: Performed By: #### L 500.4050, L501.9520, L500.4100, M100.678, L100.0100 #### [facility] [address] [place], [address] Hemoglobin (Bld) [Mass/Vol] 14.5 g/dL Normal 12.0-15.0 [facility] Comment on above: Performed By: #### L 500.4050, L501.9520, L500.4100, M100.678, L100.0100 #### [facility] [address] [place], [address] IG% 0.200 Normal 0.0-0.9 [facility] Comment on above: Result Comment: IG% - Immature Granulocytes (promyelocytes, myelocytes and metamyelocytes) > 1% indicates that a LEFT SHIFT is Present. Performed By: #### L 500.4050, L501.9520, L500.4100, M100.678, L100.0100 #### [facility] [address] [place], [address] Lymphocytes/100 WBC (Bld) 37.7 % Normal 19-41 [facility] Comment on above: Performed By: #### L 500.4050, L501.9520, L500.4100, M100.678, L100.0100 #### [facility] [address] [place], [address] MCH (RBC) [Entitic mass] 34.3 pg High 27.0-32.0 [facility] Comment on above: Performed By: #### L 500.4050, L501.9520, L500.4100, M100.678, L100.0100 #### [facility] [address] [place], [address] MCHC (RBC) [Mass/Vol] 33.7 g/dL Normal 32-36 [facility] Comment on above: Performed By: #### L 500.4050, L501.9520, L500.4100, M100.678, L100.0100 #### [facility] [address] [place], [address] MCV (RBC) [Entitic vol] 101.7 fL High 81-99 [facility] Comment on above: Performed By: #### L 500.4050, L501.9520, L500.4100, M100.678, L100.0100 #### [facility] [address] [place], [address] Monocytes/100 WBC (Bld) 13.5 % High 0-10 [facility] Comment on above: Performed By: #### L 500.4050, L501.9520, L500.4100, M100.678, L100.0100 #### [facility] [address] [place], [address] Neutrophils/100 WBC (Bld) 47.6 % Normal 47-70 [facility] Comment on above: Performed By: #### L 500.4050, L501.9520, L500.4100, M100.678, L100.0100 #### [facility] [address] [place], [address] Nucleated RBC (Bld) [#/Vol] 0 10*3/uL Normal 0-5 [facility] Comment on above: Performed By: #### L 500.4050, L501.9520, L500.4100, M100.678, L100.0100 #### [facility] [address] [place], [address] Platelet mean volume (Bld) [Entitic vol] 10.5 fL Normal 6.2-12.0 [facility] Comment on above: Performed By: #### L 500.4050, L501.9520, L500.4100, M100.678, L100.0100 #### [facility] [address] [place], [address] Platelets (Bld) [#/Vol] 246 10*3/uL Normal 150-450 [facility] Comment on above: Performed By: #### L 500.4050, L501.9520, L500.4100, M100.678, L100.0100 #### [facility] [address] [place], [address] RBC (Bld) [#/Vol] 4.23 10*6/uL Normal 4.2-5.4 [facility] Comment on above: Performed By: #### L 500.4050, L501.9520, L500.4100, M100.678, L100.0100 #### [facility] [address] [place], [address] RDW SD 47.6 fl High 35.1-43.9 [facility] Comment on above: Performed By: #### L 500.4050, L501.9520, L500.4100, M100.678, L100.0100 #### [facility] [address] [place], [address] WBC (Bld) [#/Vol] 8.0 10*3/uL Normal 4.4-11.0 [facility] Comment on above: Performed By: #### L 500.4050, L501.9520, L500.4100, M100.678, L100.0100 #### [facility] [address] [place], [address] Carbon dioxide, total [Moles /volume] in Central venous bloodOrdered By: Benton Gonzalez on 03-15-2025 CO2 [Moles/Vol] 24.3 mmol/L 21.0-32.0 [facility] Chloride assayOrdered By: Adam Gonzalez on 03-15-2025 Chloride [Moles/Vol] 103 mmol/L 98-108 [facility] Comprehensive Metabolic Prof ilon 03-15-2025 Albumin [Mass/Vol] 4.1 g/dL Normal 3.4-4.8 [facility] Comment on above: Performed By: #### L 500.4050, L501.9520, L500.4100, M100.678, L100.0100 #### [facility] [address] [place], [address] Albumin/Globulin [Mass ratio] 1.7 {ratio} Normal 0.9-2.4 [facility] Comment on above: Performed By: #### L 500.4050, L501.9520, L500.4100, M100.678, L100.0100 #### [facility] [address] [place], [address] ALK PHOS 43 U/L Normal 35-104 [facility] Comment on above: Performed By: #### L 500.4050, L501.9520, L500.4100, M100.678, L100.0100 #### [facility] [address] [place], [address] ALT [Catalytic activity/Vol] 22 U/L Normal <=34 [facility] Comment on above: Performed By: #### L 500.4050, L501.9520, L500.4100, M100.678, L100.0100 #### [facility] [address] [place], [address] AST [Catalytic activity/Vol] 22 U/L Normal <=31 [facility] Comment on above: Performed By: #### L 500.4050, L501.9520, L500.4100, M100.678, L100.0100 #### [facility] [address] [place], [address] Bilirubin [Mass/Vol] 0.41 mg/dL Normal 0.00-1.30 [facility] Comment on above: Performed By: #### L 500.4050, L501.9520, L500.4100, M100.678, L100.0100 #### [facility] [address] [place], [address] BUN/CRE 21.3 RATIO High 10-20 [facility] Comment on above: Performed By: #### L 500.4050, L501.9520, L500.4100, M100.678, L100.0100 #### [facility] [address] [place], [address] Calcium [Mass/Vol] 9.8 mg/dL Normal 7.6-11.0 [facility] Comment on above: Performed By: #### L 500.4050, L501.9520, L500.4100, M100.678, L100.0100 #### [facility] [address] [place], [address] Chloride [Moles/Vol] 103 mmol/L Normal 98-108 [facility] Comment on above: Performed By: #### L 500.4050, L501.9520, L500.4100, M100.678, L100.0100 #### [facility] [address] [place], [address] CO2 [Moles/Vol] 24.3 mmol/L Normal 21.0-32.0 [facility] Comment on above: Performed By: #### L 500.4050, L501.9520, L500.4100, M100.678, L100.0100 #### [facility] [address] [place], [address] Creatinine [Mass/Vol] 0.60 mg/dL Low 0.70-1.20 [facility] Comment on above: Performed By: #### L 500.4050, L501.9520, L500.4100, M100.678, L100.0100 #### [facility] [address] [place], [address] GAP 11 Normal 5-15 [facility] Comment on above: Performed By: #### L 500.4050, L501.9520, L500.4100, M100.678, L100.0100 #### [facility] [address] [place], [address] GFR/1.73 sq M.predicted among non-blacks MDRD (S/P/Bld) [Vol rate/Area] 100 mL/min/{1.73_m2} Normal >60 [facility] Comment on above: Result Comment: mL/m in/1.73m2 CKD-EPI Creatinine Equation (2020) Performed By: #### L 500.4050, L501.9520, L500.4100, M100.678, L100.0100 #### [facility] [address] [place], [address] Globulin (S) [Mass/Vol] 2.4 g/dL Normal 2.2-4.2 [facility] Comment on above: Performed By: #### L 500.4050, L501.9520, L500.4100, M100.678, L100.0100 #### [facility] [address] [place], [address] Glucose [Mass/Vol] 84 mg/dL Normal 70-99 [facility] Comment on above: Performed By: #### L 500.4050, L501.9520, L500.4100, M100.678, L100.0100 #### [facility] [address] [place], [address] Potassium [Moles/Vol] 4.4 mmol/L Normal 3.3-5.1 [facility] Comment on above: Performed By: #### L 500.4050, L501.9520, L500.4100, M100.678, L100.0100 #### [facility] [address] [place], [address] Sodium [Moles/Vol] 138 mmol/L Normal 133-145 [facility] Comment on above: Performed By: #### L 500.4050, L501.9520, L500.4100, M100.678, L100.0100 #### [facility] [address] [place], [address] T PROT 6.6 g/dL Normal 5.9-8.4 [facility] Comment on above: Performed By: #### L 500.4050, L501.9520, L500.4100, M100.678, L100.0100 #### [facility] [address] [place], [address] Urea nitrogen [Mass/Vol] 13 mg/dL Normal 4-19 [facility] Comment on above: Performed By: #### L 500.4050, L501.9520, L500.4100, M100.678, L100.0100 #### [facility] [address] [place], [address] Eosinophil percentageOrdered By: Benton Gonzalez on 03-15-2025 Eosinophils/100 WBC (Bld) 0.4 % 0-5 [facility] Erythrocyte distribution wid th ratioOrdered By: Benton Gonzalez on 03-15-2025 Erythrocyte distribution width (RBC) [Ratio] 12.7 % 11.6-14.6 [facility] Erythrocyte distribution wid th standard deviationOrdered By: Benton Gonzalez on 03-15-2025 Erythrocyte distribution width (RBC) [Ratio] 47.6 fl High 35.1-43.9 [facility] Glomerular filtration rate ( GFR) estimation/1.73 sq m using serum, plasma, or whole bOrdered By: Benton Gonzalez on 03-15-2025 GFR/1.73 sq M.predicted among non-blacks MDRD (S/P/Bld) [Vol rate/Area] 100 mL/min/{1.73_m2} >60 [facility] Comment on above: mL/min/1.73m2 CKD-EP I Creatinine Equation (2020) Hematocrit Auto (Bld) [Volum e fraction]Ordered By: Benton Gonzalez on 03-15-2025 Hematocrit (Bld) [Volume fraction] 43.0 % 37-47 [facility] Hemoglobin measurementOrdere d By: Benton Gonzalez on 03-15-2025 Hemoglobin (Bld) [Mass/Vol] 14.5 g/dL 12.0-15.0 [facility] Immature granulocytes/100 WB C Auto (Bld)Ordered By: Benton Gonzalez on 03-15-2025 Immature granulocytes/100 WBC (Bld) 0.200 % 0.0-0.9 [facility] Comment on above: IG% - Immature Granu locytes (promyelocytes, myelocytes and metamyelocytes) > 1% indicates that a LEFT SHIFT is Present. Knee 4 or More Viewson 03-15 Knee 4 or More Views [facility] [address] [place] [address] Knee 4 or More Views MR#: [id number] Acct: [id number] Name: TOMEKA HARMON Rep #: [id number] : 1960 F 64 From: Mike rose MD PCP: Dr. Benton Gonzalez MD Status: REG CLI Study: Knee 4 or More Views Date of Exam: 03/15/25 Exam# [id number] Ordering Dr: Benton Gonzalez MD PROCEDURE: KNEE 4 OR MORE VIEWS 03/15/2025 REASON FOR EXAM: KNEE PAIN TECHNIQUE: 4 view(s) of the left knee COMPARISON: None. FINDINGS: Mild osteopenia of the visualized bones. Degenerative joint disease. No fracture or dislocation is seen. No lytic or blastic bone lesion is noted. RAD/Knee 4 or More Views IMPRESSION: No evidence for acute abnormality. [facility] CC: Dr. Benton Gonzalez MD Senior Engineering Specialist: Signed Normal [facility] - Chemistry and C hemistry - challengeOrdered By: Benton Gonzalez on 03-15-2025 AST [Catalytic activity/Vol] 22 U/L <32 [facility] MCV (mean corpuscular volume ) determinationOrdered By: Benton Gonzalez on 03-15-2025 MCV (RBC) [Entitic vol] 101.7 fL High 81-99 [facility] Mean corpuscular hemoglobin (MCH) determinationOrdered By: Benton Gonzalez on 03-15-2025 MCH (RBC) [Entitic mass] 34.3 pg High 27.0-32.0 [facility] Mean corpuscular hemoglobin concentration (MCHC) determinationOrdered By: Benton Gonzalez on 03-15-2025 MCHC (RBC) [Mass/Vol] 33.7 g/dL 32-36 [facility] Mean platelet volume determi nationOrdered By: Benton Gonzalez on 03-15-2025 Platelet mean volume (Bld) [Entitic vol] 10.5 fL 6.2-12.0 [facility] Monocyte percentageOrdered B y: Benton Gonzalez on 03-15-2025 Monocytes/100 WBC (Bld) 13.5 % High 0-10 [facility] Neutrophil percentageOrdered By: Benton Gonzalez on 03-15-2025 Neutrophils/100 WBC (Bld) 47.6 % 47-70 [facility] Nucleated red blood cell per centageOrdered By: Benton Gonzalez on 03-15-2025 Nucleated RBC/100 WBC (Bld) [Ratio] 0 % 0-5 [facility] Platelet countOrdered By: Adam Gonzalez on 03-15-2025 Platelets (Bld) [#/Vol] 246 10*3/uL 150-450 [facility] Potassium measurement (mass/ volume)Ordered By: Benton Gonzalez on 03-15-2025 Potassium (Unsp spec) [Mass/Vol] 4.4 mmol/L 3.3-5.1 [facility] RBC Auto (Bld) [#/Vol]Ordere d By: Benton Gonzalez on 03-15-2025 RBC (Bld) [#/Vol] 4.23 10*6/uL 4.2-5.4 [facility] Serum creatinine measurement (mass/volume)Ordered By: Benton Gonzalez on 03-15-2025 Creatinine [Mass/Vol] 0.60 mg/dL Low 0.70-1.20 [facility] Serum globulin measurementOr dered By: Benton Gonzalez on 03-15-2025 Globulin (S) [Mass/Vol] 2.4 g/dL 2.2-4.2 [facility] Serum glucose measurement (m ass/volume)Ordered By: Benton Gonzalez on 03-15-2025 Glucose [Mass/Vol] 84 mg/dL 70-99 [facility] Serum or plasma alanine hicks otransferase (ALT) measurementOrdered By: Benton Gonzalez on 03-15-2025 ALT [Catalytic activity/Vol] 22 U/L <35 [facility] Serum or plasma albumin alex urement (mass/volume)Ordered By: Benton Gonzalez on 03-15-2025 Albumin [Mass/Vol] 4.1 g/dL 3.4-4.8 [facility] Serum or plasma albumin/glob ulin mass ratioOrdered By: Benton Gonzalez on 03-15-2025 Albumin/Globulin [Mass ratio] 1.7 {ratio} 0.9-2.4 [facility] Serum or plasma alkaline eileen sphatase measurementOrdered By: Benton Gonzalez 03-15-2025 ALP [Catalytic activity/Vol] 43 U/L 35-104 [facility] Serum or plasma calcium alex urement (mass/volume)Ordered By: Benton Gonzalez 03-15-2025 Calcium [Mass/Vol] 9.8 mg/dL 7.6-11.0 [facility] Serum or plasma urea nitroge n measurement (mass/volume)Ordered By: Benton Gonzalez 03-15-2025 Urea nitrogen [Mass/Vol] 13 mg/dL 4-19 [facility] Sodium levelOrdered By: Benton Gonzalez on 03-15-2025 Sodium [Moles/Vol] 138 mmol/L 133-145 [facility] TSH DL <= 0.005 mIU/L QnOrde red By: Benton Gonzalez on 03-15-2025 TSH Qn 1.400 uIU/mL 0.300-4.200 [facility] Thyroid Stim Hormone (TSH)on 03-15-2025 TSH 1.400 uIU/mL Normal 0.300-4.200 [facility] Comment on above: Performed By: #### L 500.4050, L501.9520, L500.4100, M100.678, L100.0100 #### [facility] [address] [place], [address] Total proteinOrdered By: Benton Gonzalez on 03-15-2025 Protein [Mass/Vol] 6.6 g/dL 5.9-8.4 [facility] Vitamin D,25 Hydroxyon 03-15 Vitamin D 25-OH 52.9 ng/mL Normal 30-100 [facility] Comment on above: Result Comment: [place]ma[place] min D Status Deficiency: <20 ng/mL (50nmol/L) Insufficiency: 20-30 ng/mL (50-75 nmol/L) Sufficiency: 30-100 ng/mL (75-250 nmol/L) Toxicity: >100 ng/mL (>250 nmol/L) Performed By: #### L 500.4050, L501.9520, L500.4100, M100.678, L100.0100 #### [facility] [address] [place], [address] White blood cell (WBC) count Ordered By: Benton Gonzalez on 03-15-2025 WBC (Bld) [#/Vol] 8.0 10*3/uL 4.4-11.0 [facility] Influenza virus A and B and SARS-CoV-2 (COVID-19) and Respiratory syncytial virus RNAOrdered By: Benton Gonzalez on 11-30-2024 SARS-CoV-2 (COVID-19) RNA LALA+probe Ql (Unsp spec) [facility] M100.678on 11-30-2024 M100.8 SARS-CoV-2 (COVID 19 ) Negative INFLUENZA A Negative INFLUENZA B Negative RSV PCR Negative Normal [facility] Comment on above: Performed By: #### L 500.4050, L501.9520, L500.4100, M100.678, L100.0100 #### [facility] [address] [place], [address] Culture, Anaerobic Any Sourc ken 10-03-2024 CUAN List Antibiotics Las t 48 Hours? none List Antibiotics to be Started? none No growth in 5 days. Normal [facility] Comment on above: Performed By: #### M 100.2000, M100.3000, M100.4001 #### [facility] [address] [place], [address] SCRN MAMM (CAD)W/DENILSON BILATo n 10-03-2024 SCRN MAMM (CAD)W/DENILSON BILAT Imaging Services [address] [place] [address] SCRN MAMM (CAD)W/DENILSON BILAT MR#: [id number] Acct: [id number] Name: TOMEKA HARMON Rep #: [id number] : 1960 F 64 From: Harry Whalen MD PCP: Dr. Benton Gonzalez MD Status: [facility] Study: SCRN MAMM (CAD)W/DENILSON BILAT Date of Exam: 09/05 10/27 Exam# [id number] Ordering Dr: Benton Gonzalez MD [id number] MAMMOGRAPHY - BILATERAL SCREENING 3-D TOMOSYNTHESIS REASON [...] EST , CC: Dr. Benton Gonzalez MD Senior Engineering Specialist: Signed Normal [facility] Gram Stainon 09-29-2024 GS List Antibiotics Las t 48 Hours? none List Antibiotics to be Started? none Gram Stain Rare Gram variable tamara No White Blood Cells No Epithelial cells Normal [facility] Comment on above: Performed By: #### M 100.2000, M100.3000, M100.4001 #### [facility] [address] [place], [address] Wound Cultureon 09-29-2024 WC List Antibiotics Las t 48 Hours? none List Antibiotics to be Started? none No growth aerobically. Normal [facility] Comment on above: Performed By: #### M 100.1999, M100.3000, M100.4001 #### [facility] [address] [place], [address] Bacteria identified Anaer cx Nom (Unsp spec)Ordered By: Mike Santacruz on 09-28-2024 Anaerobic Culture No growth in 5 days. [facility] Gram stainOrdered By: Christal Santacruz on 09-28-2024 Microscopic observation Gram stain Nom (Unsp spec) [facility] Routine wound cultureOrdered By: Mike Santacruz on 09-28-2024 Wound Culture No growth aerobically. [facility] Valproate SerPl-mCncon 09-28 Valproate [Mass/Vol] 67.8 ug/mL Normal 50.0-100.0 [facility] Comment on above: Order Comment: Speci men Type: BLOOD SPECIMEN Ordering Facility: [facility] Address: [address] [place] [address] Result Comment: Refe rence ranges and high/low indicator flags are provided as general guidelines only. The treating physician must determine appropriate target levels/dosing based on the specific clinical situation. Performed By: #### 4 086-5 #### [facility] CLIA [id number] [address] [place] [id number] [place] [facility] Wound Ctr History AND Physic lucian 09-28-2024 Wound Ctr History & Physical [facility] [address] [place] [address] H P Exam - Wound Care 09/28/24 1220 MR#: [id number] Acct: [id number] Name: TOMEKA HARMON Rep #: [id number] : 1960 64 From: Mike Santacruz MD [...] was seen at the emergency room in [place] following event and had sutures placed. Most of the area is healed save for a small area. Has been cleaning it daily with antibiotic soap and water and putting triple antibiotic ointment/Neosporin on it. History of tobacco use. No known history of diabetes mellitus. Feels well. [facility] Medical History (Updated 09/28/24 @ 12:31 by [...] of bot (more content not included)... Normal [facility] levETIRAcetam [facility] 1 11-29-2023 levETIRAcetam [Mass/Vol] 17.9 ug/mL Normal 12.0-46.0 [facility] Comment on above: Order Comment: Speci men Type: BLOOD SPECIMEN Ordering Facility: [facility] [place] Address: [address] [place] [address] Result Comment: This test is not suitable [...] and its performance characteristics determined by the [facility] Department of Pathology and Laboratory Medicine. It has not been cleared or approved by the FDA. The [facility] Department of Pathology and Laboratory Medicine is regulated under CLIA as qualified to perform high-complexity testing. This test is used for clinical purposes. It should not be regarded as investigational or for research. Performed By: #### 3 [id number] #### [facility] CLIA [id number] [address] [place], [place] [address] [address] [place] CNPTessa 09-26-2024 CNPN Telephone (NE50MN) TOMEKA HARMON ([id number]) 1960 F Date Time Provider Department 09/26/24 FARIDEH QURESHIMÓNICA TAPIA NE50MN During your visit today, we recorded the following information about you: vanineel Augustine Dina Mathur 09/26/2024 3:06 PM Signed Form received: From (agency / facility): [facility] doorperson (if given): [facility] Phone #: n/a Fax # : [phone] Information requested: Request for physician statement Patient of Dr. WILKS Forwarded to nurse. Lisa Garcia RN 09/28/2024 11:37 AM Signed BMV Last appointment 09/22/2024 Onset of seizures: age 10 Last seizure: 2008 Place order to check ASM level KOTA Garcia Haley, HEALTH AND SAFETY SPECIALIST.DIAGNOSTIC SALES SPECIALIST 09/28/2024 12:38 PM Signed Levels ordered. Please [...] and forwarded for review and signature via Ratio. 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] Order(s):LEVETIRACETAM [SQLEVET] Order #: [id number] FUTURE VALPROIC ACID / DEPAKENE [SQVPA] Order #: [id number] FUTURE Prescriptions as of 10/12/2024 - levETIRAcetam [...] Status:Closed by MARNIE MELGAR on 09/28/24 Normal [facility] Absolute neutrophil countOrd ered By: Benton Gonzalez on 09-15-2024 Neutrophils (Bld) [#/Vol] 1.4 10*3/uL Low 2.0-7.7 [facility] Albumin to globulin ratioOrd ered By: Benton Gonzalez on 09-15-2024 Albumin/Globulin [Mass ratio] 0.9 {ratio} 0.9-2.4 [facility] Basophil percentageOrdered B y: Benton Gonzalez on 09-15-2024 Basophils/100 WBC (Bld) 0.5 % 0-1 [facility] Bilirubin, totalOrdered By: Benton Gonzalez on 09-15-2024 Bilirubin [Mass/Vol] 0.30 mg/dL 0.20-1.00 [facility] Comment on above: For patients on eltr ombopag therapy, use of Dimension [place] TBIL is not recommended. Blood urea nitrogen (BUN)/cr eatinine ratioOrdered By: Benton Gonzalez on 09-15-2024 Urea nitrogen/Creatinine [Mass ratio] 18.8 mg/mg 10- [facility] CBC W/Diff, Automatedon 09-03 Absolute Lymph 1.71 X10 3/uL Normal 0.83-4.51 [facility] Comment on above: Performed By: #### L 500.4050, L501.9520, L500.4100, M100.678, L100.0100 #### [facility] [address] [place], [address] Absolute Neut 1.4 X10 3/uL Low 2.0-7.7 [facility] Comment on above: Performed By: #### L 500.4050, L501.9520, L500.4100, M100.678, L100.0100 #### [facility] [address] [place], [address] Basophils/100 WBC (Bld) 0.5 % Normal 0-1 [facility] Comment on above: Performed By: #### L 500.4050, L501.9520, L500.4100, M100.678, L100.0100 #### [facility] [address] [place], [address] Eosinophils/100 WBC (Bld) 0.5 % Normal 0-5 [facility] Comment on above: Performed By: #### L 500.4050, L501.9520, L500.4100, M100.678, L100.0100 #### [facility] [address] [place], [address] Erythrocyte distribution width (RBC) [Ratio] 12.7 % Normal 11.6-14.6 [facility] Comment on above: Performed By: #### L 500.4050, L501.9520, L500.4100, M100.678, L100.0100 #### [facility] [address] [place], [address] Hematocrit (Bld) [Volume fraction] 44.3 % Normal 37-47 [facility] Comment on above: Performed By: #### L 500.4050, L501.9520, L500.4100, M100.678, L100.0100 #### [facility] [address] [place], [address] Hemoglobin (Bld) [Mass/Vol] 15.5 g/dL High 12.0-15.0 [facility] Comment on above: Performed By: #### L 500.4050, L501.9520, L500.4100, M100.678, L100.0100 #### [facility] [address] [place], [address] IG% 0.300 Normal 0.0-0.9 [facility] Comment on above: Result Comment: IG% - Immature Granulocytes (promyelocytes, myelocytes and metamyelocytes) > 1% indicates that a LEFT SHIFT is Present. Performed By: #### L 500.4050, L501.9520, L500.4100, M100.678, L100.0100 #### [facility] [address] [place], [address] Lymphocytes/100 WBC (Bld) 45.8 % High 19-41 [facility] Comment on above: Performed By: #### L 500.4050, L501.9520, L500.4100, M100.678, L100.0100 #### [facility] [address] [place], [address] MCH (RBC) [Entitic mass] 34.8 pg High 27.0-32.0 [facility] Comment on above: Performed By: #### L 500.4050, L501.9520, L500.4100, M100.678, L100.0100 #### [facility] [address] [place], [address] MCHC (RBC) [Mass/Vol] 35.0 g/dL Normal 32-36 [facility] Comment on above: Performed By: #### L 500.4050, L501.9520, L500.4100, M100.678, L100.0100 #### [facility] [address] [place], [address] MCV (RBC) [Entitic vol] 99.6 fL High 81-99 [facility] Comment on above: Performed By: #### L 500.4050, L501.9520, L500.4100, M100.678, L100.0100 #### [facility] [address] [place], [address] Monocytes/100 WBC (Bld) 16.1 % High 0-10 [facility] Comment on above: Performed By: #### L 500.4050, L501.9520, L500.4100, M100.678, L100.0100 #### [facility] [address] [place], [address] Neutrophils/100 WBC (Bld) 36.8 % Low 47-70 [facility] Comment on above: Performed By: #### L 500.4050, L501.9520, L500.4100, M100.678, L100.0100 #### [facility] [address] [place], [address] Nucleated RBC (Bld) [#/Vol] 0 10*3/uL Normal 0-5 [facility] Comment on above: Performed By: #### L 500.4050, L501.9520, L500.4100, M100.678, L100.0100 #### [facility] [address] [place], [address] Platelet mean volume (Bld) [Entitic vol] 11.1 fL Normal 6.2-12.0 [facility] Comment on above: Performed By: #### L 500.4050, L501.9520, L500.4100, M100.678, L100.0100 #### [facility] [address] [place], [address] Platelets (Bld) [#/Vol] 113 10*3/uL Low 150-450 [facility] Comment on above: Performed By: #### L 500.4050, L501.9520, L500.4100, M100.678, L100.0100 #### [facility] [address] [place], [address] RBC (Bld) [#/Vol] 4.45 10*6/uL Normal 4.2-5.4 [facility] Comment on above: Performed By: #### L 500.4050, L501.9520, L500.4100, M100.678, L100.0100 #### [facility] [address] [place], [address] RDW SD 46.6 fl High 35.1-43.9 [facility] Comment on above: Performed By: #### L 500.4050, L501.9520, L500.4100, M100.678, L100.0100 #### [facility] [address] [place], [address] WBC (Bld) [#/Vol] 3.7 10*3/uL Low 4.4-11.0 [facility] Comment on above: Performed By: #### L 500.4050, L501.9520, L500.4100, M100.678, L100.0100 #### [facility] [address] [place], [address] Carbon dioxide measurementOr dered By: Benton Gonzalez on 09-15-2024 CO2 [Moles/Vol] 26.0 mmol/L 21.0-32.0 [facility] Chloride measurementOrdered By: Benton Gonzalez on 09-15-2024 Chloride [Moles/Vol] 105 mmol/L 98-107 [facility] Comprehensive Metabolic Prof ilon 09-15-2024 Albumin [Mass/Vol] 3.1 g/dL Low 3.2-5.0 [facility] Comment on above: Performed By: #### L 500.4050, L501.9520, L500.4100, M100.678, L100.0100 #### [facility] [address] [place], [address] Albumin/Globulin [Mass ratio] 0.9 {ratio} Normal 0.9-2.4 [facility] Comment on above: Performed By: #### L 500.4050, L501.9520, L500.4100, M100.678, L100.0100 #### [facility] [address] [place], [address] ALK P 48 U/L Normal 45-117 [facility] Comment on above: Performed By: #### L 500.4050, L501.9520, L500.4100, M100.678, L100.0100 #### [facility] [address] [place], [address] ALT [Catalytic activity/Vol] 19 U/L Normal 13-56 [facility] Comment on above: Performed By: #### L 500.4050, L501.9520, L500.4100, M100.678, L100.0100 #### [facility] [address] [place], [address] AST [Catalytic activity/Vol] 16 U/L Normal 15-37 [facility] Comment on above: Performed By: #### L 500.4050, L501.9520, L500.4100, M100.678, L100.0100 #### [facility] [address] [place], [address] Bilirubin [Mass/Vol] 0.30 mg/dL Normal 0.20-1.00 [facility] Comment on above: Result Comment: For patients on eltrombopag therapy, use of Dimension [place] TBIL is not recommended. Performed By: #### L 500.4050, L501.9520, L500.4100, M100.678, L100.0100 #### [facility] [address] [place], [address] BUN/CRE 18.8 RATIO Normal 10-20 [facility] Comment on above: Performed By: #### L 500.4050, L501.9520, L500.4100, M100.678, L100.0100 #### [facility] [address] [place], [address] CA,Total 8.6 mg/dL Normal 8.5-10.1 [facility] Comment on above: Performed By: #### L 500.4050, L501.9520, L500.4100, M100.678, L100.0100 #### [facility] [address] [place], [address] Chloride [Moles/Vol] 105 mmol/L Normal 98-107 [facility] Comment on above: Performed By: #### L 500.4050, L501.9520, L500.4100, M100.678, L100.0100 #### [facility] [address] [place], [address] CO2 [Moles/Vol] 26.0 mmol/L Normal 21.0-32.0 [facility] Comment on above: Performed By: #### L 500.4050, L501.9520, L500.4100, M100.678, L100.0100 #### [facility] [address] [place], [address] Creatinine [Mass/Vol] 0.74 mg/dL Normal 0.55-1.02 [facility] Comment on above: Result Comment: The validity of the calculated GFR GFRAA in patients over 70 years has not been determined. Clinical correlation is essential. Performed By: #### L 500.4050, L501.9520, L500.4100, M100.678, L100.0100 #### [facility] [address] [place], [address] EST GFR - AA 101 mL/min Normal >60 [facility] Comment on above: Result Comment: Afri can [place] GFR Calc Performed By: #### L 500.4050, L501.9520, L500.4100, M100.678, L100.0100 #### [facility] [address] [place], [address] GAP 7 Normal 5-15 [facility] Comment on above: Performed By: #### L 500.4050, L501.9520, L500.4100, M100.678, L100.0100 #### [facility] [address] [place], [address] GFR/1.73 sq M.predicted among non-blacks MDRD (S/P/Bld) [Vol rate/Area] 84 mL/min/{1.73_m2} Normal >60 [facility] Comment on above: Result Comment: Non- GFR Calc Performed By: #### L 500.4050, L501.9520, L500.4100, M100.678, L100.0100 #### [facility] [address] [place], [address] Globulin (S) [Mass/Vol] 3.5 g/dL Normal 2.2-4.2 [facility] Comment on above: Performed By: #### L 500.4050, L501.9520, L500.4100, M100.678, L100.0100 #### [facility] [address] [place], [address] Glucose [Mass/Vol] 105 mg/dL Normal 74-106 [facility] Comment on above: Result Comment: Fast ing Glucose result from 100 to 125 mg/dL suggests IMPAIRED HOMEOSTASIS per A.D.A. criteria. Performed By: #### L 500.4050, L501.9520, L500.4100, M100.678, L100.0100 #### [facility] [address] [place], [address] Potassium [Moles/Vol] 3.8 mmol/L Normal 3.5-5.1 [facility] Comment on above: Performed By: #### L 500.4050, L501.9520, L500.4100, M100.678, L100.0100 #### [facility] [address] [place], [address] Sodium [Moles/Vol] 138 mmol/L Normal 136-145 [facility] Comment on above: Performed By: #### L 500.4050, L501.9520, L500.4100, M100.678, L100.0100 #### [facility] [address] [place], [address] T PROT 6.6 g/dL Normal 6.4-8.2 [facility] Comment on above: Performed By: #### L 500.4050, L501.9520, L500.4100, M100.678, L100.0100 #### [facility] [address] [place], [address] Urea nitrogen [Mass/Vol] 14 mg/dL Normal 7-18 [facility] Comment on above: Performed By: #### L 500.4050, L501.9520, L500.4100, M100.678, L100.0100 #### [facility] [address] [place], [address] Eosinophil percentageOrdered By: Benton Gonzalez on 09-15-2024 Eosinophils/100 WBC (Bld) 0.5 % 0-5 [facility] Erythrocyte distribution wid th ratioOrdered By: Benton Gonzalez on 09-15-2024 Erythrocyte distribution width (RBC) [Ratio] 12.7 % 11.6-14.6 [facility] Erythrocyte distribution wid th standard deviationOrdered By: Benton Gonzalez on 09-15-2024 Erythrocyte distribution width (RBC) [Entitic vol] 46.6 fL High 35.1-43.9 [facility] Estimated glomerular filtrat ion rate (GFR) AmericanOrdered By: Benton Gonzalez on 09-15-2024 Estimated GFR (MDRD) Amer 101 mL/min >60 [facility] Comment on above: GFR Calc Glomerular filtration rate ( GFR) estimationOrdered By: Benton Gonzalez 09-15-2024 Estimated GFR (MDRD) Non-Af Amer 84 mL/min >60 [facility] Comment on above: Non- GFR Calc Glucose measurementOrdered B y: Benton Gonzalez on 09-15-2024 Glucose [Mass/Vol] 105 mg/dL 74-106 [facility] Comment on above: Fasting Glucose resu lt from 100 to 125 mg/dL suggests IMPAIRED HOMEOSTASIS per A.D.A. criteria. Hematocrit Auto (Bld) [Volum e fraction]Ordered By: Benton Gonzalez on 09-15-2024 Hematocrit (Bld) [Volume fraction] 44.3 % 37-47 [facility] Hemoglobin measurementOrdere d By: Benton Gonzalez on 09-15-2024 Hemoglobin (Bld) [Mass/Vol] 15.5 g/dL High 12.0-15.0 [facility] High density lipoprotein (HD L) measurementOrdered By: Benton Gonzalez on 09-15-2024 Cholesterol in HDL [Mass/Vol] 65 mg/dL >40 [facility] Comment on above: The drugs N-Acetylcy steine and Metamizole may falsely depress this assay. Reference Range HDL <40 mg/dL Low HDL Cholesterol HDL >or= 60 mg/dL High HDL Cholesterol Immature granulocytes/100 WB C Auto (Bld)Ordered By: Benton Gonzalez on 09-15-2024 Immature granulocytes/100 WBC (Bld) 0.300 % 0.0-0.9 [facility] Comment on above: IG% - Immature Granu locytes (promyelocytes, myelocytes and metamyelocytes) > 1% indicates that a LEFT SHIFT is Present. Influenza virus A and B and SARS-CoV-2 (COVID-19) and Respiratory syncytial virus RNAOrdered By: Benton Gonzalez on 09-15-2024 SARS-CoV-2 (COVID-19) RNA LALA+probe Ql (Unsp spec) SARS-CoV-2 (COVID 19 PCR) Abnormal [facility] - Chemistry and C hemistry - challengeOrdered By: Benton Gonzalez on 09-15-2024 AST [Catalytic activity/Vol] 16 U/L 15 [facility] Lipid Profileon 09-15-2024 Cholesterol [Mass/Vol] 189 mg/dL Normal 200 [facility] Comment on above: Result Comment: <200 mg/dL Desirable 200-240 mg/dL Borderline >240 mg/dL High Risk Performed By: #### L 500.4050, L501.9520, L500.4100, M100.678, L100.0100 #### [facility] [address] [place], [place], [address] Cholesterol in HDL [Mass/Vol] 65 mg/dL Normal [facility] Comment on above: Result Comment: The drugs N-Acetylcysteine and Metamizole may falsely depress this assay. Reference Range HDL <40 mg/dL Low HDL Cholesterol HDL >or= 60 mg/dL High HDL Cholesterol Performed By: #### L 500.4050, L501.9520, L500.4100, M100.678, L100.0100 #### [facility] [address] [place], [address] Cholesterol in LDL [Mass/Vol] 104 mg/dL Normal 0-130 [facility] Comment on above: Performed By: #### L 500.4050, L501.9520, L500.4100, M100.678, L100.0100 #### [facility] [address] [place], [address] Cholesterol in VLDL [Mass/Vol] 20 mg/dL Normal 5-40 [facility] Comment on above: Performed By: #### L 500.4050, L501.9520, L500.4100, M100.678, L100.0100 #### [facility] [address] [place], [address] Triglyceride [Mass/Vol] 101 mg/dL Normal [facility] Comment on above: Result Comment: The drugs N-Acetylcysteine and Metamizole may falsely depress this assay. Serum Triglycerides Reference Interval Normal <150 mg/dL Borderline high 150 - 199 mg/dL High 200 - 499 mg/dL Very High > or = 500 mg/dL Performed By: #### L 500.4050, L501.9520, L500.4100, M100.678, L100.0100 #### [facility] [address] [place], [address] Low density lipoprotein (LDL ) cholesterol measurementOrdered By: Benton Gonzalez on 09-15-2024 Cholesterol in LDL [Mass/Vol] 104 mg/dL 0-130 [facility] Lymphocytes Auto (Unsp spec) [#/Vol]Ordered By: Benton Gonzalez on 09-15-2024 Lymphocytes (Bld) [#/Vol] 1.71 10*3/uL 0.83-4.51 [facility] Lymphocytes/100 WBC Auto (Un sp spec)Ordered By: Benton Gonzalez on 09-15-2024 Lymphocytes/100 WBC (Bld) 45.8 % High 19-41 [facility] M100.678on 09-15-2024 M100.678 Copy of report sent to Infection Control Printer [id number] 09/15/24 1501 CARLA. SARS-CoV-2 (COVID 19) A Positive A INFLUENZA A Negative INFLUENZA B Negative RSV PCR Negative SARS-CoV-2 (COVID 19 PCR) Normal [facility] Comment on above: Performed By: #### L 500.4050, L501.9520, L500.4100, M100.678, L100.0100 #### [facility] [address] [place], [address] MCV (mean corpuscular volume ) determinationOrdered By: Benton Gonzalez on 09-15-2024 MCV (RBC) [Entitic vol] 99.6 fL High 81-99 [facility] Mean corpuscular hemoglobin (MCH) determinationOrdered By: Benton Gonzalez on 09-15-2024 MCH (RBC) [Entitic mass] 34.8 pg High 27.0-32.0 [facility] Mean corpuscular hemoglobin concentration (MCHC) determinationOrdered By: Benton Gonzalez on 09-15-2024 MCHC (RBC) [Mass/Vol] 35.0 g/dL 32-36 [facility] Mean platelet volume determi nationOrdered By: Benton Gonzalez on 09-15-2024 Platelet mean volume (Bld) [Entitic vol] 11.1 fL 6.2-12.0 [facility] Monocyte percentageOrdered B y: Benton Gonzalez on 09-15-2024 Monocytes/100 WBC (Bld) 16.1 % High 0-10 [facility] Neutrophil percentageOrdered By: Benton Gonzalez on 09-15-2024 Neutrophils/100 WBC (Bld) 36.8 % Low 47-70 [facility] Nucleated red blood cell per centageOrdered By: Benton Gonzalez on 09-15-2024 Nucleated RBC/100 WBC (Bld) [Ratio] 0 % 0-5 [facility] Platelet countOrdered By: Adam Gonzalez on 09-15-2024 Platelets (Bld) [#/Vol] 113 10*3/uL Low 150-450 [facility] Potassium measurementOrdered By: Benton Gonzalez on 09-15-2024 Potassium [Moles/Vol] 3.8 mmol/L 3.5-5.1 [facility] RBC Auto (Bld) [#/Vol]Ordere d By: Benton Gonzalez on 09-15-2024 RBC (Bld) [#/Vol] 4.45 10*6/uL 4.2-5.4 [facility] Serum anion gap measurementO rdered By: Benton Gonzalez on 09-15-2024 Anion gap [Moles/Vol] 7 mmol/L 5-15 [facility] Serum globulin measurementOr dered By: Benton Gonzalez 09-15-2024 Globulin (S) [Mass/Vol] 3.5 g/dL 2.2-4.2 [facility] Serum or plasma alanine hicks otransferase (ALT) measurementOrdered By: Benton Gonzalez 09-15-2024 ALT [Catalytic activity/Vol] 19 U/L 13-56 [facility] Serum or plasma albumin alex urement (mass/volume)Ordered By: Benton Gonzalez 09-15-2024 Albumin [Mass/Vol] 3.1 g/dL Low 3.2-5.0 [facility] Serum or plasma alkaline eileen sphatase measurementOrdered By: Benton Gonzalez 09-15-2024 ALP [Catalytic activity/Vol] 48 U/L 45-117 [facility] Serum or plasma calcium alex urement (mass/volume)Ordered By: Benton Gonzalez 09-15-2024 Calcium [Mass/Vol] 8.6 mg/dL 8.5-10.1 [facility] Serum or plasma cholesterol measurement (mass/volume)Ordered By: Benton Gonzalez 09-15-2024 Cholesterol [Mass/Vol] 189 mg/dL <200 [facility] Comment on above: <200 mg/dL Desirable 200-240 mg/dL Borderline >240 mg/dL High Risk Serum or plasma creatinine m easurement (mass/volume)Ordered By: Benton Gonzalez 09-15-2024 Creatinine [Mass/Vol] 0.74 mg/dL 0.55-1.02 [facility] Comment on above: The validity of the calculated GFR & GFRAA in patients over 70 years has not been determined. Clinical correlation is essential. Serum or plasma urea nitroge n measurement (mass/volume)Ordered By: Benton Gonzalez on 09-15-2024 Urea nitrogen [Mass/Vol] 14 mg/dL 7-18 [facility] Sodium levelOrdered By: Benton Gonzalez on 09-15-2024 Sodium [Moles/Vol] 138 mmol/L 136-145 [facility] TSH QnOrdered By: Benton Gonzalez o n 09-15-2024 Thyroid Stimulating Hormone (TSH) 3.060 uIU/mL 0.358-3.740 [facility] Thyroid Stim Hormone (TSH)on 09-15-2024 TSH 3.060 uIU/mL Normal 0.358-3.740 [facility] Comment on above: Performed By: #### L 500.4050, L501.9520, L500.4100, M100.678, L100.0100 #### [facility] [place], [address] Total proteinOrdered By: Benton Gonzalez on 09-15-2024 Protein [Mass/Vol] 6.6 g/dL 6.4-8.2 [facility] Triglycerides measurementOrd ered By: Benton Gonzalez on 09-15-2024 Triglyceride [Mass/Vol] 101 mg/dL <199 [facility] Comment on above: The drugs N-Acetylcy steine and Metamizole may falsely depress this assay.Serum Triglycerides Reference Interval Normal <150 mg/dL Borderline high 150 - 199 mg/dL High 200 - 499 mg/dL Very High > or = 500 mg/dL Very low density lipoprotein (VLDL) cholesterol measurementOrdered By: Benton Gonzalez on 09-15-2024 VLDL Cholesterol 20 mg/dL 5-40 [facility] White blood cell (WBC) count Ordered By: Benton Gonzalez on 09-15-2024 WBC (Bld) [#/Vol] 3.7 10*3/uL Low 4.4-11.0 [facility] HIP, UNI W/ Pelvis 2-3 Views on 08-18-2024 HIP, UNI W/ Pelvis 2-3 Views [facility] [address] [place] [address] HIP, UNI W/ Pelvis 2-3 Views MR#: [id number] Acct: [id number] Name: TOMEKA HARMON Rep #: [id number] : 1960 F 64 From: Rebecca Alves MD PCP: Dr. Benton Gonzalez MD Status: REG CLI Study: HIP, UNI W/ Pelvis 2-3 Views Date of Exam: Exam# [id number] Ordering Dr: Benton Gonzalez MD [id number] INDICATION: RIGHT HIP PAIN EXAMINATION/TECHNIQUE: X-RAY - [...] EST , CC: Dr. Benton Gonzalez MD Senior Engineering Specialist: Signed Normal [facility] Venous Duplex US, Unilateral on 08-18-2024 Venous Duplex US, Unilateral [facility] [address] [place] [address] Venous Duplex US, Unilateral 08/18/24 1310 MR#: [id number] Acct: [id number] Name: TOMEKA HARMON Rep #: [id number] : 1960 64 From: Reynaldo Dewey MD [...] called and/or faxed to Dr. Gonzalez @ [phone] @ 12:55pm. VL/Venous Duplex US, Unilateral Interpretation [...] Dictated: 08/18/24 1310 Date Transcribed: 08/19/24 0110 Senior Engineering Specialist: Signed Normal [facility] Wound Cultureon 08-14-2024 WC No growth aerobically. Normal [facility] Comment on above: Performed By: #### L 500.4050, L501.9520, L500.4100, M100.678, L100.0100 #### [facility] [address] [place], [address] Gram Stainon 08-11-2024 GS Gram Stain No organisms seen No cells seen Normal [facility] Comment on above: Performed By: #### L 500.4050, L501.9520, L500.4100, M100.678, L100.0100 #### [facility] [address] [place], [address] MRSA Wound DNA by PCRon MRSA DNA ASSAY Negative Normal Negative [facility] Comment on above: Order Comment: RIGHT LEG Performed By: #### L 500.4050, L501.9520, L500.4100, M100.678, L100.0100 #### [facility] [address] [place], [address] SA DNA ASSAY Positive Abnormal Negative [facility] Comment on above: Order Comment: RIGHT LEG Performed By: #### L 500.4050, L501.9520, L500.4100, M100.678, L100.0100 #### [facility] [address] [place], [address] ED NOTEon 08-10-2024 ED NOTE HNO ID: [id number] Author: ZAIRA CHAWLA RN Service: ? Author [...] August 10, 2024 TIME: 11:19 AM Normal [facility] ED NOTE HNO ID: [id number] Author: HILARY DE LA GARZA RN Service: Emergency Medicine Author Type: Registered Nurse Type: ED Notes Filed: 08/10/2024 00:50 Note Text: Pt verbalizes understanding of discharge instructions. Denies further questions, comments, concerns at this time. Normal [facility] ED PROV NOTEon 08-10-2024 ED PROV NOTE HNO ID: [id number] Author: ANITA JONES MD Service: ? Author [...] 35.2 (*) 26.0 - 34.0 pg Abs Mcpherson 1.13 (*) <0.87 k/uL All other components [...] saline Irrigation (more content not included)... Normal [facility] ALLIED HEALTHon 08-09-2024 ALLIED HEALTH HNO ID: [id number] Author: EFFIE PINTO RT(R) Service: ? Author [...] PATIENT PRESENTS WITH AN IMPLANTABLE OR ATTACHED NEWSPAPER CLIPPER: No RADIOLOGY DEPARTMENT: General X-ray: Exam(s) Completed: Lower Extremity X-Ray(s): Tibia Fibula, Right PERIPHERAL IV DATA: Not applicable SIGNED BY: Effie Pinto, RT(R) August 09, 2024 6:13 PM Normal [facility] CBC W Auto Differential pane l (Bld)on 08-09-2024 Basophils (Bld) [#/Vol] 0.03 10*3/uL Normal <0.11 [facility] Comment on above: Order Comment: Speci men Type: BLOOD SPECIMENOrdering Facility: [facility] [place] Address: [address] [place] [address] Performed By: #### 5 7021-8 ####[facility] [id number] [facility] [place] [address] [facility] [place] Basophils/100 WBC (Bld) 0.4 % Normal [facility] Comment on above: Order Comment: Speci men Type: BLOOD SPECIMENOrdering Facility: [facility] [place] Address: [address] [place] [address] Performed By: #### 5 7021-8 ####[facility] LABCLIA [id number] [place] [address] [place] Differential cell count method Nom (Bld) Auto Normal [facility] Comment on above: Order Comment: Speci men Type: BLOOD SPECIMENOrdering Facility: [facility] [place] Address: [address] [place] [address] Performed By: #### 5 7021-8 ####[facility] LABCLIA [id number] [facility] [place] [address] [place] Eosinophils (Bld) [#/Vol] 10*3/uL Normal <0.46 [facility] Comment on above: Order Comment: Speci men Type: BLOOD SPECIMENOrdering Facility: [facility] [place] Address: [address] [place] [address] Performed By: #### 5 7021-8 ####[facility] LABCLIA [id number] [facility] [place] [address] [place] Eosinophils/100 WBC (Bld) 0.1 % Normal [facility] Comment on above: Order Comment: Speci men Type: BLOOD SPECIMENOrdering Facility: [facility] [place] Address: [address] [place] [address] Performed By: #### 5 7021-8 ####[facility] LABCLIA [id number] [place] [address] [place] Erythrocyte distribution width (RBC) [Ratio] 12.5 % Normal 11.5-15.0 [facility] Comment on above: Order Comment: Speci men Type: BLOOD SPECIMENOrdering Facility: [facility] [place] Address: [address] [place] [address] Performed By: #### 5 7021-8 ####[facility] [id number] [place] [address] [place] Hematocrit (Bld) [Volume fraction] 40.2 % Normal 36.0-46.0 [facility] Comment on above: Order Comment: Speci men Type: BLOOD SPECIMENOrdering Facility: [facility] [place] Address: [address] [place] [address] Performed By: #### 5 7021-8 ####[facility] LAB[facility] [id number] [place] [address] [place] Hemoglobin (Bld) [Mass/Vol] 13.7 g/dL Normal 11.5-15.5 [facility] Comment on above: Order Comment: Speci men Type: BLOOD SPECIMENOrdering Facility: [facility] [place] Address: [address] [place] [address] Performed By: #### 5 7021-8 ####[facility] LABCLIA [id number] [place] [address] [place] Immature granulocytes (Bld) [#/Vol] 10*3/uL Normal <0.10 [facility] Comment on above: Order Comment: Speci men Type: BLOOD SPECIMENOrdering Facility: [facility] [place] Address: [address] [place] [address] Performed By: #### 5 7021-8 ####[facility] LABCLIA [id number] [place] [address] [place] Immature granulocytes/100 WBC (Bld) 0.1 % Normal [facility] Comment on above: Order Comment: Speci men Type: BLOOD SPECIMENOrdering Facility: [facility] [place] Address: [address] [place] [address] Performed By: #### 5 7021-8 ####[facility] LABCLIA [id number] [place] [address] [place] Lymphocytes (Bld) [#/Vol] 3.25 10*3/uL Normal 1.00-4.00 [facility] Comment on above: Order Comment: Speci men Type: BLOOD SPECIMENOrdering Facility: [facility] [place] Address: [address] [place] [address] Performed By: #### 5 7021-8 ####[facility] LABCLIA [id number] [address] Lymphocytes/100 WBC (Bld) 47.6 % Normal [facility] Comment on above: Order Comment: Speci men Type: BLOOD SPECIMENOrdering Facility: [facility] [place] Address: [address] [place] [address] Performed By: #### 5 7021-8 ####[facility] LABCLIA [id number] [place] [address] [place] MCH (RBC) [Entitic mass] 35.2 pg High 26.0-34.0 [facility] Comment on above: Order Comment: Speci men Type: BLOOD SPECIMENOrdering Facility: [facility] [place] Address: [address] [place] [address] Performed By: #### 5 7021-8 ####[facility] LABCLIA [id number] [place] [address] [facility] MCHC (RBC) [Mass/Vol] 34.1 g/dL Normal 30.5-36.0 [facility] Comment on above: Order Comment: Speci men Type: BLOOD SPECIMENOrdering Facility: [facility] [place] Address: [address] [place] [address] Performed By: #### 5 7021-8 ####[facility]CLIA [id number] [facility] [place] [address] [place] MCV (RBC) [Entitic vol] 103.3 fL High 80.0-100.0 [facility] Comment on above: Order Comment: Speci men Type: BLOOD SPECIMENOrdering Facility: [facility] [place] Address: [address] [place] [address] Performed By: #### 5 7021-8 ####[facility]CLIA [id number] [facility] [place] [address] [place] Monocytes (Bld) [#/Vol] 1.13 10*3/uL High <0.87 [facility] Comment on above: Order Comment: Speci men Type: BLOOD SPECIMENOrdering Facility: [facility] [place] Address: [address] [place] [address] Performed By: #### 5 7021-8 ####[facility] LABCLIA [id number] [place] [address] [place] Monocytes/100 WBC (Bld) 16.5 % Normal [facility] Comment on above: Order Comment: Speci men Type: BLOOD SPECIMENOrdering Facility: [facility] [place] Address: [address] [place] [address] Performed By: #### 5 7021-8 ####[facility]CLIA [id number] [place] [address] [place] Neutrophils (Bld) [#/Vol] 2.40 10*3/uL Normal 1.45-7.50 [facility] Comment on above: Order Comment: Speci men Type: BLOOD SPECIMENOrdering Facility: [facility] [place] Address: [address] [place] [address] Performed By: #### 5 7021-8 ####[facility]CLIA [id number] [facility] [place] [address] [place] Neutrophils/100 WBC (Bld) 35.3 % Normal [facility] Comment on above: Order Comment: Speci men Type: BLOOD SPECIMENOrdering Facility: [facility] [place] Address: [facility] [place] [address] Performed By: #### 5 7021-8 ####[facility] LABCLIA [id number] [place] [address] [place] Nucleated RBC (Bld) [#/Vol] Normal [facility] Comment on above: Order Comment: Speci men Type: BLOOD SPECIMENOrdering Facility: [facility] [place] Address: [address] [place] [address] Performed By: #### 5 7021-8 ####[facility] LABCLIA [id number] [place] [address] [place] Nucleated RBC/100 WBC (Bld) [Ratio] Normal [facility] Comment on above: Order Comment: Speci men Type: BLOOD SPECIMENOrdering Facility: [facility] [place] Address: [address] [place] [address] Performed By: #### 5 7021-8 ####[facility] LABCLIA [id number] [facility] [place] [address] [place] Platelet mean volume (Bld) [Entitic vol] 11.1 fL Normal 9.0-12.7 [facility] Comment on above: Order Comment: Speci men Type: BLOOD SPECIMENOrdering Facility: [facility] [place] Address: [address] [place] [address] Performed By: #### 5 7021-8 ####[facility] LABCLIA [id number] [place] [address] [place] Platelets (Bld) [#/Vol] 182 10*3/uL Normal 150-400 [facility] Comment on above: Order Comment: Speci men Type: BLOOD SPECIMENOrdering Facility: [facility] [place] Address: [address] [place] [address] Performed By: #### 5 7021-8 ####[facility] LABCLIA [id number] [place] [address] [facility] RBC (Bld) [#/Vol] 3.89 10*6/uL Low 3.90-5.20 [facility] Comment on above: Order Comment: Speci men Type: BLOOD SPECIMENOrdering Facility: [facility] [place] Address: [address] [place] [address] Performed By: #### 5 7021-8 ####[facility] LABCLIA [id number] [place] [address] [facility] WBC (Bld) [#/Vol] 6.83 10*3/uL Normal 3.70-11.00 [facility] Comment on above: Order Comment: Speci men Type: BLOOD SPECIMENOrdering Facility: [facility] [place] Address: [address] [place] [address] Performed By: #### 5 7021-8 ####[facility] LABCLIA [id number] [place] [address] [facility] CK SerPl-cCncon 08-09-2024 CK [Catalytic activity/Vol] 97 U/L Normal 42-196 [facility] Comment on above: Order Comment: Speci men Type: BLOOD SPECIMEN Ordering Facility: [facility] [place] Address: [address] [place] [address] Performed By: #### 2 4323-8, 2157-03 #### [facility] CLIA [id number] [address] [place] [address] [facility] Comprehensive metabolic 2000 panelon 08-09-2024 Albumin [Mass/Vol] 3.7 g/dL Low 3.9-4.9 [facility] Comment on above: Order Comment: Speci men Type: BLOOD SPECIMEN Ordering Facility: [facility] [place] Address: [address] [place] [address] Performed By: #### 2 4323-8, 2157-03 #### [facility] CLIA [id number] [address] [place] [address] [facility] ALP [Catalytic activity/Vol] 45 U/L Normal 34-123 [facility] Comment on above: Order Comment: Speci men Type: BLOOD SPECIMEN Ordering Facility: [facility] [place] Address: [address] [id number] Performed By: #### 2 4323-8, 2157-03 #### [facility] CLIA [id number] [address] [facility] [address] [place] ALT With P-5'-P [Catalytic activity/Vol] 14 U/L Normal 7-38 [facility] Comment on above: Order Comment: Speci men Type: BLOOD SPECIMEN Ordering Facility: [facility] [place] Address: [address] [place], [place] [address] Performed By: #### 2 4323-8, 2157-03 #### [facility] CLIA [id number] [address] [place] [address] [place] Anion gap [Moles/Vol] 10 mmol/L Normal 8-15 [facility] Comment on above: Order Comment: Speci men Type: BLOOD SPECIMEN Ordering Facility: [facility] [place] Address: [address] [place], [place] [address] Performed By: #### 2 4323-8, 2157-03 #### [facility] CLIA [id number] [address] [place] [address] [place] AST With P-5'-P [Catalytic activity/Vol] 17 U/L Normal 13-35 [facility] Comment on above: Order Comment: Speci men Type: BLOOD SPECIMEN Ordering Facility: [facility] [place] Address: [address] [place] [address] Performed By: #### 2 4323-8, 2157-03 #### [facility] CLIA [id number] [address] [place] [address] [place] Bilirubin [Mass/Vol] 0.4 mg/dL Normal 0.2-1.3 [facility] Comment on above: Order Comment: Speci men Type: BLOOD SPECIMEN Ordering Facility: [facility] [place] Address: [address] [place], [place] [address] Performed By: #### 2 4323-8, 2157-03 #### [facility] CLIA [id number] [address] [facility] [address] [place] Calcium [Mass/Vol] 8.9 mg/dL Normal 8.5-10.2 [facility] Comment on above: Order Comment: Speci men Type: BLOOD SPECIMEN Ordering Facility: [facility] [place] Address: [address] [place] [address] Performed By: #### 2 4323-8, 2157-03 #### [facility] CLIA [id number] [address] [place] [address] [place] Chloride [Moles/Vol] 99 mmol/L Normal 98-107 [facility] Comment on above: Order Comment: Speci men Type: BLOOD SPECIMEN Ordering Facility: [facility] [place] Address: [address] [place] [address] Performed By: #### 2 4323-8, 2157-03 #### [facility] CLIA [id number] [address] [place] [address] [place] CO2 [Moles/Vol] 25 mmol/L Normal 22-30 [facility] Comment on above: Order Comment: Speci men Type: BLOOD SPECIMEN Ordering Facility: [facility] [place] Address: [address] [place], [place] [address] Performed By: #### 2 4323-8, 2157-03 #### [facility] CLIA [id number] [address] [place] [address] [place] Creatinine [Mass/Vol] 0.56 mg/dL Low 0.58-0.96 [facility] Comment on above: Order Comment: Speci men Type: BLOOD SPECIMEN Ordering Facility: [facility] [place] Address: [address] [place], [place] [address] Performed By: #### 2 4323-8, 2157-03 #### [facility] CLIA [id number] [address] [place] [address] [place] Creatinine and Glomerular filtration rate.predicted panel (S/P/Bld) 102 mL/min/1.73m??? Normal >=60 [facility] Comment on above: Order Comment: Juan Ramon ibarra Type: BLOOD SPECIMEN Ordering Facility: [facility] [place] Address: [address] [place] [address] Result Comment: Farheen mated Glomerular Filtration Rate [...] Performed By: #### 2 4323-8, 2157-03 #### [facility] CLIA [id number] [address] [place] [address] [place] Glucose [Mass/Vol] 82 mg/dL Normal 74-99 [facility] Comment on above: Order Comment: Juan Ramon ibarra Type: BLOOD SPECIMEN Ordering Facility: [facility] [place] Address: [address] [place] [address] Result Comment: The [place] [employer] (ADA) provides guidance for cutoff [...] Standards of Medical Care in Diabetes 2016, [place] [employer]. Diabetes Care. 2016.39(Suppl 1). Performed By: #### 2 4323-8, 2157-03 #### [facility] CLIA [id number] [address] [place] [address] [place] Potassium [Moles/Vol] 4.3 mmol/L Normal 3.7-5.1 [facility] Comment on above: Order Comment: Juan Ramon ibarra Type: BLOOD SPECIMEN Ordering Facility: [facility] [place] Address: [address] [place] [address] Performed By: #### 2 4323-8, 2157-03 #### [facility] CLIA [id number] [address] [place] [address] [facility] Protein [Mass/Vol] 6.1 g/dL Low 6.3-8.0 [facility] Comment on above: Order Comment: Speci men Type: BLOOD SPECIMEN Ordering Facility: [facility] [place] Address: [address] [place], [place] [address] Performed By: #### 2 4323-8, 2157-03 #### [facility] CLIA [id number] [address] [place] [address] [place] Sodium [Moles/Vol] 134 mmol/L Low 136-144 [facility] Comment on above: Order Comment: Speci men Type: BLOOD SPECIMEN Ordering Facility: [facility] [place] Address: [address] [place], [place] [address] Performed By: #### 2 4323-8, 2157-03 #### [facility] CLIA [id number] [address] [place] [address] [place] Urea nitrogen [Mass/Vol] 11 mg/dL Normal 7-21 [facility] Comment on above: Order Comment: Speci men Type: BLOOD SPECIMEN Ordering Facility: [facility] [place] Address: [address] [place] [address] Performed By: #### 2 4323-8, 2157-03 #### [facility] CLIA [id number] [address] [place] [address] [place] ED NOTEon 08-09-2024 ED NOTE HNO ID: [id number] Author: HILARY DE LA GARZA RN Service: Emergency Medicine Author Type: Registered Nurse Type: ED Notes Filed: 08/10/2024 00:54 Note Text: Patient up to br and returned to bed with assist of wheelchair. Call light in reach. Normal [facility] ED NOTE HNO ID: [id number] Author: CANDY LOVE, KOTA Service: ? Author Type: Registered Nurse Type: ED Notes Filed: 08/09/2024 19:10 Note Text: Report to boone de la garza rn Normal [facility] ED NOTE HNO ID: [id number] Author: HILARY DE LA GARZA RN Service: Emergency Medicine Author Type: Registered Nurse Type: ED Notes Filed: 08/10/2024 00:53 Note Text: Assumed care of patient. Patient awake in bed. Call light in reach. Normal [facility] ED NOTE HNO ID: [id number] Author: CANDY LOVE RN Service: ? Author Type: Registered Nurse Type: ED Notes Filed: 08/09/2024 18:15 Note Text: Xray completed at bedside Normal [facility] ED NOTE HNO ID: [id number] Author: CANDY LOVE RN Service: ? Author Type: Registered Nurse Type: ED Notes Filed: 08/09/2024 17:48 Note Text: Dr jones at bedside for exam Normal [facility] ED NOTE HNO ID: [id number] Author: CANDY LOVE RN Service: ? Author [...] able to walk after the injury. Normal [facility] XR TIBIA FIBULA 2V AP/LAT RT on [...] abnormality. No soft tissue radiopaque foreign body. Senior Engineering Specialist: PSCB Transcribe Date/Time: Aug 09 2024 7:08P Dictated by : JOAN FIELDS MD This examination was interpreted and the report reviewed and electronically signed by: JOAN FIELDS MD on Aug 09 2024 7:09PM EST [id number] Normal [facility] 25(OH)D3 [facility] 2023 25-hydroxyvitamin D3 [Mass/Vol] 27.0 ng/mL Low 31.0-80.0 [facility] Comment on above: Order Comment: Juan Ramon ibarra Type: BLOOD SPECIMEN Ordering Facility: External Submitter Address: , , Result Comment: Clas sification of 25 [place] Vitamin D status: Deficiency/Insufficiency: < or = 30 ng/ml. Sufficiency/Optimal Levels: 31-80 ng/mL Toxicity: > 100 ng/mL. Test performed by chemiluminescent immunoassay. Performed By: #### 1 989-3 #### [facility] CLIA [id number] [address] [place] [address] [place] CBC W Auto Differential pane l (Bld)on 03-28-2024 Basophils (Bld) [#/Vol] 0.04 10*3/uL Normal <0.11 [facility] Comment on above: Order Comment: Juan Ramon ibarra Type: BLOOD SPECIMEN Ordering Facility: External Submitter Address: , , Performed By: #### 5 7021-8 #### [facility] CLIA [id number] [address] [place] [address] [place] Basophils/100 WBC (Bld) 0.5 % Normal [facility] Comment on above: Order Comment: Juan Ramon ibarra Type: BLOOD SPECIMEN Ordering Facility: External Submitter Address: , , Performed By: #### 5 7021-8 #### [facility] CLIA [id number] [address] [place] [address] [place] Differential cell count method Nom (Bld) Auto Normal [facility] Comment on above: Order Comment: Speci men Type: BLOOD SPECIMEN Ordering Facility: External Submitter Address: , , Performed By: #### 5 7021-8 #### [facility] CLIA [id number] [address] [place] [address] [place] Eosinophils (Bld) [#/Vol] 10*3/uL Normal <0.46 [facility] Comment on above: Order Comment: Speci men Type: BLOOD SPECIMEN Ordering Facility: External Submitter Address: , , Performed By: #### 5 7021-8 #### [facility] CLIA [id number] [address] [place] [address] [place] Eosinophils/100 WBC (Bld) 0.2 % Normal [facility] Comment on above: Order Comment: Speci men Type: BLOOD SPECIMEN Ordering Facility: External Submitter Address: , , Performed By: #### 5 7021-8 #### [facility] CLIA [id number] [address] [place] [address] [place] Erythrocyte distribution width (RBC) [Ratio] 12.6 % Normal 11.5-15.0 [facility] Comment on above: Order Comment: Speci men Type: BLOOD SPECIMEN Ordering Facility: External Submitter Address: , , Performed By: #### 5 7021-8 #### [facility] CLIA [id number] [address] [place] [address] [place] Hematocrit (Bld) [Volume fraction] 43.2 % Normal 36.0-46.0 [facility] Comment on above: Order Comment: Speci men Type: BLOOD SPECIMEN Ordering Facility: External Submitter Address: , , Performed By: #### 5 7021-8 #### [facility] CLIA [id number] [address] [place] [address] [place] Hemoglobin (Bld) [Mass/Vol] 15.1 g/dL Normal 11.5-15.5 [facility] Comment on above: Order Comment: Speci men Type: BLOOD SPECIMEN Ordering Facility: External Submitter Address: , , Performed By: #### 5 7021-8 #### [facility] CLIA [id number] [address] [place] [address] [place] Immature granulocytes (Bld) [#/Vol] 0.04 10*3/uL Normal <0.10 [facility] Comment on above: Order Comment: Speci men Type: BLOOD SPECIMEN Ordering Facility: External Submitter Address: , , Performed By: #### 5 7021-8 #### [facility] CLIA [id number] [address] [place] [address] [place] Immature granulocytes/100 WBC (Bld) 0.5 % Normal [facility] Comment on above: Order Comment: Speci men Type: BLOOD SPECIMEN Ordering Facility: External Submitter Address: , , Performed By: #### 5 7021-8 #### [facility] CLIA [id number] [address] [place] [address] [place] Lymphocytes (Bld) [#/Vol] 3.93 10*3/uL Normal 1.00-4.00 [facility] Comment on above: Order Comment: Speci men Type: BLOOD SPECIMEN Ordering Facility: External Submitter Address: , , Performed By: #### 5 7021-8 #### [facility] CLIA [id number] [address] [place] [address] [place] Lymphocytes/100 WBC (Bld) 45.2 % Normal [facility] Comment on above: Order Comment: Speci men Type: BLOOD SPECIMEN Ordering Facility: External Submitter Address: , , Performed By: #### 5 7021-8 #### [facility] CLIA [id number] [address] [place] [address] [place] MCH (RBC) [Entitic mass] 34.9 pg High 26.0-34.0 [facility] Comment on above: Order Comment: Speci men Type: BLOOD SPECIMEN Ordering Facility: External Submitter Address: , , Performed By: #### 5 7021-8 #### [facility] CLIA [id number] [address] [place] [address] [place] MCHC (RBC) [Mass/Vol] 35.0 g/dL Normal 30.5-36.0 [facility] Comment on above: Order Comment: Speci men Type: BLOOD SPECIMEN Ordering Facility: External Submitter Address: , , Performed By: #### 5 7021-8 #### [facility] CLIA [id number] [address] [place] [address] [place] MCV (RBC) [Entitic vol] 99.8 fL Normal 80.0-100.0 [facility] Comment on above: Order Comment: Speci men Type: BLOOD SPECIMEN Ordering Facility: External Submitter Address: , , Performed By: #### 5 7021-8 #### [facility] CLIA [id number] [address] [place] [address] [place] Monocytes (Bld) [#/Vol] 0.95 10*3/uL High <0.87 [facility] Comment on above: Order Comment: Speci men Type: BLOOD SPECIMEN Ordering Facility: External Submitter Address: , , Performed By: #### 5 7021-8 #### [facility] CLIA [id number] [address] [place] [address] [place] Monocytes/100 WBC (Bld) 10.9 % Normal [facility] Comment on above: Order Comment: Speci men Type: BLOOD SPECIMEN Ordering Facility: External Submitter Address: , , Performed By: #### 5 7021-8 #### [facility] CLIA [id number] [address] [place] [address] [place] Neutrophils (Bld) [#/Vol] 3.72 10*3/uL Normal 1.45-7.50 [facility] Comment on above: Order Comment: Speci men Type: BLOOD SPECIMEN Ordering Facility: External Submitter Address: , , Performed By: #### 5 7021-8 #### [facility] CLIA [id number] [address] [place] [address] [place] Neutrophils/100 WBC (Bld) 42.7 % Normal [facility] Comment on above: Order Comment: Speci men Type: BLOOD SPECIMEN Ordering Facility: External Submitter Address: , , Performed By: #### 5 7021-8 #### [facility] CLIA [id number] [address] [place] [address] [place] Nucleated RBC (Bld) [#/Vol] 10*3/uL Normal <0.01 [facility] Comment on above: Order Comment: Speci men Type: BLOOD SPECIMEN Ordering Facility: External Submitter Address: , , Performed By: #### 5 7021-8 #### [facility] CLIA [id number] [address] [place] [address] [place] Nucleated RBC/100 WBC (Bld) [Ratio] 0.0 /100 WBC Normal [facility] Comment on above: Order Comment: Speci men Type: BLOOD SPECIMEN Ordering Facility: External Submitter Address: , , Performed By: #### 5 7021-8 #### [facility] CLIA [id number] [address] [place] [address] [place] Platelet mean volume (Bld) [Entitic vol] 9.7 fL Normal 9.0-12.7 [facility] Comment on above: Order Comment: Speci men Type: BLOOD SPECIMEN Ordering Facility: External Submitter Address: , , Performed By: #### 5 7021-8 #### [facility] CLIA [id number] [address] [place] [address] [place] Platelets (Bld) [#/Vol] 242 10*3/uL Normal 150-400 [facility] Comment on above: Order Comment: Speci men Type: BLOOD SPECIMEN Ordering Facility: External Submitter Address: , , Performed By: #### 5 7021-8 #### [facility] CL[facility] [id number] [address] [place] [address] [place] RBC (Bld) [#/Vol] 4.33 10*6/uL Normal 3.90-5.20 [facility] Comment on above: Order Comment: Speci men Type: BLOOD SPECIMEN Ordering Facility: External Submitter Address: , , Performed By: #### 5 7021-8 #### [facility] CLIA [id number] [address] [place] [address] [place] WBC (Bld) [#/Vol] 8.70 10*3/uL Normal 3.70-11.00 [facility] Comment on above: Order Comment: Speci men Type: BLOOD SPECIMEN Ordering Facility: External Submitter Address: , , Performed By: #### 5 7021-8 #### [facility] CLIA [id number] [address] [place] [address] [place] Comprehensive metabolic 2000 panelon 03-28-2024 Albumin [Mass/Vol] 4.2 g/dL Normal 3.9-4.9 [place] Comment on above: Order Comment: Speci men Type: BLOOD SPECIMEN Ordering Facility: External Submitter Address: , , Performed By: #### 2 4323-8 #### [facility] CLIA [id number] [address] [place] [address] [place] ALP [Catalytic activity/Vol] 53 U/L Normal 34-123 [facility] Comment on above: Order Comment: Speci men Type: BLOOD SPECIMEN Ordering Facility: External Submitter Address: , , Performed By: #### 2 4323-8 #### [facility] CLIA [id number] [address] [place] [address] [place] ALT [Catalytic activity/Vol] 19 U/L Normal 7-38 [facility] Comment on above: Order Comment: Speci men Type: BLOOD SPECIMEN Ordering Facility: External Submitter Address: , , Performed By: #### 2 4323-8 #### [facility] CLIA [id number] [address] [place] [address] [place] Anion gap [Moles/Vol] 8 mmol/L Normal 8-15 [facility] Comment on above: Order Comment: Speci men Type: BLOOD SPECIMEN Ordering Facility: External Submitter Address: , , Performed By: #### 2 4323-8 #### [facility] CLIA [id number] [address] [place] [address] [place] AST [Catalytic activity/Vol] 22 U/L Normal 13-35 [facility] Comment on above: Order Comment: Speci men Type: BLOOD SPECIMEN Ordering Facility: External Submitter Address: , , Performed By: #### 2 4323-8 #### [facility] CLIA [id number] [address] [place] [address] [place] Bilirubin [Mass/Vol] 0.4 mg/dL Normal 0.2-1.3 [facility] Comment on above: Order Comment: Speci men Type: BLOOD SPECIMEN Ordering Facility: External Submitter Address: , , Performed By: #### 2 4323-8 #### [facility] CLIA [id number] [address] [place] [address] [place] Calcium [Mass/Vol] 9.7 mg/dL Normal 8.5-10.2 [place] Comment on above: Order Comment: Speci men Type: BLOOD SPECIMEN Ordering Facility: External Submitter Address: , , Performed By: #### 2 4323-8 #### [facility] CLIA [id number] [address] [place] [address] [place] Chloride [Moles/Vol] 97 mmol/L Low 98-107 [facility] Comment on above: Order Comment: Speci fred Type: BLOOD SPECIMEN Ordering Facility: External Submitter Address: , , Performed By: #### 2 4323-8 #### [facility] CLIA [id number] [address] [place] [address] [place] CO2 [Moles/Vol] 26 mmol/L Normal 22-30 [facility] Comment on above: Order Comment: Speci men Type: BLOOD SPECIMEN Ordering Facility: External Submitter Address: , , Performed By: #### 2 4323-8 #### [facility] [id number] [address] [place] [address] [place] Creatinine [Mass/Vol] 0.62 mg/dL Normal 0.58-0.96 [facility] Comment on above: Order Comment: Speci fred Type: BLOOD SPECIMEN Ordering Facility: External Submitter Address: , , Performed By: #### 2 4323-8 #### [facility] CLIA [id number] [address] [place] [address] [place] Creatinine and Glomerular filtration rate.predicted panel (S/P/Bld) 100 mL/min/1.73m??? Normal >=60 [facility] Comment on above: Order Comment: Specally ibarra [...] GFR. Performed By: #### 2 4323-8 #### [facility] CLIA [id number] [address] [place] [address] [place] Glucose [Mass/Vol] 82 mg/dL Normal 74-99 [place] Comment on above: Order Comment: Juan Ramon ibarra Type: BLOOD SPECIMEN Ordering Facility: External Submitter Address: , , Result Comment: The [place] Diabetes Association (ADA) provides guidance for cutoff [...] Standards of Medical Care in Diabetes 2016, [place] [employer]. Diabetes Care. 2016.39(Suppl 1). Performed By: #### 2 4323-8 #### [facility] [id number] [address] [place] [address] [place] Potassium [Moles/Vol] 4.5 mmol/L Normal 3.7-5.1 [facility] Comment on above: Order Comment: Juan Ramon ibarra Type: BLOOD SPECIMEN Ordering Facility: External Submitter Address: , , Performed By: #### 2 4323-8 #### [facility] [id number] [address] [place] [address] [place] Protein [Mass/Vol] 6.3 g/dL Normal 6.3-8.0 [place] Comment on above: Order Comment: Juan Ramon ibarra Type: BLOOD SPECIMEN Ordering Facility: External Submitter Address: , , Performed By: #### 2 4323-8 #### [facility] [id number] [address] [place] [address] [place] Sodium [Moles/Vol] 131 mmol/L Low 136-144 [place] Comment on above: Order Comment: Juan Ramon ibarra Type: BLOOD SPECIMEN Ordering Facility: External Submitter Address: , , Performed By: #### 2 4323-8 #### [facility] CLIA [id number] [address] [place] [address] [place] Urea nitrogen [Mass/Vol] 11 mg/dL Normal 7-21 [facility] Comment on above: Order Comment: Speci men Type: BLOOD SPECIMEN Ordering Facility: External Submitter Address: , , Performed By: #### 2 4323-8 #### [facility] CLIA [id number] [address] [place] [address] [place] Lipid 1996 panelon 4 Cholesterol [Mass/Vol] 209 mg/dL High <200 [facility] Comment on above: Order Comment: Speci men Type: BLOOD SPECIMEN Ordering Facility: External Submitter Address: , , Result Comment: <200 mg/dL, Desirable 200-239 mg/dL, Borderline high >239 mg/dL, High Performed By: #### 2 4331-1 #### [facility] CLIA [id number] [address] [place] [address] [place] [facility] CLIA [id number] [address] [place] [address] [place] #### 3016-3 #### [facility] CLIA [id number] [address] [place] [address] [place] Cholesterol in HDL [Mass/Vol] 100 mg/dL Normal >39 [facility] Comment on above: Order Comment: Speci men Type: BLOOD SPECIMEN Ordering Facility: External Submitter Address: , , Result Comment: 40-5 9 mg/dL, Acceptable >59 mg/dL, High: Negative risk factor for coronary heart disease <40 mg/dL, Low: Positive risk factor for coronary heart disease Performed By: #### 2 4331-1 #### [facility] CLIA [id number] [address] [place] [address] [place] [facility] CLIA [id number] [address] [place] #### 3016-3 #### [facility] CLIA [id number] [address] [place] Cholesterol in LDL [Mass/Vol] 98 mg/dL Normal <100 [facility] Comment on above: Order Comment: Speci men Type: BLOOD SPECIMEN Ordering Facility: External Submitter Address: , , Result Comment: <100 mg/dL, Optimal 100-129 mg/dL, Near optimal/above optimal 130-159 mg/dL, Borderline high 160-189 mg/dL, High >189 mg/dL, Very high Secondary prevention optimal LDL Cholesterol levels are recommended to be < 70 mg/dL Performed By: #### 2 4331-1 #### [facility] CLIA [id number] [address] [id number] [address] [place] [address] [place] #### 3016-3 #### [facility] CLIA [id number] [address] [place] [address] [place] Cholesterol in LDL/Cholesterol in HDL [Mass ratio] 0.98 {ratio} Normal <2.54 [facility] Comment on above: Order Comment: Speci men Type: BLOOD SPECIMEN Ordering Facility: External Submitter Address: , , Result Comment: Shane lewis: 1. National Cholesterol Education Program ATP III Guideline At-A-Glance Quick Desk Reference: National Heart, Lung, and Blood [place]. National Institutes of Health. 2001: NIH Publication No. 01-3305. 2. An International Atherosclerosis Society position paper: global recommendations for the management of dyslipidemia: executive summary, Atherosclerosis. 2014: 232(2):410-413. Performed By: #### 2 4331-1 #### [facility] CLIA [id number] [address] STATES [facility] [id number] [address] [place] [address] [place] #### 3016-3 #### [facility] CLIA [id number] [address] [place] [id number] [place] Cholesterol in VLDL [Mass/Vol] 11 mg/dL Normal <30 [facility] Comment on above: Order Comment: Speci men Type: BLOOD SPECIMEN Ordering Facility: External Submitter Address: , , Performed By: #### 2 4331-1 #### [facility] CLIA [id number] [address] [place] [id number] [place] [facility] CLIA [id number] [address] [place] [address] [place] #### 3016-3 #### [facility] CLIA [id number] [address] [place] [address] [place] Cholesterol non HDL [Mass/Vol] 109 mg/dL Normal <130 [facility] Comment on above: Order Comment: Dongi men Type: BLOOD SPECIMEN Ordering Facility: External Submitter Address: , , Result Comment: <130 mg/dL, Optimal 130-159 mg/dL, Near optimal/above optimal 160-189 mg/dL, Borderline high 190-219 mg/dL, High >219 mg/dL, Very high Secondary prevention optimal non HDL Cholesterol levels are recommended to be <100 mg/dL Performed By: #### 2 4331-1 #### [facility] CLIA [id number] [address] [place] [id number] [place] [facility] CLIA [id number] [address] [place] [address] [place] #### 3016-3 #### [facility] CLIA [id number] [address] [address] [place] Cholesterol.total/Choles terol in HDL [Mass ratio] 2.09 {ratio} Normal <5.10 [facility] Comment on above: Order Comment: Speci men Type: BLOOD SPECIMEN Ordering Facility: External Submitter Address: , , Performed By: #### 2 4331-1 #### [facility] CLIA [id number] [address] [place] [address] [place] [facility] CLIA [id number] [address] [place] [address] [place] #### 3016-3 #### [facility] CLIA [id number] [address] [place] [address] [place] FASTING TIME 12 hrs Normal [facility] Comment on above: Order Comment: Speci men Type: BLOOD SPECIMEN Ordering Facility: External Submitter Address: , , Performed By: #### 2 4331-1 #### [facility] CLIA [id number] [facility] [place] [address] [place] [facility] CLIA [id number] [address] [place] [address] [place] #### 3016-3 #### [facility] CLIA [id number] [address] [place] [address] [place] Triglyceride [Mass/Vol] 53 mg/dL Normal <150 [facility] Comment on above: Order Comment: Speci men Type: BLOOD SPECIMEN Ordering Facility: External Submitter Address: , , Result Comment: <150 mg/dL, Normal 150-199 mg/dL, Borderline high 200-499 mg/dL, High >499 mg/dL, Very high Performed By: #### 2 4331-1 #### [facility] CLIA [id number] [address] [place] [address] [place] [facility] CLIA [id number] [address] [place] [address] [place] #### 3016-3 #### [facility] CLIA [id number] [address] [place] TSH SerPl-aCncon 03-28-2024 TSH Qn 1.730 m[IU]/L Normal 0.270-4.200 [facility] Comment on above: Order Comment: Speci men Type: BLOOD SPECIMEN Ordering Facility: External Submitter Address: , , Performed By: #### 2 4331-1 #### [facility] CLIA [id number] [address] [place] [address] [place] [facility] CLIA [id number] [address] [place] #### 3016-3 #### [facility] CLIA [id number] [address] [place] [address] [place] Absolute lymphocyte countOrd ered By: Benton Gonzalez on 09-08-2023 Lymphocytes Auto (Unsp spec) [#/Vol] 3.26 10*3/uL 0.83-4.51 [facility] Basophil percentageOrdered B y: Benton Gonzalez on 09-08-2023 Basophils/100 WBC (Bld) 0.5 % 0-1 [facility] Bilirubin [Mass/Vol] 0.50 mg/dL 0.20-1.00 [facility] Comment on above: For patients on eltr ombopag therapy, use of Dimension [place] TBIL is not recommended. Chloride [Moles/Vol] 102 mmol/L 98-107 [facility] Cholesterol [Mass/Vol] 211 mg/dL <200 [facility] Comment on above: <200 mg/dL Desirable 200-240 mg/dL Borderline >240 mg/dL High Risk Eosinophils/100 WBC (Bld) 0.3 % 0-5 [facility] Glucose [Mass/Vol] 73 mg/dL 74-106 [facility] Neutrophils (Bld) [#/Vol] 3.3 10*3/uL 2.0-7.7 [facility] Neutrophils/100 WBC (Bld) 43.4 % 47-70 [facility] Potassium [Moles/Vol] 4.2 mmol/L 3.5-5.1 [facility] Protein [Mass/Vol] 6.9 g/dL 6.4-8.2 [facility] Sodium [Moles/Vol] 133 mmol/L 136-145 [facility] Triglyceride [Mass/Vol] 56 mg/dL <199 [facility] Comment on above: The drugs N-Acetylcy steine and Metamizole may falsely depress this assay.Serum Triglycerides Reference Interval Normal <150 mg/dL Borderline high 150 - 199 mg/dL High 200 - 499 mg/dL Very High > or = 500 mg/dL WBC (Bld) [#/Vol] 7.7 10*3/uL 4.4-11.0 [facility] Blood erythrocytes count (nu mber/volume)Ordered By: Benton Gonzalez on 09-08-2023 RBC (Bld) [#/Vol] 4.21 10*6/uL 4.2-5.4 [facility] Blood hemoglobin measurement (mass/volume)Ordered By: Benton Gonzalez on 09-08-2023 Hemoglobin (Bld) [Mass/Vol] 14.4 g/dL 12.0-15.0 [facility] Blood lymphocytes/100 leukoc ytesOrdered By: Benton Gonzalez on 09-08-2023 Lymphocytes/100 WBC (Bld) 42.3 % 19-41 [facility] Blood monocytes/100 leukocyt esOrdered By: Benton Gonzalez on 09-08-2023 Monocytes/100 WBC (Bld) 13.2 % 0-10 [facility] Blood platelet mean volumeOr dered By: Benton Gonzalez on 09-08-2023 Platelet mean volume (Bld) [Entitic vol] 10.9 fL 6.2-12.0 [facility] Determination of erythrocyte mean corpuscular volume (MCV)Ordered By: Benton Gonzalez on 09-08-2023 MCV (RBC) [Entitic vol] 101.9 fL 81-99 [facility] Hematocrit Auto (Bld) [Volum e fraction]Ordered By: Benton Gonzalez on 09-08-2023 Hematocrit (Bld) [Volume fraction] 42.9 % 37-47 [facility] - Chemistry and C hemistry - challengeOrdered By: Benton Gonzalez on 09-08-2023 ALP [Catalytic activity/Vol] 51 U/L 45-117 [facility] ALT [Catalytic activity/Vol] 25 U/L 13-56 [facility] CO2 [Moles/Vol] 27.0 mmol/L 21.0-32.0 [facility] Globulin (S) [Mass/Vol] 3.6 g/dL 2.2-4.2 [facility] Urea nitrogen/Creatinine [Mass ratio] 22.3 mg/mg 10-20 [facility] - Hematology and Cell countsOrdered By: Benton Gonzalez on 09-08-2023 Erythrocyte distribution width (RBC) [Entitic vol] 49.9 fL 35.1-43.9 [facility] Erythrocyte distribution width (RBC) [Ratio] 13.2 % 11.6-14.6 [facility] Immature granulocytes/100 WBC (Bld) 0.300 % 0.0-0.9 [facility] Comment on above: IG% - Immature Granu locytes (promyelocytes, myelocytes and metamyelocytes) > 1% indicates that a LEFT SHIFT is Present. MCH (RBC) [Entitic mass] 34.2 pg 27.0-32.0 [facility] Nucleated RBC/100 WBC (Bld) [Ratio] 0 % 0-5 [facility] MCHC Auto (RBC) [Mass/Vol]Or dered By: Benton Gonzalez on 09-08-2023 MCHC (RBC) [Mass/Vol] 33.6 g/dL 32-36 [facility] No Panel InformationOrdered By: Benton Gonzalez on 09-08-2023 Estimated GFR (MDRD) Amer 123 mL/min >60 [facility] Comment on above: GFR Calc Estimated GFR (MDRD) Non-Af Amer 102 mL/min >60 [facility] Comment on above: Non- GFR Calc Thyroid Stimulating Hormone (TSH) 1.40 uIU/mL 0.358-3.74 [facility] Platelets bldOrdered By: Benton Gonzalez on 09-08-2023 Platelets (Bld) [#/Vol] 168 10*3/uL 150-450 [facility] Serum or plasma albumin alex urement (mass/volume)Ordered By: Benton Gonzalez on 09-08-2023 Albumin [Mass/Vol] 3.3 g/dL 3.2-5.0 [facility] Serum or plasma albumin/glob ulin mass ratioOrdered By: Benton Gonzalez 09-08-2023 Albumin/Globulin [Mass ratio] 0.9 {ratio} 0.9-2.4 [facility] Serum or plasma calcium alex urement (mass/volume)Ordered By: Benton Gonzalez 09-08-2023 Calcium [Mass/Vol] 9.0 mg/dL 8.5-10.1 [facility] Serum or plasma cholesterol in HDL measurement (mass/volume)Ordered By: Benton Gonzalez 09-08-2023 Cholesterol in HDL [Mass/Vol] 101 mg/dL >40 [facility] Comment on above: The drugs N-Acetylcy steine and Metamizole may falsely depress this assay. Reference Range HDL <40 mg/dL Low HDL Cholesterol HDL >or= 60 mg/dL High HDL Cholesterol Serum or plasma cholesterol in VLDL measurement (mass/volume)Ordered By: Benton Gonzalez 09-08-2023 Cholesterol in VLDL [Mass/Vol] 11 mg/dL 5-40 [facility] Serum or plasma creatinine m easurement (mass/volume)Ordered By: Benton Gonzalez 09-08-2023 Creatinine [Mass/Vol] 0.63 mg/dL 0.55-1.02 [facility] Comment on above: The validity of the calculated GFR & GFRAA in patients over 70 years has not been determined. Clinical correlation is essential. Serum or plasma low density lipoprotein (LDL) cholesterol measurement (mass/volume)Ordered By: Benton Gonzalez 09-08-2023 Cholesterol in LDL [Mass/Vol] 99 mg/dL 0-130 [facility] Serum or plasma urea nitroge n measurement (mass/volume)Ordered By: Benton Gonzalez 09-08-2023 Urea nitrogen [Mass/Vol] 14 mg/dL 7-18 [facility] [facility] Th[facility] prep Papanicolaou smear with manual screeningOrdered By: Benton Gonzalez 09-08-2023 Thin prep Papanicolaou smear with manual screening 19 U/L 15-37 [facility] Thin prep Papanicolaou smear with manual screening 4 5-15 [facility] COVID-19 virus antigen assay Ordered By: Benton Duongok on 01-15-2023 SARS-CoV-2 (COVID-19) Ag IA.rapid Ql (Resp) Not detected Not Detect [facility] Comment on above: Normal Reference Ran ge: Not DetectedMethod:(RT-PCR) real-time reverse transcriptase PCRLuminex SYED Instrument*The Food and Drug Administration (FDA) has issued an Emergency Use Authorization (EAU) for the Pure Focus SARS-CoV-2 Assay for the rapid detection of [...] 01-15-2023 Influenza Types A,B Direct FA (KAUSHAL) [facility] RSV Ag Immune stain Ql (Tiss )Ordered By: Benton Gonzalez on 01-15-2023 Rapid RSV (DFA) RSV Antigen [facility] Absolute lymphocyte counton 09-04-2022 Lymphocytes Auto (Unsp spec) [#/Vol] 2.33 10*3/uL 0.83-4.51 [facility] Work Phone: Basophil percentageon 2021 Basophils/100 WBC (Bld) 0.5 % 0-1 [facility] Work Phone: Bilirubin [Mass/Vol] 0.20 mg/dL 0.20-1.00 [facility] Work Phone: Comment on above: For patients on eltr ombopag therapy, use of Dimension [place] TBIL is not recommended. Chloride [Moles/Vol] 100 mmol/L 98-107 [facility] Work Phone: Eosinophils/100 WBC (Bld) 0.7 % 0-5 [facility] Work Phone: Glucose [Mass/Vol] 98 mg/dL 74-106 [facility] Work Phone: Neutrophils (Bld) [#/Vol] 2.4 10*3/uL 2.0-7.7 [facility] Work Phone: Neutrophils/100 WBC (Bld) 41.2 % 47-70 [facility] Work Phone: Potassium [Moles/Vol] 3.4 mmol/L 3.5-5.1 [facility] Work [facility]: Protein [Mass/Vol] 6.6 g/dL 6.4-8.2 [facility] Work Phone: Sodium [Moles/Vol] 136 mmol/L 136-145 [facility] Work Phone: WBC (Bld) [#/Vol] 5.9 10*3/uL 4.4-11.0 [facility] Work Phone: Blood erythrocytes count (nu mber/volume)on 09-04-2022 RBC (Bld) [#/Vol] 3.94 10*6/uL 4.2-5.4 [facility]: Blood hemoglobin measurement (mass/volume)on 09-04-2022 Hemoglobin (Bld) [Mass/Vol] 14.0 g/dL 12.0-15.0 [facility] Work Phone: Blood lymphocytes/100 leukoc yteson 09-04-2022 Lymphocytes/100 WBC (Bld) 39.4 % 19-41 [facility] Work Phone: Blood monocytes/100 leukocyt eson 09-04-2022 Monocytes/100 WBC (Bld) 17.7 % 0-10 [facility] Work Phone: Blood platelet mean volumeon 09-04-2022 Platelet mean volume (Bld) [Entitic vol] 11.6 fL 6.2-12.0 [facility] Work Phone: Determination of erythrocyte mean corpuscular volume (MCV)on 09-04-2022 MCV (RBC) [Entitic vol] 103.3 fL 81-99 [facility] Work Phone: [phone] Hematocrit Auto (Bld) [Volum e fraction]on 09-04-2022 Hematocrit (Bld) [Volume fraction] 40.7 % 37-47 [facility] Work Phone: [phone] Laboratory - Chemistry and C hemistry - challengeon 09-04-2022 ALP [Catalytic activity/Vol] 71 U/L 45-117 [facility] Work Phone: [phone] ALT [Catalytic activity/Vol] 16 U/L 13-56 [facility] Work Phone: [phone] CO2 [Moles/Vol] 29.0 mmol/L 21.0-32.0 [facility] Work Phone: [phone] Globulin (S) [Mass/Vol] 3.4 g/dL 2.2-4.2 [facility] Work Phone: [phone] Urea nitrogen/Creatinine [Mass ratio] 37.7 mg/mg 10-20 [facility] Work Phone: [phone] Laboratory - Hematology and Cell countson 09-04-2022 Erythrocyte distribution width (RBC) [Entitic vol] 45.6 fL 35.1-43.9 [facility] Work Phone: [phone] Erythrocyte distribution width (RBC) [Ratio] 11.9 % 11.6-14.6 [facility] Work Phone: [phone] Immature granulocytes/100 WBC (Bld) 0.500 % 0.0-0.9 [facility] Work Phone: [phone] Comment on above: IG% - Immature Granu locytes (promyelocytes, myelocytes and metamyelocytes) > 1% indicates that a LEFT SHIFT is Present. MCH (RBC) [Entitic mass] 35.5 pg 27.0-32.0 [facility] Work Phone: Nucleated RBC/100 WBC (Bld) [Ratio] 0 % 0-5 [facility] Work Phone: [phone] MCHC Auto (RBC) [Mass/Vol]on 09-04-2022 MCHC (RBC) [Mass/Vol] 34.4 g/dL 32-36 [facility] Work Phone: [phone] Panel Informationon 09-04 Estimated GFR (MDRD) Amer 181 mL/min >60 [facility] Work Phone: [phone] Comment on above: GFR Calc Estimated GFR (MDRD) Non-Af Amer 150 mL/min >60 [facility] Work Phone: [phone] Comment on above: Non- GFR Calc Thyroid Stimulating Hormone (TSH) 2.00 uIU/mL 0.358-3.74 [facility] Work Phone: [phone] Vitamin D 25-Hydroxy 24.9 ng/mL [facility] Work Phone: [phone] Comment on above: Vitamin D 25(OH) Sta tus Range Deficiency <20 ng/mL (50nmol/L) Insufficiency 20 - 30 ng/mL (50 - 75 nmol/L) Sufficiency 30 - 100 ng/mL (75 - 250 nmol/L) Toxicity >100 ng/mL (>250 nmol/L) Platelets bldon 09-04-2022 Platelets (Bld) [#/Vol] 150 10*3/uL 150-450 [facility] Work Phone: [phone] Serum or plasma albumin alex urement (mass/volume)on 09-04-2022 Albumin [Mass/Vol] 3.2 g/dL 3.2-5.0 [facility] Work Phone: [phone] Serum or plasma albumin/glob ulin mass ratioon 09-04-2022 Albumin/Globulin [Mass ratio] 0.9 {ratio} 0.9-2.4 [facility] Work Phone: [phone] Serum or plasma calcium alex urement (mass/volume)on 09-04-2022 Calcium [Mass/Vol] 8.7 mg/dL 8.5-10.1 [facility] Work Phone: [phone] Serum or plasma creatinine m easurement (mass/volume)on 12-02-2022 Creatinine [Mass/Vol] 0.45 mg/dL 0.55-1.02 [facility] Work Phone: Comment on above: The validity of the calculated GFR & GFRAA in patients over 70 years has not been determined. Clinical correlation is essential. Serum or plasma urea nitroge n measurement (mass/volume)on 09-04-2022 Urea nitrogen [Mass/Vol] 17 mg/dL 7-18 [facility] Work Phone: Thin prep Papanicolaou smear with manual screeningon 09-04-2022 Thin prep Papanicolaou smear with manual screening 10 U/L 15-37 [facility] Work Phone: Thin prep Papanicolaou smear with manual screening 7 5-15 [facility] Work Phone: [phone] Whole blood hemoglobin A1c/t otal hemoglobin ratio (mass fraction)on 02-13-2022 HbA1c (Bld) [Mass fraction] 5.0 % 3.8-5.6 [facility] Work Phone: Comment on above: Normal < 5.7 % Predi abetic 5.7 - 6.4 % Diabetic >or= 6.5 % Please note range changes. Absolute lymphocyte counton 02-12-2022 Lymphocytes Auto (Unsp spec) [#/Vol] 3.03 10*3/uL 0.83-4.51 [facility] Work Phone: Basophil percentageon 2021 Basophils/100 WBC (Bld) 0.3 % 0-1 [facility] Work Phone: [phone] Bilirubin [Mass/Vol] 0.50 mg/dL 0.20-1.00 [facility] Work Phone: Comment on above: For patients on eltr ombopag therapy, use of Dimension [place] TBIL is not recommended. Chloride [Moles/Vol] 100 mmol/L 98-107 [facility] Work Phone: Eosinophils/100 WBC (Bld) 0.3 % 0-5 [facility] Work Phone: [phone] Glucose [Mass/Vol] 146 mg/dL 74-106 [facility] Work Phone: Comment on above: Fasting Glucose resu lt greater than or equal to 126 mg/dL suggests DIABETES MELLITUS per A.D.A. criteria. Neutrophils (Bld) [#/Vol] 2.1 10*3/uL 2.0-7.7 [facility] Work Phone: Neutrophils/100 WBC (Bld) 35.5 % 47-70 [facility] Work [phone] Potassium [Moles/Vol] 4.0 mmol/L 3.5-5.1 [facility] Work Phone: Protein [Mass/Vol] 6.6 g/dL 6.4-8.2 [facility] Work Phone: Sodium [Moles/Vol] 134 mmol/L 136-145 [facility] Work Phone: WBC (Bld) [#/Vol] 6.0 10*3/uL 4.4-11.0 [facility] Work Phone: Blood erythrocytes count (nu mber/volume)on 02-12-2022 RBC (Bld) [#/Vol] 3.99 10*6/uL 4.2-5.4 [facility] Work Phone: Blood hemoglobin measurement (mass/volume)on 02-12-2022 Hemoglobin (Bld) [Mass/Vol] 14.1 g/dL 12.0-15.0 [facility] Work Phone: Blood lymphocytes/100 leukoc yteson 02-12-2022 Lymphocytes/100 WBC (Bld) 50.8 % 19-41 [facility] Work Phone: Blood monocytes/100 leukocyt eson 02-12-2022 Monocytes/100 WBC (Bld) 12.6 % 0-10 [facility] Work Phone: Blood platelet mean volumeon 02-12-2022 Platelet mean volume (Bld) [Entitic vol] 11.6 fL 6.2-12.0 [facility] Work Phone: [phone] Determination of erythrocyte mean corpuscular volume (MCV)on 02-12-2022 MCV (RBC) [Entitic vol] 98.0 fL 81-99 [facility] Work Phone: [phone] Hematocrit Auto (Bld) [Volum e fraction]on 02-12-2022 Hematocrit (Bld) [Volume fraction] 39.1 % 37-47 [facility] Work Phone: [phone] Laboratory - Chemistry and C hemistry - challengeon 02-12-2022 ALP [Catalytic activity/Vol] 49 U/L 45-117 [facility] Work Phone: [phone] ALT [Catalytic activity/Vol] 19 U/L 13-56 [facility] Work Phone: [phone] CO2 [Moles/Vol] 25.0 mmol/L 21.0-32.0 [facility] Work Phone: [phone] Globulin (S) [Mass/Vol] 3.4 g/dL 2.2-4.2 [facility] Work Phone: [phone] Urea nitrogen/Creatinine [Mass ratio] 33.7 mg/mg 10-20 [facility] Work Phone: [phone] Laboratory - Hematology and Cell countson 02-12-2022 Erythrocyte distribution width (RBC) [Entitic vol] 42.7 fL 35.1-43.9 [facility] Work Phone: [phone] Erythrocyte distribution width (RBC) [Ratio] 11.8 % 11.6-14.6 [facility] Work Phone: [phone] Immature granulocytes/100 WBC (Bld) 0.500 % 0.0-0.9 [facility] Work Phone: [phone] Comment on above: IG% - Immature Granu locytes (promyelocytes, myelocytes and metamyelocytes) > 1% indicates that a LEFT SHIFT is Present. MCH (RBC) [Entitic mass] 35.3 pg 27.0-32.0 [facility] Work Phone: [phone] Nucleated RBC/100 WBC (Bld) [Ratio] 0 % 0-5 [facility] Work Phone: MCHC Auto (RBC) [Mass/Vol]on 02-12-2022 MCHC (RBC) [Mass/Vol] 36.1 g/dL 32-36 [facility] Work Phone: No Panel Informationon 02-12 Estimated GFR (MDRD) Amer 125 mL/min >60 [facility] Work Phone: Comment on above: GFR Calc Estimated GFR (MDRD) Non-Af Amer 103 mL/min >60 [facility] Work Phone: [phone] Comment on above: Non- GFR Calc Thyroid Stimulating Hormone (TSH) 1.02 uIU/mL 0.358-3.74 [facility] Work Phone: [phone] Vitamin D 25-Hydroxy 31.8 ng/mL [facility] Work Phone: Comment on above: Vitamin D 25(OH) Sta tus Range Deficiency <20 ng/mL (50nmol/L) Insufficiency 20 - 30 ng/mL (50 - 75 nmol/L) Sufficiency 30 - 100 ng/mL (75 - 250 nmol/L) Toxicity >100 ng/mL (>250 nmol/L) Platelets bldon 02-12-2022 Platelets (Bld) [#/Vol] 134 10*3/uL 150-450 [facility] Work Phone: Serum or plasma albumin alex urement (mass/volume)on 02-12-2022 Albumin [Mass/Vol] 3.2 g/dL 3.2-5.0 [facility] Work Phone: [phone] Serum or plasma albumin/glob ulin mass ratioon 02-12-2022 Albumin/Globulin [Mass ratio] 0.9 {ratio} 0.9-2.4 [facility] Work Phone: [phone] Serum or plasma calcium alex urement (mass/volume)on 02-12-2022 Calcium [Mass/Vol] 8.9 mg/dL 8.5-10.1 [facility] Work Phone: [phone] Serum or plasma creatinine m easurement (mass/volume)on 02-12-2022 Creatinine [Mass/Vol] 0.62 mg/dL 0.55-1.02 [facility] Work Phone: Comment on above: The validity of the calculated GFR & GFRAA in patients over 70 years has not been determined. Clinical correlation is essential. Serum or plasma urea nitroge n measurement (mass/volume)on 02-12-2022 Urea nitrogen [Mass/Vol] 21 mg/dL 7-18 [facility] Work Phone: Thin prep Papanicolaou smear with manual screeningon 02-12-2022 Thin prep Papanicolaou smear with manual screening 17 U/L 15-37 [facility] Work Phone: Thin prep Papanicolaou smear with manual screening 9 5-15 [facility] Work Phone: 25-Hydroxy D2+D3on 25-Hydroxy D Total 26.2 ng/mL Low 30.0-100.0 [facility] Reference Lab Comment on above: Performed By: #### C MP, LIPB, TSH, CBCDIF #### [facility] Routine Lab [address] [phone] #### D2D3 #### [facility] Chemistry [address] [place], [place] [phone] 25-Hydroxy D2 <4.0 Normal [facility] Reference Lab Comment on above: Performed By: #### C MP, LIPB, TSH, CBCDIF #### [facility] Routine Lab [address] [phone] #### D2D3 #### [facility] Chemistry [address] [phone] 25-Hydroxy D3 26.2 ng/mL Normal [facility] Reference [facility] Comment on above: Performed By: #### C MP, LIPB, TSH, CBCDIF #### [facility] Routine Lab [address] [phone] #### D2D3 #### [facility] Chemistry [address] [place], [place] [address] Comp Metabolic Panelon 10-10 Albumin [Mass/Vol] 3.8 g/dL Low 3.9-4.9 [facility] Comment on above: Performed By: #### C MP, LIPB, TSH, CBCDIF #### [facility] Routine Lab [address] [place], [place] [address] #### D2D3 #### [facility] Chemistry [address] [place] [phone] ALP [Catalytic activity/Vol] 54 U/L Normal 34-123 [facility] Reference [facility] Comment on above: Performed By: #### C MP, LIPB, TSH, CBCDIF #### [facility] Routine Lab [address] [place] [address] #### D2D3 #### [facility] Chemistry [address] [place], [place] [phone] ALT [Catalytic activity/Vol] 9 U/L Normal 7-38 [facility] Reference [facility] Comment on above: Performed By: #### C MP, LIPB, TSH, CBCDIF #### [facility] Routine Lab [address], [place] [phone] #### D2D3 #### [facility] Chemistry [address] [place], [place] [address] Anion gap [Moles/Vol] 11 mmol/L Normal 9-[address] [facility] Reference Lab Comment on above: Performed By: #### C MP, LIPB, TSH, CBCDIF #### [facility] Routine Lab [address] [place], [place] [address] #### D2D3 #### [facility] Chemistry [address] [place], [place] [address] AST [Catalytic activity/Vol] 22 U/L Normal 13-35 [facility] Reference [facility] Comment on above: Performed By: #### C MP, LIPB, TSH, CBCDIF #### [facility] Routine Lab [address] [phone] #### D2D3 #### [facility] Chemistry [address] [place], [place] [address] Bilirubin Ql (U) 0.4 mg/dL Normal 0.2-1.3 [facility] Reference Lab Comment on above: Performed By: #### C MP, LIPB, TSH, CBCDIF #### [facility] Routine Lab [address] [phone] #### D2D3 #### [facility] Chemistry [address] [place] [phone] Calcium [Mass/Vol] 9.2 mg/dL Normal 8.5-10.2 [facility] Comment on above: Performed By: #### C MP, LIPB, TSH, CBCDIF #### [facility] Routine Lab [address] [phone] #### D2D3 #### [facility] Chemistry [address] [phone] Chloride [Moles/Vol] 100 mmol/L Normal 97-105 [facility] Reference Lab Comment on above: Performed By: #### C MP, LIPB, TSH, CBCDIF #### [facility] Routine Lab [address] [phone] #### D2D3 #### [facility] Chemistry [address] [phone] CO2 [Moles/Vol] 26 mmol/L Normal 22-30 [facility] Reference Lab Comment on above: Performed By: #### C MP, LIPB, TSH, CBCDIF #### [facility] Routine Lab [address] [phone] #### D2D3 #### [facility] Chemistry [address] [place], [place] [address] Creatinine [Mass/Vol] 0.58 mg/dL Normal 0.58-0.[address] [facility] Reference Lab Comment on above: Performed By: #### C MP, LIPB, TSH, CBCDIF #### [facility] Routine Lab [address] [place] [address] #### D2D3 #### [facility] Chemistry [address] [place] [address] eGFR- Amer. >60 Normal [facility] Reference Lab Comment on above: Performed By: #### C MP, LIPB, TSH, CBCDIF #### [facility] Routine Lab [address] [place] [address] #### D2D3 #### [facility] Chemistry [address] [place] [phone] GFR/1.73 sq M predicted among non-blacks MDRD (S/P/Bld) [Vol rate/Area] mL/min/{1.73_m2} Normal [facility] Reference Lab Comment on above: Performed By: #### C MP, LIPB, TSH, CBCDIF #### [facility] Routine Lab [address] [place] [address] #### D2D3 #### [facility] Chemistry [address] [place] [address] Glucose [Mass/Vol] 78 mg/dL Normal 74-99 [facility] Reference Lab Comment on above: Performed By: #### C MP, LIPB, TSH, CBCDIF #### [facility] Routine Lab [address] [place] [address] #### D2D3 #### [facility] Chemistry [address] [place] [address] Potassium [Moles/Vol] 4.4 mmol/L Normal 3.7-5.[address] [facility] Reference Lab Comment on above: Performed By: #### C MP, LIPB, TSH, CBCDIF #### [facility] Routine Lab [address] [place], [place] [address] #### D2D3 #### [facility] Chemistry [address] [place] [address] Protein [Mass/Vol] 5.9 g/dL Low 6.3-8.0 [facility] Comment on above: Performed By: #### C MP, LIPB, TSH, CBCDIF #### [facility] Routine Lab [address] [place] [address] #### D2D3 #### [facility] Chemistry [address] [place] [address] Sodium [Moles/Vol] 137 mmol/L Normal 136-144 [facility] Reference [facility] Comment on above: Performed By: #### C MP, LIPB, TSH, CBCDIF #### [facility] Routine Lab [address] [place] [address] #### D2D3 #### [facility] Chemistry [address] [place] [address] Urea nitrogen [Mass/Vol] 16 mg/dL Normal 7-21 [facility] Reference Lab Comment on above: Performed By: #### C MP, LIPB, TSH, CBCDIF #### [facility] Routine Lab [address] [place] [address] #### D2D3 #### [facility] Chemistry [address] [place] [address] Lipid Panel, [place] 021 Cholesterol [Mass/Vol] 189 mg/dL Normal <200 [facility] Reference Lab Comment on above: Performed By: #### C MP, LIPB, TSH, CBCDIF #### [facility] Routine Lab [address] [place], [place] [address] #### D2D3 #### [facility] Chemistry [address] [place], [place] [address] Cholesterol in HDL [Mass/Vol] 62 mg/dL Normal >39 [facility] Reference [facility] Comment on above: Performed By: #### C MP, LIPB, TSH, CBCDIF #### [facility] Routine Lab [address] [place], [place] [address] #### D2D3 #### [facility] Chemistry [address] [place], [place] [address] Cholesterol in LDL [Mass/Vol] 111 mg/dL High <100 [facility] Reference [facility] Comment on above: Performed By: #### C MP, LIPB, TSH, CBCDIF #### [facility] Routine Lab [address] [place] [phone] [phone] #### D2D3 #### [facility] Chemistry [address] [place] [phone] Cholesterol in VLDL [Mass/Vol] 16 mg/dL Normal <30 [facility] Reference [facility] Comment on above: Performed By: #### C MP, LIPB, TSH, CBCDIF #### [facility] Routine Lab [address] [place], [place] [address] #### D2D3 #### [facility] Chemistry [address] [place], [place] [address] Cholesterol non HDL [Mass/Vol] 127 mg/dL Normal <130 [facility] Comment on above: Performed By: #### C MP, LIPB, TSH, CBCDIF #### [facility] Routine Lab [address] [place], [place] [address] #### D2D3 #### [facility] Chemistry [address] [place], [place] [address] LDL:HDL Ratio 1.79 Normal <2.54 [facility] Reference [facility] Comment on above: Performed By: #### C MP, LIPB, TSH, CBCDIF #### [facility] Routine Lab [address] [place] [phone] #### D2D3 #### [facility] Chemistry [address] [place] [phone] TC:HDL Ratio 3.05 Normal <5.10 [facility] Comment on above: Performed By: #### C MP, LIPB, TSH, CBCDIF #### [facility] Routine Lab [address] [place] [phone] #### D2D3 #### [facility] Chemistry [address] [place] [phone] Triglyceride [Mass/Vol] 78 mg/dL Normal <150 [facility] Reference Lab Comment on above: Performed By: #### C MP, LIPB, TSH, CBCDIF #### [facility] Routine Lab [address] [place] [phone] #### D2D3 #### [facility] Chemistry [address] [place] [phone] TSHon 10-10-2020 TSH Qn 1.060 uU/mL Normal 0.270-4.200 [facility] Reference [facility] Comment on above: Performed By: #### C MP, LIPB, TSH, CBCDIF #### [facility] Routine Lab [address] [place] [phone] #### D2D3 #### [facility] Chemistry [address] [place] [phone] CBC and Differentialon 10-09 Abs Baso 0.03 k/uL Normal <0.11 [facility] Reference [facility] Comment on above: Performed By: #### C MP, LIPB, TSH, CBCDIF #### [facility] Routine Lab [address] [place] [address] [address] [phone] #### D2D3 #### [facility] Chemistry [address] [phone] Abs Mcpherson 0.89 k/uL High <0.87 [facility] Comment on above: Performed By: #### C MP, LIPB, TSH, CBCDIF #### [facility] Routine Lab [address] [phone] #### D2D3 #### [facility] Chemistry [address] [place] [phone] Abs Neut 1.93 k/uL Normal 1.45-7.50 [facility] Comment on above: Performed By: #### C MP, LIPB, TSH, CBCDIF #### [facility] Routine Lab [address] [place] [phone] #### D2D3 #### [facility] Chemistry [address] [place] [phone] Absolute nRBC <0.01 Normal <0.01 [facility] Comment on above: Performed By: #### C MP, LIPB, TSH, CBCDIF #### [facility] Routine Lab [address] [place] [phone] #### D2D3 #### [facility] Chemistry [address] [place] [phone] Basophils/100 WBC (Bld) 0.4 % Normal [facility] Reference Lab Comment on above: Performed By: #### C MP, LIPB, TSH, CBCDIF #### [facility] Routine Lab [address] [place] [phone] #### D2D3 #### [facility] Chemistry [address] [place] [phone] DTYPE ADIFF Normal [facility] Comment on above: Performed By: #### C MP, LIPB, TSH, CBCDIF #### [facility] Routine Lab [address] [place] [phone] #### D2D3 #### [facility] Chemistry [address] [phone] Eosinophils (Bld) [#/Vol] 10*3/uL Normal <0.46 [facility] Comment on above: Performed By: #### C MP, LIPB, TSH, CBCDIF #### [facility] Routine Lab [address] [phone] #### D2D3 #### [facility] Chemistry [address] [phone] Eosinophils/100 WBC (Bld) 0.3 % Normal [facility] Comment on above: Performed By: #### C MP, LIPB, TSH, CBCDIF #### [facility] Routine Lab [address] [place] [phone] #### D2D3 #### [facility] Chemistry [address] [place] [phone] Erythrocyte distribution width (RBC) [Ratio] 12.4 % Normal 11.5-15.0 [facility] Comment on above: Performed By: #### C MP, LIPB, TSH, CBCDIF #### [facility] Routine Lab [address] [phone] #### D2D3 #### [facility] Chemistry [address] [phone] Hematocrit (Bld) [Volume fraction] 41.8 % Normal 36.0-46.0 [facility] Comment on above: Performed By: #### C MP, LIPB, TSH, CBCDIF #### [facility] Routine Lab [address] [phone] #### D2D3 #### [facility] Chemistry [address] [phone] Hemoglobin (Bld) [Mass/Vol] 14.0 g/dL Normal 11.5-15.5 [facility] Comment on above: Performed By: #### C MP, LIPB, TSH, CBCDIF #### [facility] Routine Lab [address] [place], [place] [phone] #### D2D3 #### [facility] Chemistry [address] [place] [phone] Lymphocytes (Bld) [#/Vol] 4.29 10*3/uL High 1.00-4.00 [facility] Comment on above: Performed By: #### C MP, LIPB, TSH, CBCDIF #### [facility] Routine Lab [address] [place] [address] #### D2D3 #### [facility] Chemistry [address] [place] [address] Lymphocytes/100 WBC (Bld) 59.9 % Normal [facility] Comment on above: Performed By: #### C MP, LIPB, TSH, CBCDIF #### [facility] Routine Lab [address] [place] [address] #### D2D3 #### [facility] Chemistry [address] [place] [address] [phone] MCH (RBC) [Entitic mass] 35.1 pG High 26.0-34.0 [facility] Comment on above: Performed By: #### C MP, LIPB, TSH, CBCDIF #### [facility] Routine Lab [address] [place] [address] [phone] #### D2D3 #### [facility] Chemistry [address] [place] [address] MCHC (RBC) [Mass/Vol] 33.5 g/dL Normal 30.5-36.[address] [facility] Reference Lab Comment on above: Performed By: #### C MP, LIPB, TSH, CBCDIF #### [facility] Routine Lab [address] [phone] #### D2D3 #### [facility] Chemistry [address] [phone] MCV (RBC) [Entitic vol] 104.8 fL High 80.0-100.0 [facility] Reference [facility] Comment on above: Performed By: #### C MP, LIPB, TSH, CBCDIF #### [facility] Routine Lab [address] [phone] #### D2D3 #### [facility] Chemistry [address] [phone] Monocytes/100 WBC (Bld) 12.4 % Normal [facility] Reference [facility] Comment on above: Performed By: #### C MP, LIPB, TSH, CBCDIF #### [facility] Routine Lab [address] [place] [phone] #### D2D3 #### [facility] Chemistry [address] [phone] Neutrophils/100 WBC (Bld) 27.0 % Normal [facility] Comment on above: Performed By: #### C MP, LIPB, TSH, CBCDIF #### [facility] Routine Lab [address] [phone] #### D2D3 #### [facility] Chemistry [address] [phone] NRBCs 0.0 /100 WBC Normal 0 [facility] Comment on above: Performed By: #### C MP, LIPB, TSH, CBCDIF #### [facility] Routine Lab [address] [phone] #### D2D3 #### [facility] Chemistry [address] [phone] Platelet mean volume (Bld) [Entitic vol] 11.3 fL Normal 9.0-12.7 [facility] Comment on above: Performed By: #### C MP, LIPB, TSH, CBCDIF #### [facility] Routine Lab [address] [address] #### D2D3 #### [facility] Chemistry [address] [place] [address] Platelets (Bld) [#/Vol] 128 10*3/uL Low 150-400 [facility] Comment on above: Performed By: #### C MP, LIPB, TSH, CBCDIF #### [facility] Routine Lab [address] [place] [address] #### D2D3 #### [facility] Chemistry [address] [place] [address] RBC (Bld) [#/Vol] 3.99 10*6/uL Normal 3.90-5.20 [facility] Reference Lab Comment on above: Performed By: #### C MP, LIPB, TSH, CBCDIF #### [facility] Routine Lab [address] [place] [address] #### D2D3 #### [facility] Chemistry [address] [place] [address] WBC (Bld) [#/Vol] 7.16 10*3/uL Normal 3.70-11.00 [facility] Reference Lab Comment on above: Performed By: #### C MP, LIPB, TSH, CBCDIF #### [facility] Routine Lab [address] [place] [address] #### D2D3 #### [facility] Chemistry [address] [place] [address] Lipid Panel, Basicon 021 Fasting Time UN Normal [facility] Comment on above: Performed By: #### C MP, LIPB, TSH, CBCDIF #### [facility] Routine Lab [address] [place] [address] #### D2D3 #### [facility] Chemistry [address] [address] Vital Signs Date Time Vital Sign Value Performing Clinician Paul blackburn 07-06-2025 12:20-0400 Body height 152.[address] Benton Gonzalez MD Work Phone: 7(946)455-626246 [place] [address] 07-06-2025 12:20-0400 Body mass index (BMI) [Ratio] 20.5 kg/m2 Dr. Benton Gonzalez MD Work Phone: 5(186)985-647992 [place] [address] 07-06-2025 12:20-0400 Body temperature 96.5 [degF] Dr. Benton Gonzalez MD Work Phone: 3(067)670-617346 [place] [address] 07-06-2025 12:20-0400 Body weight 47.[address] Benton Gonzalez MD Work Phone: 6(041)016-796446 [place] [address] 07-06-2025 12:20-0400 Diastolic blood pressure 58 mm[Hg] Dr. Benton Gonzalez MD Work Phone: 3(164)931-970746 [place] [address] 07-06-2025 12:20-0400 Heart rate 72 /min Dr. Benton Gonzalez MD Work Phone: 0(784)816-512646 [place] [address] 07-06-2025 12:20-0400 Respiratory rate 16 /min Dr. Benton Gonzalez MD Work Phone: 2(748)787-208246 [place] [address] 07-06-2025 12:20-0400 SaO2% (BldA) [Mass fraction] 98 % Dr. Benton Gonzalez MD Work Phone: 6(701)773-889046 [place] [address] 07-06-2025 12:20-0400 Systolic blood pressure 107 mm[Hg] Dr. Benton Gonzalez MD Work Phone: 7(750)305-688746 [place] [address] 01-05-2025 12:16-0400 Body height 152.[address] Benton Gonzalez MD Work Phone: 1(515)497-058946 [place] [address] 01-05-2025 12:16-0400 Body mass index (BMI) [Ratio] 19.5 kg/m2 Dr. Benton Gonzalez MD Work Phone: [facility] 01-05-2025 12:16-0400 Body temperature 96.5 [degF] Dr. Benton Gonzalez MD Work Phone: 1(883)249-748946 [place] [address] 01-05-2025 12:16-0400 Body weight 45.[address] Benton Gonzalez MD Work Phone: 3(883)314-810846 [place] [address] 01-05-2025 12:16-0400 Diastolic blood pressure 61 mm[Hg] Dr. Benton Gonzalez MD Work Phone: 5(231)233-427646 [place] [address] 01-05-2025 12:16-0400 Heart rate 72 /min Dr. Benton Gonzalez MD Work Phone: 0(728)130-893892 [place] [address] 01-05-2025 12:16-0400 Respiratory rate 16 /min Dr. Benton Gonzalez MD Work Phone: 2(056)384-826292 [place] [address] 01-05-2025 12:16-0400 SaO2% (BldA) [Mass fraction] 96 % Dr. Benton Gonzalez MD Work Phone: 3(565)953-439046 [place] [address] 01-05-2025 12:16-0400 Systolic blood pressure 108 mm[Hg] Dr. Benton Gonzalez MD Work Phone: 7(766)985-505192 [place] [address] 10-05-2024 10:35-0500 Body temperature 97.7 [degF] Dr. Benton Gonzalez MD Work Phone: 1(407)887-134146 [place] [address] 10-05-2024 10:35-0500 Diastolic blood pressure 58 mm[Hg] Dr. Benton Gonzalez MD Work Phone: 1(646)942-518546 [place] [address] 10-05-2024 10:35-0500 Heart rate 82 /min Dr. Benton Gonzalez MD Work Phone: 4(778)577-900346 [place] [address] 10-05-2024 10:35-0500 Respiratory rate 16 /min Dr. Benton Gonzalez MD Work Phone: 0(305)869-684946 [place] [address] 10-05-2024 10:35-0500 Systolic blood pressure 122 mm[Hg] Dr. Benton Gonzalez MD Work Phone: [facility] 09-28-2024 10:42-0500 Body temperature 96.8 [degF] Dr. Benton Gonzalez MD Work Phone: [facility] 09-28-2024 10:42-0500 Diastolic blood pressure 45 mm[Hg] Dr. Benton Gonzalez MD Work Phone: [facility] 09-28-2024 10:42-0500 Heart rate 74 /min Dr. Benton Gonzalez MD Work Phone: [facility] 09-28-2024 10:42-0500 Respiratory rate 18 /min Dr. Benton Gonzalez MD Work Phone: [facility] 09-28-2024 10:42-0500 Systolic blood pressure 134 mm[Hg] Dr. Benton Gonzalez MD Work Phone: [facility] Encounters Encounter Date Encounter Type Care Provider Facility Start: 07-06-2025 End: 07-06-[address] Benton Gonzalez MD -Medical Out Work Phone: Start: 07-06-2025 End: 07-06-[address] Benton Gonzalez MD Work Phone: -[facility] Out Start: 03-15-2025 End: 03-15-[address] Benton Gonzalez MD Work Phone: [facility] Work Phone: Start: 03-15-2025 End: 03-15-[address] Benton Gonzalez MD -Radiology [facility] Work Phone: Start: 03-15-2025 End: 03-15-2025 ambulatory Benton Gonzalez Facility:[facility] Start: 02-13-2025 End: 02-13-2025 Telemedicine consultation with patient Nkechi Delcid APRN.DIAGNOSTIC SALES SPECIALIST Work Phone: Neurology Start: 02-13-2025 End: 02-13-2025 ambulatory Nkechi Delcid APRN.DIAGNOSTIC SALES SPECIALIST Work Phone: Neurology Comment on above: Generalized convulsi ve epilepsy (HCC) (Primary Dx) Start: 01-05-2025 End: 01-05-[address] Benton Gonzalez MD -Medical Out Work Phone: Start: 01-05-2025 End: 01-05-[address] Benton Gonzalez MD Work Phone: [facility] Work Phone: Start: 11-30-2024 End: 11-30-[address] Benton Gonzalez MD Work Phone: [facility] Work Phone: Start: 11-30-2024 End: 11-30-[address] Benton Gonzalez MD -Laboratory, Phy Office 3rd [facility] Start: 11-30-2024 End: 11-30-2024 ambulatory [facility] Facility:[facility] Start: 10-05-2024 ambulatory Mike Paynei ty:[facility] Start: 10-05-2024 Non-patient / Non-visit Dr. Anibal Santacruz MD -[facility] Work Phone: Start: 10-05-2024 End: 11-01-[address] Mike [facility]acruz [facility] Work Phone: Start: 10-05-2024 End: 11-01-2024 ambulatory Mike Santacruz Facility:[facility] Start: 10-03-2024 End: 10-03-[address] Benton Gonzalez MD -Outpatient Breast Imaging Work Phone: Start: 10-03-2024 End: 10-03-2024 ambulatory [facility] Facility:[facility] Start: 09-28-2024 End: 09-28-2024 ambulatory [facility] Facility:[facility] Start: 09-28-2024 ambulatory Efvenice Santacruz Facili ty:[facility] Start: 09-28-2024 Non-patient / Non-visit Dr. Anibal Santacruz MD -[facility] Work Phone: Start: 09-28-2024 End: 10-03-[address] Mike Santacruz MD -[facility] Work Phone: Start: 09-28-2024 End: 10-03-2024 ambulatory Mike Santacruz Facility:[facility] Start: 09-26-2024 End: 09-28-2024 Telephone encounter [...] 3rd Flr Start: 09-15-2024 End: 09-15-2024 ambulatory [facility] Facility:[facility] Start: 08-18-2024 End: 08-18-[address] Benton Gonzalez MD -Cardiovascular Services Work Phone: Start: 08-18-2024 End: 08-18-2024 ambulatory [facility] Facility:[facility] Start: 08-11-2024 End: 08-11-2024 ambulatory [facility] Facility:[facility] Start: 08-09-2024 End: 08-10-2024 Emergency department patient visit ANITA Rose SHERIDAN Facility:[facility] Start: 05-29-2024 End: 05-29-2024 Refill Abdoul Salmeron APRN.DIAGNOSTIC SALES SPECIALIST Work Phone: Neurology Comment on above: Refill Request Start: 05-26-2024 End: 05-26-2024 Refill Nicole Lujan APRN.DIAGNOSTIC SALES SPECIALIST Work Phone: Neurology Comment on above: Refill Request Start: 03-28-2024 End: 03-28-2024 ambulatory BENTON GONZALEZ Facility:[facility] Start: 01-06-2024 Refill Abdoul peña HEALTH AND SAFETY SPECIALIST.DIAGNOSTIC SALES SPECIALIST Work Phone: Neurology Comment on above: Refill Request Start: 12-08-2023 End: 12-08-2023 ambulatory [facility] Work Phone: Start: 12-08-2023 End: 12-08-2023 Patient encounter procedure [facility]-Radiology, [facility] Work Phone: Start: 11-24-2023 Refill Abdoul peña HEALTH AND SAFETY SPECIALIST.DIAGNOSTIC SALES SPECIALIST Work Phone: Neurology Comment on above: Refill Request Start: 09-20-2023 End: 09-20-2023 ambulatory [facility] Work Phone: Start: 09-20-2023 End: 09-20-2023 Patient encounter procedure [facility]-Outpatient Breast Imaging Work Phone: Start: 09-08-2023 End: 09-08-2023 ambulatory [facility] Work Phone: Start: 09-08-2023 End: 09-08-2023 Patient encounter procedure [facility]-Laboratory, Phy Office 3rd Flr Start: 08-17-2023 Refill Mónica jacob MD Work Phone: Neurology Comment on above: Refill Request Start: 08-11-2023 Refill Mónica jacob MD Work Phone: Neurology Comment on above: Refill Request Start: 08-02-2023 Telephone encounter Mónica Jc MD Work Phone: Neurology Comment on above: Forms (bmv) Start: 01-15-2023 End: 01-15-2023 Patient encounter procedure [facility]-Pulmonary Services/Neurology Work Phone: Start: 09-04-2022 End: 09-04-2022 ambulatory [facility] Work Phone: Start: 09-04-2022 End: 09-04-2022 Patient encounter procedure [facility]-Laboratory, Phy Office 3rd Flr Start: 07-10-2022 Telephone encounter Mónica Jc MD Work Phone: Neurology Comment on above: Medication Concern ( Divalproex) Start: 07-10-2022 End: 07-10-2022 ambulatory Mónica Wong MD Work Phone: Neurology Comment on above: Generalized convulsi ve epilepsy (HCC) (Primary Dx) Start: 07-10-2022 End: 07-10-2022 Telemedicine consultation with patient Mónica Wong MD Work Phone: [facility] Start: 07-08-2022 Refill Abdoul peña APRN.CNP Work Phone: Neurology Comment on above: Refill Request Start: 02-12-2022 End: 02-12-2022 Patient encounter procedure [facility]-Radiology, [facility] Start: 02-12-2022 End: 02-12-2022 Patient encounter procedure [facility]-Laboratory, Phy Office 3rd Flr Start: 05-25-2017 End: 05-30-2017 Ambulatory [facility] Facility:[facility] Procedures Date Procedure Procedure Detail Performing Clinician [...] SARS-CoV-2, Influenz a & RSV (PCR) Dr. eBnton Gonzalez MD Work Phone: Start: 08-18-2024 Plain x-ray of pelvi s and lower extremity Dr. Benton Gonzalez MD Work Phone: Start: 03-28-2024 Lipid 1996 panel - S karen or Plasma Nicole Lujan APRN.DIAGNOSTIC SALES SPECIALIST Work Phone: Start: 12-08-2023 Plain X-ray of [...] three views Start: 04-05-2014 Mammography Abdoul blake HEALTH AND SAFETY SPECIALIST.DIAGNOSTIC SALES SPECIALIST Work Phone: Plan of Treatment Date Care Activity Detail Author Start: 08-09-2034 Urine microalbumin profile DTaP,Tdap,Td Vaccine (2 - Td or Tdap) [facility] Start: 03-28-2029 Lipid panel Lipid Screening [facility] Start: 03-11-2028 Lipid 1996 panel - Serum or Plasma Lipid Screening [facility] Start: 03-11-2028 Lipid panel Lipid Screening [facility] Start: 08-09-2027 Diabetes Screening Diabetes Screenin [facility] Start: 03-28-2027 Diabetes Screening Diabetes Screenin [facility] Start: 03-11-2026 Diabetes Screening Diabetes Screenin g [facility] Start: 12-21-2024 End: 12-21-2024 Follow-up encounter 12/21/2024 10:30 AM EDT [facility] Neurology [address] [place] [address] Nkechi Delcid, HEALTH AND SAFETY SPECIALIST.DIAGNOSTIC SALES SPECIALIST [address] [place] [address] 3 mo Follow Up Neurology Comment on above: 3 mo Follow Up Start: 09-28-2024 End: 12-28-2024 levETIRAcetam [Mass/volume] in Serum or Plasma [facility] Work Phone: Comment on above: Expected: 09/28/2024 , Expires: 12/28/2024 Start: 09-28-2024 End: 12-28-2024 Valproate [Mass/volume] in Serum or Plasma [facility] Comment on above: Expected: 09/28/2024 , Expires: 12/28/2024 Start: 09-22-2024 End: 09-22-2024 Patient encounter procedure 09/22/2024 10:20 AM EST [facility] Neurology [address] [phone] Mónica Cleveland MD [address] [place] [address] My yearly appointment and bmv paperwork. Neurology Comment on above: My yearly appointmen t and bmv paperwork. Start: 07-20-2024 Shingrix Vaccine (2 of 2) Shingrix Vaccine (2 of 2) [facility] Start: 06-04-2024 Covid-19 Vaccine ( season) Covid-19 Vaccine ( season) [facility] Start: 06-04-2024 Influenza vaccination [facility] Start: 04-08-2024 DIABETES SCREEN DIABETES SCREEN [facility] Start: 10-04-2023 Behavioral Health Screening Behavioral Health Screening [facility] Start: 10-04-2023 Depression Assessment Depression Ass essment [facility] Start: 06-04-2023 Covid-19 Vaccine ( season) Covid-19 Vaccine ( season) [facility] Start: 06-04-2023 Influenza vaccination Influenza Vacc ine (#1) [facility] Start: 10-04-2022 Depression Assessment Depression Ass essment [facility] Start: 06-04-2022 Influenza vaccination INFLUENZA (#1) [facility] Start: 04-09-2022 COVID-19 VACCINE (4 - Booster for Pfizer series) COVID-19 VACCINE (4 - Booster for Pfizer series) [facility] Start: 10-04-2021 DEPRESSION ASSESSMENT DEPRESSION ASS ESSMENT [facility] Start: 06-24-2021 COVID-19 VACCINE (3 - Booster for Pfizer series) COVID-19 VACCINE (3 - Booster for Pfizer series) [facility] Start: 2020 RSV Vaccine (1 - 1-d ose 60+ series) RSV Vaccine (1 - 1-dose 60+ series) [facility] Start: 09-11-2019 LIPID SCREEN LIPID SCREEN [facility] Start: 09-14-2017 End: 09-14-2017 Appointment Appointment [facility] Work Phone: Start: 04-05-2015 Mammography [facility] Start: 04-05-2015 Screening for malign ant neoplasm of breast Mammogram Screening [facility] Start: 2010 Influenza vaccination LUNG CANCER SC REENING [facility] Start: 2010 Screening for malign ant neoplasm of lung Lung Cancer Screening [facility] Start: 2010 SHINGRIX VACCINE (1 of 2) SHINGRIX VACCINE (1 of 2) [facility] Start: 2005 COLOGUARD (FIT-DNA) COLOGUARD (FIT-D NA) [facility] Start: 2005 Colonoscopy COLONOSCOPY [facility] Start: 2005 COLORECTAL CANCER SCREENING COLORECTAL CANCER SCREENING [facility] Start: [address] COLONOGRAPHY [facility] Start: 2005 FECAL OCCULT BLOOD FECAL OCCULT BLOO D [facility] Start: 2005 Screening for malign ant neoplasm of colon [facility] Start: 2005 SIGMOIDOSCOPY SIGMOIDOSCOPY [facility] Start: 1990 HPV TESTING HPV TESTING [facility] Start: 1990 Screening for malign ant neoplasm of cervix HPV Testing [facility] Start: 1981 PAP TESTING PAP TESTING [facility] Start: 1981 Screening for malign ant neoplasm of cervix [facility] Start: 1979 Pneumococcal Vaccine : 50+ (1 of 2 - PCV) Pneumococcal Vaccine: 50+ (1 of 2 - PCV) [facility] Start: 1979 Urine microalbumin profile [facility] Start: 1978 Anxiety Screening Anxiety Screening [facility] Start: 1978 Depression Screening Depression Scre ening [facility] Start: 1978 HEPATITIS C SCREENING HEPATITIS C [facility] Start: 1978 Hepatitis C screening Hepatitis C [facility] Start: 1978 HIV SCREENING HIV SCREENING [facility] Start: 1978 HIV screening HIV Screening [facility] Start: 1966 PNEUMOCOCCAL (1 - PCV) PNEUMOCOCCAL (1 - PCV) [facility] Start: 1966 [facility]neumococcal vaccination [facility] Immunizations Immunization Date Immunization Notes Care Provider Fa cili 08-09-2024 tetanus toxoid, redu letha diphtheria toxoid, and acellular pertussis vaccine, adsorbed Mónica Wong MD Work Phone: [facility] 09-08-2023 influenza virus vaccine, unspecified formulation Nicole Lujan HEALTH AND SAFETY SPECIALIST.DIAGNOSTIC SALES SPECIALIST Work Phone: [facility] 02-12-2022 COVID-19 original vaccine, full dose, monovalent (MODERNA) Abdoul Salmeron HEALTH AND SAFETY SPECIALIST.DIAGNOSTIC SALES SPECIALIST Work Phone: [facility] 07-02-2021 influenza virus vaccine, unspecified formulation Mónica Wong MD Work Phone: [facility] Payers Date Payer Category Payer Medicare (Managed Care) MARIA TERESA MCNEILL HMO [id number] 2024 Medicaid [id number] 2024 Self-pay [id number] 2024 Unknown [id number] 2021 Medicare [id number] 2021 Medicaid [id number] 2017 Private Health Insurance [id number] Medicare [id number] Unknown [id number] Unknown [id number] 462 Unknown [id number] 462 Unknown [id number] 462 Unknown [id number] 462 Unknown [id number] 462 Unknown [id number] 462 Unknown [id number] 462 Unknown [id number]. 462 Unknown [id number] 462 Unknown [id number]. 462 Unknown [id number] 462 Social History Date Type Detail Facility Start: 12-03-2020 End: 12-03-2020 Tobacco smoking status [facility] Unknown if ever smoked [facility] Start: 1960 Sex Assigned At Female [facility] Start: 08-05-2015 End: 04-26-2024 Tobacco smoking status SCIS Smokes tobacco daily [facility] Start: 10-04-1975 History of tobacco use Cigarette Smo ker [facility] Start: 08-05-2015 End: 09-06-2023 Cigarettes smoked current (pack per day) - Reported 1 [facility] Start: 08-05-2015 End: 09-02-2022 Tobacco use and exposure Smokeless tobacco non-user [facility] Start: 11-29-2021 Alcohol intake 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) [facility] Start: 05-19-2021 History SDOH Alcohol Comment rare [facility] Start: 09-02-2022 End: 08-09-2024 Alcohol intake Ex-drinker (finding) [facility] Start: 09-02-2022 End: 09-06-2023 Tobacco use panel [facility] Adult Depression Screening Assessment 1 [facility] Start: 04-02-2021 Gender identity Identifies as female gender (finding) [facility] Start: 04-02-2021 Sexual orientation Heterosexual (fin daljit) [facility] Start: 12-14-2024 End: 01-06-2025 Sex Female (finding) [facility] Medical Equipment Procedure Code Equipment Code Equipment Origin al Text Equipment Identifier Dates Lens Acrysof Ultrasert +19 Diopter Acrylic Iol 1 Piece Foldable Uv Blue - [id number] Start: 08-12-2021 Lens Acrysof Ultrasert +19.5 Diopter Acrylic Iol 1 Piece Foldable Uv Blue - [id number] Start: 09-16-2021 Goals Date Patient Goal Desired Activity /State Functional Status Date Assessment Result Facility 11-18-2015 Are you deaf, or do you have serious difficulty hearing No 11/18/2015 3:04 PM Isabelle Burciaga (Rn), RN No [facility] 11-18-2015 Are you blind, or do you have serious difficulty seeing, even when wearing glasses No 11/18/2015 3:04 PM Isabelle Burciaga (Rn), RN No [facility] 11-18-2015 Do you have serious difficulty walking or climbing stairs No 11/18/2015 3:04 PM Isabelle Burciaga (Rn), RN No [facility] 11-18-2015 Do you have difficul ty dressing or bathing No 11/18/2015 3:04 PM Isabelle Burciaga (Rn), RN No [facility] 11-18-2015 Because of a physica l, mental, or emotional condition, do you have difficulty doing errands alone such as visiting a physician's office or shopping No 11/18/2015 3:04 PM Isabelle Burciaga (Rn), RN No [facility] Mental Status Date Assessment Result Facility 07-06-2025 Cognitive function Voice/Name [facility] Work Phone: 01-05-2025 Cognitive function Awake;Alert;A ppropriate; Follows Commands [facility] Work Phone: 11-18-2015 Because of a physica l, mental, or emotional condition, do you have serious difficulty concentrating, remembering, or making decisions No 11/18/2015 3:04 PM Isabelle Burciaga (Rn), RN No [facility] Clinical Notes 09-16-2021 to 03-16-2025 Nkechi Delcid, HEALTH AND SAFETY SPECIALIST.DIAGNOSTIC SALES SPECIALIST - 02/13/2025 2:02 PM EDTTelephone Encounter - Lisa Orozco RN - 09/28/2024 1:42 PM ESTTelephone Encounter - Lisa Orozco RN - 09/28/2024 1:42 PM EST Note Date & Type Note Facility 03-16-2025 Radiology Diagnostic study note [facility] [address] [place], [place] [address] Knee 4 or More Views MR#: [id number] Acct: [id number] Name: TOMEKA HARMON Rep #: [id number] : 1960 F 64 From: Tree Lyles MD PCP: Dr. Benton Gonzalez MD Status: MANUEL ROJAS Study:Knee 4 or More Views Date of Exam: 03/15/25 Exam# [id number] Ordering Dr: Benton Gonzalez MD PROCEDURE: KNEE 4 OR MORE VIEWS 03/15/2025 REASON FOR EXAM: KNEE PAIN TECHNIQUE: 4 view(s) of the left knee COMPARISON: None. FINDINGS: Mild osteopenia of the visualized bones. Degenerative joint disease. No fracture or dislocation is seen. No lytic or blastic bone lesion is noted. RAD/Knee 4 or More Views IMPRESSION: No evidence for acute abnormality. Reading Location: [place] [address] CC: Dr. Benton Gonzalez MD ~ Senior Engineering Specialist: Signed [facility] 02-13-2025 Note HNO ID: [id number] Author: NKECHI DELCDI APRN.DIAGNOSTIC SALES SPECIALIST Service: ? Author Type: Nurse Practitioner Type: Progress Notes Filed: 02/13/2025 16:54 Note Text: [facility] EPILEPSY CENTER VIRTUAL VISIT I have communicated my name and active licensure. The patient's identity and physical location were verified at the time of this visit. Either the patient or their legal business process representative has been informed of the risks and benefits of -- and alternatives to -- treatment through a remote evaluation and consents to proceed with the evaluation remotely. Patient on video by herself. Lives in [place], [place]. HISTORY OF PRESENT ILLNESS: Tomeka Harmon [...] Grandmother unknown type Macular Degen Mother ASSESSMENT: oTmeka Harmon is a 64 year old RH [...] grief, general health, lifestyle, documentation. Nkechi Delcid APRN.DIAGNOSTIC SALES SPECIALIST February 13, 2025 [facility] 02-13-2025 History of Presen t illness Narrative [facility] EPILEPSY CENTER VIRTUAL VISIT I have communicated my name and active licensure. The patient's identity and physical location were verified at the time of this visit. Either the patient or their legal business process representative has been informed of the risks and benefits of -- and alternatives to -- treatment through a remote evaluation and consents to proceed with the evaluation remotely. Patient on video by herself. Lives in [place], [place]. HISTORY OF PRESENT ILLNESS: Tomeka Harmon [...] unknown type Macular Degen Mother ASSESSMENT: Tomeka Hramon is a 64 year old RH female [...] February 13, 2025 documented in this encounter [facility] 09-28-2024 Telephone encount er Note Call was made to the patient, no answer. Detailed message was left requesting a trough level. Lisa Larose RN [facility] 09-28-2024 Miscellaneous Notes Formattin g of this [...] RN Form received: From (agency / facility): [facility] doorperson (if given): Special Case Unit Phone #: n/a Fax # : [phone] Information requested: Request for physician statement Patient of Dr. WILKS Forwarded to nurse. documented in this encounter [facility] 09-28-2024 Telephone encount er Note Levels ordered. Please advise trough level. Thank you. [facility] 09-28-2024 Evaluation note Diagnosis Onset Date Resolution Tobacco abuse acute September 282023 10:25am Traumatic open wound of left lower leg with delayed healing acute September 28, 2 024 10:25am Tobacco abuse acute October 10:16am Traumatic open wound of left lower leg with delayed healing acute October 05 10:16am [facility] Work Phone: [phone] Telephone encounter Note* Telephone Encounter - Lisa Garcia RN - 09/28/2024 11:29 AM EST BMV Last appointment 09/22/2024 Onset of seizures: age 10 Last seizure: 2008 Place order to check ASM level Lisa Garcia RN [facility]12-24-2024 Telephone encounter Note* Telephone Encounter - Lara Adm WhitmanDina shook - 09/26/2024 3:04 PM EST Form received: From (agency / facility): [facility] doorperson (if given): Special Case Unit Phone #: n/a Fax # : [phone] Information requested: Request for physician statement Patient of Dr. WILKS Forwarded to nurse. [facility]12-20-2024 NoteHNO ID: [id number] Author: MÓNICA CLEVELAND MD Service: ? Author Type: Physician Type: Progress Notes Filed: 09/22/2024 10:45 Note Text: EPILEPSY CENTER FOLLOW UP VISIT VIRTUAL VISIT I have communicated my name and active licensure. The patient's identity and physical location were verified at the time of this visit. Either the patient or their legal business process representative has been informed of the risks and [...] which included preparing to see the patient, [id number] patient care, and completing clinical documentation. Dale Coello.[facility]12-20-2024 History of Present illness Narrative* Mónica Cleveland MD - 09/22/2024 10:29 AM EST EPILEPSY CENTER FOLLOW UP VISIT VIRTUAL VISIT I have communicated my name and active licensure. The patient's identity and physical location wereverified at the time of this visit. Either the patient or their legal business process representative has been informed of the risks and [...] which included preparing to see the patient, [id number] patient care, and completing clinical documentation. Mónica Vega M.D [facility]08-[facility] Telephone encounter Note * Telephone Encounter - Abdoul Salmeron APRN.CNP - 05/29/2024 5:24 PM EDT The following approved medication requests have been transmitted electronically. Requested Prescriptions Signed Prescriptions Disp Refills levETIRAcetam (KEPPRA) 500 mg tablet 180 tablet 3 Sig: take 1 tablet twice daily Authorizing Provider: ABDOUL SALMERON APRN.CNP [facility]08-26-2024 Miscellaneous Notes* Telephone Encounter - Abdoul Salmeron [...] Please E-Scribe Caller Contact Number: Pharmacy Name: [facility] Number: [phone] Generic/ brand: 30 or 90 day supply requested: 90 Last appointment: 09/08/23 Next Appointment: 09/22/[address] Wilks [facility] Telephone encounter Note * Telephone Encounter - Tonia Love - 05/29/2024 1:19 PM EDT Prescription Refill: Requested by: pharmacy Please E-Scribe Caller Contact Number: Pharmacy Name: [facility] Number: [phone] Generic/ brand: 30 or 90 day supply requested: 90 Last appointment: 09/08/23 Next Appointment: 09/22/[address] Wilks [facility]08-23-2024 Telephone encounter Note* Telephone Encounter - Ambrosio Hutson PA-C - 05/26/2024 7:49 AM EDT The following approved medication requests have been transmitted electronically. Requested Prescriptions Signed Prescriptions Disp Refills divalproex DR (DEPAKOTE) 500 mg EC tablet 270 tablet 1 Sig: TAKE 1 TABLET EVERY MORNING AND TAKE 2 TABLETS EVERY EVENING Authorizing Provider: AMBROSIO HUTSON PA-C [facility]08-23-2024 Miscellaneous Notes* Telephone Encounter - Ambrosio Hutson [...] Please E-Scribe Caller Contact Number: Pharmacy Name: [facility] Number: [phone] Generic/ brand: 30 or 90 day supply requested: 90 Last appointment: 09/08/23 Next Appointment: 09/22/[address] Wilks documented in this encounter[facility]08-23-2024 Telephone encounter Note * Telephone Encounter - Tonia Love - 05/26/2024 7:26 AM EDT Prescription Refill: Requested by: pharmacy Please E-Scribe Caller Contact Number: Pharmacy Name: [facility] Number: [phone] Generic/ brand: 30 or 90 day supply requested: 90 Last appointment: 09/08/23 Next Appointment: 09/22/[address] Wilks [facility]04-04-2024 Miscellaneous Notes* Telephone Encounter - Nicole Lujan APRN.DIAGNOSTIC SALES SPECIALIST - 01/06/2024 9:48 AM EDT The following [...] Please E-Scribe Caller Contact Number: Pharmacy Name: [facility] Number: [phone] Generic/ brand: 30 or 90 day supply requested: 90 Last appointment: 09/08/23 Next Appointment: none Patient of Dr. Wilks documented in this encounter[facility]02-22-2024 Miscellaneous Notes* Telephone Encounter - Abdoul Salmeron [...] Please E-Scribe Caller Contact Number: Pharmacy Name: [facility] Number: [phone] Generic/ brand: 30 or 90 day supply requested: 90 Last appointment: 09/08/23 Next Appointment: none Patient of Dr. Wilks documented in this encounter[facility]11-15-2023 Miscellaneous Notes* Telephone Encounter - Abdoul Salmeron [...] Please E-Scribe Caller Contact Number: Pharmacy Name: [facility] Number: [phone] Generic/ brand: 30 or 90 day supply requested: 90 Last appointment: 07/10/22 Next Appointment: 09/06/[address] Wilks documented in this encounter[facility]11-13-2023 Miscellaneous Notes* Telephone Encounter - Lisa Garcia [...] Form received: From (agency / facility): [facility] doorperson (if given): Tomeka Harmon Phone #: [phone] Fax # : [phone] Information requested: Request for physician statement Patient of Dr. wilks documented in this encounterKind[facility]11-10-2023 Miscellaneous Notes* Telephone Encounter - Abdoul Salmeron [...] Please E-Scribe Caller Contact Number: Pharmacy Name: [facility] Number: [phone] Generic/ brand: generic 30 or 90 day supply requested: 90 Last appointment: 07/10/22 Next Appointment: needs to schedule an appt Patient of Dr. Wilks documented in this encounterKind[facility] Healthcare10-07-2022 Miscellaneous Notes* Telephone Encounter - Abdoul Salmeron APRN.CNP - 07/10/2022 1:58 PM EDT The following approved medication requests have been transmitted electronically. Requested Prescriptions Signed Prescriptions Disp Refills divalproex DR (DEPAKOTE) 500 mg EC tablet 270 tablet 3 Sig: Take 1 tablet by mouth every morning AND 2 tablets every evening. Authorizing Provider: MÓNICA CLEVELAND Ordering User: ABDOUL SALMERON APRN.DIAGNOSTIC SALES SPECIALIST * Telephone Encounter - Tonia Love - 07/10/2022 1:28 PM EDT Medication Concern Person Calling [facility] Name of medication Divalproex Concern with medication Clarification; directions unclear Patient of Dr. Wilks Forwarded to nurse. documented in this encounterKind[facility]10-07-2022 History of Present illness Narrative* Mónica Wong [...] the date of the service which included ygoi-[id number]-gluq patient care. Mónica Vega M.D documented in this encounterKindred Healthcare10-05-2022 Miscellaneous Notes* Telephone Encounter - Abdoul Salmeron APRN.DIAGNOSTIC SALES SPECIALIST - 07/08/2022 6:32 AM EDT The following approved medication requests have been transmitted electronically. 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 08/12/2021 08/12/2021 documented as of this encounter (statuses as of 07/08/2022) [facility]12-14-2021 History of Past illness Narrative* Problem Noted Date Resolved Date Combined form of age-related cataract, left eye 09/16/2021 09/16/2021 Nuclear senile cataract of both eyes 08/12/2021 08/12/2021 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 08/12/2021 08/12/2021 documented as of this encounter (statuses as of 07/10/2022) [facility]12-14-2021 History of Past illness Narrative* Problem Noted Date Resolved Date Combined form of age-related cataract, left eye 09/16/2021 09/16/2021 Nuclear senile cataract of both eyes 08/12/2021 08/12/2021 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 08/12/2021 08/12/2021 documented as of this encounter (statuses as of 07/10/2022) [facility]12-14-2021 History of Past illness Narrative* Problem Noted Date Diagnosed Date Resolved Date Combined form of age-related cataract, left eye 09/16/2021 09/16/2021 Nuclear senile cataract of both eyes 08/12/2021 08/12/2021 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 08/12/2021 08/12/2021 documented as of this encounter (statuses as of 08/13/2023) [facility]12-14-2021 History of Past illness Narrative* Problem Noted Date Diagnosed Date Resolved Date Combined form of age-related cataract, left eye 09/16/2021 09/16/2021 Nuclear senile cataract of both eyes 08/12/2021 08/12/2021 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 08/12/2021 08/12/2021 documented as of this encounter (statuses as of 08/16/2023) [facility]12-14-2021 History of Past illness Narrative* Problem Noted Date Diagnosed Date Resolved Date Combined form of age-related cataract, left eye 09/16/2021 09/16/2021 Nuclear senile cataract of both eyes 08/12/2021 08/12/2021 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 08/12/2021 08/12/2021 documented as of this encounter (statuses as of 08/18/2023) [facility]12-14-2021 History of Past illness Narrative* Problem Noted Date Diagnosed Date Resolved Date Combined form of age-related cataract, left eye 09/16/2021 09/16/2021 Nuclear senile cataract of both eyes 08/12/2021 08/12/2021 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 08/12/2021 08/12/2021 documented as of this encounter (statuses as of 11/25/2023) [facility]12-14-2021 History of Past illness Narrative* Problem Noted Date Diagnosed Date Resolved Date Combined form of age-related cataract, left eye 09/16/2021 09/16/2021 Nuclear senile cataract of both eyes 08/12/2021 08/12/2021 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 08/12/2021 08/12/2021 documented as of this encounter (statuses as of 01/06/2024) [facility] HealthcareEvaluation noteNo assessment information availableWooBelle[facility] Work Phone: Evaluation note* Diagnosis 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 documented in this encounter [facility] note* Diagnosis 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 documented in this encounter [facility] note* Diagnosis 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 documented in this encounter [facility] note* Diagnosis 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 documented in this encounter [facility] note* Diagnosis 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 documented in this encounter [facility] for referral (narrative)No reason for referral information availableWKettering Health Work Phone: Summary Purpose Family History No [...] section and content) DATE CREATED AUTHOR 03/30/2018 [facility] ([place]) DATE CREATED AUTHOR AUTHOR'S ORGANIZ ATION 10/11/2020 [facility] DATE CREATED AUTHOR AUTHOR'S ORGANIZ ATION 09/30/2024 [facility] DATE CREATED AUTHOR AUTHOR'S ORGANIZ ATION 02/14/2025 [facility] DATE CREATED AUTHOR AUTHOR'S ORGANIZ ATION 07/15/2025 [facility] Source Comments (unrecognize d section and content) In the event this informatio n is protected by the Federal Confidentiality of Alcohol and Drug Abuse Patient Records regulations: The Federal rules restrict any use of the information to criminally investigate or prosecute any alcohol or drug abuse patient.[facility] HealthcareIn the event this information is protected by the Federal Confidentiality of Alcohol and Drug Abuse Patient Records regulations: The Federal rules restrict any use of the information to criminally investigate or prosecute any alcohol or drug abuse patient.[facility] HealthcareIn the event this information is protected by the Federal Confidentiality of Alcohol and Drug Abuse Patient Records regulations: The Federal rules restrict any use of the information to criminally investigate or prosecute any alcohol or drug abuse patient.[facility] HealthcareIn the event this information is protected by the Federal Confidentiality of Alcohol and Drug Abuse Patient Records regulations: The Federal rules restrict any use of the information to criminally investigate or prosecute any alcohol or drug abuse patient.[facility] HealthcareIn the event this information is protected by the Federal Confidentiality of Alcohol and Drug Abuse Patient Records regulations: The Federal rules restrict any use of the information to criminally investigate or prosecute any alcohol or drug abuse patient.[facility] HealthcareIn the event this information is protected by the Federal Confidentiality of Alcohol and Drug Abuse Patient Records regulations: The Federal rules restrict any use of the information to criminally investigate or prosecute any alcohol or drug abuse patient.[facility] HealthcareIn the event this information is protected by the Federal Confidentiality of Alcohol and Drug Abuse Patient Records regulations: The Federal rules restrict any use of the information to criminally investigate or prosecute any alcohol or drug abuse patient.[facility] HealthcareIn the event this information is protected by the Federal Confidentiality of Alcohol and Drug Abuse Patient Records regulations: The Federal rules restrict any use of the information to criminally investigate or prosecute any alcohol or drug abuse patient.[facility] HealthcareIn the event this information is protected by the Federal Confidentiality of Alcohol and Drug Abuse Patient Records regulations: The Federal rules restrict any use of the information to criminally investigate or prosecute any alcohol or drug abuse patient.[facility] HealthcareIn the event this information is protected by the Federal Confidentiality of Alcohol and Drug Abuse Patient Records regulations: The Federal rules restrict any use of the information to criminally investigate or prosecute any alcohol or drug abuse patient.[facility] HealthcareIn the event this information is protected by the Federal Confidentiality of Alcohol and Drug Abuse Patient Records regulations: The Federal rules restrict any use of the information to criminally investigate or prosecute any alcohol or drug abuse patient.[facility]red HealthcareIn the event this information is protected by the Federal Confidentiality of Alcohol and Drug Abuse Patient Records regulations: The Federal rules restrict any use of the information to criminally investigate or prosecute any alcohol or drug abuse patient.[facility] HealthcareIn the event this information is protected by the Federal Confidentiality of Alcohol and Drug Abuse Patient Records regulations: The Federal rules restrict any use of the information to criminally investigate or prosecute any alcohol or drug abuse patient.[facility] Reason for Visit (unrecogniz ed section and content) Reason Comments Refill Request Reason Comments Epilepsy Reason Comments Medication Concern Divalproex Reason Onset Date Comments Refill Request 08/11/2023 Reason Comments Forms bmv Reason Onset Date Comments Refill Request 08/17/2023 Reason Comments Seizures Reason Comments Forms BMV Reason Comments Follow Up Refill Request Seizures Care Teams (unrecognized sec tion and content) System Planning Engineer Relationship Specialty Start Date End Date [facility]Benton [facility] - General Gerontology 09/11/14 System Planning Engineer Relationship Specialty Start Date End Date CarlosBenton [facility] - General Gerontology 09/11/14 System Planning Engineer Relationship Specialty Start Date End Date Benton Gonzalez [facility] - General Gerontology 09/11/14 Team Status: Active Member Role Status Dates Dr. Benton Gonzalez MD Family Provider Active Dr. Benton Gonzalez MD Primary Care Provider Active Team Status: Inactive Member Role Status Dates Dr. Benton Gonzalez MD Primary Care Provi zhao, Attending Provider, Referring Provider Active System Planning Engineer Relationship Specialty Start Date End Date Benton Gonzalez [facility] - General Gerontology 09/11/14 System Planning Engineer Relationship Specialty Start Date End Date Benton Gonzalez [facility] - General Gerontology 09/11/14 Team Status: Inactive Member Role Status Dates Dr. Benton Gonzalez MD Primary Care Provider, Attending Provider Active System Planning Engineer Relationship Specialty Start Date End Date Benton Gonzalez [facility] - General Gerontology 09/11/14 Team Status: Inactive Member Role Status Dates Dr. Benton Gonzalez MD Primary Care Provider Active Dr. Stephanie Nolan MD Attending Provider, Referring Pr ovider Active System Planning Engineer Relationship Specialty Start Date End Date Benton Gonzalez [facility] - General Gerontology 09/11/14 System Planning Engineer Relationship Specialty Start Date End Date Benton [...] January 05, 2025 End: January 05, 2025 System Planning Engineer Relationship Specialty Start Date End Date Benton [...] 06, 2025 End: July 06, 2025 Dr. Bentno Gonzalez MD Attending physician Active Start: July [...] BE BASED ON THE PRIMARY CLINICAL RECORDS. Recorded Future [facility]. provides no warranty or guarantee of the accuracy or completeness of information in this document.
== END | disposition home or self-care (01) ==
LOC: MRI 08:37
PROVIDERS: PCP Family Medicine Geriatric Medicine; Referring Provider Nurse Practitioner Family; Visit Provider Nurse Practitioner Family
DX: M23.91 Unspecified internal derangement of right knee (principal)
CPT/HCPCS: 73721